=== PATIENT | female | born 1940 | race Caucasian/White ===

== ENCOUNTER 2020-09-27 12:21 | Outpatient (REF) | payer MEDICARE, SELFPAY ==
--- NOTE | 2020-09-27 | MM_ITS ---
EXAMINATION: MM SCREENING DIGITAL BREAST TOMOSYNTHESIS, BILATERAL CLINICAL INFORMATION: Remote right breast cancer status post lumpectomy 2004. Due for yearly exam. COMPARISON: Mammography: 08/20/2019, 08/02/2018, 07/31/2017, 07/12/2016, 06/23/2015 TECHNIQUE: Digital breast tomosynthesis is performed in both the craniocaudal and mediolateral oblique views along with computer-aided detection (CAD). Synthesized 2D images are generated from the tomosynthesis. Additional right exaggerated CC view is provided. FINDINGS: The breasts are heterogeneously dense, which may obscure small masses (ACR BI-RADS breast composition Category c). Right breast post therapy changes are again seen with mild reduced breast size and stable scarring. Neither breast shows interval mass or architectural abnormality or abnormal calcifications. There are bilateral vascular and some round calcifications. There are no significant changes from prior studies. MM/MM tomosynthesis screening BI IMPRESSION: No significant changes from prior studies. Post therapy changes right breast. ASSESSMENT: BI-RADS 2: Benign RECOMMENDATION: Routine annual mammography screening. This patient's information was entered into a reminder system with a target due date for their next mammogram.
== END 2020-09-27 12:22 | disposition home or self-care (01) ==
LOC: HO.MAMMO 12:21
PROVIDERS: PCP Internal Medicine Medical Oncology; Visit Provider Internal Medicine Medical Oncology
DX: Z12.31 Encounter for screening mammogram for malignant neoplasm of breast (principal)
CPT/HCPCS: 77063; 77067

== ENCOUNTER 2021-01-03 09:16 | Outpatient (REF) | payer MEDICARE, SELFPAY ==
[2021-01-03 13:45] LABS: MANUAL DIFF FLAG NO
[2021-01-03 13:58] LABS: Basophils Percent Auto 0.7 % (0-2); Eosinophils Absolute Auto 0.1 X10*3/uL (0.0-0.4); Hematocrit 48.2 % (37-47); Hemoglobin 15.6 g/dl (12.0-16.0); Imm Gran Abs Auto 0.03 X10*3/uL (0.00-0.03); Imm Gran Pct Auto 0.5 % (0.0-0.4); Lymphocytes Absolute Auto 0.9 X10*3/uL (1.2-4.9); Lymphocytes Percent Auto 15.9 % (20-40); Mean Corpuscular HGB Conc 32.4 g/dl (31.0-35.0); Mean Corpuscular Hemoglobin 31.6 pg (27.0-33.0); Mean Corpuscular Volume 97.6 fL (80-98); Mean Platelet Volume 10.4 fL (9.4-12.3); Monocytes Absolute Auto 0.7 X10*3/uL (0.1-1.2); Monocytes Percent Auto 11.5 % (2-11); Neutrophils Absolute Auto 4.1 X10*3/uL (2.0-8.3); Neutrophils Percent Auto 69.4 % (45-73); Platelet Count 187 X10*3/uL (160-400); Red Blood Count 4.94 X10*6/uL (4.20-5.50); Red Cell Distribution Width 14.3 % (11.0-16.0); White Blood Count 5.9 X10*3/uL (4.8-10.8)
[2021-01-03 14:08] LABS: Glucose Urine UA NEG (NEG); Leukocyte Esterase Urine NEG (NEG); Nitrite Urine NEG (NEG); Specific Gravity - Urine 1.025 (1.005-1.025); Urine Blood NEG (NEG); Urine Ketones NEG (NEG); Urine Protein NEG (NEG-TRACE)
[2021-01-03 14:18] LABS: Alanine Aminotransferase 13 U/L (0-31); Alkaline Phosphatase 72 U/L (39-117); Anion Gap 15 (12-20); Aspartate Amino Transferase 21 U/L (5-31); Blood Urea Nitrogen 19 mg/dL (9-16); Calcium 9.1 mg/dL (8.4-10.2); Carbon Dioxide 26 mmol/L (22-29); Chloride 105 mmol/L (96-108); Cholesterol 163 mg/dL; Estimated Glomerular Filt Rate > 60; Glucose Fasting 105 mg/dL (60-99); HDL Cholesterol 66 mg/dL; LDL Cholesterol Calculated 84 mg/dl; Potassium 4.4 mmol/L (3.3-5.1); Sodium 142 mmol/L (135-145); Total Protein 6.4 g/dL (6.5-8.0); Triglycerides 65 mg/dL
[2021-01-03 14:24] LABS: Appearance Urine CLEAR; Color Urine YELLOW
[2021-01-03 14:38] LABS: Free T4 (Free Thyroxine) 1.01 ng/dL (0.71-1.85); Thyroid Stimulating Hormone 4.35 uIU/mL (0.32-4.0)
== END 2021-01-03 09:17 | disposition home or self-care (01) ==
LOC: HO.10HDL 09:16
PROVIDERS: Visit Provider Internal Medicine Medical Oncology
DX: D05.10 Intraductal carcinoma in situ of unspecified breast (principal); E78.5 Hyperlipidemia, unspecified
CPT/HCPCS: 36415; 80053; 80061; 81003; 84439; 84443; 85025

== ENCOUNTER 2021-01-05 10:09 | Outpatient (REF) | payer MEDICARE, SELFPAY | END 2021-01-05 10:10 | disposition home or self-care (01) | LOC: HO.LAB 10:09 | PROVIDERS: Visit Provider Internal Medicine | DX: Z20.822 Contact with and (suspected) exposure to COVID-19 (principal) | CPT/HCPCS: 36415; C9803; U0003; U0005 ==

== ENCOUNTER 2021-04-12 10:26 | Emergency (ER) | payer MEDICARE, SELFPAY ==
--- NOTE | ~2021-04-12 | CT_ITS ---
EXAMINATION: CT ABDOMEN AND PELVIS WITH CONTRAST CLINICAL INFORMATION: Vomiting, confusion constipation. Evaluate for obstruction. COMPARISON: None TECHNIQUE: Multidetector volumetric images were obtained from the superior aspect of the liver through the pubic symphysis following administration 85 mL of Omnipaque 350 intravenous contrast. Sagittal and coronal reformatted images were obtained on the technologist's workstation. Oral contrast: Yes This CT examination was performed using dose optimization techniques as appropriate, variously including the following: *Automated exposure control *Adjustment of mA and/or kV according to patient size (this includes techniques or standardized protocols for targeted exams where dose is matched to indication/reason for exam; i.e. extremities or head) *Use of iterative reconstruction technique DLP: 383 mGy-cm FINDINGS: LUNG BASES: The visualized lung bases are unremarkable. LIVER, GALLBLADDER, AND BILIARY TREE: The liver is normal in size, shape, and attenuation. No focal hepatic lesion or biliary ductal dilatation is present. The gallbladder is upper normal in size. No gallstones are seen. PANCREAS: Unremarkable. SPLEEN: Unremarkable. ADRENAL GLANDS: Unremarkable. KIDNEYS AND URETERS: There is a small low-attenuation lesion in the upper pole left kidney measuring 6 mm probably representing a cyst. No hydronephrosis, hydroureter, or calculi seen. No perinephric stranding. BLADDER: Unremarkable. GASTROINTESTINAL TRACT: There is diverticulosis of the colon. There is long segment wall thickening of the left colon and sigmoid colon and some stranding of the surrounding fat. Colitis and diverticulitis should be considered small and large bowel is otherwise unremarkable. There is no evidence of obstruction. ABDOMINAL WALL: No significant hernia is appreciated. LYMPH NODES: Normal. VASCULAR: There is evidence of atherosclerotic disease. No aneurysm is seen. PELVIC VISCERA: The uterus may been removed. No pelvic mass is seen. OSSEOUS STRUCTURES: There is thoracolumbar scoliosis and degenerative changes of the spine CT/CT abdomen pelvis w con IMPRESSION: Diverticulosis of the colon. Long segment wall thickening of the left colon. Colitis and diverticulitis should be considered. Long segment distribution favors colitis. No evidence of obstruction. Upper normal-size gallbladder. No gallstones are seen.
[2021-04-12 10:43] VITALS: BP 152/81; PULSE 78; RESP 16; TEMP 36.8; O2SAT 97; BMI 22.4
[2021-04-12 11:38] LABS: MANUAL DIFF FLAG NO
[2021-04-12 11:43] LABS: Basophils Percent Auto 0.2 % (0-2); Hemoglobin 17.3 g/dl (12.0-16.0); Imm Gran Abs Auto 0.04 X10*3/uL (0.00-0.03); Imm Gran Pct Auto 0.4 % (0.0-0.4); Lymphocytes Absolute Auto 0.9 X10*3/uL (1.2-4.9); Lymphocytes Percent Auto 7.9 % (20-40); Mean Corpuscular HGB Conc 33.9 g/dl (31.0-35.0); Mean Corpuscular Hemoglobin 32.6 pg (27.0-33.0); Mean Corpuscular Volume 96.2 fL (80-98); Mean Platelet Volume 9.7 fL (9.4-12.3); Monocytes Absolute Auto 0.6 X10*3/uL (0.1-1.2); Monocytes Percent Auto 5.8 % (2-11); Neutrophils Absolute Auto 9.3 X10*3/uL (2.0-8.3); Neutrophils Percent Auto 85.7 % (45-73); Platelet Count 227 X10*3/uL (160-400); Red Cell Distribution Width 13.5 % (11.0-16.0); White Blood Count 10.8 X10*3/uL (4.8-10.8)
[2021-04-12 11:48] LABS: Glucose Urine UA NEG (NEG); Leukocyte Esterase Urine 1+ (NEG); Nitrite Urine NEG (NEG); Specific Gravity - Urine >= 1.030 (1.005-1.025); UACC Culture Trigger YES; Urine Blood 1+ (NEG); Urine Ketones 15 MG/DL (NEG); Urine Protein TRACE MG/DL (NEG-TRACE)
[2021-04-12 11:53] LABS: Appearance Urine HAZY; Color Urine YELLOW
[2021-04-12] MEDS: 0.9 % Sodium Chloride 500 ML 999 ML IV ×2 (11:58→14:11)
--- NOTE | 2021-04-12 11:58 | ED_ITS ---
HPI - Nausea/Vomiting/Diarrhea General Chief complaint: Nausea/Vomiting/Diarrhea Stated complaint: nauseous Time Seen by Provider: 04/12/21 11:31 Source: patient Mode of arrival: ambulatory Limitations: altered mental status History of Present Illness HPI Narrative: 80-year-old female with a past medical history of dementia here with complaints of multiple episodes of vomiting throughout the night. Patient is unable to give much of a detailed history of present illness due to her confusion. Per the son he witnessed her to have vomited several times last evening and again this morning. It was NBNB. he does not think she has had any abdominal pain. She tells me that she moved her bowels this morning and appeared normal but then changed her mind she could not recall her exact bowel movement. She denies any urinary symptoms, fevers, chills, cough, shortness breath, headache, dizziness. Again HPI is limited as well as review of systems as she does have baseline confusion MD elicited complaint: nausea and vomiting Associated nausea: Yes Related Data Previous Rx's Medication Instructions Recorded levofloxacin 500 mg PO DAILY 7 Days #7 tab 04/12/21 metronidazole [Flagyl] 500 mg PO TID #21 tab 04/12/21 ondansetron 4 mg PO Q6H PRN #10 tab 04/12/21 Allergies Allergy/AdvReac Type Severity Reaction Status Date / Time Penicillins [PENICILLINS] Allergy Unknown RASH Verified 04/12/21 10:33 Sulfa (Sulfonamide Allergy Unknown RASH Verified 04/12/21 10:33 Antibiotics) [SULFA (SULFONAMIDE ANTIBIOTICS)] Review of Systems Review of Systems: Yes Unobtainable due to mental status Gastrointestinal: Gastrointestinal: Reports nausea and Reports vomiting Neurologic: Denies Abnormal speech present [facility] Past Medical History Attestation statement: The following information was validated with the patient. Source: old records reviewed and nursing notes reviewed Medical History Alzheimer disease Social History Social History Patient Tobacco Use Status: Never used Tobacco Use of substances other than those prescribed or required for medical reasons: No Advance Directives: No Advance Directives Information Provided: No Physical Exam Vital Signs: Vital Signs: Last Vital Signs Temp 97.5 F 04/12/21 15:33 Pulse 81 04/12/21 15:33 Resp 18 04/12/21 15:33 BP 151/78 H 04/12/21 15:33 Pulse Ox 98 04/12/21 15:33 Body Mass Index 22.4 Const: General: cooperative, healthy appearing, comfortable and no acute distress Orientation/consciousness: oriented to person and oriented to place Limitations: no limitations HENMT: Head: Yes normal to inspection Ears: hearing grossly normal bilaterally General nose exam: Normal external nose present Face and sinus: Yes normal facial exam Mouth: Normal oral and palatal mucosa present Throat: Yes posterior oropharynx normal Eyes: General: appearance normal, both eyes and all related structures Pupils: Equal, round and reactive pupils present Neck: Neck: Yes normal visual inspection Chest: Chest palpation & inspection: normal inspection of the chest Resp: Effort & Inspection: normal respiratory effort Auscultation: clear to auscultation bilaterally Cardio: Rate: regular rate Rhythm: regular rhythm Peripheral pulses: Peripheral pulses 2+ throughout GI: Inspection: Yes normal to inspection Palpation (GI): Soft to palpation and nontender Auscultation: normal bowel sounds Back/Spine/Pelvis: Thoracic/Lumbar Spine: thoracic and lumbar spine normal to inspection Skin: General skin exam: no rashes or lesions noted Neuro: General: oriented to person, oriented to place, no focal motor deficits and normal sensation to monofilament Cranial nerves: Yes CN's II-XII intact bilaterally, Yes Equal, round and reactive pupils present, Yes Bilaterally intact EOM present, Yes Nystagmus not present, Yes Normal facial strength present and Yes Midline tongue present Cognition (Neuro): normal cognition Speech: No Abnormal speech present Gait exam (Neuro): Normal gait present Motor exam (neuro): 5/5 motor strength present throughout Sensory Exam: Nicolle l double simultaneous stimulation for sensation Coordination: [id number] test normal and [id number] test normal Extrem: General: Yes normal to inspection Course Course Course Narrative: 80-year-old female here with complaints of vomiting throughout the night. Patient has dimension so the exam in history of present illness is limited due to her confusion. Per the son she is at her baseline. Normal neuro exam. hemodynamically stable. Will check labs and urine sample. 1159- UA is consistent with a UTI. At this time infection suspected. Blood cultures and lactic acid have already been drawn. Antibiotics ordered. Will check CTA/ P to rule out pyelonephritis, renal colic or obstruction 1545- CT shows colitis but no other acute finding. Will attempt p.o. trial and if patient able to tolerate will discharge home with course of antibiotics 1620- patient ate 4 crackers and 8 oz of ruben valerie. no additional vomiting episodes and she feels well. Discussed with family and they are comfortable with her going home on oral antibiotics. Reviewed worrisome signs and symptoms such as fever, 2 or more vomiting episodes, abdominal pain and when to return to the emergency department. Comfortable discharge home. MDM - Nausea/Vomiting/Diarrhea MDM Narrative Medical decision making narrative: UTI, small-bowel obstruction, pyelonephritis Medical Records Attestation: I reviewed the patient's medical records. Lab Data Attestation: I reviewed the patient's lab results. Result diagrams: 04/12/21 11:29 04/12/21 13:24 Labs: Lab Results 04/12/21 04/12/21 04/12/21 Range/Units 11:29 11:29 12:02 WBC 10.8 (4.8-10.8) X10*3/uL RBC 5.30 (4.20-5.50) X10*6/uL Hgb 17.3 H (12.0-16.0) g/dl Hct 51.0 H (37-47) % MCV 96.2 (80-98) fL MCH 32.6 (27.0-33.0) pg MCHC 33.9 (31.0-35.0) g/dl RDW 13.5 (11.0-16.0) % Plt Count 227 (160-400) X10*3/uL MPV 9.7 (9.4-12.3) fL Immature Gran % (Auto) 0.4 (0.0-0.4) % Neut % (Auto) 85.7 H (45-73) % Lymph % (Auto) 7.9 L (20-40) % [place] % (Auto) 5.8 (2-11) % Eos % (Auto) 0.0 (0-4) % Baso % (Auto) 0.2 (0-2) % Lymph # (Auto) 0.9 L (1.2-4.9) X10*3/uL [place] # (Auto) 0.6 (0.1-1.2) X10*3/uL Eos # (Auto) 0.0 (0.0-0.4) X10*3/uL Baso # (Auto) 0.0 (0.0-0.2) X10*3/uL Abs Immat Gran (auto) 0.04 H (0.00-0.03) X10*3/uL Absolute Neuts (auto) 9.3 H (2.0-8.3) X10*3/uL Absolute Nucleated RBC 0.000 (0.0-0.012) X10*3/uL Nucleated RBC % (auto) 0.0 (0.0-0.2) /100WBC Sodium (135-145) mmol/L Potassium (3.3-5.1) mmol/L Chloride (96-108) mmol/L Carbon Dioxide (22-29) mmol/L Anion Gap (12-20) BUN (9-16) mg/dL Creatinine (0.5-1.4) mg/dL Estim Creat Clear Calc Estimated GFR Random Glucose (60-115) mg/dL Lactic Acid 1.4 (0.5-2.0) mmol/L Calcium (8.4-10.2) mg/dL Magnesium (1.6-2.6) mg/dL Total Bilirubin (0.0-1.0) mg/dL Direct Bilirubin (0.0-0.5) mg/dL AST (5-31) U/L ALT (0-31) U/L Alkaline Phosphatase (39-117) U/L Total Protein (6.5-8.0) g/dL Albumin (3.5-5.0) g/dL Lipase (8-78) U/L Urine Color YELLOW Urine Appearance HAZY Urine pH 6.0 (5.0-8.0) Ur Specific [place] >= 1.030 H (1.005-1.025) Urine Protein TRACE (NEG-TRACE) MG/DL Urine Glucose (UA) NEG (NEG) MG/DL Urine Ketones 15 (NEG) MG/DL Urine Blood 1+ H (NEG) Urine Nitrite NEG (NEG) Ur Leukocyte Esterase 1+ H (NEG) Urine RBC 0-2 (0) /HPF Urine WBC 1-4 (0-4) /HPF Ur Squamous Epith Cells TRACE /LPF Ur Renal Epithelial Cell 1+ /LPF Amorphous Sediment /LPF Urine Bacteria 1+ /LPF Hyaline Casts 0-2 /LPF Urine Mucus TRACE /LPF 04/12/21 04/12/21 Range/Units 13:24 15:37 WBC (4.8-10.8) X10*3/uL RBC (4.20-5.50) X10*6/uL Hgb (12.0-16.0) g/dl Hct (37-47) % MCV (80-98) fL MCH (27.0-33.0) pg MCHC (31.0-35.0) g/dl RDW (11.0-16.0) % Plt Count (160-400) X10*3/uL MPV (9.4-12.3) fL Immature Gran % (Auto) (0.0-0.4) % Neut % (Auto) (45-73) % Lymph % (Auto) (20-40) % [place] % (Auto) (2-11) % Eos % (Auto) (0-4) % Baso % (Auto) (0-2) % Lymph # (Auto) (1.2-4.9) X10*3/uL [place] # (Auto) (0.1-1.2) X10*3/uL Eos # (Auto) (0.0-0.4) X10*3/uL Baso # (Auto) (0.0-0.2) X10*3/uL Abs Immat Gran (auto) (0.00-0.03) X10*3/uL Absolute Neuts (auto) (2.0-8.3) X10*3/uL Absolute Nucleated RBC (0.0-0.012) X10*3/uL Nucleated RBC % (auto) (0.0-0.2) /100WBC Sodium 144 (135-145) mmol/L Potassium 3.3 D (3.3-5.1) mmol/L Chloride 111 H (96-108) mmol/L Carbon Dioxide 20 L (22-29) mmol/L Anion Gap 16 (12-20) BUN 14 (9-16) mg/dL Creatinine 0.86 (0.5-1.4) mg/dL Estim Creat Clear Calc 36.8 Estimated GFR > 60 Random Glucose 114 (60-115) mg/dL Lactic Acid (0.5-2.0) mmol/L Calcium 9.4 (8.4-10.2) mg/dL Magnesium 2.4 (1.6-2.6) mg/dL Total Bilirubin 0.5 (0.0-1.0) mg/dL Direct Bilirubin 0.3 (0.0-0.5) mg/dL AST 22 (5-31) U/L ALT 12 (0-31) U/L Alkaline Phosphatase 71 (39-117) U/L Total Protein 6.6 (6.5-8.0) g/dL Albumin 4.2 (3.5-5.0) g/dL Lipase < 4 L (8-78) U/L Urine Color YELLOW Urine Appearance CLEAR Urine pH 5.5 (5.0-8.0) Ur Specific [place] >= 1.030 H (1.005-1.025) Urine Protein TRACE (NEG-TRACE) MG/DL Urine Glucose (UA) NEG (NEG) MG/DL Urine Ketones 15 (NEG) MG/DL Urine Blood NEG (NEG) Urine Nitrite NEG (NEG) Ur Leukocyte Esterase TRACE H (NEG) Urine RBC 0 (0) /HPF Urine WBC 5-9 H (0-4) /HPF Ur Squamous Epith Cells 1+ /LPF Ur Renal Epithelial Cell /LPF Amorphous Sediment TRACE /LPF Urine Bacteria NONE /LPF Hyaline Casts /LPF Urine Mucus /LPF Imaging Data CT scan - abdomen: Attestation: I personally reviewed and interpreted this imaging study as follows: Radiologist's impression: IMPRESSION: Diverticulosis of the colon. Long segment wall thickening of the left colon. Colitis and diverticulitis should be considered. Long segment distribution favors colitis. No evidence of obstruction. Upper normal-size gallbladder. No gallstones are seen. Discharge Plan Discharge Clinical Impression: Colitis, Acute UTI Patient Disposition: Home, Self-Care Instructions: Colitis (ED), Urinary Tract Infection in Older Adults (ED) Additional Instructions: Start antibiotics tomorrow Increase fluids, rest Return for 2 or more vomiting episodes, fever >100.4, abdominal pain Prescriptions: New ondansetron 4 mg tablet,disintegrating 4 mg PO Q6H PRN (Reason: nausea and vomiting) Qty: 10 RF: 0 metronidazole [Flagyl] 500 mg tablet 500 mg PO TID Qty: 21 RF: 0 levofloxacin 500 mg tablet 500 mg PO DAILY 7 Days Qty: 7 RF: 0 Referrals: Mick Norwood MD [Primary Care Provider] - 2 days
[2021-04-12 12:02] LABS: Bacteria Urine 1+ /LPF; Hyaline Casts Urine 0-2 /LPF; Mucus Urine TRACE /LPF; RBC Urine 0-2 /HPF (0); Renal Epithelial Cells Urine 1+ /LPF; Squamous Epithelial Cell Urine TRACE /LPF
[2021-04-12 12:25] LABS: Lactic Acid 1.4 mmol/L (0.5-2.0)
[2021-04-12] MEDS: cefTRIAXone sodium 1 GM in 0.9 % Sodium Chloride 50 ML IV (13:15)
[2021-04-12 13:29] VITALS: BP 151/82; PULSE 82; RESP 16; O2SAT 100
--- NOTE | 2021-04-12 13:53 | PC.NURSE ---
PT REPORTS ANOTHER EPISODE OF NAUSEA. CONFUSED AT BASELINE, REQUIRES FREQUENT REMINDING AND REASSURANCE OF REASON FOR BEING HERE.
[2021-04-12 13:58] LABS: Alanine Aminotransferase 12 U/L (0-31); Albumin Level 4.2 g/dL (3.5-5.0); Alkaline Phosphatase 71 U/L (39-117); Anion Gap 16 (12-20); Aspartate Amino Transferase 22 U/L (5-31); Bilirubin Direct 0.3 mg/dL (0.0-0.5); Bilirubin Total 0.5 mg/dL (0.0-1.0); Blood Urea Nitrogen 14 mg/dL (9-16); Calcium 9.4 mg/dL (8.4-10.2); Carbon Dioxide 20 mmol/L (22-29); Chloride 111 mmol/L (96-108); Creatinine Clr Calc Pharmacy 36.8; Estimated Glomerular Filt Rate > 60; Glucose Random 114 mg/dL (60-115); Lipase < 4 U/L (8-78); Magnesium 2.4 mg/dL (1.6-2.6); Potassium 3.3 mmol/L (3.3-5.1); Sodium 144 mmol/L (135-145); Total Protein 6.6 g/dL (6.5-8.0)
[2021-04-12] MEDS: iohexoL 350 MG/ML 100 ML INFUS..BTL 85 ML IV (14:58)
[2021-04-12 15:33] VITALS: BP 151/78; PULSE 81; RESP 18; TEMP 36.4; O2SAT 98
[2021-04-12 15:46] LABS: Glucose Urine UA NEG (NEG); Leukocyte Esterase Urine TRACE (NEG); Nitrite Urine NEG (NEG); PH 5.5 (5.0-8.0); Specific Gravity - Urine >= 1.030 (1.005-1.025); UACC Culture Trigger YES; Urine Blood NEG (NEG); Urine Ketones 15 MG/DL (NEG); Urine Protein TRACE MG/DL (NEG-TRACE)
[2021-04-12 15:50] LABS: Appearance Urine CLEAR; Color Urine YELLOW
[2021-04-12 16:01] LABS: Amorphous Sediment Urine TRACE /LPF; RBC Urine 0 /HPF (0); Squamous Epithelial Cell Urine 1+ /LPF
== END 2021-04-12 16:34 | disposition home or self-care (01) ==
PROVIDERS: Nurse Practitioner Family; Emergency Provider Emergency Medicine Emergency Medical Services; PCP Internal Medicine Medical Oncology
DX: K52.9 Noninfective gastroenteritis and colitis, unspecified (principal); N39.0 Urinary tract infection, site not specified; B96.89 Other specified bacterial agents as the cause of diseases classified elsewhere; G30.9 Alzheimer's disease, unspecified; F02.80 Dementia in other diseases classified elsewhere, unspecified severity, without behavioral disturbance, psychotic disturbance, mood disturbance, and anxiety
CPT/HCPCS: 36415; 74177; 80048; 80076; 81001; 81003; 83605; 83690; 83735; 85025; 87040; 87076; 87185; 87205; 96360; 96361; 96365; 99284; J0696; Q9967

== ENCOUNTER 2021-04-14 15:58 | Inpatient (IN) | payer MEDICARE, SELFPAY ==
[2021-04-14 16:04] VITALS: BP 167/82; PULSE 71; RESP 18; TEMP 36.7; O2SAT 98; BMI 23.8
[2021-04-14 16:46] LABS: Hematocrit 45.1 % (37-47); Hemoglobin 15.3 g/dl (12.0-16.0); Mean Corpuscular HGB Conc 33.9 g/dl (31.0-35.0); Mean Corpuscular Hemoglobin 32.6 pg (27.0-33.0); Mean Corpuscular Volume 96.2 fL (80-98); Mean Platelet Volume 9.6 fL (9.4-12.3); Platelet Count 172 X10*3/uL (160-400); Red Blood Count 4.69 X10*6/uL (4.20-5.50); Red Cell Distribution Width 13.5 % (11.0-16.0); White Blood Count 6.6 X10*3/uL (4.8-10.8)
[2021-04-14 17:09] LABS: Anion Gap 17 (12-20); Blood Urea Nitrogen 17 mg/dL (9-16); Calcium 9.6 mg/dL (8.4-10.2); Carbon Dioxide 20 mmol/L (22-29); Chloride 106 mmol/L (96-108); Creatinine Clr Calc Pharmacy 37.1; Estimated Glomerular Filt Rate 57; Glucose Random 88 mg/dL (60-115); Potassium 3.2 mmol/L (3.3-5.1); Sodium 140 mmol/L (135-145)
--- NOTE | 2021-04-14 18:19 | ECG_ITS ---
Test Reason : ABD PAIN Blood Pressure : / mmHG Vent. Rate : 068 BPM Atrial Rate : 070 BPM P-R Int : 140 ms QRS Dur : 064 ms QT Int : 422 ms P-R-T Axes : 056 -07 031 degrees QTc Int : 448 ms Normal sinus rhythm with sinus arrhythmia Nonspecific ST abnormality consider digoxin effect Abnormal ECG When compared with ECG of 12-SEP-2007 13:38, No significant change was found Referred By: Yesy Beatty Electronically Signed By:FREDDIE AGUIAR MD
--- NOTE | 2021-04-14 18:39 | ED.GENADULT ---
HPI - General Adult General Chief complaint: Abdominal Pain Stated complaint: Abnormal labs Time Seen by Provider: 04/14/21 18:13 Source: patient and family ( ) Mode of arrival: ambulatory Limitations: no limitations History of Present Illness HPI narrative: patient is an 80-year-old female with past medical history of dementia who was evaluated in this ED 2 days ago and diagnosed with a UTI and sent home on p.o. Levaquin and Flagyl. her blood cultures resulted in 1/2 positive for Clostridium Paraputrificum so she was told to come in to be admitted for IV antibiotics. she states she has been taking the Levaquin and Flagyl as prescribed since then but she is still nauseous and vomiting several times daily and feels fatigued. She denies any fever, chills, chest pain, shortness of breath, headache or dizziness. Related Data Home Medications Medication Instructions Recorded Confirmed levothyroxine 1 tab PO QAM 04/14/21 04/14/21 simvastatin 1 tab PO BEDTIME 04/14/21 04/14/21 Previous Rx's Medication Instructions Recorded levofloxacin 500 mg PO DAILY 7 Days #7 tab 04/12/21 metronidazole [Flagyl] 500 mg PO TID #21 tab 04/12/21 ondansetron 4 mg PO Q6H PRN #10 tab 04/12/21 Allergies Allergy/AdvReac Type Severity Reaction Status Date / Time Penicillins [PENICILLINS] Allergy Unknown RASH Verified 04/12/21 10:33 Sulfa (Sulfonamide Allergy Unknown RASH Verified 04/12/21 10:33 Antibiotics) [SULFA (SULFONAMIDE ANTIBIOTICS)] Review of Systems Review of Systems: Yes all other systems are reviewed and are negative [facility] Past Medical History Medical History Alzheimer disease Social History Social History Patient Tobacco Use Status: Never used Tobacco Advance Directives: No Advance Directives Information Provided: Yes Physical Exam Vital Signs: Vital Signs: Last Vital Signs Temp 98.4 F 04/14/21 20:00 Pulse 72 04/14/21 22:00 Resp 16 04/14/21 22:00 BP 177/88 H 04/14/21 22:00 Pulse Ox 97 04/14/21 22:00 Body Mass Index 23.8 Const: General: cooperative, healthy appearing, comfortable and no acute distress Nutritional Appearance: thin Orientation/consciousness: patient oriented x3 HENMT: Head: Yes normal to inspection, Yes No palpable skull fracture present, Yes normocephalic and Yes atraumatic Eyes: General: appearance normal, both eyes and all related structures Resp: Effort & Inspection: normal respiratory effort and able to speak in complete sentences Auscultation: clear to auscultation bilaterally Cardio: Rate: regular rate Rhythm: regular rhythm Heart sounds: normal S1 and S2 Skin: General skin exam: no rashes or lesions noted Neuro: General: patient oriented x3 Extrem: General: Yes normal to inspection and Yes no pedal edema Course Course Course Narrative: patient is an 80-year-old female with past medical history of dementia who was evaluated in this ED 2 days ago and diagnosed with a UTI and sent home on p.o. Levaquin and Flagyl. her blood cultures resulted in 1/2 positive for Clostridium Paraputrificum so she was told to come in to be admitted for IV antibiotics. Patient has had continuous nausea and vomitings since she left this ED. VSS sans slightly elevated blood pressure at 167/82. Will get repeat blood cultures, additional urinalysis with culture as the previous 1 could not be cultured, regular labs and EKG and plan for admission. Medical Decision Making Lab Data Lab results reviewed: Yes I reviewed the patient's lab results. Result diagrams: 04/14/21 16:42 04/14/21 16:42 Labs: Lab Results 04/14/21 04/14/21 04/14/21 Range/Units 16:42 16:42 19:36 WBC 6.6 Cancelled (4.8-10.8) X10*3/uL RBC 4.69 Cancelled (4.20-5.50) X10*6/uL Hgb 15.3 Cancelled (12.0-16.0) g/dl Hct 45.1 Cancelled (37-47) % MCV 96.2 Cancelled (80-98) fL MCH 32.6 Cancelled (27.0-33.0) pg MCHC 33.9 Cancelled (31.0-35.0) g/dl RDW 13.5 Cancelled (11.0-16.0) % Plt Count 172 Cancelled (160-400) X10*3/uL MPV 9.6 Cancelled (9.4-12.3) fL Immature Gran % (Auto) Cancelled Neut % (Auto) Cancelled Lymph % (Auto) Cancelled [place] % (Auto) Cancelled Eos % (Auto) Cancelled Baso % (Auto) Cancelled Lymph # (Auto) Cancelled [place] # (Auto) Cancelled Eos # (Auto) Cancelled Baso # (Auto) Cancelled Abs Immat Gran (auto) Cancelled Absolute Neuts (auto) Cancelled Absolute Nucleated RBC 0.000 Cancelled (0.0-0.012) X10*3/uL Nucleated RBC % (auto) 0.0 Cancelled (0.0-0.2) /100WBC Sodium 140 (135-145) mmol/L Potassium 3.2 L (3.3-5.1) mmol/L Chloride 106 (96-108) mmol/L Carbon Dioxide 20 L (22-29) mmol/L Anion Gap 17 (12-20) BUN 17 H (9-16) mg/dL Creatinine 0.94 (0.5-1.4) mg/dL Estim Creat Clear Calc 37.1 Estimated GFR 57 Random Glucose 88 (60-115) mg/dL Calcium 9.6 (8.4-10.2) mg/dL Urine Color Urine Appearance Urine pH (5.0-8.0) Ur Specific [place] (1.005-1.025) Urine Protein (NEG-TRACE) MG/DL Urine Glucose (UA) (NEG) MG/DL Urine Ketones (NEG) MG/DL Urine Blood (NEG) Urine Nitrite (NEG) Ur Leukocyte Esterase (NEG) 04/14/21 04/14/21 Range/Units 19:36 19:36 WBC (4.8-10.8) X10*3/uL RBC (4.20-5.50) X10*6/uL Hgb (12.0-16.0) g/dl Hct (37-47) % MCV (80-98) fL MCH (27.0-33.0) pg MCHC (31.0-35.0) g/dl RDW (11.0-16.0) % Plt Count (160-400) X10*3/uL MPV (9.4-12.3) fL Immature Gran % (Auto) Neut % (Auto) Lymph % (Auto) [place] % (Auto) Eos % (Auto) Baso % (Auto) Lymph # (Auto) [place] # (Auto) Eos # (Auto) Baso # (Auto) Abs Immat Gran (auto) Absolute Neuts (auto) Absolute Nucleated RBC (0.0-0.012) X10*3/uL Nucleated RBC % (auto) (0.0-0.2) /100WBC Sodium Cancelled (135-145) mmol/L Potassium Cancelled (3.3-5.1) mmol/L Chloride Cancelled (96-108) mmol/L Carbon Dioxide Cancelled (22-29) mmol/L Anion Gap Cancelled (12-20) BUN Cancelled (9-16) mg/dL Creatinine Cancelled (0.5-1.4) mg/dL Estim Creat Clear Calc Cancelled Estimated GFR Cancelled Random Glucose Cancelled (60-115) mg/dL Calcium Cancelled (8.4-10.2) mg/dL Urine Color DARK YELLOW Urine Appearance CLEAR Urine pH 6.0 (5.0-8.0) Ur Specific [place] >= 1.030 H (1.005-1.025) Urine Protein NEG (NEG-TRACE) MG/DL Urine Glucose (UA) NEG (NEG) MG/DL Urine Ketones 40 (NEG) MG/DL Urine Blood NEG (NEG) Urine Nitrite NEG (NEG) Ur Leukocyte Esterase NEG (NEG) ECG Data Attestation: I personally reviewed and interpreted this ECG as follows: Interpretation: [address] [id number] ReportDraft Patient: Sekou Drake#: [id number]: [id number]/Sex: 80 / FADM Date: 04/14/21Loc: [address] Dr: Ordering Physician: Yesy Beatty PA-C Date of Service: 04/14/21 Procedure(s): ECG 12 lead EKG Accession Number(s): [id number] cc: ~ Test Reason : ABD PAIN Blood Pressure : / mmHG Vent. Rate : 068 BPM Atrial Rate : 070 BPM P-R Int : 140 ms QRS Dur : 064 ms QT Int : 422 ms P-R-T Axes : 056 -07 031 degrees QTc Int : 448 ms Normal sinus rhythm with sinus arrhythmia Nonspecific ST abnormality Abnormal ECG When compared with ECG of 12-SEP-2007 13:38, No significant change was found Referred By: Yesy Beatty Electronically Signed By: Dictated By:Signed By: DD/ [id number]/TT: 04/14/21 183Transcriptionist: Discharge Plan Discharge Clinical Impression: UTI (urinary tract infection), Bacteremia Patient Disposition: Admitted As Inpatient Interventions: Admission Worksheet (ED) Last Done: 04/14/21 23:52 Discharge Date/Time: 04/15/21 00:12
[2021-04-14 19:38] VITALS: BP 198/93; PULSE 68; RESP 18; TEMP 36.6; O2SAT 96
--- NOTE | 2021-04-14 19:40 | PHA.MEDREC ---
Pharmacy Consult ? Medication Reconciliation Pharmacy has completed the medication reconciliation.
[2021-04-14 19:54] LABS: Glucose Urine UA NEG (NEG); Leukocyte Esterase Urine NEG (NEG); Nitrite Urine NEG (NEG); Specific Gravity - Urine >= 1.030 (1.005-1.025); Urine Blood NEG (NEG); Urine Ketones 40 MG/DL (NEG); Urine Protein NEG (NEG-TRACE)
[2021-04-14 19:55] LABS: Appearance Urine CLEAR; Color Urine DARK YELLOW
[2021-04-14 20:00] VITALS: BP 203/96; PULSE 67; RESP 16; TEMP 36.9; O2SAT 97
[2021-04-14] MEDS: Clindamycin Phosphate/D5W 900 MG/50 ML PIGGYBACK 50 MG IV (20:27)
--- NOTE | 2021-04-14 20:36 | PC.NURSE ---
hospitalist present and verbal to not give the LR ivf. pt bp elevated and provider is aware. pt has nausea no vomiting. pt son left and pt may be feeling nervouse at this time. pt has dementia and is repeating questions in a pleasant way.
[2021-04-14 21:25] VITALS: BP 178/95; PULSE 61; RESP 16; O2SAT 97
[2021-04-14 22:00] VITALS: BP 177/88; PULSE 72; RESP 16; O2SAT 97
[2021-04-14 22:45] LABS: COVID-19 Test Negative (Negative)
[2021-04-15] VITALS (7 sets, daily range): BP systolic 135–186; BP diastolic 78–97; PULSE 63–117; RESP 16–18; TEMP 36.1–36.9; O2SAT 95–97
[2021-04-15] MEDS: ondansetron HCL 4 MG/2 ML VIAL IVPUSH ×2 (00:39→09:14)
[2021-04-15] MEDS: 0.9 % Sodium Chloride Flush 3 ML SYRINGE IVFLUSH ×2 (00:39→07:19)
[2021-04-15] MEDS: Levothyroxine Sodium 50 MCG TABLET PO (05:08)
--- NOTE | 2021-04-15 05:51 | P.HPHOSP_ITS ---
History of Present Illness Date of Service: 04/14/21 Chief Complaint: bacteremic this is a 80-year-old female with past medical history of Alzheimer's disease, hypothyroidism, who is brought back to the hospital by her son after being called back to the ED for positive blood cultures. patient [facility] to the [facility] on 04/12 was treated for cellulitis as well as colitisin the ED and sent home with levofloxacin and Flagyl. Patient has dementia but able to give some meaningful history. Reports that she no longer has any urinary symptoms, and does not have any abdominal pain. I called the son, reports that his mother had nausea and vomiting for the past 2 days ever since coming home from the hospital, low appetite, still feels weak. She lives alone. Patient otherwise denies all other review of system. On arrival to the ED hemodynamically stable with no significant abnormal vitals Labs are significant for WBC count of 6.6, potassium of 3.2, BUN of 17, UA that is no longer positive for any leukocyte esterase or WBC blood cultures drawn on 04/12 show Gram-negative rods 1/2 sets positive, organism identified as Clostridium paraputrificum patient was given 1 dose of clindamycin in the ED given patient's nausea and vomiting, and inability to keep p.o. down will admit her for IV antibiotics Review of Systems Review of Systems: Yes all other systems are reviewed and are negative [facility] Medical History (Updated 04/15/21 @ 05:58 by Andres Rosales MD) Alzheimer disease Colitis Hypothyroidism Social History Household Members: Family Housing: House Do you presently have visiting nurse or other home services: No Patient Tobacco Use Status: Never used Tobacco Second Hand Smoke Exposure: No Use of substances other than those prescribed or required for medical reasons: No Any prior treatment program specific to substance use: No Have you been hit, kicked, punched, or otherwise hurt by someone within the past year? If so, by whom?: No Do you feel safe in your current relationship?: No Is there a partner from a previous relationship who is making you feel unsafe now?: No Advance Directives: No Advance Directives Information Provided: Yes Advance Directives on File: No Do you have thoughts of harming others: None Do you have a plan to hurt others: No Plan Recently lost weight without trying: No Nutrition Risks: No Nutritional Risk Patient : No : No Poor oral hygiene: No Meds Allergies Allergy/AdvReac Type Severity Reaction Status Date / Time Penicillins [PENICILLINS] Allergy Unknown RASH Verified 04/12/21 10:33 Sulfa (Sulfonamide Allergy Unknown RASH Verified 04/12/21 10:33 Antibiotics) [SULFA (SULFONAMIDE ANTIBIOTICS)] Active Medications: Current Medications Generic Name Dose Route Start Last Admin Trade Name Freq PRN Reason Stop Dose Admin Acetaminophen 650 mg 04/14/21 23:53 Acetaminophen 325 Mg Tablet PO Q6H PRN Pain, Mild (Pain Scale 1-3) Atorvastatin Calcium 10 mg 04/15/21 21:00 Atorvastatin Calcium 10 Mg Tablet PO BEDTIME [facility] Docusate Sodium 100 mg 04/14/21 23:53 Docusate Sodium 100 Mg Capsule PO DAILY PRN Constipation Heparin Sodium (Porcine) 5,000 unit 04/15/21 09:00 Heparin Sodium,Porcine 5,000 Unit/Ml Vial SUBCUT Q12H [facility] Levothyroxine Sodium 50 mcg 04/15/21 06:00 04/15/21 05:08 Levothyroxine Sodium 50 Mcg Tablet PO 50 mcg DAILY@0600 [facility] Administration Metronidazole 500 mg 04/15/21 09:00 Metronidazole 500 Mg Tablet PO TID [facility] Ondansetron HCl 4 mg 04/14/21 23:53 04/15/21 00:39 Ondansetron Hcl 4 Mg/2 Ml Vial IVPUSH 4 mg Q8H PRN Administration Nausea and Vomiting Pharmacy Consult 1 each 04/14/21 19:29 Consult Rx Perform Med Rec MISCELLANE ONCE PRN Consult order Sodium Chloride 3 ml 04/15/21 00:00 04/15/21 00:39 0.9 % Sodium Chloride Flush 3 Ml Syringe IVFLUSH 3 ml QSHIFT [facility] Administration Home Medications Medication Instructions Recorded Confirmed Last Taken Type levothyroxine 1 tab PO QAM 04/14/21 04/14/21 04/13/21 History simvastatin 1 tab PO BEDTIME 04/14/21 04/14/21 04/13/21 History Physical Exam Vital Signs and Narrative: Vital Signs: Last Vital Signs Temp 96.9 F 04/15/21 03:30 Pulse 75 04/15/21 03:30 Resp 16 04/15/21 03:30 BP 186/97 H 04/15/21 03:30 Pulse Ox 97 04/15/21 03:30 Body Mass Index 23.8 patient appears in no distress, very pleasant, answers questions appropriately Const: General: cooperative and no acute distress Eyes: General: appearance normal, both eyes and all related structures Resp: Effort & Inspection: normal respiratory effort and able to speak in complete sentences Cardio: Rate: regular rate Rhythm: regular rhythm GI: Other: no abdominal tenderness Palpation (GI): Soft to palpation Auscultation: normal bowel sounds Skin: General skin exam: no rashes or lesions noted Neuro: Cognition (Neuro): normal cognition Extrem: General: Yes normal to inspection and Yes no pedal edema Results Labs CBC and Chem 7: 04/14/21 16:42 04/14/21 16:42 Labs: Laboratory Results - last 24 hr 04/14/21 04/14/21 04/14/21 16:42 16:42 19:36 MCV 96.2 Cancelled MCH 32.6 Cancelled MCHC 33.9 Cancelled RDW 13.5 Cancelled Plt Count 172 Cancelled MPV 9.6 Cancelled Immature Gran % (Auto) Cancelled Neut % (Auto) Cancelled Lymph % (Auto) Cancelled [place] % (Auto) Cancelled Eos % (Auto) Cancelled Baso % (Auto) Cancelled Lymph # (Auto) Cancelled [place] # (Auto) Cancelled Eos # (Auto) Cancelled Baso # (Auto) Cancelled Abs Immat Gran (auto) Cancelled Absolute Neuts (auto) Cancelled Absolute Nucleated RBC 0.000 Cancelled Nucleated RBC % (auto) 0.0 Cancelled Anion Gap 17 Estim Creat Clear Calc 37.1 Estimated GFR 57 Random Glucose 88 Calcium 9.6 Urine Color Urine Appearance Urine pH Ur Specific [place] Urine Protein Urine Glucose (UA) Urine Ketones Urine Blood Urine Nitrite Ur Leukocyte Esterase COVID-19 (ECHO) COVID-19 Clin Com 04/14/21 04/14/21 04/14/21 19:36 19:36 22:23 MCV MCH MCHC RDW Plt Count MPV Immature Gran % (Auto) Neut % (Auto) Lymph % (Auto) [place] % (Auto) Eos % (Auto) Baso % (Auto) Lymph # (Auto) [place] # (Auto) Eos # (Auto) Baso # (Auto) Abs Immat Gran (auto) Absolute Neuts (auto) Absolute Nucleated RBC Nucleated RBC % (auto) Anion Gap Cancelled Estim Creat Clear Calc Cancelled Estimated GFR Cancelled Random Glucose Cancelled Calcium Cancelled Urine Color DARK YELLOW Urine Appearance CLEAR Urine pH 6.0 Ur Specific [place] >= 1.030 H Urine Protein NEG Urine Glucose (UA) NEG Urine Ketones 40 Urine Blood NEG Urine Nitrite NEG Ur Leukocyte Esterase NEG COVID-19 (ECHO) Negative COVID-19 Clin Com See Note Assessment and Plan (1) Bacteremia: Status: Acute (2) UTI (urinary tract infection): Status: Acute (3) Colitis: Status: Inactive 80-year-old female with past medical history of hypothyroidism who presents the hospital after being called back to the ED for positive blood cultures. Patient was seen in the hospital on 04/12 for abdominal pain, found to have acute UTI as well as colitis. Was sent home on levofloxacin and Flagyl, comes back today because cultures were positive and showed Gram-negative rods and Clostridium para organisms. Patient has been having nausea vomiting and therefore will be admitted for IV antibiotics # bacteremia - most likely source is GI - patient's with nausea vomiting - allergic to penicillins - will switch her antibiotics to levofloxacin and Flagyl by IV - repeat cultures - infectious disease consulted # colitis - has nausea or vomiting with abdominal pain improving - will continue levofloxacin and Flagyl # UTI - resolution of symptoms - afebrile, no leukocytosis - IV antibiotics as above # hypothyroidism - continue levothyroxine DVT prophylaxis: Heparin subQ Quality Stroke Does the patient have a stroke diagnosis?: No VTE Prior VTE?: No VTE Risk Level:: Medical - moderate - high VTE Device Contraindication: Treatment Not Indicated VTE Drug Contraindication: N/A - Med Ordered
[2021-04-15 06:13] LABS: MANUAL DIFF FLAG NO
[2021-04-15] MEDS: metroNIDAZOLE/NS 500 MG/100 ML PIGGYBACK 100 MG IV ×3 (06:19→21:00)
[2021-04-15 06:21] LABS: Basophils Percent Auto 0.5 % (0-2); Eosinophils Absolute Auto 0.1 X10*3/uL (0.0-0.4); Hematocrit 45.3 % (37-47); Hemoglobin 15.5 g/dl (12.0-16.0); Imm Gran Abs Auto 0.02 X10*3/uL (0.00-0.03); Imm Gran Pct Auto 0.3 % (0.0-0.4); Lymphocytes Percent Auto 14.7 % (20-40); Mean Corpuscular HGB Conc 34.2 g/dl (31.0-35.0); Mean Corpuscular Hemoglobin 32.7 pg (27.0-33.0); Mean Corpuscular Volume 95.6 fL (80-98); Mean Platelet Volume 9.8 fL (9.4-12.3); Monocytes Absolute Auto 0.6 X10*3/uL (0.1-1.2); Neutrophils Absolute Auto 4.9 X10*3/uL (2.0-8.3); Neutrophils Percent Auto 73.5 % (45-73); Platelet Count 167 X10*3/uL (160-400); Red Blood Count 4.74 X10*6/uL (4.20-5.50); Red Cell Distribution Width 13.3 % (11.0-16.0); White Blood Count 6.6 X10*3/uL (4.8-10.8)
[2021-04-15 07:15] LABS: Anion Gap 14 (12-20); Blood Urea Nitrogen 13 mg/dL (9-16); Carbon Dioxide 22 mmol/L (22-29); Chloride 106 mmol/L (96-108); Creatinine Clr Calc Pharmacy 42.5; Estimated Glomerular Filt Rate > 60; Glucose Random 82 mg/dL (60-115); Potassium 3.2 mmol/L (3.3-5.1); Sodium 139 mmol/L (135-145)
[2021-04-15] MEDS: levoFLOXacin/D5W 750 MG/150 ML PIGGYBACK 100 MG IV (07:17)
[2021-04-15] MEDS: Heparin Sodium,Porcine 5,000 UNIT/ML VIAL 5000 UNIT SUBCUT ×2 (09:17→21:00)
[2021-04-15] MEDS: Potassium Chloride Packet 20 MEQ PACKET 40 MEQ PO (09:18)
--- NOTE | 2021-04-15 10:24 | HO.PM.IMPN ---
Subjective Subjective Date of Service: 04/15/21 Interval History: the patient was seen and evaluated this morning Laying in bed, complaining of nausea mainly with decreased oral intake Denies any fever, chills or shortness of breath No reported other overnight events. Systemic review: No fever, chills or weakness No chest pain, palpitation No shortness of breath or coughing No abdominal pain, but having nausea No urinary symptoms No any rash or wounds a Physical Exam Vital Signs: Vital Signs: Last Vital Signs Temp 96.9 F 04/15/21 07:36 Pulse 109 H 04/15/21 07:36 Resp 18 04/15/21 07:36 BP 149/89 H 04/15/21 07:36 Pulse Ox 95 04/15/21 07:36 Body Mass Index 23.8 Const: Other: Constitutional : Alert, oriented, not in distress Neck : Normal inspection, Supple Cardiovascular : RRR, S1 S2, no lower extremity edema Respiratory : Good bilateral air entry, no crackles, wheezes or rhonchi Gastrointestinal: soft, lax, Normal bowel sounds, mild tenderness with deep palpation in the left side Skin : Warm/Dry, No rash Neurological : Alert & oriented x3, No focal deficit Objective Data Current Medications Generic Name Dose Route Start Last Admin Trade Name Freq PRN Reason Stop Dose Admin Acetaminophen 650 mg 04/14/21 23:53 Acetaminophen 325 Mg Tablet PO Q6H PRN Pain, Mild (Pain Scale 1-3) Atorvastatin Calcium 10 mg 04/15/21 21:00 Atorvastatin Calcium 10 Mg Tablet PO BEDTIME [facility] Docusate Sodium 100 mg 04/14/21 23:53 Docusate Sodium 100 Mg Capsule PO DAILY PRN Constipation Heparin Sodium (Porcine) 5,000 unit 04/15/21 09:00 04/15/21 09:17 Heparin Sodium,Porcine 5,000 Unit/Ml Vial SUBCUT 5,000 unit Q12H [facility] Administration Levofloxacin 750 mg in 150 mls @ 100 mls/hr 04/15/21 06:15 04/15/21 09:00 Levaquin IV Infused Q48H [facility] Infusion Metronidazole 500 mg in 100 mls @ 100 mls/hr 04/15/21 14:00 Flagyl IV Q8H [facility] Dextrose/Lactated Ringer's 1,000 mls @ 80 mls/hr 04/15/21 09:45 D5lr IVCONT .[id number] [facility] Levothyroxine Sodium 50 mcg 04/15/21 06:00 04/15/21 05:08 Levothyroxine Sodium 50 Mcg Tablet PO 50 mcg DAILY@0600 [facility] Administration Ondansetron HCl 4 mg 04/14/21 23:53 04/15/21 09:14 Ondansetron Hcl 4 Mg/2 Ml Vial IVPUSH 4 mg Q8H PRN Administration Nausea and Vomiting Pharmacy Consult 1 each 04/14/21 19:29 Consult Rx Perform Med Rec MISCELLANE ONCE PRN Consult order Sodium Chloride 3 ml 04/15/21 00:00 04/15/21 07:19 0.9 % Sodium Chloride Flush 3 Ml Syringe IVFLUSH 3 ml QSHIFT [facility] Administration Labs CBC & Chem 7: 04/15/21 05:56 04/15/21 05:56 Labs: Laboratory Results - last 24 hr 04/14/21 04/14/21 04/14/21 16:42 16:42 19:36 WBC 6.6 Cancelled RBC 4.69 Cancelled Hgb 15.3 Cancelled Hct 45.1 Cancelled MCV 96.2 Cancelled MCH 32.6 Cancelled MCHC 33.9 Cancelled RDW 13.5 Cancelled Plt Count 172 Cancelled MPV 9.6 Cancelled Immature Gran % (Auto) Cancelled Neut % (Auto) Cancelled Lymph % (Auto) Cancelled [place] % (Auto) Cancelled Eos % (Auto) Cancelled Baso % (Auto) Cancelled Lymph # (Auto) Cancelled [place] # (Auto) Cancelled Eos # (Auto) Cancelled Baso # (Auto) Cancelled Abs Immat Gran (auto) Cancelled Absolute Neuts (auto) Cancelled Absolute Nucleated RBC 0.000 Cancelled Nucleated RBC % (auto) 0.0 Cancelled Sodium 140 Potassium 3.2 L Chloride 106 Carbon Dioxide 20 L Anion Gap 17 BUN 17 H Creatinine 0.94 Estim Creat Clear Calc 37.1 Estimated GFR 57 Random Glucose 88 Calcium 9.6 Urine Color Urine Appearance Urine pH Ur Specific [place] Urine Protein Urine Glucose (UA) Urine Ketones Urine Blood Urine Nitrite Ur Leukocyte Esterase COVID-19 (ECHO) COVID-19 Clin Com 04/14/21 04/14/21 04/14/21 19:36 19:36 22:23 WBC RBC Hgb Hct MCV MCH MCHC RDW Plt Count MPV Immature Gran % (Auto) Neut % (Auto) Lymph % (Auto) [place] % (Auto) Eos % (Auto) Baso % (Auto) Lymph # (Auto) [place] # (Auto) Eos # (Auto) Baso # (Auto) Abs Immat Gran (auto) Absolute Neuts (auto) Absolute Nucleated RBC Nucleated RBC % (auto) Sodium Cancelled Potassium Cancelled Chloride Cancelled Carbon Dioxide Cancelled Anion Gap Cancelled BUN Cancelled Creatinine Cancelled Estim Creat Clear Calc Cancelled Estimated GFR Cancelled Random Glucose Cancelled Calcium Cancelled Urine Color DARK YELLOW Urine Appearance CLEAR Urine pH 6.0 Ur Specific [place] >= 1.030 H Urine Protein NEG Urine Glucose (UA) NEG Urine Ketones 40 Urine Blood NEG Urine Nitrite NEG Ur Leukocyte Esterase NEG COVID-19 (ECHO) Negative COVID-19 Clin Com See Note 04/15/21 04/15/21 05:56 05:56 WBC 6.6 RBC 4.74 Hgb 15.5 Hct 45.3 MCV 95.6 MCH 32.7 MCHC 34.2 RDW 13.3 Plt Count 167 MPV 9.8 Immature Gran % (Auto) 0.3 Neut % (Auto) 73.5 H Lymph % (Auto) 14.7 L [place] % (Auto) 9.0 Eos % (Auto) 2.0 Baso % (Auto) 0.5 Lymph # (Auto) 1.0 L [place] # (Auto) 0.6 Eos # (Auto) 0.1 Baso # (Auto) 0.0 Abs Immat Gran (auto) 0.02 Absolute Neuts (auto) 4.9 Absolute Nucleated RBC 0.000 Nucleated RBC % (auto) 0.0 Sodium 139 Potassium 3.2 L Chloride 106 Carbon Dioxide 22 Anion Gap 14 BUN 13 Creatinine 0.82 Estim Creat Clear Calc 42.5 Estimated GFR > 60 Random Glucose 82 Calcium 9.0 D Urine Color Urine Appearance Urine pH Ur Specific [place] Urine Protein Urine Glucose (UA) Urine Ketones Urine Blood Urine Nitrite Ur Leukocyte Esterase COVID-19 (ECHO) COVID-19 Clin Com Quality Stroke Does the patient have a stroke diagnosis?: No VTE Prior VTE?: No VTE Risk Level:: Medical - moderate - high VTE Device Contraindication: Treatment Not Indicated VTE Drug Contraindication: N/A - Med Ordered Assessment and Plan (1) Bacteremia: Status: Acute (2) UTI (urinary tract infection): Status: Acute (3) Colitis: Status: Inactive Assessment and Plan: 80-year-old female with past medical history of hypothyroidism who presents the hospital after being called back to the ED for positive blood cultures. Patient was seen in the hospital on 04/12 for abdominal pain, found to have acute UTI as well as colitis. Was sent home on levofloxacin and Flagyl, comes back today because cultures were positive and showed Gram-negative rods and Clostridium para organisms. Patient has been having nausea vomiting and therefore will be admitted for IV antibiotics # Clostridium bacteremia 2/[address] scan from 629 showing findings of colitis continue levofloxacin and Flagyl by IV pending repeat cultures infectious disease consulted # colitis seems to be infection was in origin start gentle hydration Nausea medication continue levofloxacin and Flagyl Advanced diet as tolerated # UTI resolution of symptoms # hypothyroidism continue levothyroxine DVT prophylaxis Heparin subQ
[2021-04-15] MEDS: Dextrose 5 % and Lactated Ring 1,000 ML 80 ML IVCONT (11:47)
--- NOTE | 2021-04-15 12:19 | P.CDIC_ITS ---
CDI Concurrent Query Service Date: 04/16/21 Documentation Clarification: Please clarify if you are treating a proba ble/suspected/likely or confirmed: Hypokalemia No Hypokalemia Provider Response: Other Other Diagnosis: hypokalemia PLEASE DO NOT DELETE/MODIFY EXISTING CONTENT Additional information is needed in order to code to the highest accuracy and appropriate Severity of Illness (SOI). Please clarify the information noted below in your progress notes and discharge summary. Risk Factors/Clinical Indicators/Treatments Nausea, vomiting, diarrhea, abdominal pain. Diagnosed with UTI 2 days ago and returned for treatment of positive blood culture Potassium 3.2 Treated with Klor Con 40 mEq po once CDS: Rosalinda Guzman RN Contact Number: [phone] Please Review the information above and exercise your independent professional judgment in responding to the query. If you concur, pleas document in the PROGRESS NOTES and DISCHARGE SUMMARY. If you do not agree with the query, please document in the query above. THIS QUERY IS PART OF THE PERMANENT MEDICAL RECORD
--- NOTE | 2021-04-15 12:35 | MHC.CM.PN ---
PER PHYSICIAN ROUNDS, PATIENT TO REMAIN TWO MORE DAYS ON IV ABX WITH ANTICIPATED DC TO HOME ON PO. CASE MANAGEMENT FOLLOWING.
--- NOTE | 2021-04-15 14:41 | MHC.CM.PN ---
PATIENT LIVES WITH HER SON. SHE USES NO DME FOR AMBULATION. SON DRIVES FOR MAJORITY OF TIME, BUT PATIENT IS ABLE OT DRIVE TO THE [facility] AND [facility]. SHE HAS NO [facility] OR [facility]. HCP ON FILE AND PRINTED OUT FOR CHART. HCP HUI [phone]. CASE MANAGEMENT FOLLOWING FOR DISCHARGE PLANS. IMM 04/15 IN CHART.
--- NOTE | 2021-04-15 16:00 | W.PM.IDCN ---
History of Present Illness Data of Consult Service Date: 04/15/21 Requesting physician: Belinda Hogan Primary Care Provider: Mick Norwood MD HPI Reason for consult: bacteremia She presents with nausea and vomiting She came to ER two days ago and had symptoms Blood cultures show clostridium paraputificum CT scan long area left colon inflammed Review of Systems Review of Systems: Yes all other systems are reviewed and are negative Neurologic: Reports confusion Psychiatric: Psychiatric: Reports confusion [facility] Past Medical History Medical History Alzheimer disease Colitis Hypothyroidism Family History Family history: reviewed and not pertinent Social History Social History Household Members: Family Housing: House Do you presently have visiting nurse or other home services: No Patient Tobacco Use Status: Never used Tobacco Second Hand Smoke Exposure: No Use of substances other than those prescribed or required for medical reasons: No Currently Displaying Signs/Symptoms of Drug Intoxication Withdrawal: No Any prior treatment program specific to substance use: No Have you been hit, kicked, punched, or otherwise hurt by someone within the past year? If so, by whom?: No Do you feel safe in your current relationship?: No Is there a partner from a previous relationship who is making you feel unsafe now?: No Advance Directives: No Advance Directives Information Provided: Yes Advance Directives on File: No Do you have thoughts of harming others: None Do you have a plan to hurt others: No Plan Recently lost weight without trying: No Nutrition Risks: No Nutritional Risk Patient : No : No Poor oral hygiene: No service: No Current occupational status: retired [employer] Allergies Allergy/AdvReac Type Severity Reaction Status Date / Time Penicillins [PENICILLINS] Allergy Unknown RASH Verified 04/12/21 10:33 Sulfa (Sulfonamide Allergy Unknown RASH Verified 04/12/21 10:33 Antibiotics) [SULFA (SULFONAMIDE ANTIBIOTICS)] Active Medications: Current Medications Generic Name Dose Route Start Last Admin Trade Name Freq PRN Reason Stop Dose Admin Acetaminophen 650 mg 04/14/21 23:53 Acetaminophen 325 Mg Tablet PO Q6H PRN Pain, Mild (Pain Scale 1-3) Atorvastatin Calcium 10 mg 04/15/21 21:00 Atorvastatin Calcium 10 Mg Tablet PO BEDTIME [facility] Docusate Sodium 100 mg 04/14/21 23:53 Docusate Sodium 100 Mg Capsule PO DAILY PRN Constipation Heparin Sodium (Porcine) 5,000 unit 04/15/21 09:00 04/15/21 09:17 Heparin Sodium,Porcine 5,000 Unit/Ml Vial SUBCUT 5,000 unit Q12H [facility] Administration Levofloxacin 750 mg in 150 mls @ 100 mls/hr 04/15/21 06:15 04/15/21 09:00 Levaquin IV Infused Q48H [facility] Infusion Metronidazole 500 mg in 100 mls @ 100 mls/hr 04/15/21 14:00 04/15/21 15:08 Flagyl IV Infused Q8H [facility] Infusion Dextrose/Lactated Ringer's 1,000 mls @ 80 mls/hr 04/15/21 09:45 04/15/21 11:47 D5lr IVCONT 80 mls/hr .[id number] [facility] Administration Levothyroxine Sodium 50 mcg 04/15/21 06:00 04/15/21 05:08 Levothyroxine Sodium 50 Mcg Tablet PO 50 mcg DAILY@0600 [facility] Administration Ondansetron HCl 4 mg 04/14/21 23:53 04/15/21 09:14 Ondansetron Hcl 4 Mg/2 Ml Vial IVPUSH 4 mg Q8H PRN Administration Nausea and Vomiting Pharmacy Consult 1 each 04/14/21 19:29 Consult Rx Perform Med Rec MISCELLANE ONCE PRN Consult order Sodium Chloride 3 ml 04/15/21 00:00 04/15/21 07:19 0.9 % Sodium Chloride Flush 3 Ml Syringe IVFLUSH 3 ml QSHIFT [facility] Administration Home Medications Medication Instructions Recorded Confirmed Last Taken Type levothyroxine 1 tab PO QAM 04/14/21 04/14/21 04/13/21 History simvastatin 1 tab PO BEDTIME 04/14/21 04/14/21 04/13/21 History Physical Exam Vital Signs: Vital Signs: Last Vital Signs Temp 97 F 04/15/21 15:32 Pulse 77 04/15/21 15:32 Resp 17 04/15/21 15:32 BP 144/78 H 04/15/21 15:32 Pulse Ox 96 04/15/21 15:32 Body Mass Index 23.8 Const: General: cooperative and confusion Orientation/consciousness: confusion HENMT: Head: Yes normal to inspection Mouth: Normal oral and palatal mucosa present Resp: Effort & Inspection: normal respiratory effort Cardio: Rate: regular rate Rhythm: regular rhythm GI: Palpation (GI): Soft to palpation and nontender Neuro: General: confusion Results Labs CBC & Chem 7: 04/15/21 05:56 04/15/21 05:56 Labs: Short CBC 04/14/21 04/14/21 04/15/21 Range/Units 16:42 19:36 05:56 WBC 6.6 Cancelled 6.6 (4.8-10.8) X10*3/uL Hgb 15.3 Cancelled 15.5 (12.0-16.0) g/dl Hct 45.1 Cancelled 45.3 (37-47) % Plt Count 172 Cancelled 167 (160-400) X10*3/uL BMP 04/14/21 04/14/21 04/15/21 16:42 19:36 05:56 Sodium 140 Cancelled 139 Potassium 3.2 L Cancelled 3.2 L Chloride 106 Cancelled 106 Carbon Dioxide 20 L Cancelled 22 BUN 17 H Cancelled 13 Creatinine 0.94 Cancelled 0.82 Calcium 9.6 Cancelled 9.0 D Urine 04/14/21 Range/Units 19:36 Urine Color DARK YELLOW Urine Appearance CLEAR Urine pH 6.0 (5.0-8.0) Ur Specific [place] >= 1.030 H (1.005-1.025) Urine Protein NEG (NEG-TRACE) MG/DL Urine Glucose (UA) NEG (NEG) MG/DL Assessment and Plan (1) Bacteremia: Status: Acute Bacteremia with clostridial infection blood Gram negative also likely present Suggest Levaquin and Flagyl IV appropriate Would give this until able to take po,hopefully can tolerate and meds not causing vomiting Total 14 d if able,10 days if difficulty tolerating GI f/u outpatient ?segment bowel colitis
[2021-04-15] MEDS: Atorvastatin Calcium 10 MG TABLET PO (20:59)
[2021-04-16] MEDS: Dextrose 5 % and Lactated Ring 1,000 ML 80 ML IVCONT (03:20)
[2021-04-16 03:54] VITALS: BP 167/92; PULSE 74; RESP 18; TEMP 36.2; O2SAT 96
[2021-04-16] MEDS: Levothyroxine Sodium 50 MCG TABLET PO (05:54)
[2021-04-16] MEDS: metroNIDAZOLE/NS 500 MG/100 ML PIGGYBACK 100 MG IV ×3 (05:54→21:24)
[2021-04-16 07:20] LABS: Anion Gap 11 (12-20); Blood Urea Nitrogen 10 mg/dL (9-16); Calcium 8.7 mg/dL (8.4-10.2); Carbon Dioxide 22 mmol/L (22-29); Chloride 108 mmol/L (96-108); Creatinine Clr Calc Pharmacy 43.6; Estimated Glomerular Filt Rate > 60; Glucose Random 152 mg/dL (60-115); Potassium 3.4 mmol/L (3.3-5.1); Sodium 138 mmol/L (135-145)
[2021-04-16 08:00] VITALS: BP 182/86; PULSE 64; RESP 18; TEMP 35.9; O2SAT 97
[2021-04-16] MEDS: Heparin Sodium,Porcine 5,000 UNIT/ML VIAL 5000 UNIT SUBCUT ×2 (08:52→21:24)
--- NOTE | 2021-04-16 11:25 | HO.PM.IMPN ---
Subjective Subjective Date of Service: 04/16/21 Interval History: the patient was seen and evaluated this morning Laying in bed, feels little better and able to tolerate more diet Denies any fever, chills or shortness of breath No reported other overnight events. Systemic review: No fever, chills or weakness No chest pain, palpitation No shortness of breath or coughing No abdominal pain, nausea improving No urinary symptoms No any rash or wounds a Physical Exam Vital Signs: Vital Signs: Last Vital Signs Temp 96.7 F L 04/16/21 08:00 Pulse 64 04/16/21 08:00 Resp 18 04/16/21 08:00 BP 182/86 H 04/16/21 08:00 Pulse Ox 97 04/16/21 08:00 Body Mass Index 23.8 Const: Other: Constitutional : Alert, oriented, not in distress Neck : Normal inspection, Supple Cardiovascular : RRR, S1 S2, no lower extremity edema Respiratory : Good bilateral air entry, no crackles, wheezes or rhonchi Gastrointestinal: soft, lax, Normal bowel sounds, mild tenderness with deep palpation in the left side Skin : Warm/Dry, No rash Neurological : Alert & oriented x3, No focal deficit Objective Data Current Medications Generic Name Dose Route Start Last Admin Trade Name Freq PRN Reason Stop Dose Admin Acetaminophen 650 mg 04/14/21 23:53 Acetaminophen 325 Mg Tablet PO Q6H PRN Pain, Mild (Pain Scale 1-3) Atorvastatin Calcium 10 mg 04/15/21 21:00 04/15/21 20:59 Atorvastatin Calcium 10 Mg Tablet PO 10 mg BEDTIME MINA Administration Docusate Sodium 100 mg 04/14/21 23:53 Docusate Sodium 100 Mg Capsule PO DAILY PRN Constipation Heparin Sodium (Porcine) 5,000 unit 04/15/21 09:00 04/16/21 08:52 Heparin Sodium,Porcine 5,000 Unit/Ml Vial SUBCUT 5,000 unit Q12H MINA Administration Levofloxacin 750 mg in 150 mls @ 100 mls/hr 04/15/21 06:15 04/15/21 09:00 Levaquin IV Infused Q48H MINA Infusion Metronidazole 500 mg in 100 mls @ 100 mls/hr 04/15/21 14:00 04/16/21 07:01 Flagyl IV Infused Q8H MINA Infusion Levothyroxine Sodium 50 mcg 04/15/21 06:00 04/16/21 05:54 Levothyroxine Sodium 50 Mcg Tablet PO 50 mcg DAILY@0600 MINA Administration Ondansetron HCl 4 mg 04/14/21 23:53 04/15/21 09:14 Ondansetron Hcl 4 Mg/2 Ml Vial IVPUSH 4 mg Q8H PRN Administration Nausea and Vomiting Pharmacy Consult 1 each 04/14/21 19:29 Consult Rx Perform Med Rec MISCELLANE ONCE PRN Consult order Sodium Chloride 3 ml 04/15/21 00:00 04/16/21 08:52 0.9 % Sodium Chloride Flush 3 Ml Syringe IVFLUSH Not Given QSHIFT [facility] Labs CBC & Chem 7: 04/15/21 05:56 04/16/21 05:58 Labs: Laboratory Results - last 24 hr 04/16/21 05:58 Sodium 138 Potassium 3.4 Chloride 108 Carbon Dioxide 22 Anion Gap 11 L BUN 10 Creatinine 0.80 Estim Creat Clear Calc 43.6 Estimated GFR > 60 Random Glucose 152 H D Calcium 8.7 Microbiology Microbiology Results: Microbiology 04/15/21 00:36 Blood Culture - Preliminary Blood - Venous No growth after 24 hours. 04/15/21 00:36 Blood Culture - Preliminary Blood - Venous No growth after 24 hours. 04/14/21 19:36 Blood Culture - Preliminary Blood - Venous No growth after 24 hours. 04/14/21 19:36 Blood Culture - Preliminary Blood - Venous No growth after 24 hours. Quality Stroke Does the patient have a stroke diagnosis?: No VTE Prior VTE?: No VTE Risk Level:: Medical - moderate - high VTE Device Contraindication: Treatment Not Indicated VTE Drug Contraindication: N/A - Med Ordered Assessment and Plan (1) Bacteremia: Status: Acute (2) UTI (urinary tract infection): Status: Acute (3) Colitis: Status: Inactive Assessment and Plan: 80-year-old female with past medical history of hypothyroidism who presents the hospital after being called back to the ED for positive blood cultures. Patient was seen in the hospital on 04/12 for abdominal pain, found to have acute UTI as well as colitis. Was sent home on levofloxacin and Flagyl, comes back today because cultures were positive and showed Gram-negative rods and Clostridium para organisms. Patient has been having nausea vomiting and therefore will be admitted for IV antibiotics # Clostridium bacteremia 2/[address] scan from 04/12 showing findings of colitis continue levofloxacin and Flagyl by IV day 3 negative repeat cultures up to this point infectious disease input appreciated, to finish total of 14 days of antibiotics # colitis seems to be infection was in origin discontinue IV fluid Nausea medication continue levofloxacin and Flagyl Advanced diet as tolerated # UTI resolution of symptoms # hypothyroidism continue levothyroxine # Hypokalemia potassium of 3.2, replacement given follow BMP DVT prophylaxis Heparin subQ
[2021-04-16 12:00] VITALS: BP 180/98; PULSE 67; RESP 18; TEMP 36.3; O2SAT 96
[2021-04-16 15:51] VITALS: BP 146/74; PULSE 70; RESP 14; TEMP 35.9; O2SAT 96
[2021-04-16] MEDS: 0.9 % Sodium Chloride Flush 3 ML SYRINGE IVFLUSH (16:09)
[2021-04-16 19:01] VITALS: BP 129/73; PULSE 81; RESP 18; TEMP 36.4; O2SAT 95
[2021-04-16] MEDS: Atorvastatin Calcium 10 MG TABLET PO (21:24)
[2021-04-16 23:47] VITALS: BP 181/88; PULSE 63; RESP 18; TEMP 36.7; O2SAT 96
[2021-04-17] MEDS: 0.9 % Sodium Chloride Flush 3 ML SYRINGE IVFLUSH ×2 (01:14→08:05)
[2021-04-17 03:36] VITALS: BP 178/91; PULSE 63; RESP 16; TEMP 36.6; O2SAT 96
[2021-04-17] MEDS: Levothyroxine Sodium 50 MCG TABLET PO (05:57)
[2021-04-17] MEDS: metroNIDAZOLE/NS 500 MG/100 ML PIGGYBACK 100 MG IV (05:57)
[2021-04-17] MEDS: levoFLOXacin/D5W 750 MG/150 ML PIGGYBACK 100 MG IV (05:58)
[2021-04-17 07:47] VITALS: BP 156/84; PULSE 108; RESP 18; TEMP 36.1; O2SAT 96
[2021-04-17] MEDS: Heparin Sodium,Porcine 5,000 UNIT/ML VIAL 5000 UNIT SUBCUT (08:04)
--- NOTE | 2021-04-17 10:26 | P.DS_ITS ---
DS: Providers Provider Date of Service: 04/17/21 Date of admission: 04/14/21 21:26 Primary care physician: Mick Norwood MD Consults: 04/14/21 23:53 Consult to Infectious Diseases Routine Consulting Provider: Toya Ortega Reason for consultation: Clostridium paraputrificum bacterimia Has provider been notified: No DS: Diagnosis Discharge Diagnosis (1) Bacteremia: Status: Acute (2) UTI (urinary tract infection): Status: Acute (3) Colitis: Status: Acute DS: Medications Discharge Medications Home Medications: Home Medications Medication Instructions Recorded Confirmed levothyroxine 1 tab PO QAM 04/14/21 04/14/21 simvastatin 1 tab PO BEDTIME 04/14/21 04/14/21 Previous Rx's Medication Instructions Recorded ondansetron 4 mg PO Q6H PRN #10 tab 04/12/21 levofloxacin 250 mg PO DAILY #9 tab 04/17/21 metronidazole 500 mg PO Q8H 9 Days #27 tab 04/17/21 ondansetron 4 mg PO Q8H PRN #20 tab 04/17/21 DS: Summary Hospital Course Hospital Course: admission note HPI this is a 80-year-old female with past medical history of Alzheimer's disease, hypothyroidism, who is brought back to the hospital by her son after being called back to the ED for positive blood cultures. patient presents to the hospital on 04/12 was treated for cellulitis as well as colitisin the ED and sent home with levofloxacin and Flagyl. Patient has dementia but able to give some meaningful history. Reports that she no longer has any urinary symptoms, and does not have any abdominal pain. I called the son, reports that his mother had nausea and vomiting for the past 2 days ever since coming home from the hospital, low appetite, still feels weak. She lives alone. Patient otherwise denies all other review of system. On arrival to the ED hemodynamically stable with no significant abnormal vitals Labs are significant for WBC count of 6.6, potassium of 3.2, BUN of 17, UA that is no longer positive for any leukocyte esterase or WBC blood cultures drawn on 04/12 show Gram-negative rods 1/2 sets positive, organism identified as Clostridium paraputrificum Hospital course The patient was admitted for bacteremia of Clostridium species. Source be lieved to be from the guess through intestinal tract as CT scan was significant for colitis. The patient evaluated by infectious disease specialist who recommended treatment for 14 days with Flagyl and Levaquin. The patient tolerated the treatment well in the hospital and was able to tolerate diet as advanced. Id suggested the patient to follow-up with Gastroenterology as outpatient for possible repeat of colonoscopy if needed. Next Lyme to be discharged on 9 more days of Flagyl and Levaquin Your Zofran as needed for nausea next Lyme to follow up with PCP as outpatient Time Spent with Patient Time attestation: Total time spent providing and/or coordinating discharge services: Discharge coordination time: Greater than 30 minutes Quality: Stroke Does the patient have a stroke diagnosis?: No Physical Exam Vital Signs: Vital Signs: Last Vital Signs Temp 96.9 F 04/17/21 07:47 Pulse 108 H 04/17/21 07:47 Resp 18 04/17/21 07:47 BP 156/84 H 04/17/21 07:47 Pulse Ox 96 04/17/21 07:47 Body Mass Index 23.8 Const: Other: Constitutional : Alert, oriented, not in distress Neck : Normal inspection, Supple Cardiovascular : RRR, S1 S2, no lower extremity edema Respiratory : Good bilateral air entry, no crackles, wheezes or rhonchi Gastrointestinal: soft, lax, Normal bowel sounds, m no tenderness Skin : Warm/Dry, No rash Neurological : Alert & oriented x3, No focal deficit DS: Data Data Completed and Pending Labs on day of discharge: Preliminary micro results at discharge 04/15/21 00:36 Blood Culture - Preliminary Blood - Venous No growth after 48 hours. 04/15/21 00:36 Blood Culture - Preliminary Blood - Venous No growth after 48 hours. 04/14/21 19:36 Blood Culture - Preliminary Blood - Venous No growth after 48 hours. 04/14/21 19:36 Blood Culture - Preliminary Blood - Venous No growth after 48 hours. Discharge Plan Discharge Patient Disposition: Home, Self-Care Discharge Diagnosis: Colitis Bacteremia Referrals: Mick Norwood MD [Primary Care Provider] - 1 Week Discharge Medications: New levofloxacin 250 mg tablet 250 mg PO DAILY Qty: 9 RF: 0 metronidazole 500 mg tablet 500 mg PO Q8H 9 Days Qty: 27 RF: 0 ondansetron 4 mg tablet,disintegrating 4 mg PO Q8H PRN (Reason: nausea and vomiting) Qty: 20 RF: 0 Continued ondansetron 4 mg tablet,disintegrating 4 mg PO Q6H PRN (Reason: nausea and vomiting) Qty: 10 RF: 0 simvastatin 10 mg tablet 1 tab PO BEDTIME RF: 0 levothyroxine 50 mcg tablet 1 tab PO QAM RF: 0 Discontinued metronidazole [Flagyl] 500 mg tablet 500 mg PO TID Qty: 21 RF: 0 levofloxacin 500 mg tablet 500 mg PO DAILY 7 Days Qty: 7 RF: 0 Discharge Orders: Discharge Order (Routine); Ordered 04/17/21 Ordered By: Belinda Hogan Diet: advance to usual diet Activity on Discharge: As tolerated Stand Alone Forms: Patient Portal Discharge page Care Plan Goals: Read below Health Concerns: Read below Plan of Treatment: You were admitted to the hospital for a positive blood culture. Recent images in the emergency showed evidence of goal infection. You were treated with IV antibiotics with good response over the course of hospital stay and tolerated diet well. Assessment: Continue levofloxacin and Flagyl for the next 9 days To use Zofran as needed for nausea To follow up with Gastroenterology as outpatient for possible repeat of colonoscopy if needed
--- NOTE | 2021-04-17 11:35 | MHC.CM.PN ---
PATIENT IS DISCHARGED HOME - SELF CARE. SON IS HERE TO TRANSPORT. RN AWARE OF PLAN.
== END 2021-04-17 11:49 | disposition home or self-care (01) | DRG 392 ==
LOC: HO.ED 21:02 → HO.S3 23:11
PROVIDERS: Physician Assistant; Admitting Provider Internal Medicine; Emergency Provider Internal Medicine; PCP Internal Medicine Medical Oncology; Visit Provider Student in an Organized Health Care Education/Training Program
DX: A09 Infectious gastroenteritis and colitis, unspecified (principal); R78.81 Bacteremia; N39.0 Urinary tract infection, site not specified; E03.9 Hypothyroidism, unspecified; G30.9 Alzheimer's disease, unspecified; F02.80 Dementia in other diseases classified elsewhere, unspecified severity, without behavioral disturbance, psychotic disturbance, mood disturbance, and anxiety; E87.6 Hypokalemia; B96.7 Clostridium perfringens [C. perfringens] as the cause of diseases classified elsewhere; Z20.822 Contact with and (suspected) exposure to COVID-19; Z88.0 Allergy status to penicillin; Z88.2 Allergy status to sulfonamides; Z79.890 Hormone replacement therapy; Z79.899 Other long term (current) drug therapy
CPT/HCPCS: 36415; 80048; 81003; 85025; 85027; 87040; 87635; 93005; 99285; J1956; J2405

== ENCOUNTER 2021-04-26 14:18 | Outpatient (REF) | payer MEDICARE, SELFPAY ==
[2021-04-26 15:46] LABS: Vitamin B12 591 pg/mL (200-900)
[2021-04-27 07:05] LABS: Syphilis Screen Nonreactive (Nonreactive)
== END 2021-04-26 14:19 | disposition home or self-care (01) ==
LOC: HO.LAB 14:18
PROVIDERS: PCP Internal Medicine Medical Oncology; Visit Provider Psychiatry & Neurology Neurology
DX: G30.9 Alzheimer's disease, unspecified (principal)
CPT/HCPCS: 36415; 82607; 86780

== ENCOUNTER 2021-06-07 09:57 | Outpatient (REF) | payer MEDICARE, SELFPAY ==
[2021-06-07 10:15] LABS: MANUAL DIFF FLAG NO
[2021-06-07 10:20] LABS: Basophils Percent Auto 0.5 % (0-2); Eosinophils Absolute Auto 0.1 X10*3/uL (0.0-0.4); Eosinophils Percent Auto 1.4 % (0-4); Hemoglobin 16.5 g/dl (12.0-16.0); Imm Gran Abs Auto 0.02 X10*3/uL (0.00-0.03); Imm Gran Pct Auto 0.4 % (0.0-0.4); Lymphocytes Absolute Auto 0.8 X10*3/uL (1.2-4.9); Lymphocytes Percent Auto 13.4 % (20-40); Mean Corpuscular HGB Conc 33.7 g/dl (31.0-35.0); Mean Corpuscular Hemoglobin 32.6 pg (27.0-33.0); Mean Corpuscular Volume 96.8 fL (80-98); Mean Platelet Volume 9.6 fL (9.4-12.3); Monocytes Absolute Auto 0.5 X10*3/uL (0.1-1.2); Monocytes Percent Auto 9.1 % (2-11); Neutrophils Absolute Auto 4.2 X10*3/uL (2.0-8.3); Neutrophils Percent Auto 75.2 % (45-73); Platelet Count 182 X10*3/uL (160-400); Red Blood Count 5.06 X10*6/uL (4.20-5.50); Red Cell Distribution Width 13.2 % (11.0-16.0); White Blood Count 5.6 X10*3/uL (4.8-10.8)
[2021-06-07 10:48] LABS: Alanine Aminotransferase 33 U/L (0-31); Albumin Level 4.1 g/dL (3.5-5.0); Alkaline Phosphatase 65 U/L (39-117); Anion Gap 12 (12-20); Aspartate Amino Transferase 27 U/L (5-31); Bilirubin Total 1.2 mg/dL (0.0-1.0); Blood Urea Nitrogen 11 mg/dL (9-16); Carbon Dioxide 26 mmol/L (22-29); Chloride 106 mmol/L (96-108); Cholesterol 236 mg/dL; Estimated Glomerular Filt Rate > 60; Glucose Fasting 116 mg/dL (60-99); HDL Cholesterol 51 mg/dL; LDL Cholesterol Calculated 160 mg/dl; Potassium 4.4 mmol/L (3.3-5.1); Sodium 140 mmol/L (135-145); Total Protein 6.7 g/dL (6.5-8.0); Triglycerides 125 mg/dL
[2021-06-07 11:08] LABS: Free T4 (Free Thyroxine) 1.45 ng/dL (0.71-1.85); Thyroid Stimulating Hormone 1.59 uIU/mL (0.32-4.0)
== END 2021-06-07 09:58 | disposition home or self-care (01) ==
LOC: HO.10HDL 09:57
PROVIDERS: PCP Internal Medicine Medical Oncology; Visit Provider Internal Medicine Medical Oncology
DX: E78.5 Hyperlipidemia, unspecified (principal); E03.9 Hypothyroidism, unspecified; K21.9 Gastro-esophageal reflux disease without esophagitis
CPT/HCPCS: 36415; 80053; 80061; 84439; 84443; 85025

== ENCOUNTER 2021-10-03 14:57 | Outpatient (REF) | payer MEDICARE, SELFPAY ==
--- NOTE | ~2021-10-03 | MM_ITS ---
EXAMINATION: MM SCREENING DIGITAL BREAST TOMOSYNTHESIS, BILATERAL CLINICAL INFORMATION: Screening. Asymptomatic. Right breast cancer status post lumpectomy, 2004. COMPARISON: Mammography: 09/27/2020, 08/20/2019, 08/02/2018 TECHNIQUE: Digital breast tomosynthesis is performed in both the craniocaudal and mediolateral oblique views along with computer-aided detection (CAD). Synthesized 2D images are generated from the tomosynthesis. FINDINGS: The breasts are heterogeneously dense, which may obscure small masses (ACR BI-RADS breast composition Category c). There are post therapy changes right breast with mild reduced breast size and stable scarring. Bilateral vascular calcifications are present. Neither breast shows significant mass, developing density, or interval architectural abnormality. No abnormal calcifications. No significant changes. MM/MM tomosynthesis screening BI IMPRESSION: No mammographic evidence of malignancy. Post therapy changes right breast, stable. ASSESSMENT: BI-RADS 2: Benign RECOMMENDATION: Routine annual mammography screening. This patient's information was entered into a reminder system with a target due date for their next mammogram.
== END 2021-10-03 14:58 | disposition home or self-care (01) ==
LOC: HO.MAMMO 14:57
PROVIDERS: Visit Provider Internal Medicine Medical Oncology
DX: Z12.31 Encounter for screening mammogram for malignant neoplasm of breast (principal)
CPT/HCPCS: 77063; 77067

== ENCOUNTER 2022-01-03 09:19 | Outpatient (REF) | payer MEDICARE, SELFPAY ==
[2022-01-03 09:53] LABS: MANUAL DIFF FLAG NO
[2022-01-03 10:02] LABS: Basophils Absolute Auto 0.1 X10*3/uL (0.0-0.2); Basophils Percent Auto 0.7 % (0-2); Eosinophils Absolute Auto 0.1 X10*3/uL (0.0-0.4); Eosinophils Percent Auto 1.4 % (0-4); Hematocrit 51.6 % (37.0-47.0); Hemoglobin 16.8 g/dl (12.0-16.0); Imm Gran Abs Auto 0.04 X10*3/uL (0.00-0.03); Imm Gran Pct Auto 0.5 % (0.0-0.4); Lymphocytes Percent Auto 12.9 % (20-40); Mean Corpuscular HGB Conc 32.6 g/dl (31.0-35.0); Mean Corpuscular Hemoglobin 32.2 pg (27.0-33.0); Mean Corpuscular Volume 98.9 fL (80.0-98.0); Mean Platelet Volume 9.7 fL (9.4-12.3); Monocytes Absolute Auto 0.6 X10*3/uL (0.1-1.2); Monocytes Percent Auto 8.7 % (2-11); Neutrophils Absolute Auto 5.6 x10*3/uL (2.0-8.3); Neutrophils Percent Auto 75.8 % (45-73); Platelet Count 199 X10*3/uL (160-400); Red Blood Count 5.22 X10*6/uL (4.20-5.50); White Blood Count 7.4 X10*3/uL (4.8-10.8)
[2022-01-03 10:57] LABS: Alanine Aminotransferase 17 U/L (0-31); Albumin Level 4.1 g/dL (3.5-5.0); Alkaline Phosphatase 88 U/L (39-117); Anion Gap 14 (12-20); Aspartate Amino Transferase 19 U/L (5-31); Bilirubin Total 1.4 mg/dL (0.0-1.0); Blood Urea Nitrogen 20 mg/dL (9-16); Calcium 9.6 mg/dL (8.4-10.2); Carbon Dioxide 24 mmol/L (22-29); Chloride 106 mmol/L (96-108); Cholesterol 193 mg/dL; Estimated Glomerular Filt Rate > 60; Glucose Fasting 124 mg/dL (60-99); HDL Cholesterol 57 mg/dL; LDL Cholesterol Calculated 118 mg/dl; Potassium 4.1 mmol/L (3.3-5.1); Sodium 140 mmol/L (135-145); Total Protein 6.7 g/dL (6.5-8.0); Triglycerides 92 mg/dL
[2022-01-03 11:09] LABS: Thyroid Stimulating Hormone 2.94 uIU/mL (0.32-4.0)
== END 2022-01-03 09:20 | disposition home or self-care (01) ==
LOC: HO.LAB 09:19
PROVIDERS: PCP Internal Medicine Medical Oncology; Visit Provider Internal Medicine Medical Oncology
DX: E78.5 Hyperlipidemia, unspecified (principal); E03.9 Hypothyroidism, unspecified; D05.10 Intraductal carcinoma in situ of unspecified breast
CPT/HCPCS: 36415; 80053; 80061; 84439; 84443; 85025

== ENCOUNTER 2022-04-05 07:04 | Outpatient (REF) | payer MEDICARE, SELFPAY ==
[2022-04-05 07:11] LABS: MANUAL DIFF FLAG NO
[2022-04-05 07:28] LABS: Basophils Percent Auto 0.5 % (0-2); Eosinophils Absolute Auto 0.1 X10*3/uL (0.0-0.4); Eosinophils Percent Auto 1.6 % (0-4); Hematocrit 49.3 % (37.0-47.0); Hemoglobin 16.3 g/dl (12.0-16.0); Imm Gran Abs Auto 0.03 X10*3/uL (0.00-0.03); Imm Gran Pct Auto 0.5 % (0.0-0.4); Immature Retic Fraction 11.2 % (3.0-15.9); Lymphocytes Absolute Auto 0.8 X10*3/uL (1.2-4.9); Lymphocytes Percent Auto 12.9 % (20-40); Mean Corpuscular HGB Conc 33.1 g/dl (31.0-35.0); Mean Corpuscular Hemoglobin 31.7 pg (27.0-33.0); Mean Corpuscular Volume 95.9 fL (80.0-98.0); Mean Platelet Volume 10.5 fL (9.4-12.3); Monocytes Absolute Auto 0.5 X10*3/uL (0.1-1.2); Monocytes Percent Auto 8.2 % (2-11); Neutrophils Absolute Auto 4.7 x10*3/uL (2.0-8.3); Neutrophils Percent Auto 76.3 % (45-73); Platelet Count 152 X10*3/uL (160-400); Red Blood Count 5.14 X10*6/uL (4.20-5.50); Red Cell Distribution Width 13.7 % (11.0-16.0); Retic HGB Equivalent 36.2 pg (30.0-35.0); Reticulocyte Percent 1.2 % (0.5-1.8); White Blood Count 6.1 X10*3/uL (4.8-10.8)
[2022-04-05 07:56] LABS: Alanine Aminotransferase 12 U/L (0-31); Alkaline Phosphatase 82 U/L (39-117); Anion Gap 11 (12-20); Aspartate Amino Transferase 17 U/L (5-31); Bilirubin Total 1.1 mg/dL (0.0-1.0); Blood Urea Nitrogen 15 mg/dL (9-16); Calcium 9.3 mg/dL (8.4-10.2); Carbon Dioxide 25 mmol/L (22-29); Chloride 106 mmol/L (96-108); Estimated Glomerular Filt Rate 57; Glucose Random 131 mg/dL (60-115); Potassium 4.2 mmol/L (3.3-5.1); Sodium 138 mmol/L (135-145); Total Protein 6.6 g/dL (6.5-8.0)
== END 2022-04-05 07:05 | disposition home or self-care (01) ==
LOC: HO.LAB 07:04
PROVIDERS: PCP Internal Medicine Medical Oncology; Visit Provider Internal Medicine Medical Oncology
DX: E78.5 Hyperlipidemia, unspecified (principal)
CPT/HCPCS: 36415; 80053; 85025; 85045

== ENCOUNTER 2022-07-13 06:39 | Outpatient (REF) | payer MEDICARE, SELFPAY ==
[2022-07-13 06:55] LABS: MANUAL DIFF FLAG NO
[2022-07-13 07:58] LABS: Basophils Percent Auto 0.5 % (0-2); Eosinophils Absolute Auto 0.2 X10*3/uL (0.0-0.4); Eosinophils Percent Auto 3.2 % (0-4); Hematocrit 52.5 % (37.0-47.0); Hemoglobin 17.6 g/dl (12.0-16.0); Imm Gran Abs Auto 0.01 X10*3/uL (0.00-0.03); Imm Gran Pct Auto 0.2 % (0.0-0.4); Lymphocytes Absolute Auto 1.2 X10*3/uL (1.2-4.9); Lymphocytes Percent Auto 20.7 % (20-40); Mean Corpuscular HGB Conc 33.5 g/dl (31.0-35.0); Mean Corpuscular Hemoglobin 32.4 pg (27.0-33.0); Mean Corpuscular Volume 96.7 fL (80.0-98.0); Mean Platelet Volume 9.9 fL (9.4-12.3); Monocytes Absolute Auto 0.6 X10*3/uL (0.1-1.2); Monocytes Percent Auto 11.2 % (2-11); Neutrophils Absolute Auto 3.6 x10*3/uL (2.0-8.3); Neutrophils Percent Auto 64.2 % (45-73); Platelet Count 191 X10*3/uL (160-400); Red Blood Count 5.43 X10*6/uL (4.20-5.50); Red Cell Distribution Width 13.7 % (11.0-16.0); White Blood Count 5.6 X10*3/uL (4.8-10.8)
[2022-07-13 08:16] LABS: Alanine Aminotransferase 17 U/L (0-31); Albumin Level 4.2 g/dL (3.5-5.0); Alkaline Phosphatase 98 U/L (39-117); Anion Gap 17 (12-20); Aspartate Amino Transferase 24 U/L (5-31); Blood Urea Nitrogen 12 mg/dL (9-16); Calcium 9.8 mg/dL (8.4-10.2); Carbon Dioxide 26 mmol/L (22-29); Chloride 104 mmol/L (96-108); Cholesterol 171 mg/dL; Estimated Glomerular Filt Rate 53; Glucose Fasting 114 mg/dL (60-99); HDL Cholesterol 57 mg/dL; LDL Cholesterol Calculated 97 mg/dl; Potassium 4.5 mmol/L (3.3-5.1); Sodium 142 mmol/L (135-145); Total Protein 6.9 g/dL (6.5-8.0); Triglycerides 86 mg/dL
[2022-07-13 08:40] LABS: Free T4 (Free Thyroxine) 1.22 ng/dL (0.71-1.85)
== END 2022-07-13 06:40 | disposition home or self-care (01) ==
LOC: HO.LAB 06:39
PROVIDERS: PCP Internal Medicine Medical Oncology; Visit Provider Internal Medicine Medical Oncology
DX: E78.5 Hyperlipidemia, unspecified (principal); E03.9 Hypothyroidism, unspecified; D69.6 Thrombocytopenia, unspecified
CPT/HCPCS: 36415; 80053; 80061; 84439; 84443; 85025

== ENCOUNTER 2022-10-05 09:10 | Outpatient (REF) | payer MEDICARE, SELFPAY | END 2022-10-05 09:11 | disposition home or self-care (01) | LOC: HO.MAMMO 09:10 | PROVIDERS: Visit Provider Internal Medicine Medical Oncology | DX: Z12.31 Encounter for screening mammogram for malignant neoplasm of breast (principal) | CPT/HCPCS: 77063; 77067 ==

== ENCOUNTER 2022-10-21 07:39 | Outpatient (REF) | payer MEDICARE, SELFPAY ==
[2022-10-21 07:58] LABS: MANUAL DIFF FLAG NO
[2022-10-21 08:35] LABS: Basophils Percent Auto 0.7 % (0-2); Eosinophils Absolute Auto 0.2 X10*3/uL (0.0-0.4); Eosinophils Percent Auto 3.8 % (0-4); Hematocrit 49.7 % (37.0-47.0); Hemoglobin 16.5 g/dl (12.0-16.0); Imm Gran Abs Auto 0.04 X10*3/uL (0.00-0.03); Imm Gran Pct Auto 0.7 % (0.0-0.4); Lymphocytes Percent Auto 16.2 % (20-40); Mean Corpuscular HGB Conc 33.2 g/dl (31.0-35.0); Mean Corpuscular Volume 96.5 fL (80.0-98.0); Mean Platelet Volume 9.8 fL (9.4-12.3); Monocytes Absolute Auto 0.5 X10*3/uL (0.1-1.2); Monocytes Percent Auto 8.7 % (2-11); Neutrophils Absolute Auto 4.3 x10*3/uL (2.0-8.3); Neutrophils Percent Auto 69.9 % (45-73); Platelet Count 189 X10*3/uL (160-400); Red Blood Count 5.15 X10*6/uL (4.20-5.50); Red Cell Distribution Width 13.6 % (11.0-16.0); White Blood Count 6.1 X10*3/uL (4.8-10.8)
[2022-10-21 09:06] LABS: Alanine Aminotransferase 15 U/L (0-31); Alkaline Phosphatase 78 U/L (39-117); Anion Gap 13 (12-20); Aspartate Amino Transferase 19 U/L (5-31); Bilirubin Total 0.7 mg/dL (0.0-1.0); Blood Urea Nitrogen 16 mg/dL (9-16); Calcium 9.4 mg/dL (8.4-10.2); Carbon Dioxide 23 mmol/L (22-29); Chloride 107 mmol/L (96-108); Cholesterol 189 mg/dL; Estimated Glomerular Filt Rate > 60; Glucose Fasting 121 mg/dL (60-99); HDL Cholesterol 49 mg/dL; LDL Cholesterol Calculated 111 mg/dl; Potassium 4.3 mmol/L (3.3-5.1); Sodium 139 mmol/L (135-145); Total Protein 6.5 g/dL (6.5-8.0); Triglycerides 149 mg/dL
== END 2022-10-21 07:40 | disposition home or self-care (01) ==
LOC: HO.LAB 07:39
PROVIDERS: Visit Provider Internal Medicine Medical Oncology
DX: Z00.00 Encounter for general adult medical examination without abnormal findings (principal); E78.5 Hyperlipidemia, unspecified; D69.6 Thrombocytopenia, unspecified
CPT/HCPCS: 36415; 80053; 80061; 85025

== ENCOUNTER 2023-01-19 06:41 | Outpatient (REF) | payer MEDICARE, SELFPAY ==
[2023-01-19 06:55] LABS: MANUAL DIFF FLAG NO
[2023-01-19 07:24] LABS: Basophils Absolute Auto 0.1 X10*3/uL (0.0-0.2); Basophils Percent Auto 0.8 % (0-2); Eosinophils Absolute Auto 0.2 X10*3/uL (0.0-0.4); Eosinophils Percent Auto 3.3 % (0-4); Hematocrit 51.1 % (37.0-47.0); Hemoglobin 16.9 g/dl (12.0-16.0); Imm Gran Abs Auto 0.02 X10*3/uL (0.00-0.03); Imm Gran Pct Auto 0.3 % (0.0-0.4); Lymphocytes Absolute Auto 1.2 X10*3/uL (1.2-4.9); Lymphocytes Percent Auto 18.7 % (20-40); Mean Corpuscular HGB Conc 33.1 g/dl (31.0-35.0); Mean Corpuscular Hemoglobin 32.3 pg (27.0-33.0); Mean Corpuscular Volume 97.7 fL (80.0-98.0); Mean Platelet Volume 10.2 fL (9.4-12.3); Monocytes Absolute Auto 0.7 X10*3/uL (0.1-1.2); Monocytes Percent Auto 10.3 % (2-11); Neutrophils Absolute Auto 4.4 x10*3/uL (2.0-8.3); Neutrophils Percent Auto 66.6 % (45-73); Platelet Count 187 X10*3/uL (160-400); Red Blood Count 5.23 X10*6/uL (4.20-5.50); Red Cell Distribution Width 14.1 % (11.0-16.0); White Blood Count 6.6 X10*3/uL (4.8-10.8)
[2023-01-19 08:08] LABS: Alanine Aminotransferase 17 U/L (0-31); Albumin Level 4.3 g/dL (3.5-5.0); Alkaline Phosphatase 83 U/L (39-117); Anion Gap 13 (12-20); Aspartate Amino Transferase 21 U/L (5-31); Bilirubin Total 1.2 mg/dL (0.0-1.0); Blood Urea Nitrogen 19 mg/dL (9-16); Calcium 9.6 mg/dL (8.4-10.2); Carbon Dioxide 27 mmol/L (22-29); Chloride 107 mmol/L (96-108); Cholesterol 199 mg/dL; Estimated Glomerular Filt Rate > 60; Glucose Random 128 mg/dL (60-115); HDL Cholesterol 61 mg/dL; LDL Cholesterol Calculated 115 mg/dl; Potassium 4.4 mmol/L (3.3-5.1); Sodium 143 mmol/L (135-145); Total Protein 6.9 g/dL (6.5-8.0); Triglycerides 115 mg/dL
[2023-01-19 08:29] LABS: Thyroid Stimulating Hormone 4.34 uIU/mL (0.32-4.0)
== END 2023-01-19 06:42 | disposition home or self-care (01) ==
LOC: HO.LAB 06:41
PROVIDERS: PCP Internal Medicine Medical Oncology; Visit Provider Internal Medicine Medical Oncology
DX: E78.5 Hyperlipidemia, unspecified (principal); E03.9 Hypothyroidism, unspecified; K21.9 Gastro-esophageal reflux disease without esophagitis; D75.1 Secondary polycythemia
CPT/HCPCS: 36415; 80053; 80061; 84439; 84443; 85025

== ENCOUNTER 2023-04-24 09:28 | Outpatient (REF) | payer MEDICARE, SELFPAY ==
[2023-04-24 09:53] LABS: MANUAL DIFF FLAG NO
[2023-04-24 10:26] LABS: Basophils Percent Auto 0.5 % (0-2); Eosinophils Absolute Auto 0.1 X10*3/uL (0.0-0.4); Eosinophils Percent Auto 1.7 % (0-4); Hematocrit 48.2 % (37.0-47.0); Hemoglobin 16.2 g/dl (12.0-16.0); Imm Gran Abs Auto 0.04 X10*3/uL (0.00-0.03); Imm Gran Pct Auto 0.5 % (0.0-0.4); Lymphocytes Percent Auto 13.2 % (20-40); Mean Corpuscular HGB Conc 33.6 g/dl (31.0-35.0); Mean Corpuscular Volume 95.1 fL (80.0-98.0); Mean Platelet Volume 10.3 fL (9.4-12.3); Monocytes Absolute Auto 0.7 X10*3/uL (0.1-1.2); Monocytes Percent Auto 9.1 % (2-11); Neutrophils Absolute Auto 5.8 x10*3/uL (2.0-8.3); Platelet Count 186 X10*3/uL (160-400); Red Blood Count 5.07 X10*6/uL (4.20-5.50); Red Cell Distribution Width 13.9 % (11.0-16.0); White Blood Count 7.7 X10*3/uL (4.8-10.8)
[2023-04-24 11:12] LABS: Alanine Aminotransferase 15 U/L (0-31); Albumin Level 3.9 g/dL (3.5-5.0); Alkaline Phosphatase 69 U/L (39-117); Anion Gap 14 (12-20); Aspartate Amino Transferase 17 U/L (5-31); Bilirubin Total 0.9 mg/dL (0.0-1.0); Blood Urea Nitrogen 18 mg/dL (9-16); Calcium 9.7 mg/dL (8.4-10.2); Carbon Dioxide 20 mmol/L (22-29); Chloride 110 mmol/L (96-108); Cholesterol 169 mg/dL; Estimated Glomerular Filt Rate > 60; Glucose Fasting 123 mg/dL (60-99); HDL Cholesterol 55 mg/dL; LDL Cholesterol Calculated 97 mg/dl; Sodium 140 mmol/L (135-145); Total Protein 6.8 g/dL (6.5-8.0); Triglycerides 86 mg/dL
[2023-04-24 11:31] LABS: Free T4 (Free Thyroxine) 1.28 ng/dL (0.71-1.85); Thyroid Stimulating Hormone 2.39 uIU/mL (0.32-4.0)
== END 2023-04-24 09:29 | disposition home or self-care (01) ==
LOC: HO.LAB 09:28
PROVIDERS: PCP Internal Medicine Medical Oncology; Visit Provider Internal Medicine Medical Oncology
DX: E03.9 Hypothyroidism, unspecified (principal); E78.5 Hyperlipidemia, unspecified
CPT/HCPCS: 36415; 80053; 80061; 84439; 84443; 85025

== ENCOUNTER 2023-07-09 07:04 | Outpatient (REF) | payer MEDICARE, SELFPAY ==
--- NOTE | ~2023-07-09 | XR_ITS ---
STUDY: Thoracic and lumbar spine INDICATION: Pain COMPARISON: None TECHNIQUE: 3 view thoracic, three-view lumbar spine FINDINGS: Bones are diffusely demineralized. Thoracic spine: S-shaped scoliosis with thoracic dextroscoliosis. Vertebral bodies are maintained in height. Multilevel disc space narrowings. Pedicles and visualized ribs are intact. No focal paravertebral soft tissue swelling identified. 6 mm anterolisthesis C3 on C4, C4-C5 and C5 C5 C6 disc space narrowings. Visualized heart, mediastinum and lung turner within normal limits. Tortuous aorta. Lumbar spine: S-shaped scoliosis with dextroscoliosis of the lumbar spine. Multilevel spurring and disc space narrowings L2 and L3 mild compression deformities. Visualized pedicles and SI joints within normal limits. Visualized bony pelvis is intact. XR/XR thoracic spine 3V IMPRESSION: Diffuse demineralization. S-shaped thoracolumbar scoliosis. Degenerative type changes. 6 mm anterolisthesis C3 on C4 and cervical spondylosis, follow-up as clinically indicated.
--- NOTE | ~2023-07-09 | XR_ITS ---
STUDY: Thoracic and lumbar spine INDICATION: Pain COMPARISON: None TECHNIQUE: 3 view thoracic, three-view lumbar spine FINDINGS: Bones are diffusely demineralized. Thoracic spine: S-shaped scoliosis with thoracic dextroscoliosis. Vertebral bodies are maintained in height. Multilevel disc space narrowings. Pedicles and visualized ribs are intact. No focal paravertebral soft tissue swelling identified. 6 mm anterolisthesis C3 on C4, C4-C5 and C5 C5 C6 disc space narrowings. Visualized heart, mediastinum and lung turner within normal limits. Tortuous aorta. Lumbar spine: S-shaped scoliosis with dextroscoliosis of the lumbar spine. Multilevel spurring and disc space narrowings L2 and L3 mild compression deformities. Visualized pedicles and SI joints within normal limits. Visualized bony pelvis is intact. XR/XR lumbar spine 2-3V IMPRESSION: Diffuse demineralization. S-shaped thoracolumbar scoliosis. Degenerative type changes. 6 mm anterolisthesis C3 on C4 and cervical spondylosis, follow-up as clinically indicated.
== END 2023-07-09 07:05 | disposition home or self-care (01) ==
LOC: HO.XRAY 07:04
PROVIDERS: PCP Internal Medicine Medical Oncology; Visit Provider Internal Medicine Medical Oncology
DX: M54.50 Low back pain, unspecified (principal)
CPT/HCPCS: 72072; 72100

== ENCOUNTER 2023-07-16 09:07 | Outpatient (REF) | payer MEDICARE, SELFPAY ==
[2023-07-16 10:50] LABS: MANUAL DIFF FLAG NO
[2023-07-16 10:52] LABS: Basophils Percent Auto 0.4 % (0-2); Eosinophils Absolute Auto 0.2 X10*3/uL (0.0-0.4); Eosinophils Percent Auto 2.8 % (0-4); Hematocrit 48.5 % (37.0-47.0); Hemoglobin 16.2 g/dl (12.0-16.0); Imm Gran Abs Auto 0.02 X10*3/uL (0.00-0.03); Imm Gran Pct Auto 0.3 % (0.0-0.4); Lymphocytes Percent Auto 14.1 % (20-40); Mean Corpuscular HGB Conc 33.4 g/dl (31.0-35.0); Mean Corpuscular Volume 95.8 fL (80.0-98.0); Monocytes Absolute Auto 0.7 X10*3/uL (0.1-1.2); Monocytes Percent Auto 9.1 % (2-11); Neutrophils Absolute Auto 5.3 x10*3/uL (2.0-8.3); Neutrophils Percent Auto 73.3 % (45-73); Platelet Count 178 X10*3/uL (160-400); Red Blood Count 5.06 X10*6/uL (4.20-5.50); White Blood Count 7.2 X10*3/uL (4.8-10.8)
[2023-07-16 11:15] LABS: Alanine Aminotransferase 12 U/L (0-31); Albumin Level 3.9 g/dL (3.5-5.0); Alkaline Phosphatase 72 U/L (39-117); Anion Gap 13 (12-20); Aspartate Amino Transferase 18 U/L (5-31); Bilirubin Total 0.9 mg/dL (0.0-1.0); Blood Urea Nitrogen 14 mg/dL (9-16); Calcium 9.5 mg/dL (8.4-10.2); Carbon Dioxide 25 mmol/L (22-29); Chloride 105 mmol/L (96-108); Cholesterol 166 mg/dL (<200); Estimated Glomerular Filt Rate > 60; Glucose Fasting 137 mg/dL (60-99); HDL Cholesterol 55 mg/dL (>40); LDL Cholesterol Calculated 93 mg/dL (<100); Potassium 4.1 mmol/L (3.3-5.1); Sodium 139 mmol/L (135-145); Total Protein 6.6 g/dL (6.5-8.0); Triglycerides 90 mg/dL (<150)
[2023-07-16 11:33] LABS: Thyroid Stimulating Hormone 3.08 uIU/mL (0.32-4.0)
== END 2023-07-16 09:08 | disposition home or self-care (01) ==
LOC: HO.10HDL 09:07
PROVIDERS: Visit Provider Internal Medicine Medical Oncology
DX: E78.5 Hyperlipidemia, unspecified (principal); E03.9 Hypothyroidism, unspecified; K21.9 Gastro-esophageal reflux disease without esophagitis; G30.1 Alzheimer's disease with late onset; D75.1 Secondary polycythemia
CPT/HCPCS: 36415; 80053; 80061; 84439; 84443; 85025

== ENCOUNTER 2023-11-14 07:59 | Outpatient (REF) | payer MEDICARE, SELFPAY ==
[2023-11-14 08:23] LABS: MANUAL DIFF FLAG NO
[2023-11-14 08:41] LABS: Basophils Absolute Auto 0.1 X10*3/uL (0.0-0.2); Basophils Percent Auto 0.6 % (0-2); Eosinophils Absolute Auto 0.1 X10*3/uL (0.0-0.4); Eosinophils Percent Auto 1.4 % (0-4); Hematocrit 51.1 % (37.0-47.0); Hemoglobin 17.3 g/dl (12.0-16.0); Imm Gran Abs Auto 0.03 X10*3/uL (0.00-0.03); Imm Gran Pct Auto 0.3 % (0.0-0.4); Lymphocytes Absolute Auto 1.2 X10*3/uL (1.2-4.9); Lymphocytes Percent Auto 13.7 % (20-40); Mean Corpuscular HGB Conc 33.9 g/dl (31.0-35.0); Mean Corpuscular Hemoglobin 32.5 pg (27.0-33.0); Mean Corpuscular Volume 96.1 fL (80.0-98.0); Mean Platelet Volume 9.9 fL (9.4-12.3); Monocytes Percent Auto 11.4 % (2-11); Neutrophils Absolute Auto 6.4 x10*3/uL (2.0-8.3); Neutrophils Percent Auto 72.6 % (45-73); Platelet Count 209 X10*3/uL (160-400); Red Blood Count 5.32 X10*6/uL (4.20-5.50); Red Cell Distribution Width 14.3 % (11.0-16.0); White Blood Count 8.8 X10*3/uL (4.8-10.8)
[2023-11-14 09:14] LABS: Alanine Aminotransferase 13 U/L (0-31); Albumin Level 4.3 g/dL (3.5-5.0); Alkaline Phosphatase 82 U/L (39-117); Anion Gap 13 (12-20); Aspartate Amino Transferase 19 U/L (5-31); Bilirubin Total 1.3 mg/dL (0.0-1.0); Blood Urea Nitrogen 14 mg/dL (9-16); Calcium 10.1 mg/dL (8.4-10.2); Carbon Dioxide 26 mmol/L (22-29); Chloride 104 mmol/L (96-108); Cholesterol 173 mg/dL (<200); Estimated Glomerular Filt Rate 59; Glucose Fasting 158 mg/dL (60-99); HDL Cholesterol 62 mg/dL (>40); LDL Cholesterol Calculated 94 mg/dL (<100); Potassium 4.1 mmol/L (3.3-5.1); Sodium 139 mmol/L (135-145); Total Protein 7.6 g/dL (6.5-8.0); Triglycerides 88 mg/dL (<150)
[2023-11-14 10:04] LABS: Thyroid Stimulating Hormone 2.35 uIU/mL (0.32-4.0)
== END 2023-11-14 08:00 | disposition home or self-care (01) ==
LOC: HO.LAB 07:59
PROVIDERS: PCP Internal Medicine Medical Oncology; Visit Provider Internal Medicine Medical Oncology
DX: Z00.00 Encounter for general adult medical examination without abnormal findings (principal); E78.5 Hyperlipidemia, unspecified; E03.9 Hypothyroidism, unspecified
CPT/HCPCS: 36415; 80053; 80061; 84439; 84443; 85025

== ENCOUNTER 2024-02-14 06:20 | Outpatient (REF) | payer MEDICARE, SELFPAY ==
[2024-02-14 06:31] LABS: MANUAL DIFF FLAG NO
[2024-02-14 07:15] LABS: Basophils Absolute Auto 0.1 X10*3/uL (0.0-0.2); Basophils Percent Auto 0.9 % (0-2); Eosinophils Absolute Auto 0.2 X10*3/uL (0.0-0.4); Eosinophils Percent Auto 3.3 % (0-4); Hematocrit 51.5 % (37.0-47.0); Hemoglobin 17.4 g/dl (12.0-16.0); Imm Gran Abs Auto 0.04 X10*3/uL (0.00-0.03); Imm Gran Pct Auto 0.6 % (0.0-0.4); Lymphocytes Absolute Auto 1.3 X10*3/uL (1.2-4.9); Mean Corpuscular HGB Conc 33.8 g/dl (31.0-35.0); Mean Corpuscular Hemoglobin 32.7 pg (27.0-33.0); Mean Corpuscular Volume 96.8 fL (80.0-98.0); Mean Platelet Volume 10.5 fL (9.4-12.3); Monocytes Absolute Auto 0.7 X10*3/uL (0.1-1.2); Monocytes Percent Auto 10.7 % (2-11); Neutrophils Absolute Auto 4.3 x10*3/uL (2.0-8.3); Neutrophils Percent Auto 64.5 % (45-73); Platelet Count 204 X10*3/uL (160-400); Red Blood Count 5.32 X10*6/uL (4.20-5.50); White Blood Count 6.6 X10*3/uL (4.8-10.8)
[2024-02-14 07:55] LABS: Alanine Aminotransferase 17 U/L (0-31); Albumin Level 4.2 g/dL (3.5-5.0); Alkaline Phosphatase 82 U/L (39-117); Anion Gap 13 (12-20); Aspartate Amino Transferase 18 U/L (5-31); Blood Urea Nitrogen 14 mg/dL (9-16); Calcium 10.3 mg/dL (8.4-10.2); Carbon Dioxide 28 mmol/L (22-29); Chloride 102 mmol/L (96-108); Cholesterol 197 mg/dL (<200); Estimated Glomerular Filt Rate > 60; Glucose Fasting 128 mg/dL (60-99); HDL Cholesterol 55 mg/dL (>40); LDL Cholesterol Calculated 119 mg/dL (<100); Potassium 4.2 mmol/L (3.3-5.1); Sodium 139 mmol/L (135-145); Total Protein 7.2 g/dL (6.5-8.0); Triglycerides 115 mg/dL (<150)
[2024-02-14 08:13] LABS: Free T4 (Free Thyroxine) 1.13 ng/dL (0.71-1.85); Thyroid Stimulating Hormone 8.19 uIU/mL (0.32-4.0)
== END 2024-02-14 06:21 | disposition home or self-care (01) ==
LOC: HO.LAB 06:20
PROVIDERS: PCP Internal Medicine Medical Oncology; Visit Provider Internal Medicine Medical Oncology
DX: E78.5 Hyperlipidemia, unspecified (principal); E03.9 Hypothyroidism, unspecified; K21.9 Gastro-esophageal reflux disease without esophagitis
CPT/HCPCS: 36415; 80053; 80061; 84439; 84443; 85025

== ENCOUNTER 2024-07-24 07:22 | Outpatient (REF) | payer MEDICARE, SELFPAY ==
[2024-07-24 07:32] LABS: MANUAL DIFF FLAG NO
[2024-07-24 08:24] LABS: Basophils Absolute Auto 0.1 X10*3/uL (0.0-0.2); Basophils Percent Auto 0.8 % (0-2); Eosinophils Absolute Auto 0.2 X10*3/uL (0.0-0.4); Eosinophils Percent Auto 2.3 % (0-4); Hemoglobin 17.8 g/dl (12.0-16.0); Imm Gran Abs Auto 0.02 X10*3/uL (0.00-0.03); Imm Gran Pct Auto 0.3 % (0.0-0.4); Lymphocytes Absolute Auto 0.9 X10*3/uL (1.2-4.9); Lymphocytes Percent Auto 14.3 % (20-40); Mean Corpuscular HGB Conc 33.6 g/dl (31.0-35.0); Mean Corpuscular Hemoglobin 32.2 pg (27.0-33.0); Mean Corpuscular Volume 95.8 fL (80.0-98.0); Mean Platelet Volume 10.1 fL (9.4-12.3); Monocytes Absolute Auto 0.5 X10*3/uL (0.1-1.2); Monocytes Percent Auto 7.9 % (2-11); Neutrophils Absolute Auto 4.9 x10*3/uL (2.0-8.3); Neutrophils Percent Auto 74.4 % (45-73); Platelet Count 209 X10*3/uL (160-400); Red Blood Count 5.53 X10*6/uL (4.20-5.50); Red Cell Distribution Width 13.9 % (11.0-16.0); White Blood Count 6.6 X10*3/uL (4.8-10.8)
[2024-07-24 09:14] LABS: Alanine Aminotransferase 18 U/L (0-31); Albumin Level 4.2 g/dL (3.5-5.0); Alkaline Phosphatase 81 U/L (39-117); Anion Gap 12 (12-20); Aspartate Amino Transferase 21 U/L (5-31); Bilirubin Total 1.2 mg/dL (0.0-1.0); Blood Urea Nitrogen 11 mg/dL (9-16); Carbon Dioxide 27 mmol/L (22-29); Chloride 106 mmol/L (96-108); Cholesterol 173 mg/dL (<200); Estimated Glomerular Filt Rate 54; Glucose Fasting 136 mg/dL (60-99); HDL Cholesterol 55 mg/dL (>40); LDL Cholesterol Calculated 98 mg/dL (<100); Potassium 4.2 mmol/L (3.3-5.1); Sodium 141 mmol/L (135-145); Total Protein 7.2 g/dL (6.5-8.0); Triglycerides 101 mg/dL (<150)
[2024-07-24 09:32] LABS: Free T4 (Free Thyroxine) 1.19 ng/dL (0.71-1.85)
== END 2024-07-24 07:23 | disposition home or self-care (01) ==
LOC: HO.LAB 07:22
PROVIDERS: PCP Internal Medicine Medical Oncology; Visit Provider Internal Medicine Medical Oncology
DX: E78.5 Hyperlipidemia, unspecified (principal); E03.9 Hypothyroidism, unspecified
CPT/HCPCS: 36415; 80053; 80061; 84439; 84443; 85025

== ENCOUNTER 2024-11-06 06:49 | Outpatient (REF) | payer MEDICARE, SELFPAY ==
[2024-11-06 07:08] LABS: MANUAL DIFF FLAG NO
[2024-11-06 07:32] LABS: Basophils Absolute Auto 0.1 X10*3/uL (0.0-0.2); Basophils Percent Auto 0.7 % (0-2); Eosinophils Absolute Auto 0.3 X10*3/uL (0.0-0.4); Eosinophils Percent Auto 3.4 % (0-4); Hematocrit 49.4 % (37.0-47.0); Hemoglobin 16.5 g/dl (12.0-16.0); Imm Gran Abs Auto 0.04 X10*3/uL (0.00-0.03); Imm Gran Pct Auto 0.5 % (0.0-0.4); Lymphocytes Absolute Auto 1.3 X10*3/uL (1.2-4.9); Lymphocytes Percent Auto 17.6 % (20-40); Mean Corpuscular HGB Conc 33.4 g/dl (31.0-35.0); Mean Corpuscular Hemoglobin 31.8 pg (27.0-33.0); Mean Corpuscular Volume 95.2 fL (80.0-98.0); Mean Platelet Volume 9.3 fL (9.4-12.3); Monocytes Absolute Auto 0.7 X10*3/uL (0.1-1.2); Monocytes Percent Auto 8.6 % (2-11); Neutrophils Absolute Auto 5.2 x10*3/uL (2.0-8.3); Neutrophils Percent Auto 69.2 % (45-73); Platelet Count 261 X10*3/uL (160-400); Red Blood Count 5.19 X10*6/uL (4.20-5.50); Red Cell Distribution Width 14.2 % (11.0-16.0); White Blood Count 7.6 X10*3/uL (4.8-10.8)
[2024-11-06 07:36] LABS: Estimated Average Glucose 140 mg/dL; Hemoglobin A1C 198.1886 umol/L; Hemoglobin A1c % 6.5 % (<6.0); Total Hemoglobin (HGBA1C) 4198.3702 umol/L
[2024-11-06 08:08] LABS: Alanine Aminotransferase 22 U/L (0-31); Alkaline Phosphatase 76 U/L (39-117); Anion Gap 11 (12-20); Aspartate Amino Transferase 26 U/L (5-31); Bilirubin Total 0.8 mg/dL (0.0-1.0); Blood Urea Nitrogen 16 mg/dL (9-16); Calcium 9.7 mg/dL (8.4-10.2); Carbon Dioxide 22 mmol/L (22-29); Chloride 110 mmol/L (96-108); Cholesterol 175 mg/dL (<200); Estimated Glomerular Filt Rate > 60; Glucose Fasting 147 mg/dL (60-99); HDL Cholesterol 54 mg/dL (>40); LDL Cholesterol Calculated 100 mg/dL (<100); Sodium 139 mmol/L (135-145); Total Protein 7.3 g/dL (6.5-8.0); Triglycerides 105 mg/dL (<150)
[2024-11-06 08:30] LABS: Free T4 (Free Thyroxine) 1.28 ng/dL (0.71-1.85); Thyroid Stimulating Hormone 5.79 uIU/mL (0.32-4.0)
== END 2024-11-06 06:50 | disposition home or self-care (01) ==
LOC: HO.LAB 06:49
PROVIDERS: PCP Internal Medicine Medical Oncology; Visit Provider Internal Medicine Medical Oncology
DX: E78.5 Hyperlipidemia, unspecified (principal); E03.9 Hypothyroidism, unspecified; R73.9 Hyperglycemia, unspecified
CPT/HCPCS: 36415; 80053; 80061; 83036; 84439; 84443; 85025

== ENCOUNTER 2025-01-13 11:30 | Outpatient (REF) | payer MEDICARE, SELFPAY ==
[2025-01-13 11:47] LABS: MANUAL DIFF FLAG NO
[2025-01-13 11:49] LABS: Basophils Percent Auto 0.5 % (0-2); Eosinophils Absolute Auto 0.2 X10*3/uL (0.0-0.4); Eosinophils Percent Auto 2.4 % (0-4); Hematocrit 51.7 % (37.0-47.0); Hemoglobin 17.1 g/dl (12.0-16.0); Imm Gran Abs Auto 0.02 X10*3/uL (0.00-0.03); Imm Gran Pct Auto 0.3 % (0.0-0.4); Lymphocytes Absolute Auto 0.9 X10*3/uL (1.2-4.9); Lymphocytes Percent Auto 14.6 % (20-40); Mean Corpuscular HGB Conc 33.1 g/dl (31.0-35.0); Mean Corpuscular Hemoglobin 31.5 pg (27.0-33.0); Mean Corpuscular Volume 95.4 fL (80.0-98.0); Mean Platelet Volume 9.3 fL (9.4-12.3); Monocytes Absolute Auto 0.6 X10*3/uL (0.1-1.2); Monocytes Percent Auto 9.8 % (2-11); Neutrophils Absolute Auto 4.5 x10*3/uL (2.0-8.3); Neutrophils Percent Auto 72.4 % (45-73); Platelet Count 209 X10*3/uL (160-400); Red Blood Count 5.42 X10*6/uL (4.20-5.50); Red Cell Distribution Width 14.2 % (11.0-16.0); White Blood Count 6.2 X10*3/uL (4.8-10.8)
[2025-01-13 12:31] LABS: Alanine Aminotransferase 23 U/L (0-31); Albumin Level 4.1 g/dL (3.5-5.0); Alkaline Phosphatase 80 U/L (39-117); Anion Gap 10 (12-20); Aspartate Amino Transferase 28 U/L (5-31); Bilirubin Total 1.2 mg/dL (0.0-1.0); Blood Urea Nitrogen 16 mg/dL (9-16); Calcium 10.1 mg/dL (8.4-10.2); Carbon Dioxide 28 mmol/L (22-29); Chloride 108 mmol/L (96-108); Estimated Glomerular Filt Rate > 60; Glucose Random 126 mg/dL (60-115); Potassium 4.6 mmol/L (3.3-5.1); Sodium 141 mmol/L (135-145); Total Protein 6.9 g/dL (6.5-8.0)
[2025-01-13 12:50] LABS: Free T4 (Free Thyroxine) 1.51 ng/dL (0.71-1.85); Thyroid Stimulating Hormone 0.65 uIU/mL (0.32-4.0)
--- OUTSIDE RECORDS SUMMARY | 2025-01-13 13:58 | XMS_ITS | Clinical Summary ---
Author Organization [facility] Facility Address [address] [place] [address] Care Team Providers Care Maitre D' Name Role Phone Mick Norwood MD Primary Care Provider [phone] Social History Tobacco Use Types Packs/Day Years Used Date Smoking Tobacco: Never Assessed Comments Unknown Sex and Gender Information Value Date Recorded Sex Assigned at Not on file Legal Sex Female 2:25 PM EDT Gender Identity Not on file Sexual Orientation Not on file Plan of Treatment Health Maintenance Due Date Last Done Comments Pneumococcal Vaccine: 65+ Ye ars (1 of 1 - PCV) 2004 Influenza Vaccine (#1) 2024 Hepatitis B Vaccine Aged Out No longe r eligible based on patient's age to complete this topic Insurance [place] [address] [facility] Member Subscriber Plan / Payer (Ef fective 2018-Present) Name:Kannan Taveras Relation to Subscriber:Self Name:Kannan Taveras Payer ID:Not on file Type:Not on file Address: [place] [id number] Care Teams Maitre D' Relationship Specialty [place] [id number] [facility] [address] [place] [address] PCP - General Internal Medicine 01/25/21
--- OUTSIDE RECORDS SUMMARY | 2025-01-13 13:58 | XMS_ITS ---
Author Organization Mick Norwood III, MD Address [address] [place] [address] [place] [address] Care Team Providers Care Volcanology Professor Name Role Phone Mick Norwood Primary Care Provider [phone] Allergies Allergen (clinical drug ingredient) Drug/Non Drug [...] Date Provider Diagnosis Mick Norwood III, MD [address] [place] [address] [place] [address] 12/09/2024 Mick Norwood Plan Of Treatment Medication Medication Name Sig Start Date Stop Date Notes Simvastatin 10 MG TAKE 1 TABLET BY LEWIS TH EVERY DAY IN THE EVENING FOR 90 DAYS Levothyroxine Sodium 75 MCG 1 tablet in the morning on an empty stomach Orally Once a day 02/18/2024 Next Appt Details Provider Name:Mick Norwood, 01/27/2025 11:00:00 AM, [address] [facility] [address], [place], [address], Provider Name:Mick Mercadone, 04/28/2025 09:30:00 AM, [address] [facility] [address], [place], [address], Provider Name:Mick Mercadone, 01/19/2026 09:30:00 AM, [address] [facility] [address], [place], [address], Progress Notes * CHERRIE PerlitaisDOB:1940 (84 yo F)Acc No.[id number]:12/09/2024 Progress Notes Patient:?Kannan TAVERAS Provider:?Mick Norwood MD :1940???Age:84 Y???Sex:Female D ate:12/09/2024 Address:[address] [place], [place] [id number] Subjective: * Chief Complaints: * ???1. Follow up. * HPI: ???COVID-19 Screening:?Questions?Have you had any new onset fever, chills, cough, congestion, sore throat, shortness of breath, muscle aches??No * ROS:?General/Constitutional:?pain?only normal aches and pains.?Chills?denies.?Fatigue?admits.?Fever?denies.?ENT:?Decreased hearing?denies.?Respiratory:?Cough?denies.?Cardiovascular:?Chest pain with exertion?denies.?Dyspnea on exertion?denies.?Shortness of breath?denies.?Gastrointestinal:?Constipation?denies.?Decreased appetite?denies.?Diarrhea?denies.?Heartburn?denies.?Nausea?denies.?Rectal bleeding?denies.?Vomiting?denies.?Hematology:?bruising?denies.?petechiae?denies.?Swollen glands?none have been noted.?Genitourinary:?Frequent urination?denies.?Musculoskeletal:?Muscle aches?denies.?Painful joints?denies.?Sciatica?denies.?Weakness?denies.?Skin:?Itching?denies.?Rash?denies.?Skin lesion(s)?denies.?Neurologic:?Difficulty speaking?denies.?Dizziness?denies.?Headache?denies.?Low back pain?denies.?Psychiatric:?Depressed mood?denies.? 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 * Surgical History:?Left TKR 2 , lumpectomy right breast DCIS 2003, C-spine surgery degenerated disc 1977, hysterectomy & BSO 1979, No history . * Hospitalization/Major Diagno stic Procedure:?Bacterial UTI 04/2021, No history . * Family History:?Father: dece ased 80 yrs, lung cancer, emphysema, diagnosed with Cancer.?Mother: 94 yrs, alzheimer.?2 brother(s) , 2 sister(s) - healthy. 3 son(s) - healthy. .? She is not aware of any family history of mental illness or substance use disorder. * Social History:?Tobacco Use:?Tobacco Use/Smoking?Patient is a?nonsmoker ?Additional Findings: Tobacco Non-User?Aggressive non-smoker ???She is and a nonsmoker. She and her used to run a restaurant. She was born in [place], [place]. * Medications:?Taking Simvasta tin 10 MG Tablet TAKE 1 TABLET BY MOUTH EVERY DAY IN THE EVENING FOR 90 DAYS , Taking Levothyroxine Sodium 75 MCG Tablet 1 tablet in the morning on an empty stomach Orally Once a day , Medication List reviewed and reconciled with the patient * Allergies:?Sulfur, Penicilli n. Objective: * Vitals:? * Examination: ???General Examination: ?GENERAL APPEARANCE:?pleasant, well nourished, well developed, in no acute distress, calm and relaxed.?HEAD:?atraumatic, normocephalic.?EYES:?eomi, perrla, anicteric, conjugate.?EARS:?normal.?NOSE:?septum intact.?ORAL CAVITY:?normal, unremarkable.?NECK/THYROID:?no jugular venous distention, no carotid bruit, thyroid normal.?LYMPH NODES:?no enlarged lymph nodes,spleen normal.?SKIN:?no suspicious lesions, anicteric.?HEART:?no clicks, gallops, murmurs, or rubs, regular rhythm, S1, S2 normal, no s3, or vascular bruits.?LUNGS:?clear to auscultation .?BREASTS:??no masses palpable bilaterally.?ABDOMEN:?bowel sounds normal, no ascites, no organomegaly, no mass.?RECTAL EXAM:?not examined.?MUSCULOSKELETAL:?extremities unremarkable, no clubbing, cyanosis or edema.?PERIPHERAL PULSES:?normal.?NEUROLOGIC:?alert and oriented, cranial nerves 2-12 grossly intact, deep tendon reflexes 2+ symmetrical, motor strength normal upper and lower extremities, sensory exam intact.?PSYCH:?alert, oriented.? Assessment: Plan: * Treatment: * Images: * The named appointment provid er may or may not be the originator of this progress note, and it is not deemed complete until electronically signed by the appointment provider. Sign off status: Pending * Provider:?Mick Norwood MD Date:?11/16 Generated for Lizeth paige/Kenneth/Ama on:?01/13/2025 01:57 PM EDT History and Physical Notes * HPI [...]
--- OUTSIDE RECORDS SUMMARY | 2025-01-13 13:58 | XMS_ITS | Patient Health Record ---
Author Organization [facility] Kelsi hansel [place] Address [address] [place] [address] Care Team Providers Care Poultry Culler Name Role Phone Mick Norwood MD Primary Care Provider Mike Neely Unavailable [phone] Allergies Allergen (clinical drug ingredient) Drug/Non Drug Allergy documented on EMR Reaction Allergy Type Onset Date Status Penicillin rash Drug Allergy Active Reason For Referral No Information Medications Medication SIG (Take, Route, Frequency, Duration) Notes Start Date End Date Status Simvastatin 10 MG 1 tablet in the even ing Orally Once a day Active Lisinopril Unknown Sertraline HCl 25 MG 1 tablet Orally Onc e a day Active Levothyroxine Sodium 50 MCG 1 tablet in the morning on an empty stomach Orally Once a day Active Social History Tobacco Use: Social History Observation Description Date Details (start date - stop date) Never Smoker NA - NA Tobacco Use/Smoking Question Answer Notes Are you a: nonsmoker Additional Findings: Tobacco Non-User Current no n-smoker Alcohol Screen Question Answer Notes Did you have a drink containing alcohol in the p ast year? No Points 0 Interpretation Negative Tobacco use other than smoking: Question Answer Notes Are you an other tobacco user? 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 Problems Problem Type SNOMED Code ICD Code Onset Dates Problem Status W/U Status Risk Notes Problem Acquired hallux valgus (47863845) Hallux valgus (acquired), left foot (M20.12) Active confirmed Problem Pain in limb (75897929) Pain in unspecified foot (M79.673) Active confirmed Problem Acquired hammer toe of right foot (404375684893 9105) Other hammer toe(s) (acquired), right foot (M20.41) Active confirmed Problem Acquired hammer toe of left foot (108472265029 9103) Other hammer toe(s) (acquired), left foot (M20.42) Active confirmed Plan Of Treatment Pending Test Test Name Order Date X ray : Foot, left 2V 10/20/2015 X ray : Foot, left 3V 09/24/2023 X ray : Foot, right 3V 09/24/2023 Insurance Providers Payer Name Payer Address Payer Phone Subscriber Number Group Number Insured Name Patient Relationship to Insured Coverage Start Date Coverage End Date [facility] [address] [place] [address] [id number] Kannan Taveras Self - patient is the insured [employer] [address] [place] [address] [id number] Kannan Taveras Self - patient is the insured Medical (General) History Medical History History ICD Code cancer measles bone implants Alzheimers disease Arthritis Back,Hip,and Knee pain Dementia Surgical History Surgery Date(Month/Year) knee replacement breast cancer bunions
--- OUTSIDE RECORDS SUMMARY | 2025-01-13 13:58 | XMS_ITS ---
Author Organization [facility] Kelsi hansel C[place] Address [address] [place] [address] Care Team Providers Care Double Surface Operator Name Role Phone Mick Norwood MD Primary Care Provider Mike Neely Unavailable [phone] Allergies Allergen (clinical drug ingredient) Drug/Non Drug Allergy documented on EMR Reaction Allergy Type Onset Date Status Penicillin rash Drug Allergy Active REASON FOR VISIT Last PCP Visit: 07/2023, Foot pain Medications Medication SIG (Take, Route, Frequency, Duration) [...] user? No Section Notes: line dancing painting Problems Problem Type SNOMED Code ICD Code Onset Dates Problem Status W/U Status Risk Notes Problem Acquired hallux valgus (05198921) Hallux valgus (acquired), left foot (M20.12) Active confirmed Problem Acquired hammer toe of right foot (2859319606033 105) Other hammer toe(s) (acquired), right foot (M20.41) Active confirmed Problem Acquired hammer toe of left foot (2341392041568 103) Other hammer toe(s) (acquired), left foot (M20.42) Active confirmed Vital Signs Height 5ft 3in in 09/24/2023 Weight 135 lbs 09/24/2023 BMI 23.91 kg/m2 09/24/2023 Encounters Encounter Location Date Provider Diagnosis [facility] [place] [address] [place] [address] 09/24/2023 Mike Ellis Pain in left foot M79.672 ; Pain in right foot M79.671 ; Hallux valgus (acquired), left foot M20.12 ; Other hammer toe(s) (acquired), right foot M20.41 and Other hammer toe(s) (acquired), left foot M20.42 Assessments Encounter Date Diagnosis (ICD Code) Assessment Notes Treatment Notes Treatment Clinical Notes Section Notes 09/24/2023 Pain in left foot (ICD-10 - M79.672) 09/24/2023 Pain in right foot (ICD-10 - M79.671) 09/24/2023 Hallux valgus (acquired), left foot (ICD-10 - M20.12) 09/24/2023 Other hammer toe(s) (acquired), right foot (ICD-10 - M20.41) 09/24/2023 Other hammer toe(s) (acquired), left foot (ICD-10 - M20.42) Plan Of Treatment Pending Test Test Name Order Date X ray : Foot, left 3V 09/24/2023 X ray : Foot, right 3V 09/24/2023 Next Appt Details Follow Up: prn, Reason: Progress Notes * Bárbara TAVERASOB:1940 (83 yo F)Acc No.[id number]:09/24/2023 Progress Notes Patient:?Kannan Taveras Provider:Felton Ellis DPM :1940???Age:83 Y???Sex:Female D ate:09/24/2023 Address:[address] [place] [address] Pcp:Mick Norwood MD Subjective: * Chief Complaints: * ??? Last PCP Visit: 07/2023F oot pain * HPI: ???Foot Pain:?Nature:?instability and falling and hx of lbp.?Location?B/L feet.?Duration:?several years.?Course:?worse.?Aggrevated:?standing, walking.?Treatments:?pt referred by PCP to evaluate role of poor foot structure and shoegear.?Quality/Severity?moderate; pt's son is present and helps act as historian.? * ROS:?General/Constitutional:?Nausea?denies, denies.?Vomiting?denies, denies.?Hunger Thirst?denies, denies.?Loss appetite?denies, denies.?Chills?denies, denies.?Fatigue?denies, denies.?Fever?denies, denies.?Night Sweats denies, denies.?Unexplained weight loss?denies, denies.?Unexplained weight gain?denies.?Ophthalmologic:?Blurred vision?denies.?Red eye?denies.?HEENTM:?Dentures?denies, denies.?Dizziness?denies, denies.?Glasses/contacts?admits, denies.?Retinopathy?denies, denies.?Blurred/double vision?denies, denies.?TMJ?denies, denies.?Discharge/drainage?denies, denies.?Implants?denies, denies.?Sore throat?denies.?Dental implants?denies.?Hard of hearing ?denies, denies.?Difficulty chewing/swallowing/speaking?denies, denies.?Nose bleeds?denies, denies.?Sore mouth?denies, denies.?Swollen glands?denies.?Respiratory:?On Oxygen?denies, denies.?Pneumonia/pleurisy?denies, denies.?Bronchitis?denies, denies.?Emphysema?denies, denies.?Coughing?denies, denies.?Cough blood?denies, denies.?Shortness of breath?denies, denies.?Wheezing?denies, denies.?Cardiovascular:?Pacemaker?denies, denies.?MVP?denies, denies.?WPW?denies, denies.?CHF?denies, denies.?Heart attack?denies, denies.?Septal defect?denies, denies.?Rapid beat?denies, denies.?Chest pain ?denies, denies.?Atrial Fib.?denies, denies.?Murmur/Palpitations?denies, denies.?Gastrointestinal:?Hemorrhoids?denies, denies.?Stomach/Abdominal pain?denies, denies.?Dark blood stool?denies, denies.?Irritable bowel ?denies, denies.?Constipation?denies, denies.?Diarrhea?denies, denies.?Vomiting?denies.?Hematology:?Swelling?denies, denies.?Clots?denies.?Varicose Veins?denies.?Bruising?denies, denies.?Bleeding problem?denies, denies.?Genitourinary:?Blood urine?denies, denies.?Frequent/Painfu/urination/bladder control?denies, denies.?Kidney stones?denies, denies.?Infection (UTI)?denies, denies.?Nephropathy?denies, denies.?sex trans dis (STD)?denies.?Prostate?denies.?Musculoskeletal:?Hammertoes?denies, denies.?Bunions?denies, denies.?Scoliosis/kyphosis?denies.?Back Pain?admits.?Muscle Cramps/ Resting?denies.?Muscle cramps / walking?admits, denies.?Generalized aches and pains?admits, denies.?Weakness?denies, denies.?Integ.:?[place]?denies, denies.?Scars?denies, denies.?Corns/calluses?denies, denies.?Ingrown nails?denies, denies.?Painful nails?denies, denies.?Open Sores?denies.?Rashes?denies, denies.?Neurologic:?Difficulty sleeping?denies, denies.?Bipolar?denies.?Brain disorder?denies, denies.?Numbness?denies.?Balance trouble?denies, denies.?Confusion?denies, denies.?Fainting/blackouts?denies, denies.?Headache?denies.?Tingling?denies.?Tremors?denies, denies.? * Medical History:? * Surgical History:?knee repla cement breast cancer bunions * Hospitalization/Major Diagno stic Procedure:?Denies Past Hospitalization * Family History:?Mother: dece ased, diagnosed with Unspecified essential hypertension.?Father: , diagnosed with Other malignant neoplasm of unspecified site.? * Social History:?Tobacco Use:?Tobacco Use/Smoking?Are you a:?nonsmoker ?Additional Findings: Tobacco Non-User?Current non-smoker ?Tobacco use other than smoking?Are you an other tobacco user??No ???Drugs/Alcohol:?Drugs?Have you used drugs other than those for medical reasons in the past 12 months??No ?Alcohol Screen?Did you have a drink containing alcohol in the past year??No ?Points?0 ?Interpretation?Negative ???Miscellaneous:?Caffeine: yes, frequency:. ?Marital status: . ???line dancing painting. * Medications:?TakingSertralin e HCl 25 MG Tablet 1 tablet Orally Once a dayLevothyroxine Sodium 50 MCG Tablet 1 tablet in the morning on an empty stomach Orally Once a daySimvastatin 10 MG Tablet 1 tablet in the evening Orally Once a dayTaking Sertraline HCl 25 MG Tablet 1 tablet Orally Once a dayTaking Levothyroxine Sodium 50 MCG Tablet 1 tablet in the morning on an empty stomach Orally Once a dayTaking Simvastatin 10 MG Tablet 1 tablet in the evening Orally Once a dayUnknownLisinopril Medication List reviewed and reconciled with the patientUnknown Lisinopril Medication List reviewed and reconciled with the patient * Allergies:?Penicillin: rambo mathews[Allergies Verified] Objective: * Vitals:?Ht: 5ft 3in, Wt: 135 , BMI: 23.91, Shoe size: 6, Ht-cm: 160.02 cm, Wt-k.23 kg. * Examination: ???General Examination: ?GENERAL APPEARANCE:?pleasant, alert, well nourished, well developed, well hydrated, with good attention to hygene/body habitus, and in no acute distress.?ORIENTED:?person,place, and time.?Neurological: ?SENSORY:?Neurological exam is normal, pain sensation normal, vibration sensation intact, pinprick sensation is normal in the lower extremities, denies, tingling, burning, anesthesia, paresthesia, hyperesthesia, B/L.?TINEL'S COMPRESSION:?Negative tarsal tunnel, honorio pedis, and medial calcaneal nerves B/L.?BABINSKI REFLEX:?absent.?Neuroma Pain: ?PALPATION:?No interspace pain noted on palpation.?Vascular: ?DP PULSES:?2/4, B/L.?PT PULSES:?2/4, B/L.?CAPILLARY FILL TIME:?3 secs. per digit, B/L.?SKIN TEMPERTURE GRADIENT OF THE LOWER EXTERMITIES:?warm to cool, proximal to distal, B/L.?HAIR GROWTH/TEXTURE/ELASTICITY/TURGOR:?normal, B/L.?PIGMENTATION:?normal, B/L.?EDEMA:?no edema.?TELANGECTASIA:?absent.?VARICOSITIES:?absent.?Dermatologic: ?SKIN FINDINGS:? Skin exam reveals Keratotic lesion(s) located at, SUB MTH (s), 1, Left.?Orthopedic: ?MUSCLE STRENGTH:?5/5 all groups in a symmetrical fashion , B/L.?GAIT ABNORMALITY:?pronated, abducted, B/L.?FOOT MORPHOLOGY:? Pes Planus structure, Rigid, B/L.?BUNION:? Medially prominent 1st MPJ, Dorsally prominent 1st MPJ, LEFT, Lateral tracking 1st MPJ nonreducible.?DIGITAL DEFORMITIES:? lateral subluxation right 2-5, Digital contracture, PIPJ, 2-5 B/L, incompl-reducible with WB, or to push-up test, no over, nor underlapping.?X-Rays - IMAGING REPORT: ?Clinical Indication(s):? Evaluate Biomechanical Deformity.?Views:? 3 views of Foot, B/L.?Findings:? mild generalized decrease in bone density, moderate generalized decrease in bone density.?Foot structure:? reveals excess pronation with, anterior break in cyme line.?Digits:? show asymmetrical joint space narrowing at the PIPJ consistent with clinical finding of hammertoe deformity, show enlarged/hypertrophied phalangeal head(s) consistent for clinical finding of hammertoe deformity, 2nd digit thru 5th digit.?HAV:? increased First Intermetatarsal angle and Hallux Abductus angle consistent with Bunion deformity noted, hypertrophy of the dorsal and medial 1st MTH without subchondral cyst, severe-left with excellent sx correction of hav right foot with two screw fixation.? Assessment: * Assessment: 1.?Pain in right foot - M79. 671?2.?Pain in left foot - M79.672 (Primary)?3.?Hallux valgus (acquired), left foot - M20.12?4.?Other hammer toe(s) (acquired), right foot - M20.41?5.?Other hammer toe(s) (acquired), left foot - M20.42? Plan: * Treatment: 2.?Pain in right foot?Imaging: X ray : Foot, right 3V * Procedure Codes:?90917 X-RAY EXAM OF LEFT FOOT 3V, Modifiers: 26 , [id number] X-RAY EXAM OF RIGHT FOOT 3V, Modifiers: 26 , RT * Preventive Medicine:? ??Counseling:?Discussion:?-03: Office or other outpatient visit for the evaluation and management of a new patient, which required a medically appropriate history and/or examination and LOW level of DECISION MAKING for: 1 STABLE ACUTE UNCOMPLICATED PROBLEM, 2 OR MORE MINOR PROBLEMS, OR 1 STABLE CHRONIC PROBLEM, THAT POSE(S) A LOW RISK FOR MORBIDITY/MORTALITY. The visit on the day of the encounter encompassed interpreting the data and educating the patient as to the nature of their condition, treatment options available according to their individual PMH, meds, allergies, and overall health/living conditions, as well as any potential risks or complications that may occur from a failure to adhere to, and participate in, the recommended course of therapy. The discussion included a complete verbal, and/or written explanation of the examination results, any x-rays taken, the proposed diagnosis, and outline of the treatment plan. A schedule for future care needs was also explained. The patient verbalized an understanding of the instructions at this time and agreed to be an active participant in their treatment. If the patient should think of any questions or concerns after the visit, I have encouraged the patient to call the office--pt referred to both [employer] for supportive running shoes and also to [employer] for step in shoes.? * Follow Up:?prn * Images: * Sign off status: Completed true * Provider:Felton Ellis DPM Date:? 023 Generated for Lizeth paige/Kenneth/Ama on:?01/13/2025 01:58 PM EDT History and Physical Notes * HPI (History of Present Illness) Category Sub-Category Detail Notes Category Not es Foot Pain Aggrevated: standing, walking Course: worse Duration: several years Nature: instability and fall ing and hx of lbp Treatments: pt referred by PCP t o evaluate role of poor foot structure and shoegear Quality/Severity moderate; pt's son i s present and helps act as historian Location B/L feet Examination Category Sub-Category Detail Notes Category Not es Neuroma Pain PALPATION: No interspace pain noted on palpation Neurological SENSORY: Neurological exa m is normal, pain sensation normal, vibration sensation intact, pinprick sensation is normal in the lower extremities, denies, tingling, burning, anesthesia, paresthesia, hyperesthesia, B/L BABINSKI REFLEX: absent TINEL'S COMPRESSION: Negative tarsal carol nayely, honorio pedis, and medial calcaneal nerves B/L Dermatologic SKIN FINDINGS: Skin exam reveal s Keratotic lesion(s) located at, SUB MTH (s), 1, Left Orthopedic GAIT ABNORMALITY: pronated, abducted, B/L FOOT MORPHOLOGY: Pes Planus structure , Rigid, B/L BUNION: Medially prominent 1 st MPJ, Dorsally prominent 1st MPJ, LEFT, Lateral tracking 1st MPJ nonreducible DIGITAL DEFORMITIES: lateral subluxation right 2-5, Digital contracture, PIPJ, 2-5 B/L, incompl-reducible with WB, or to push-up test, no over, nor underlapping MUSCLE STRENGTH: 5/5 all groups in a symmetrical fashion , B/L General Examination GENERAL APPEARANCE: pleasant , alert, well nourished, well developed, well hydrated, with good attention to hygene/body habitus, and in no acute distress ORIENTED: person,place, and ti me Vascular DP PULSES (B): 2/4, B/L PT PULSES (B): 2/4, B/L CAPILLARY FILL TIME: 3 secs. per digit, B/L TEMPERTURE GRADIENT (C): warm to cool, p roximal to distal, B/L TROPHIC CONDITION-TEXTURE/ELASTICITY/TURGOR/HAIR GROWTH (B): normal, B/L EDEMA (C): no edema TELANGECTASIA: absent VARICOSITIES: absent PIGMENTATION: normal, B/L X-Rays - IMAGING REPORT Findings: mild gen eralized decrease in bone density, moderate generalized decrease in bone density Digits: show asymmetrical cinthya int space narrowing at the PIPJ consistent with clinical finding of hammertoe deformity, show enlarged/hypertrophied phalangeal head(s) consistent for clinical finding of hammertoe deformity, 2nd digit thru 5th digit Foot structure: reveals excess prona tion with, anterior break in cyme line HAV: increased First Inte rmetatarsal angle and Hallux Abductus angle consistent with Bunion deformity noted, hypertrophy of the dorsal and medial 1st MTH without subchondral cyst, severe- left with excellent sx correction of hav right foot with two screw fixation Views: 3 views of Foot, B/L Clinical Indication(s): Evaluate Biomech anical Deformity
--- OUTSIDE RECORDS SUMMARY | 2025-01-13 13:58 | XMS_ITS ---
Author Organization Mick Norwood III, MD Address [address] [place] [address] [place] [address] Care Team Providers Care Pelletising Extruder Operator Name Role Phone Mick Norwood Primary Care Provider [phone] Allergies Allergen (clinical drug ingredient) Drug/Non Drug [...] Date Provider Diagnosis Mick Norwood III, MD [address] [place] [address] [place] [address] 11/11/2024 Mick Norwood Diarrhea R19.7 ; Alzheimer's [...] Date CLOSTRIDIUM DIFF TOXIN A&B (C DIFF) 01/2 05/2025 OVA & PARASITES (O&P) 11/11/2024 Stool Culture 11/11/2024 Next Appt Details Follow Up: 3 Weeks, Reason: OV Provider Name:Mick Norwood, 01/27/2025 11:00:00 AM, [address] [facility] [address], [place], [address], Provider Name:Mick Dueñasrne, 04/28/2025 09:30:00 AM, [address] [place] [address] [address], [place], [address], Provider Name:Mick Dueñasrne, 01/19/2026 09:30:00 AM, [address] [facility] [address], [place], [address], Progress Notes * Bárbara TAVERASOB:1940 (84 yo F)Acc No.[id number]:11/11/2024 Progress Notes Patient:?Kannan TAVERAS Provider:?Mick Norwood MD :1940???Age:84 Y???Sex:Female D ate:11/11/2024 Address:[address] [place], [place] [id number] Subjective: * Chief Complaints: * ???Follow upStool Incontinen ce x 3 weeks * HPI: ???COVID-19 Screening:?Questions?Have you had any new onset fever, chills, cough, congestion, sore throat, shortness of breath, muscle aches??No ???:? The patient, an 84-year-old female, has been experiencing episodes of explosive diarrhea for the past three weeks. The stool is described as brown and liquid in nature. The patient has also been experiencing stomach cramps around the time the diarrhea started. The patient's caregiver reports that the patient has been wearing plastic garments from [employer] to manage the incontinence. The patient does not seem to have any issues with urination. There have been no changes in the patient's diet, and she has not consumed any food that did not come from a supermarket. The patient does not have a fever, chills, or belly pain. The patient's appetite is reported to be normal. Blood Sugar Level is 147. * ROS:?General/Constitutional:?Denies?pain,?only normal aches and pains.?Denies?Chills,?denies.?Fatigue?admits.?Denies?Fever,?denies.?ENT:?Decreased hearing?in both ears.?Respiratory:?Cough?denies.?Cardiovascular:?Chest pain with exertion?denies.?Dyspnea on exertion?denies.?Shortness of breath?denies.?Gastrointestinal:?Constipation?occasional.?Decreased appetite?denies.?Diarrhea?that is frequent.?Heartburn?denies.?Nausea?denies.?Rectal bleeding?denies.?Vomiting?denies.?Hematology:?bruising?denies.?petechiae?denies.?Swollen glands?none have been noted.?Women Only:?Admits?Incontinence.?Genitourinary:?Frequent urination?at night.?Musculoskeletal:?Muscle aches?denies.?Painful joints?denies.?Sciatica?denies.?Weakness?denies.?Skin:?Itching?denies.?Rash?denies.?Skin lesion(s)?denies.?Neurologic:?Difficulty speaking?denies.?Dizziness?denies.?Headache?denies.?Low back pain?denies.?Psychiatric:?Depressed mood?denies.? * Medical History:? 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 She was born in [place], [place]. * Medications:?TakingSimvastat in 10 MG Tablet TAKE 1 TABLET BY [...] reviewed and reconciled with the patient * Allergies:?SulfurPenicillinn o[Allergies Verified] Objective: * Vitals:?Ht: 62, Wt:130, BMI: 23.77, BP:128/69, HR:80, Temp:97.2, Wt-k.97. * ???Past Orders: ???Lab:Hemoglobin A1c (Order Date - 11/06/2024) (Collection Date & Time - 11/06/2024 07:05 AM) ? Value Reference Range ?Hemoglobin A1c % 6.5 H <6. 0 - % ?Estimated Average Glucose 140 - mg/dL Lab:Complete Blood Count Aut o Diff * Collection Date 11/06/2024 07/24/2024 02/14/2024 Collection Time 07:05 AM 07:31 AM 06:30 AM Order Date 11/06/2024 07/24/2024 02/14/2024 White Blood Count 7.6 (Ref Range: 4.8-10.8 X10*3/uL) 6.6 (Ref Range: 4.8-10.8 X10*3/uL) 6.6 (Ref Range: 4.8-10.8 X10*3/uL) Red Blood Count 5.19 (Ref Range: 4.20-5.50 X10*6/uL) 5.53?H (Ref Range: 4.20-5.50 X10*6/uL) 5.32 (Ref Range: 4.20-5.50 X10*6/uL) Hemoglobin 16.5?H (Ref Range: 12.0-16.0 g/dl) 17.8?H (Ref Range: 12.0-16.0 g/dl) 17.4?H (Ref Range: 12.0-16.0 g/dl) Hematocrit 49.4?H (Ref Range: 37.0-47.0 %) 53.0?H (Ref Range: 37.0-47.0 %) 51.5?H (Ref Range: 37.0-47.0 %) Mean Corpuscular Volume [...] (Ref Range: 160-400 X10*3/uL) Mean Platelet Volume 9.3?L (Ref Range: 9.4-12.3 fL) 10.1 (Ref Range: 9.4-12.3 fL) 10.5 (Ref Range: 9.4-12.3 fL) Neutrophils Percent Auto 69.2 (Ref Range: 45-73 %) 74.4?H (Ref Range: 45-73 %) 64.5 (Ref Range: 45-73 %) Imm Gran Pct Auto 0.5?H (Ref Range: 0.0-0.4 %) 0.3 (Ref Range: 0.0-0.4 %) 0.6?H (Ref Range: 0.0-0.4 %) Lymphocytes Percent Auto 17.6?L (Ref Range: 20-40 %) 14.3?L (Ref Range: 20-40 %) 20.0 (Ref Range: [...] Range: 2.0-8.3 x10*3/uL) Imm Gran Abs Auto 0.04?H (Ref Range: 0.00-0.03 X10*3/uL) 0.02 (Ref Range: 0.00-0.03 X10*3/uL) 0.04?H (Ref Range: 0.00-0.03 X10*3/uL) Lymphocytes Absolute Auto 1.3 (Ref Range: 1.2-4.9 X10*3/uL) 0.9?L (Ref Range: 1.2-4.9 X10*3/uL) 1.3 (Ref Range: [...] 0.000 (Ref Range: 0.0-0.012 X10*3/uL) * Lab:[facility] * Collection Date 11/06/2024 07/24/2024 02/14/2024 Collection Time 07:05 AM 07:31 AM 06:30 AM Order Date 11/06/2024 07/24/2024 02/14/2024 Sodium 139 (Ref Range: 135-145 mmol/L) 141 (Ref Range: 135-145 mmol/L) 139 (Ref Range: 135-145 mmol/L) Bilirubin Total 0.8 (Ref Range: 0.0-1.0 mg/dL) 1.2?H (Ref Range: 0.0-1.0 mg/dL) 1.0 (Ref Range: [...] mmol/L) 4.2 (Ref Range: 3.3-5.1 mmol/L) Chloride 110?H (Ref Range: 96-108 mmol/L) 106 (Ref Range: 96-108 mmol/L) 102 (Ref Range: 96-108 mmol/L) Carbon Dioxide 22 (Ref Range: 22-29 mmol/L) 27 (Ref Range: 22-29 mmol/L) 28 (Ref Range: 22-29 mmol/L) Anion Gap 11?L (Ref Range: 12-20) 12 (Ref Range: 12-20) 13 (Ref Range: 12-20) Blood Urea Nitrogen 16 (Ref Range: 9-16 mg/dL) 11 (Ref Range: 9-16 mg/dL) 14 (Ref Range: 9-16 mg/dL) Creatinine 0.74 (Ref Range: 0.5-1.4 mg/dL) 0.98 (Ref Range: 0.5-1.4 mg/dL) 0.88 (Ref Range: 0.5-1.4 mg/dL) Estimated Glomerular Filt Rate > 60 54 > 60 Glucose Fasting 147?H (Ref Range: 60-99 mg/dL) 136?H (Ref Range: 60-99 mg/dL) 128?H (Ref Range: 60-99 mg/dL) Calcium 9.7 (Ref Range: 8.4-10.2 mg/dL) 10.0 (Ref Range: 8.4-10.2 mg/dL) 10.3?H (Ref Range: 8.4-10.2 mg/dL) * Lab:Lipid Panel * Collection Date 11/06/2024 07/24/2024 02/14/2024 Collection Time 07:05 AM 07:31 AM 06:30 AM Order Date 11/06/2024 07/24/2024 02/13/2024 Triglycerides 105 (Ref Range: <150 mg/dL) 101 (Ref Range: <150 mg/dL) 115 (Ref Range: <150 mg/dL) Cholesterol 175 (Ref Range: <200 mg/dL) 173 (Ref Range: <200 mg/dL) 197 (Ref Range: <200 mg/dL) LDL Cholesterol Calculated 100?H (Ref Range: <100 mg/dL) 98 (Ref Range: <100 mg/dL) 119?H (Ref Range: <100 mg/dL) HDL Cholesterol 54 [...] Date 11/06/2024 07/24/2024 02/14/2024 Thyroid Stimulating Hormone 5.79?H (Ref Range: 0.32-4.0 uIU/mL) 3.60 (Ref Range: 0.32-4.0 uIU/mL) 8.19?H (Ref Range: 0.32-4.0 uIU/mL) * Examination: ???General Examination: ?GENERAL APPEARANCE:?pleasant, well nourished, well developed, in no acute distress, calm and relaxed, woman.?HEAD:?atraumatic, normocephalic.?EYES:?eomi, perrla, anicteric, conjugate.?EARS:?normal.?NOSE:?septum intact.?ORAL CAVITY:?normal, unremarkable.?NECK/THYROID:?no jugular venous distention, no carotid bruit, thyroid normal.?LYMPH NODES:?no enlarged lymph nodes,spleen normal.?SKIN:?no suspicious lesions, anicteric.?HEART:?no clicks, gallops, murmurs, or rubs, regular rhythm, S1, S2 normal, no s3, or vascular bruits.?LUNGS:?clear to auscultation .?BREASTS:??no masses palpable bilaterally.?ABDOMEN:?bowel sounds normal, no ascites, no organomegaly, no mass.?RECTAL EXAM:?not examined.?MUSCULOSKELETAL:?extremities unremarkable, no clubbing, cyanosis or edema.?PERIPHERAL PULSES:?normal.?NEUROLOGIC:?alert and oriented To person and place, cranial nerves 2-12 grossly intact, deep tendon reflexes 2+ symmetrical, motor strength normal upper and lower extremities, sensory exam intact, Moderate dementia, ambulatory.?PSYCH:?alert, oriented To person and place, cheerfulawake and alert.? : ???Lungs:Sound fine, no issues. Heart: No premature heartbeats. Abdomen: No pain, feels OK. Weight: 32 lbs. ??? Assessment: * Assessment: 1.?Alzheimer's disease with late onset - G30.1 (Primary)???Notes :She has very significant defects in memory. [...] her children. Her dementia has been slowly progressive.???2.?Diarrhea - R19.7???Notes :She is going to have a stool culture and a stool specimen for Clostridium difficile and for ova and parasites.? She will use Imodium 2 mg every 3 hours as needed.? Follow-up was arranged.???3.?Acquired hypothyroidism - E03.9???Notes :Her thyroid function tests are in the normal range and no change in her medication is necessary today. The elevated TSH on the last visit is now normal.???4.?GERD (gastroesophageal reflux disease) - K21.9???Notes :Her reflux symptoms are well controlled with medication. 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 Physical breast examination will be done periodically. 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 No new treatment is necessary today.??? Plan: * Treatment: 2.?Others? Continue Simvastatin Tablet, 10 MG, TAKE 1 TABLET BY MOUTH EVERY DAY IN THE EVENING FOR 90 DAYS;?Continue Levothyroxine Sodium Tablet, 75 MCG, 1 tablet in the morning on an empty stomach, Orally, Once a day.?? * Procedure Codes:? * Follow Up:?3 Weeks (Reason: OV) * Images: * Sign off status: Completed true * Provider:?Mick Norwood MD Date:?10/16 Generated for Lizeth paige/Kenneth/eTransmitting on:?01/13/2025 01:57 PM EDT History and Physical [...]
--- OUTSIDE RECORDS SUMMARY | 2025-01-13 13:58 | XMS_ITS ---
Author Organization Mick Norwood III, MD Address [address] [place] [address] Care Team Providers Care Paper Machine Backtender Name Role Phone Mick Norwood Primary Care Provider [phone] Allergies Allergen (clinical drug ingredient) Drug/Non Drug Allergy documented on EMR Reaction Allergy Type Onset Date Status Penicillin Unknown Drug Allergy Active Sulfur Unknown Drug Allergy Active Results Component Value Reference Range Notes Free T4 (Free Thyroxine) (No t yet reviewed by provider) Interpretation: Performing Lab:[facility], [address] [place] [id number] Notes/Report: Free T4 (Free Thyroxine) 1.51 0.71-1.85 ng/dL REASON FOR VISIT Annual Exam, Due for Mammogram Medications Medication SIG (Take, Route, Frequency, Duration) [...] ast year? No Points 0 Interpretation Negative Vital Signs Temperature 97.6 degrees Fahrenheit 01/14/20 25 Blood pressure systolic 158 mm Hg 04/01/20 25 Blood pressure diastolic 96 mm Hg 025 Heart Rate 94 /min 01/13/2025 Height 62 in 01/13/2025 Weight 131 lbs 01/13/2025 BMI 23.96 kg/m2 01/13/2025 Encounters Encounter Location Date Provider Diagnosis Mick Norwood III, MD [address] [place] [address] [place] [address] 01/13/2025 Mick Norwood Hyperlipidemia E78.5 ; Acquired hypothyroidism E03.9 ; Hyperglycemia R73.9 ; Screening mammogram for breast cancer Z12.31 and Breast cancer C50.919 Assessments Encounter Date Diagnosis (ICD Code) Assessment Notes Treat ment Notes Treatment Clinical Notes 01/13/2025 Hyperlipidemia (ICD-10 - E78.5) 01/13/2025 Acquired hypothyroidism (ICD-10 - E03.9) 01/13/2025 Hyperglycemia (ICD-1 0 - R73.9) 01/13/2025 Screening mammogram for breast cancer (ICD-10 - Z12.31) 01/13/2025 Breast cancer (ICD-1 0 - C50.919) Plan Of Treatment Medication Medication Name Sig [...] STIMULATING HORMONE) 2024 CBC w DIFF 01/13/2025 Free T4 (Free Thyroxine) 01/13/2025 MM tomosynthesis screening BI 01/13/2025 Next Appt Details Follow Up: 2 Weeks,3 Months, Reason: Telehealth, OV Provider Name:Mick Norwood, 01/27/2025 11:00:00 AM, [address] [place] [address] [address], [place], [address], Provider Name:Mick Norwood, 04/28/2025 09:30:00 AM, [address] [place] [address] [place], [address], Provider Name:Mick Norwood, 01/19/2026 09:30:00 AM, [address] [place] [address] [address] [place], [place], [address], Progress Notes * Bárbara TAVERASOB:1940 (84 yo F)Acc No.[id number]:01/13/2025 Progress Notes Patient:?Kannan TAVERAS Provider:?Mick Norwood MD :1940???Age:84 Y???Sex:Female D ate:01/13/2025 [facility] [id number] Subjective: * Chief Complaints: * ???1. Annual Exam. 2. Due fo r Mammogram. * HPI: ???Depression Screening:?fell inside one week ago, fine today, appettie ok, he says back pain she denies. ?PHQ-9?Little interest or pleasure in doing things?Not at all ?Feeling down, depressed, or hopeless?Not at all ?Trouble falling or staying asleep, or sleeping too much?Not at all ?Feeling tired or having little energy?Not at all ?Poor appetite or overeating?Not at all ?Feeling bad about yourself or that you are a failure, or have let yourself or your family down?Not at all ?Trouble concentrating on things, such as reading the newspaper or watching television?Not at all ?Moving or speaking so slowly that other people could have noticed; or the opposite, being so fidgety or restless that you have been moving around a lot more than usual?Not at all ?Thoughts that you would be better off or of hurting yourself in some way?Not at all ?Total Score?0 ???COVID-19 Screening:?Questions?Have you had any new onset fever, chills, cough, congestion, sore throat, shortness of breath, muscle aches??No ???Fall Risk Screening:?Fall History?Have you had any falls with injury in the past year??Yes ?Have you had two or more falls in the past year??No ?Fall Risk Assessment:?One fall with injury in the past year ???SDOH Questions:?SDOH Questions?In the past year have you been worried about losing your housing??No ?In the past year have you or any family members you live with been unable to get any of the following when it was really needed? Check all that apply:?None * ROS:?General/Constitutional:?pain?only normal aches and pains.?Chills?denies.?Fatigue?admits.?Fever?denies.?ENT:?Decreased hearing?denies.?Respiratory:?Cough?denies.?Cardiovascular:?Chest pain with exertion?denies.?Dyspnea on exertion?denies.?Shortness of breath?denies.?Gastrointestinal:?Constipation?denies.?Decreased appetite?denies.?Diarrhea?denies.?Heartburn?denies.?Nausea?denies.?Rectal bleeding?denies.?Vomiting?denies.?Hematology:?bruising?denies.?petechiae?denies.?Swollen glands?none have been noted.?Genitourinary:?Frequent urination?denies.?Musculoskeletal:?Muscle aches?denies.?Painful joints?denies.?Sciatica?denies.?Weakness?denies.?Skin:?Itching?denies.?Rash?denies.?Skin lesion(s)?denies.?Neurologic:?Difficulty speaking?denies.?Dizziness?denies.?Headache?denies.?Low back pain?denies.?Psychiatric:?Depressed mood?denies.? * Medical History:?Hypertensio n, [id number], Hypothyroid, Penicillin/sulfa allergy, Osteoarthritis, DCIS right breast [...] substance use disorder. * Social History:?Tobacco Use:?Tobacco Control (Standard)?Tobacco use:?Nonsmoker ?Additional Findings: Tobacco non-user?Aggressive nonsmoker ???Drugs/Alcohol:?Drugs?Have you used drugs other than those for medical reasons in the past 12 months??No ???Drug/Alcohol:?AUDIT-C (Standard)?Did you have a drink containing alcohol in the past year??No ?Points?0 ?Interpretation?Negative ???She is and a nonsmoker. She and her used to run a restaurant. She was born in [place], [place]. * Medications:?Taking Simvasta tin 10 MG Tablet TAKE 1 TABLET BY MOUTH EVERY DAY IN THE EVENING FOR 90 DAYS , Taking Levothyroxine Sodium 75 MCG Tablet 1 tablet every the morning on an empty stomach Orally Once a day , Medication List reviewed and reconciled with the patient * Allergies:?Sulfur, Penicilli n. Objective: * Vitals:?Ht: 62, Wt:131, BMI: 23.96, BP:158/96, HR:94, Temp:97.6, Wt-k.42. * ???Past Orders: Lab:Thyroid Stimulating Horm one * Collection Date 11/06/2024 07/24/2024 02/14/2024 Collection Time 07:05 AM 07:31 AM 06:30 AM Order Date 11/06/2024 07/24/2024 02/14/2024 Thyroid Stimulating Hormone 5.79?H (Ref Range: 0.32-4.0 uIU/mL) 3.60 (Ref Range: 0.32-4.0 uIU/mL) 8.19?H (Ref Range: 0.32-4.0 uIU/mL) * Lab:Free T4 [...] mg/dL) 55 (Ref Range: >40 mg/dL) * Lab:[facility] * Collection Date 11/06/2024 07/24/2024 [...] mg/dL) 10.3?H (Ref Range: 8.4-10.2 mg/dL) * Lab:Complete Blood [...] AM)?ValueReference Range?Hemoglobin A1c %6.5H<6.0 - %?Estimated Average Lrnbkng650- mg/dL * Examination: ???General Examination: ?GENERAL APPEARANCE:?pleasant, well [...] lower extremities, sensory exam intact.?PSYCH:?alert, oriented.? Assessment: * Assessment: 1.?Hyperlipidemia - E78.5??? 2.?Acquired hypothyroidism - E03.9???3.?Hyperglycemia - R73.9???4.?Screening mammogram for breast cancer - Z12.31???5.?Breast cancer - C50.919??? Plan: * Treatment: ? Value Reference Range ?Free T4 (Free Thyroxine) 1.51 0.71-1.85 - ng/dL 2.?Acquired hypothyroidism?LAB: PROFILE, RANDOM (COMPREHENSIVE METABOLIC) ?LAB: TSH (THYROID STIMULATING HORMONE) ?LAB: CBC w DIFF ?LAB: Free T4 (Free Thyroxine) (Collection Date & Time - 01/13/2025 11:40 AM)* ? Value Reference Range ?Free T4 (Free Thyroxine) 1.51 0.71-1.85 - ng/dL 3.?Hyperglycemia?LAB: PROFILE, RANDOM (COMPREHENSIVE METABOLIC) ?LAB: TSH (THYROID STIMULATING HORMONE) ?LAB: CBC w DIFF ?LAB: Free T4 (Free Thyroxine) (Collection Date & Time - 01/13/2025 11:40 AM)* ? Value Reference Range ?Free T4 (Free Thyroxine) 1.51 0.71-1.85 - ng/dL 4.?Screening mammogram for breast cancer?Imaging: MM tomosynthesis screening BI5.?Breast cancer?Imaging: MM tomosynthesis screening BI6.?Others? Continue Levothyroxine Sodium Tablet, 75 MCG, 1 tablet every the morning on an empty stomach, Orally, Once a day;?Continue Simvastatin Tablet, 10 MG, TAKE 1 TABLET BY MOUTH EVERY DAY IN THE EVENING FOR 90 DAYS.?? * Follow Up:?2 Weeks,3 Months (Reason: Telehealth, OV) * Images: * The named appointment provid er may or may not be the originator of this progress note, and it is not deemed complete until electronically signed by the appointment provider. Sign off status: Pending * Provider:?Mick Norwood MD Date:?10/2024 Generated for Lizeth paige/Kenneth/Dannaitting on:?01/13/2025 01:57 PM EDT History and Physical [...]
== END 2025-01-13 11:31 | disposition home or self-care (01) ==
LOC: HO.10HDL 11:30
PROVIDERS: Visit Provider Internal Medicine Medical Oncology
DX: E78.5 Hyperlipidemia, unspecified (principal); E03.9 Hypothyroidism, unspecified; R73.9 Hyperglycemia, unspecified
CPT/HCPCS: 36415; 80053; 84439; 84443; 85025

== ENCOUNTER 2025-01-22 10:47 | Outpatient (REF) | payer MEDICARE, SELFPAY ==
[2025-01-22 12:01] LABS: CDiff Gene PCR NEGATIVE (Negative)
--- OUTSIDE RECORDS SUMMARY | 2025-01-22 12:53 | XMS_ITS ---
Author Organization Mick Norwood III, MD Address [address] [place] [address] [place] [address] Care Team Providers Care Senior Sourcing Manager Name Role Phone Mick Norwood Primary Care Provider Allergies Allergen (clinical drug [...] Date Provider Diagnosis Mick Norwood III, MD [address] [place] [address] [place] [address] 12/09/2024 Mick Norwood Plan Of Treatment Medication Medication Name Sig Start Date Stop Date Notes Simvastatin 10 MG TAKE 1 TABLET BY LEWIS TH EVERY DAY IN THE EVENING FOR 90 DAYS Levothyroxine Sodium 75 MCG 1 tablet in the morning on an empty stomach Orally Once a day 02/18/2024 Next Appt Details Provider Name:Mick Norwood, 01/27/2025 11:00:00 AM, [address] [facility] [address], [place], [address], Provider Name:Mick Mercadone, 04/28/2025 09:30:00 AM, [address] [facility] [address], [place], [address], Provider Name:Mick Mercadone, 01/19/2026 09:30:00 AM, [address] [facility] [address], [place], [address], Progress Notes * CHERRIE PerlitaisDOB:1940 (84 yo F)Acc No.[id number]:12/09/2024 Progress Notes Patient:?Kannan TAVERAS Provider:?Mick Norwood MD :1940???Age:84 Y???Sex:Female D ate:12/09/2024 Address:[address] [place], [place] [id number] Subjective: * Chief Complaints: * ???1. Follow up. * HPI: ???COVID-19 Screening:?Questions?Have you had any new onset fever, chills, cough, congestion, sore throat, shortness of breath, muscle aches??No * ROS:?General/Constitutional:?pain?only normal aches and pains.?Chills?denies.?Fatigue?admits.?Fever?denies.?ENT:?Decreased hearing?denies.?Respiratory:?Cough?denies.?Cardiovascular:?Chest pain with exertion?denies.?Dyspnea on exertion?denies.?Shortness of breath?denies.?Gastrointestinal:?Constipation?denies.?Decreased appetite?denies.?Diarrhea?denies.?Heartburn?denies.?Nausea?denies.?Rectal bleeding?denies.?Vomiting?denies.?Hematology:?bruising?denies.?petechiae?denies.?Swollen glands?none have been noted.?Genitourinary:?Frequent urination?denies.?Musculoskeletal:?Muscle aches?denies.?Painful joints?denies.?Sciatica?denies.?Weakness?denies.?Skin:?Itching?denies.?Rash?denies.?Skin lesion(s)?denies.?Neurologic:?Difficulty speaking?denies.?Dizziness?denies.?Headache?denies.?Low back pain?denies.?Psychiatric:?Depressed mood?denies.? 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 * Medications:?Taking Simvasta tin 10 MG [...] Norwood MD Date:?11/16 Generated for Lizeth paige/Kenneth/Ama on:?01/22/2025 12:53 PM EDT History and Physical Notes * [...]
--- OUTSIDE RECORDS SUMMARY | 2025-01-22 12:53 | XMS_ITS ---
Author Organization Mick Norwood III, MD Address [address] [place] [address] Care Team Providers Care Histotechnician Name Role Phone Mick Norwood Primary Care Provider [phone] Allergies Allergen (clinical drug ingredient) Drug/Non Drug Allergy documented on EMR Reaction Allergy Type Onset Date Status Penicillin Unknown Drug Allergy Active Sulfur Unknown Drug Allergy Active Results Component Value Reference Range Notes Free T4 (Free Thyroxine) (No t yet reviewed by provider) Interpretation: Performing Lab:[facility], [address] [place] [id number] Notes/Report: Free T4 (Free Thyroxine) 1.51 0.71-1.85 [...] Problem Status W/U Status Risk Notes Problem 07082701 Diabetes mellitus without complication (E11.9) Active confirmed He has had 3 fasting glucose levels in the normal range and now her hemoglobin A1c is 6.5. This his diabetes mellitus type 2. I offered to prescribe metformin but she wants to think about it still.He seems to be well controlled with her current diet. Problem 09510789 Alzheimer's disease, unspecified (G30.9) Active confirmed She [...] Date Provider Diagnosis Mick Norwood III, MD [address] [place] [address] [place] [address] 01/13/2025 Mick Norwood Acquired hypothyroid ism E03.9 [...] 10 MG TAKE 1 TABLET BY LEWIS EVERY DAY IN THE EVENING FOR 90 DAYS Pending Test Test Name Order Date PROFILE, RANDOM (COMPREHENSIVE METABOLIC ) 01/13/2025 TSH (THYROID STIMULATING HORMONE) 2024 CBC w DIFF 01/13/2025 Free T4 (Free Thyroxine) 01/13/2025 MM tomosynthesis screening BI 01/13/2025 Next Appt Details Follow Up: 2 Weeks,3 Months, Reason: Telehealth, OV Provider Name:Mick Norwood, 01/27/2025 11:00:00 AM, [address] [place] [address] [address], [place], [address], Provider Name:Mick Norwood, 04/28/2025 09:30:00 AM, [address] [place] [address] [address], [place], [address], Provider Name:Mick Norwood, 01/19/2026 09:30:00 AM, [address], [place], [address], Progress Notes * Bárbara TAVERASOB:1940 (84 yo F)Acc No.[id number]:01/13/2025 Progress Notes Patient:?Kannan TAVERAS Provider:?Mick Norwood MD :1940???Age:84 Y???Sex:Female D ate:01/13/2025 Address:[address] [place], [place] [id number] Subjective: * Chief Complaints: * ???Annual Exam * HPI: ???Depression Screening:?She returns to the office for her annual physical examination at the age of 84.? She feels well.? One week ago she had a fall met-fm-taeyy when she tripped on something but she had no? serious injuries. She was accompanied by her son who says she complains of back pain.? She denied that today but she has significant memory issues.? Her son says he gives her her medications every day and she is compliant.? Her blood work was reviewed today.? Her TSH was elevated and it will be repeated.? There was no other significant abnormality.? Her examination showed no new significant findings.? Her dementia is stable and she was clean and comfortable and well cared for. ?PHQ-9?Little interest or pleasure in doing things?Not [...] hearing?denies.?Respiratory:?Cough?denies.?Cardiovascular:?Chest pain with exertion?denies.?Dyspnea on exertion?denies.?Shortness of breath?denies.?Gastrointestinal:?Constipation?occasional.?Decreased appetite?denies.?Diarrhea?denies.?Heartburn?denies.?Nausea?denies.?Rectal bleeding?denies.?Vomiting?denies.?Hematology:?bruising?denies.?petechiae?denies.?Swollen glands?none have been noted.?Genitourinary:?Frequent urination?at night.?Musculoskeletal:?Muscle aches?denies.?Painful joints?denies.?Sciatica?denies.?Weakness?denies.?Skin:?Itching?denies.?Rash?denies.?Skin lesion(s)?denies.?Neurologic:?Difficulty speaking?denies.?Dizziness?denies.?Headache?denies.?Low back pain?denies.?Psychiatric:?Depressed mood?which is mild.? * Medical History:? 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 * Medications:?TakingSimvastat in 10 MG Tablet [...] Allergies:?SulfurPenicillinn o[Allergies Verified] Objective: * Vitals:?Ht: 62, Wt:131, BMI: 23.96, BP:138/80, HR:94, Temp:97.6, Wt-k.42. * ???Past Orders: Lab:Thyroid [...] 55 (Ref Range: >40 mg/dL) * Lab:[facility] [place]. Pane l Fast * Collection Date 11/06/2024 [...] AM)?ValueReference Range?Hemoglobin A1c %6.5H<6.0 - %?Estimated Average Beqcliq169- mg/dL * Examination: ???General Examination: ?GENERAL APPEARANCE:?pleasant, well nourished, well developed, in no acute distress, calm and relaxed, elderly woman.?HEAD:?atraumatic, normocephalic.?EYES:?eomi, perrla, anicteric, conjugate.?EARS:?normal.?NOSE:?septum intact.?ORAL CAVITY:?normal, unremarkable.?NECK/THYROID:?no jugular venous distention, no carotid bruit, thyroid normal.?LYMPH NODES:?no enlarged lymph nodes,spleen normal.?SKIN:?no suspicious lesions, anicteric.?HEART:?no clicks, gallops, murmurs, or rubs, regular rhythm, S1, S2 normal, no s3, or vascular bruits.?LUNGS:?clear to auscultation .?BREASTS:?no masses palpable bilaterally, no dimpling, no discharge, no drainage, nontender, symmetrical, Large brownish-black benign-appearing nevus anterior left breast, Old lumpectomy scar right breast.?ABDOMEN:?bowel sounds normal, no ascites, no organomegaly, no mass.?RECTAL EXAM:?not examined.?MUSCULOSKELETAL:?extremities unremarkable, no clubbing, cyanosis or edema.?PERIPHERAL PULSES:?normal.?NEUROLOGIC:?alert and oriented, cranial nerves 2-12 grossly intact, deep tendon reflexes 2+ symmetrical, motor strength normal upper and lower extremities, sensory exam intact, Speech clear, ambulatory, moderate deficits in memory both recent and remote.?PSYCH:?alert, oriented, Moderate dementia.? 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 Physical breast examination will be done periodically. She agreed to an examination on her next visit.???2.?Acquired hypothyroidism - E03.9???Notes :Her TSH is elevated at 5.79.? Her son says she takes her levothyroxine at the usual dose every day.? I am repeating this value.? If it is elevated again he will need an increase in her dose.? She does not appear to be hypothyroid today.???3.?Hyperglycemia - R73.9???Notes :Her hemoglobin A1c is 6.5.???4.?Screening mammogram for breast cancer - Z12.31???Notes :She is being scheduled for a screening mammogram.???5.?Breast cancer - C50.919???Notes :There is no sign of a new primary breast cancer or recurrence of DCIS in the right breast today.? He was urged to continue breast self-examination.? She is due for mammography which we have arranged today.???6.?GERD (gastroesophageal reflux disease) - K21.9???Notes :Her reflux symptoms are well controlled with medication. 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 No new treatment is necessary today.???8.?Diabetes mellitus without complication - E11.9???Notes :He has had 3 fasting glucose levels in the normal range and now her hemoglobin A1c is 6.5.? This his diabetes mellitus type 2.? I offered to prescribe metformin but she wants to think about it still.He seems to be well controlled with her current diet.???9.?Alzheimer's disease, unspecified - G30.9???Notes :She is basically unchanged.? She is cared for by her son who lives with her.? She was clean and well groomed.? Her clothing was clean she seems to be well cared for.??? Plan: * Treatment: ? Value Reference Range ?Free T4 (Free Thyroxine) 1.51 0.71-1.85 - ng/dL 2.?Hyperglycemia?LAB: PROFILE, RANDOM (COMPREHENSIVE METABOLIC) ?LAB: TSH (THYROID STIMULATING HORMONE) ?LAB: CBC w DIFF ?LAB: Free T4 (Free Thyroxine) (Collection Date & Time - 01/13/2025 11:40 AM)* ? Value Reference Range ?Free T4 (Free Thyroxine) 1.51 0.71-1.85 - ng/dL 3.?Screening mammogram for breast cancer?Imaging: MM tomosynthesis screening BI4.?Breast cancer?Imaging: MM tomosynthesis screening BI5.?Others? Continue Levothyroxine Sodium Tablet, 75 MCG, 1 tablet every the morning on an empty stomach, Orally, Once a day;?Continue Simvastatin Tablet, 10 MG, TAKE 1 TABLET BY MOUTH EVERY DAY IN THE EVENING FOR 90 DAYS.?? * Procedure Codes:? * Preventive Medicine:? ??DM Care Plan:?Patient Lifestyle Goals?Patient wants to be able to manage diabetes without too much effort.?Treatment Goals?HbA1C < 7.0, Blood Sugars less than < 115.?Barriers?no barriers.?Self-Managment Goals?Work on weight loss, with a goal of losing 1 lb per week.? * Follow Up:?2 Weeks,3 Months (Reason: Telehealth, OV) * Images: * Sign off status: Completed true * Provider:?Mick Norwood MD Date:?10/2024 Generated for Lizeth paige/Kenneht/eTransmcarlos on:?01/22/2025 12:53 PM EDT History and Physical [...]
--- OUTSIDE RECORDS SUMMARY | 2025-01-22 12:53 | XMS_ITS ---
Author Organization Mick Norwood III, MD Address [address] [place] [address] [place] [address] Care Team Providers Care Core Inserter Name Role Phone Mick Norwood Primary Care [...] Date Provider Diagnosis Mick Norwood III, MD [address] [place] [address] [place] [address] 11/11/2024 Mick Norwood Diarrhea R19.7 ; Alzheimer's [...] [employer] [address], [place], [address], Provider Name:Mick Dueñasrne, 04/28/2025 09:30:00 AM, [address] [place] [address] [address], [place], [address], Provider Name:Mick Dueñasrne, 01/19/2026 09:30:00 AM, [address] [facility] [address], [place], [address], Progress Notes * Bárbara TAVERASOB:1940 (84 yo F)Acc No.[id number]:11/11/2024 Progress Notes Patient:?Kannan TAVERAS Provider:?Mick Norwood MD :1940???Age:84 Y???Sex:Female D ate:11/11/2024 Address:[address] [place], [place] [address] Subjective: * Chief Complaints: * ???Follow upStool [...] patient has been wearing plastic garments from [employer] to manage the incontinence. 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 * Medications:?TakingSimvastat in 10 MG Tablet [...] Norwood MD Date:?10/16 Generated for Lizeth paige/Kenneth/eTransmitting on:?01/22/2025 12:53 PM EDT History and Physical [...]
--- OUTSIDE RECORDS SUMMARY | 2025-01-22 12:53 | XMS_ITS | Patient Health Record ---
Author Organization [facility] Kelsi hansel StarkCj Address [address] [address] Care Team Providers Care Casino Supervisor Name Role Phone Mick Norwood MD Primary Care Provider Mike Neely Unavailable [phone] Allergies Allergen (clinical drug ingredient) Drug/Non Drug [...] Status Risk Notes Problem Acquired hallux valgus (48062226) Hallux valgus (acquired), left foot (M20.12) Active confirmed Problem Pain in limb (24058198) Pain in unspecified foot (M79.673) Active confirmed Problem Acquired hammer toe of right foot (629132846201 9105) Other hammer toe(s) (acquired), right foot (M20.41) Active confirmed Problem Acquired hammer toe of left foot (942334025782 9103) Other hammer toe(s) (acquired), left foot [...] Insured Coverage Start Date Coverage End Date [facility] [address] [place] [address] [phone] [id number] Kannan Taveras Self - patient is the insured Medicare [employer] [address] [place] [address] [id number] Kannan Taveras Self - patient is the insured Medical (General) History Medical History History ICD Code cancer measles bone implants Alzheimers disease Arthritis Back,Hip,and Knee pain Dementia Surgical History Surgery Date(Month/Year) knee replacement breast cancer bunions
--- OUTSIDE RECORDS SUMMARY | 2025-01-22 12:54 | XMS_ITS ---
Author Organization [facility] Kelsi hansel Cj Address [address] [facility] [place] [address] Care Team Providers Care Dialysis Nurse Name Role Phone Mick Norwood MD Primary Care Provider Mike Neely Unavailable [phone] Allergies Allergen (clinical drug ingredient) Drug/Non Drug [...] Status Risk Notes Problem Acquired hallux valgus (76413754) Hallux valgus (acquired), left foot (M20.12) Active confirmed Problem Acquired hammer toe of right foot (7577554542314 105) Other hammer toe(s) (acquired), right foot (M20.41) Active confirmed Problem Acquired hammer toe of left foot (6859390777579 103) Other hammer toe(s) (acquired), left foot (M20.42) Active confirmed Vital Signs Height 5ft 3in in 09/24/2023 Weight 135 lbs 09/24/2023 BMI 23.91 kg/m2 09/24/2023 Encounters Encounter Location Date Provider Diagnosis [facility] [address] [place] [address] 09/24/2023 Mike Ellis Pain in left foot [...] Notes * Bárbara TAVERASOB:1940 (83 yo F)Acc No.[id number]:09/24/2023 Progress Notes Patient:?Kannan Taveras Provider:Felton Ellis DPM :1940???Age:83 Y???Sex:Female D ate:09/24/2023 Address:[address] [place] [address] Pcp:Mick Norwood MD Subjective: * Chief Complaints: [...] reconciled with the patient * Allergies:?Penicillin: rambo matehws[Allergies Verified] Objective: * Vitals:?Ht: 5ft 3in, Wt: [...] ray : Foot, right 3V * Procedure Codes:?45839 X-RAY EXAM OF LEFT FOOT 3V, Modifiers: 26 , [id number] X-RAY EXAM OF RIGHT FOOT 3V, Modifiers: [...] for supportive running shoes and also to [employer] for step in shoes.? * Follow Up:?prn * Images: * Sign off status: Completed true * Provider:eFlton Ellis DPM Date:? 023 Generated for Lizeth paige/Kenneth/Ama on:?01/22/2025 12:53 PM [...]
--- OUTSIDE RECORDS SUMMARY | 2025-01-22 12:54 | XMS_ITS | Clinical Summary ---
Author Organization [facility] Facility Address [address] [place] [address] Care Team Providers Care Manager Baby Name Role Phone Mick Norwood MD Primary Care Provider [phone] Social History Tobacco Use Types Packs/Day Years Used Date Smoking Tobacco: Never Assessed Comments Unknown Sex and Gender Information Value Date Recorded Sex Assigned at Not on file Legal Sex Female 2:25 PM EDT Gender Identity Not on file Sexual Orientation Not on file Plan of Treatment Health Maintenance Due Date Last Done Comments Pneumococcal Vaccine: 50+ Ye ars (1 of - PCV) 2004 Influenza Vaccine (Season Ended) 2025 Hepatitis B Vaccine Aged Out No longe r eligible based on patient's age to complete this [place] [address] [facility] Member Subscriber Plan / Payer (Ef fective 2018-Present) Name:Kannan Taveras Relation to Subscriber:Self Name:Kannan Taveras Payer ID:Not on file Type:Not on file Address: [place] [id number] Care Teams Manager Baby Relationship Specialty [place] [address] [address] [place] [address] PCP - General Internal Medicine 01/25/21
--- OUTSIDE RECORDS SUMMARY | 2025-01-22 12:54 | XMS_ITS | Patient Health Record ---
Author Organization Mick Norwood III, MD Address [address] [place] [address] DR CORADO Mela [place] [phone] Care Team Providers Care Dry Roller Name Role Phone Mick Norwood Primary Care Provider Allergies Allergen (clinical drug ingredient) Drug/Non Drug Allergy documented on EMR Reaction Allergy Type Onset Date Status Penicillin Unknown Drug Allergy Active Sulfur Unknown Drug Allergy Active Results Component Value Reference Range Notes Free T4 (Free Thyroxine) (No t yet reviewed by provider) Interpretation: Performing Lab:[facility], [address] [place] [phone] Notes/Report: Free T4 (Free Thyroxine) 1.51 0.71-1.85 ng/dL Lipid Panel Reviewed date:02/17/2024 01:03:08 PM Interpretation: Performing Lab:[facility], [address] [place] [phone] Notes/Report: Triglycerides 115 <150 mg/dL Desirable Triglyceride: less than 150 mg/dL Borderline High Triglyceride 150-199 mg/dL High Triglyceride: 200-499 mg/dL Very High Triglyceride: greater than or equal to 5OO mg/dL Cholesterol 197 <200 mg/dL Desirable Cholesterol: less than 200 mg/dL Borderline High Cholesterol: 200-239 mg/dL High Cholesterol: greater than 239 mg/dL LDL Cholesterol Calculated 119 <100 mg/dL Desirable LDL: less than 100 mg/dL Near Optimal/Above Optimal LDL: 110-129 mg/dL Borderline High LDL: 130-159 mg/dL High LDL: 160-189 mg/dL Very High LDL: greater than or equal to 190 mg/dL HDL Cholesterol 55 >40 mg/dL Desirable HDL: greater than 40 mg/dL Note: This HDL assay may give artificially low results in patients with liver disease. Free T4 (Free Thyroxine) Reviewed date:02/17/2024 01:03:08 PM Interpretation: Performing Lab:[facility], [address] [place] [phone] Notes/Report: Free T4 (Free Thyroxine) 1.13 0.71-1.85 ng/dL Complete Blood Count Auto Di ff Reviewed date:02/17/2024 01:03:08 PM Interpretation: Performing Lab:[facility], [address] [place] [phone] Notes/Report: White Blood Count 6.6 4.8-10.8 X10*3/uL Red Blood Count 5.32 4.20-5.50 X10*6/uL Hemoglobin 17.4 12.0-16.0 g/dl Hematocrit 51.5 37.0-47.0 % Mean Corpuscular Volume 96.8 80.0-98.0 fL Mean Corpuscular Hemoglobin 32.7 27.0-33.0 pg Mean Corpuscular HGB Conc 33.8 31.0-35.0 g/dl Red Cell Distribution Width 14.0 11.0-16.0 % Platelet Count 204 160-400 X10*3/uL Mean Platelet Volume 10.5 9.4-12.3 fL Neutrophils Percent Auto 64.5 45-73 % Imm Gran Pct Auto 0.6 0.0-0.4 % Lymphocytes Percent Auto 20.0 20-40 % Monocytes Percent Auto 10.7 2-11 % Eosinophils Percent Auto 3.3 0-4 % Basophils Percent Auto 0.9 0-2 % NRBC Pct Auto 0.0 0.0-0.2 /100WBC Neutrophils Absolute Auto 4.3 2.0-8.3 x10*3/u L Imm Gran Abs Auto 0.04 0.00-0.03 X10*3/uL Lymphocytes Absolute Auto 1.3 1.2-4.9 X10*3/u L Monocytes Absolute Auto 0.7 0.1-1.2 X10*3/uL Eosinophils Absolute Auto 0.2 0.0-0.4 X10*3/u L Basophils Absolute Auto 0.1 0.0-0.2 X10*3/uL NRBC Abs Auto 0.000 0.0-0.012 X10*3/uL Comprehensive [place]. Panel Fa st Reviewed date:02/17/2024 01:03:08 PM Interpretation: Performing Lab:[facility], [address] [place] [phone] Notes/Report: Sodium 139 135-145 mmol/L Potassium 4.2 3.3-5.1 mmol/L Chloride 102 96-108 mmol/L Carbon Dioxide 28 22-29 mmol/L Anion Gap 13 12-20 Blood Urea Nitrogen 14 9-16 mg/dL Creatinine 0.88 0.5-1.4 mg/dL Estimated Glomerular Filt Rate > 60 NOTE: For -[place]cuad[place] individuals, multiply the result by 1.210. Chronic Kidney Disease: Estimated GFR < 60 mL/min/1.73m2 Severe Kidney Disease: Estimated GFR < 15 mL/min/1.73m2 Glucose Fasting 128 60-99 mg/dL A fasting glucose of 126 mg/dl or greater on more than one occasion is considered diagnostic of diabetes. Calcium 10.3 8.4-10.2 mg/dL Bilirubin Total 1.0 0.0-1.0 mg/dL Aspartate Amino Transferase 18 5-31 U/L Alanine Aminotransferase 17 0-31 U/L Total Protein 7.2 6.5-8.0 g/dL Albumin Level 4.2 3.5-5.0 g/dL Alkaline Phosphatase 82 39-117 U/L Thyroid Stimulating Hormone Reviewed date:02/17/2024 01:03:08 PM Interpretation: Performing Lab:[facility], [address] [place] [phone] Notes/Report: Thyroid Stimulating Hormone 8.19 0.32-4.0 uIU/ mL Note: A sustained TSH level above 2.5 uIU/mL may warrant further investigation. TSH 3rd Generation ([facility]) Complete Blood Count Auto Di ff Reviewed date:07/28/2024 07:09:49 AM Interpretation: Performing Lab:[facility], [address] [place] [phone] Notes/Report: White Blood Count 6.6 4.8-10.8 X10*3/uL Red Blood Count 5.53 4.20-5.50 X10*6/uL Hemoglobin 17.8 12.0-16.0 g/dl Hematocrit 53.0 37.0-47.0 % Mean Corpuscular Volume 95.8 80.0-98.0 fL Mean Corpuscular Hemoglobin 32.2 27.0-33.0 pg Mean Corpuscular HGB Conc 33.6 31.0-35.0 g/dl Red Cell Distribution Width 13.9 11.0-16.0 % Platelet Count 209 160-400 X10*3/uL Mean Platelet Volume 10.1 9.4-12.3 fL Neutrophils Percent Auto 74.4 45-73 % Imm Gran Pct Auto 0.3 0.0-0.4 % Lymphocytes Percent Auto 14.3 20-40 % Monocytes Percent Auto 7.9 2-11 % Eosinophils Percent Auto 2.3 0-4 % Basophils Percent Auto 0.8 0-2 % NRBC Pct Auto 0.0 0.0-0.2 /100WBC Neutrophils Absolute Auto 4.9 2.0-8.3 x10*3/u L Imm Gran Abs Auto 0.02 0.00-0.03 X10*3/uL Lymphocytes Absolute Auto 0.9 1.2-4.9 X10*3/u L Monocytes Absolute Auto 0.5 0.1-1.2 X10*3/uL Eosinophils Absolute Auto 0.2 0.0-0.4 X10*3/u L Basophils Absolute Auto 0.1 0.0-0.2 X10*3/uL NRBC Abs Auto 0.000 0.0-0.012 X10*3/uL Comprehensive [place]. Panel Fa st Reviewed date:07/28/2024 07:09:49 AM Interpretation: Performing Lab:[facility], [address] [place] [address], [place] [address] Notes/Report: Sodium 141 135-145 mmol/L Potassium 4.2 3.3-5.1 mmol/L Chloride 106 96-108 mmol/L Carbon Dioxide 27 22-29 mmol/L Anion Gap 12 12-20 Blood Urea Nitrogen 11 9-16 mg/dL Creatinine 0.98 0.5-1.4 mg/dL Estimated Glomerular Filt Rate 54 NOTE: For -Ecuad[place] individuals, multiply the result by 1.210. Chronic Kidney Disease: Estimated GFR < 60 mL/min/1.73m2 Severe Kidney Disease: Estimated GFR < 15 mL/min/1.73m2 Glucose Fasting 136 60-99 mg/dL A fasting glucose of 126 mg/dl or greater on more than one occasion is considered diagnostic of diabetes. Calcium 10.0 8.4-10.2 mg/dL Bilirubin Total 1.2 0.0-1.0 mg/dL Aspartate Amino Transferase 21 5-31 U/L Alanine Aminotransferase 18 0-31 U/L Total Protein 7.2 6.5-8.0 g/dL Albumin Level 4.2 3.5-5.0 g/dL Alkaline Phosphatase 81 39-117 U/L Lipid Panel Reviewed date:07/28/2024 07:09:49 AM Interpretation: Performing Lab:[address] [phone] Notes/Report: Triglycerides 101 <150 mg/dL Desirable Triglyceride: less than 150 mg/dL Borderline High Triglyceride 150-199 mg/dL High Triglyceride: 200-499 mg/dL Very High Triglyceride: greater than or equal to 5OO mg/dL Cholesterol 173 <200 mg/dL Desirable Cholesterol: less than 200 mg/dL Borderline High Cholesterol: 200-239 mg/dL High Cholesterol: greater than 239 mg/dL LDL Cholesterol Calculated 98 <100 mg/dL Desirable LDL: less than 100 mg/dL Near Optimal/Above Optimal LDL: 110-129 mg/dL Borderline High LDL: 130-159 mg/dL High LDL: 160-189 mg/dL Very High LDL: greater than or equal to 190 mg/dL HDL Cholesterol 55 >40 mg/dL Desirable HDL: greater than 40 mg/dL Note: This HDL assay may give artificially low results in patients with liver disease. Free T4 (Free Thyroxine) Reviewed date:07/28/2024 07:09:49 AM Interpretation: Performing Lab:[address] [phone] Notes/Report: Free T4 (Free Thyroxine) 1.19 0.71-1.85 ng/dL Thyroid Stimulating Hormone Reviewed date:07/28/2024 07:09:49 AM Interpretation: Performing Lab:[facility], [address] [place] [phone] Notes/Report: Thyroid Stimulating Hormone 3.60 0.32-4.0 uIU/ mL Note: A sustained TSH level above 2.5 uIU/mL may warrant further investigation. TSH 3rd Generation ([facility]) Complete Blood Count Auto Di ff Reviewed date:11/09/2024 04:51:20 PM Interpretation: Performing Lab:[facility], [address] [place] [address] Notes/Report: White Blood Count 7.6 4.8-10.8 X10*3/uL Red Blood Count 5.19 4.20-5.50 X10*6/uL Hemoglobin 16.5 12.0-16.0 g/dl Hematocrit 49.4 37.0-47.0 % Mean Corpuscular Volume 95.2 80.0-98.0 fL Mean Corpuscular Hemoglobin 31.8 27.0-33.0 pg Mean Corpuscular HGB Conc 33.4 31.0-35.0 g/dl Red Cell Distribution Width 14.2 11.0-16.0 % Platelet Count 261 160-400 X10*3/uL Mean Platelet Volume 9.3 9.4-12.3 fL Neutrophils Percent Auto 69.2 45-73 % Imm Gran Pct Auto 0.5 0.0-0.4 % Lymphocytes Percent Auto 17.6 20-40 % Monocytes Percent Auto 8.6 2-11 % Eosinophils Percent Auto 3.4 0-4 % Basophils Percent Auto 0.7 0-2 % NRBC Pct Auto 0.0 0.0-0.2 /100WBC Neutrophils Absolute Auto 5.2 2.0-8.3 x10*3/u L Imm Gran Abs Auto 0.04 0.00-0.03 X10*3/uL Lymphocytes Absolute Auto 1.3 1.2-4.9 X10*3/u L Monocytes Absolute Auto 0.7 0.1-1.2 X10*3/uL Eosinophils Absolute Auto 0.3 0.0-0.4 X10*3/u L Basophils Absolute Auto 0.1 0.0-0.2 X10*3/uL NRBC Abs Auto 0.000 0.0-0.012 X10*3/uL Comprehensive [place]. Panel Fa st Reviewed date:11/09/2024 04:51:20 PM Interpretation: Performing Lab:[facility], [address] [place] [phone] Notes/Report: Sodium 139 135-145 mmol/L Potassium 4.0 3.3-5.1 mmol/L Chloride 110 96-108 mmol/L Carbon Dioxide 22 22-29 mmol/L Anion Gap 11 12-20 Blood Urea Nitrogen 16 9-16 mg/dL Creatinine 0.74 0.5-1.4 mg/dL Estimated Glomerular Filt Rate > 60 Chronic Kidney Disease: Estimated GFR < 60 mL/min/1.73m2 Severe Kidney Disease: Estimated GFR < 15 mL/min/1.73m2 Glucose Fasting 147 60-99 mg/dL A fasting glucose of 126 mg/dl or greater on more than one occasion is considered diagnostic of diabetes. Calcium 9.7 8.4-10.2 mg/dL Bilirubin Total 0.8 0.0-1.0 mg/dL Aspartate Amino Transferase 26 5-31 U/L Alanine Aminotransferase 22 0-31 U/L Total Protein 7.3 6.5-8.0 g/dL Albumin Level 4.0 3.5-5.0 g/dL Alkaline Phosphatase 76 39-117 U/L Lipid Panel Reviewed date:11/09/2024 04:51:20 PM Interpretation: Performing Lab:[facility], [address] [place] [phone] Notes/Report: Triglycerides 105 <150 mg/dL Desirable Triglyceride: less than 150 mg/dL Borderline High Triglyceride 150-199 mg/dL High Triglyceride: 200-499 mg/dL Very High Triglyceride: greater than or equal to 5OO mg/dL Cholesterol 175 <200 mg/dL Desirable Cholesterol: less than 200 mg/dL Borderline High Cholesterol: 200-239 mg/dL High Cholesterol: greater than 239 mg/dL LDL Cholesterol Calculated 100 <100 mg/dL Desirable LDL: less than 100 mg/dL Near Optimal/Above Optimal LDL: 110-129 mg/dL Borderline High LDL: 130-159 mg/dL High LDL: 160-189 mg/dL Very High LDL: greater than or equal to 190 mg/dL HDL Cholesterol 54 >40 mg/dL Desirable HDL: greater than 40 mg/dL Note: This HDL assay may give artificially low results in patients with liver disease. Free T4 (Free Thyroxine) Reviewed date:11/09/2024 04:51:20 PM Interpretation: Performing Lab:[facility], [address] [place] [phone] Notes/Report: Free T4 (Free Thyroxine) 1.28 0.71-1.85 ng/dL Thyroid Stimulating Hormone Reviewed date:11/09/2024 04:51:20 PM Interpretation: Performing Lab:[facility], [address] [place] [phone] Notes/Report: Thyroid Stimulating Hormone 5.79 0.32-4.0 uIU/ mL Note: A sustained TSH level above 2.5 uIU/mL may warrant further investigation. TSH 3rd Generation ([facility]) Hemoglobin A1c Reviewed date:11/09/2024 04:51:20 PM Interpretation: Performing Lab:[facility], [address] [place] [phone] Notes/Report: Hemoglobin A1c % 6.5 <6.0 % Hemoglobin A1C Reference Range Adults: 4.8 - 6.0 % Non diabetic: < 6.0 % Goal: < 7.0 % Additional Action Suggested: > 8.0 % Note: Hemoglobin A1c results are invalid for patients with abnormal amounts of HbF. Blood transfusions may impact the HbA1c concentration in the patient sample. Estimated Average Glucose 140 eAG = Estimated average glucose which is %A1C expressed as average glucose, using the formula of the [id number] Average Glucose study (ADAG), Diabetes Care, Vol.31,#8, May. 2007 Complete Blood Count Auto Di ff (Not yet reviewed by provider) Interpretation: Performing Lab:[facility], [address] [place] [phone] Notes/Report: White Blood Count 6.2 4.8-10.8 X10*3/uL Red Blood Count 5.42 4.20-5.50 X10*6/uL Hemoglobin 17.1 12.0-16.0 g/dl Hematocrit 51.7 37.0-47.0 % Mean Corpuscular Volume 95.4 80.0-98.0 fL Mean Corpuscular Hemoglobin 31.5 27.0-33.0 pg Mean Corpuscular HGB Conc 33.1 31.0-35.0 g/dl Red Cell Distribution Width 14.2 11.0-16.0 % Platelet Count 209 160-400 X10*3/uL Mean Platelet Volume 9.3 9.4-12.3 fL Neutrophils Percent Auto 72.4 45-73 % Imm Gran Pct Auto 0.3 0.0-0.4 % Lymphocytes Percent Auto 14.6 20-40 % Monocytes Percent Auto 9.8 2-11 % Eosinophils Percent Auto 2.4 0-4 % Basophils Percent Auto 0.5 0-2 % NRBC Pct Auto 0.0 0.0-0.2 /100WBC Neutrophils Absolute Auto 4.5 2.0-8.3 x10*3/u L Imm Gran Abs Auto 0.02 0.00-0.03 X10*3/uL Lymphocytes Absolute Auto 0.9 1.2-4.9 X10*3/u L Monocytes Absolute Auto 0.6 0.1-1.2 X10*3/uL Eosinophils Absolute Auto 0.2 0.0-0.4 X10*3/u L Basophils Absolute Auto 0.0 0.0-0.2 X10*3/uL NRBC Abs Auto 0.000 0.0-0.012 X10*3/uL Comprehensive Met. Panel (No t yet reviewed by provider) Interpretation: Performing Lab:[facility], [address] [place] [phone] Notes/Report: Sodium 141 135-145 mmol/L Potassium 4.6 3.3-5.1 mmol/L Chloride 108 96-108 mmol/L Carbon Dioxide 28 22-29 mmol/L Anion Gap 10 12-20 Blood Urea Nitrogen 16 9-16 mg/dL Creatinine 0.84 0.5-1.4 mg/dL Estimated Glomerular Filt Rate > 60 Chronic Kidney Disease: Estimated GFR < 60 mL/min/1.73m2 Severe Kidney Disease: Estimated GFR < 15 mL/min/1.73m2 Glucose Random 126 60-115 mg/dL Calcium 10.1 8.4-10.2 mg/dL Bilirubin Total 1.2 0.0-1.0 mg/dL Aspartate Amino Transferase 28 5-31 U/L Alanine Aminotransferase 23 0-31 U/L Total Protein 6.9 6.5-8.0 g/dL Albumin Level 4.1 3.5-5.0 g/dL Alkaline Phosphatase 80 39-117 U/L Thyroid Stimulating Hormone (Not yet reviewed by provider) Interpretation: Performing Lab:[facility], [address] [place] [phone] Notes/Report: Thyroid Stimulating Hormone 0.65 0.32-4.0 uIU/ mL TSH 3rd Generation ([facility]) CDiff Gene PCR (Not yet revi ewed by provider) Interpretation: Performing Lab:[facility], [address] [place] [phone] Notes/Report: CDiff Gene PCR NEGATIVE Negative If C. difficile strongly suspected despite one negative test, a second test may be sent vs. empiric treatment for C. difficile infection. Reason For Referral Reason Evaluate and Treat Diagnosis 1 Alzheimer's disease with late onset (G30.1) Diagnosis 2 Memory loss (R41.3) Referral Organization Mick Norwood III, MD Referring Provider First Name Mick Referring Provider Last Name Enma Referring Provider Speciality Internal M edicine Referred Provider Joe Fermin Referred Provider Specialty Neurology General Notes Rach Kimble 08/05/2024 11:25:39 AM > referral faxed with progress noteShyanne Amber 08/05/2024 01:16:48 PM > Patient is scheduled for 09/17/2024 @ 1:10 pm, Letter mailed to patient Referral Priority Routine Referral Appointment Date 09/17/2024 Medications Medication SIG (Take, Route, Frequency, Duration) Notes Start Date End Date Status Levothyroxine Sodium 75 MCG 1 tablet zo ry the morning on an empty stomach Orally Once a day Active Simvastatin 10 MG TAKE 1 TABLET BY LEWIS TH EVERY DAY IN THE EVENING FOR 90 DAYS Active Immunizations Vaccine Route Administration Date Status Comme nts COVID- 19 Vaccine Unknown 09/18/2022 Administered COVID Moderna Bivalent Unknown 09/13/2022 Administered COVID 19 Moderna Unknown 09/20/2021 Administered COVID PFIZER Unknown 12/17/2020 Administered COVID PFIZER Unknown 11/26/2020 Administered Td (adult) Unknown 05/10/2021 Administered Decline: Influenza Unknown 07/23/2014 Refused Social History Tobacco Use: Social History Observation [...] Problem Status W/U Status Risk Notes Problem 95223935 Hyperlipidemia (E78.5) Active confirmed Her lipids have been stable and well controlled and no change in her regimen was necessary today. She appears to be compliant with her medication. They are administered to her by her son Bull. 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 Physical breast examination will be done periodically. She agreed to an examination on her next visit. Problem 41288827 Hyperglycemia (R73.9) Active confirmed Her hemoglobin A1c is 6.5. Problem 014210854 GERD (gastroesophagea l reflux disease) (K21.9) Active confirmed Her reflux symptoms are well controlled with medication. She is sleeping well at night. Problem Breast cancer (043360303) Breast cancer (C50.919) Active confirmed There is no sign of a new primary breast cancer or recurrence of DCIS in the right breast today. He was urged to continue breast self-examinatio n. She is due for mammography which we have arranged today. Problem 482826633 Alzheimer's disease with late onset (G30.1) Active confirmed She has very significant defects in memory. [...] children. Her dementia has been slowly progressive. Problem 35150854 Alzheimer's disease, unspecified (G30.9) Active confirmed She is basically unchanged. She is cared for by her son who lives with her. She was clean and well groomed. Her clothing was clean she seems to be well cared for. Problem 497065614 Acquired hypothyroidism (E03.9) Active confirmed Her TSH is elevated at 5.79. Her son says she takes her levothyroxine at the usual dose every day. I am repeating this value. If it is elevated again he will need an increase in her dose. She does not appear to be hypothyroid today. 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 No new treatment is necessary today. Problem 363249130 Erythrocytosis (D75.1) Active confirmed Her hematocrit is stable at 51% her white blood cell count and platelet count are normal. Her mean cell volume and differential are unremarkable. If this value increases she will be evaluated for polycythemia vera. Problem Acquired hallux valgus (81356567) Bunion, left (M20.12) Active confirmed Problem 47348872 Diabetes mellitus without complication (E11.9) Active confirmed He has had 3 fasting glucose levels in the normal range and now her hemoglobin A1c is 6.5. This his diabetes mellitus type 2. I offered to prescribe metformin but she wants to think about it still.He seems to be well controlled with her current diet. Vital Signs Heart Rate 94 /min 01/13/2025 Temperature 97.6 degrees Fahrenheit 01/13/2025 Blood pressure diastolic 80 mm Hg 01/13/2025 Height 62 in 01/13/2025 Blood pressure systolic 138 mm Hg 01/13/2025 Weight 131 lbs 01/13/2025 BMI 23.96 kg/m2 01/13/2025 Encounters Encounter Location Date Provider Diagnosis Mick Norwood III, MD [address] [place] [address] [place] [address] 02/18/2024 Mick Norwood Hyperlipidemia E78.5 ; Acquired hypothyroidism E03.9 ; GERD (gastroesophageal reflux disease) K21.9 ; DCIS (ductal carcinoma in situ) D05.10 ; Osteoarthritis cervical spine M47.812 ; Erythrocytosis D75.1 ; Alzheimer's disease with late onset G30.1 and Hyperglycemia R73.9 Mick Norwood III, MD [address] [place] [address] [place] [address] 07/31/2024 Mick Norwood Hyperlipidemia E78.5 ; Alzheimer's disease with late onset G30.1 ; Acquired hypothyroidism E03.9 ; Hyperglycemia R73.9 ; GERD (gastroesophageal reflux disease) K21.9 ; DCIS (ductal carcinoma in situ) D05.10 and Osteoarthritis cervical spine M47.812 Mick Norwood III, MD [address] [place] [address] [place] [address] 11/11/2024 Mick Norwood Diarrhea R19.7 ; Alzheimer's disease with late onset G30.1 ; Acquired hypothyroidism E03.9 ; GERD (gastroesophageal reflux disease) K21.9 ; DCIS (ductal carcinoma in situ) D05.10 and Osteoarthritis cervical spine M47.812 Mick Norwood III, MD [address] [place] [address] [place] [address] 01/13/2025 Mick Norwood Acquired hypothyroid ism E03.9 ; DCIS (ductal carcinoma in situ) D05.10 ; Hyperglycemia R73.9 ; Screening mammogram for breast cancer Z12.31 ; Breast cancer C50.919 ; GERD (gastroesophageal reflux disease) K21.9 ; Osteoarthritis cervical spine M47.812 ; Diabetes mellitus without complication E11.9 and Alzheimer's disease, unspecified G30.9 Mick Norwood III, MD [address] [place] [address] [place] [address] 02/13/2024 Mick Norwood Hyperlipidemia E78.5 ; Acquired hypothyroidism E03.9 and GERD (gastroesophageal reflux disease) K21.9 Mick Norwood III, MD [address] [place] [address] [place] [address] 03/20/2024 Mick Norwood Assessments Encounter Date Diagnosis (ICD Code) Assessment Notes Treat ment Notes Treatment Clinical Notes 02/18/2024 Hyperlipidemia (ICD-10 - E78.5) Her lipids are currently well controlled and no change in her medication was needed. 02/18/2024 Acquired hypothyroidism (ICD-10 - E03.9) Her TSH is elevated and her free T4 is at the low level of normal. I have increased her dose of levothyroxin to 75 mcg daily. A repeat visit after blood work was arranged. 07/31/2024 Hyperlipidemia (ICD-10 - E78.5) Her lipids [...] Her dementia has been slowly progressive. 11/11/2024 Alzheimer's disease with late onset (ICD-10 [...] Her dementia has been slowly progressive. 11/11/2024 Diarrhea (ICD-10 - R19.7) She is going to have a stool culture and a stool specimen for Clostridium difficile and for ova and parasites. She will use Imodium 2 mg every 3 hours as needed. Follow-up was arranged. 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 Physical breast examination will be done periodically. She agreed to an examination on her next visit. 01/13/2025 Acquired hypothyroidism (ICD-10 - E03.9) Her TSH is elevated at 5.79. Her son says she takes her levothyroxine at the usual dose every day. I am repeating this value. If it is elevated again he will need an increase in her dose. She does not appear to be hypothyroid today. 02/18/2024 GERD (gastroesophageal reflux disease) (ICD-10 - K21.9) Her reflux symptoms are well controlled with medication. She is sleeping well at night. 07/31/2024 Acquired hypothyroidism (ICD-10 - E03.9) Her thyroid function tests are in the normal range and no change in her medication is necessary today. The elevated TSH on the last visit is now normal. 11/11/2024 Acquired hypothyroidism (ICD-10 - E03.9) Her thyroid function tests are in the normal range and no change in her medication is necessary today. The elevated TSH on the last visit is now normal. 01/13/2025 Hyperglycemia (ICD-1 0 - R73.9) Her hemoglobin A1c is 6.5. 02/13/2024 Hyperlipidemia (ICD-10 - E78.5) 02/18/2024 DCIS (ductal carcinoma in situ) (ICD-10 - D05.10) There was no sign of metastatic disease or recurrence today. Physical breast examination will be done periodically. She agreed to an examination on her next visit. 07/31/2024 Hyperglycemia (ICD-1 0 - R73.9) Her fasting glucose is 136. It has been elevated. This is consistent with prediabetes. Hemoglobin A1c has been ordered to see if she is actually a type II diabetic. 11/11/2024 GERD (gastroesophageal reflux disease) (ICD-10 - K21.9) Her reflux symptoms are well controlled with medication. She is sleeping well at night. 01/13/2025 Screening mammogram for breast cancer (ICD-10 - Z12.31) She is being scheduled for a screening mammogram. 02/13/2024 Acquired hypothyroidism (ICD-10 - E03.9) 02/18/2024 Osteoarthritis cervical spine (ICD-10 - M47.812) She has very little discomfort in her neck at the current time. No new treatment is necessary today. 07/31/2024 GERD (gastroesophageal reflux disease) (ICD-10 - K21.9) Her reflux symptoms are well controlled with medication. She is sleeping well at night. 11/11/2024 DCIS (ductal carcinoma in situ) (ICD-10 - D05.10) There was no sign of metastatic disease or recurrence today. Physical breast examination will be done periodically. She agreed to an examination on her next visit. 01/13/2025 Breast cancer (ICD-1 0 - C50.919) There is no sign of a new primary breast cancer or recurrence of DCIS in the right breast today. He was urged to continue breast self-examination. She is due for mammography which we have arranged today. 02/13/2024 GERD (gastroesophageal reflux disease) (ICD-10 - K21.9) 02/18/2024 Erythrocytosis (ICD-10 - D75.1) Her hematocrit is stable at 51% her white blood cell count and platelet count are normal. Her mean cell volume and differential are unremarkable. If this value increases she will be evaluated for polycythemia vera. 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 Physical breast examination will be done periodically. She agreed to an examination on her next visit. 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 No new treatment is necessary today. 01/13/2025 GERD (gastroesophageal reflux disease) (ICD-10 - K21.9) Her reflux symptoms are well controlled with medication. She is sleeping well at night. 02/18/2024 Alzheimer's disease with late onset (ICD-10 - G30.1) Her dementia appears to be stable. She is up-to-date with her visits to neurology. No new medication is required. She is living independently at home and seems happy. 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 No new treatment is necessary today. 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 No new treatment is necessary today. 02/18/2024 Hyperglycemia (ICD-1 0 - R73.9) Her fasting glucose is 128. I have ordered a hemoglobin A1c to delineate whether she has prediabetes or adult-onset diabetes. If her A1c is elevated she will be treated. 01/13/2025 Diabetes mellitus without complication (ICD-10 - [...] be well cared for. Plan Of Treatment Pending Test Test Name Order Date PROFILE, FASTING (COMPREHENSIVE METABOLI C) 11/02/2021 PROFILE, FASTING (COMPREHENSIVE METABOLI C) 08/12/2018 PROFILE, FASTING (COMPREHENSIVE METABOLI C) 04/26/2023 PROFILE, FASTING (COMPREHENSIVE METABOLI C) 02/13/2024 PROFILE, FASTING (COMPREHENSIVE METABOLI C) 10/11/2021 PROFILE, FASTING (COMPREHENSIVE METABOLI C) 05/08/2018 PROFILE, FASTING (COMPREHENSIVE METABOLI C) 01/22/2023 PROFILE, FASTING (COMPREHENSIVE METABOLI C) 12/31/2020 PROFILE, FASTING (COMPREHENSIVE METABOLI C) 07/18/2023 PROFILE, FASTING (COMPREHENSIVE METABOLI C) 05/16/2021 PROFILE, FASTING (COMPREHENSIVE METABOLI C) 07/17/2022 PROFILE, FASTING (COMPREHENSIVE METABOLI C) 07/31/2024 PROFILE, FASTING (COMPREHENSIVE METABOLI C) 03/07/2021 PROFILE, FASTING (COMPREHENSIVE METABOLI C) 06/23/2022 PROFILE, FASTING (COMPREHENSIVE METABOLI C) 02/18/2024 PROFILE, RANDOM (COMPREHENSIVE METABOLIC ) 01/05/2022 PROFILE, RANDOM (COMPREHENSIVE METABOLIC ) 10/30/2018 PROFILE, RANDOM (COMPREHENSIVE METABOLIC ) 01/13/2025 PROFILE, RANDOM (COMPREHENSIVE METABOLIC ) 10/23/2022 PROFILE, RANDOM (COMPREHENSIVE METABOLIC ) 07/12/2021 LIPID PANEL 10/30/2018 LIPID PANEL 11/02/2021 LIPID PANEL 08/12/2018 LIPID PANEL 04/26/2023 LIPID PANEL 10/11/2021 LIPID PANEL 05/08/2018 LIPID PANEL 01/22/2023 LIPID PANEL 10/23/2022 LIPID PANEL 12/31/2020 LIPID PANEL 07/18/2023 LIPID PANEL 05/16/2021 LIPID PANEL 03/07/2021 FREE T4 (FT4) 11/02/2021 FREE T4 (FT4) 08/12/2018 FREE T4 (FT4) 04/26/2023 FREE T4 (FT4) 10/11/2021 FREE T4 (FT4) 05/08/2018 FREE T4 (FT4) 01/22/2023 FREE T4 (FT4) 07/12/2021 FREE T4 (FT4) 10/23/2022 FREE T4 (FT4) 06/23/2022 FREE T4 (FT4) 12/31/2020 FREE T4 (FT4) 12/17/2019 FREE T4 (FT4) 07/18/2023 FREE T4 (FT4) 05/16/2021 FREE T4 (FT4) 03/07/2021 TSH (THYROID STIMULATING HORMONE) 2019 TSH (THYROID STIMULATING HORMONE) 2020 TSH (THYROID STIMULATING HORMONE) 2020 TSH (THYROID STIMULATING HORMONE) 2022 TSH (THYROID STIMULATING HORMONE) 2023 TSH (THYROID STIMULATING HORMONE) 2024 TSH (THYROID STIMULATING HORMONE) 2018 TSH (THYROID STIMULATING HORMONE) 2021 TSH (THYROID STIMULATING HORMONE) 2017 TSH (THYROID STIMULATING HORMONE) 2023 TSH (THYROID STIMULATING HORMONE) 2022 TSH (THYROID STIMULATING HORMONE) 2020 TSH (THYROID STIMULATING HORMONE) 2017 TSH (THYROID STIMULATING HORMONE) 2023 TSH (THYROID STIMULATING HORMONE) 2022 TSH (THYROID STIMULATING HORMONE) 2020 TSH (THYROID STIMULATING HORMONE) 2022 TSH (THYROID STIMULATING HORMONE) 2021 TSH (THYROID STIMULATING HORMONE) 2020 CBC w DIFF 10/23/2022 CBC w DIFF 06/23/2022 CBC w DIFF 12/31/2020 CBC w DIFF 01/05/2022 CBC w DIFF 05/16/2021 CBC w DIFF 03/07/2021 CBC w DIFF 07/18/2023 CBC w DIFF 02/13/2024 CBC w DIFF 01/13/2025 CBC w DIFF 10/30/2018 CBC w DIFF 07/17/2022 CBC w DIFF 11/02/2021 CBC w DIFF 08/12/2018 CBC w DIFF 04/26/2023 CBC w DIFF 10/11/2021 CBC w DIFF 05/08/2018 CBC w DIFF 01/22/2023 CBC w DIFF 07/12/2021 CLOSTRIDIUM DIFF TOXIN A&B (C DIFF) 10/16 URINALYSIS (UA) 12/31/2020 LYME DISEASE IgG/IgM WB 12/17/2019 OVA & PARASITES (O&P) 11/11/2024 MAMMOGRAM DIGITAL BILATERAL SCREEN 07/17 CBC WITH AUTO DIFF 07/31/2024 CBC WITH AUTO DIFF 02/18/2024 Complete Blood Count Auto Diff RETIC 01/05/2022 Comprehensive Met. Panel 01/13/2025 Lipid Panel 07/31/2024 Lipid Panel 02/18/2024 Lipid Panel 06/23/2022 Lipid Panel 07/17/2022 Free T4 (Free Thyroxine) 07/31/2024 Free T4 (Free Thyroxine) 02/18/2024 Free T4 (Free Thyroxine) 01/13/2025 Thyroid Stimulating Hormone 01/13/2025 Stool Culture 11/11/2024 MM tomosynthesis screening BI 01/13/2025 XR thoracic spine 3V 2023 XR lumbar spine 2-3V 2023 Hemoglobin A1c 07/31/2024 CDiff Gene PCR 01/22/2025 Next Appt Details Provider Name:Mick Norwood, 01/27/2025 11:00:00 AM, [address] [place] [address] [address], [place], [address], Provider Name:Mick Norwood, 04/28/2025 09:30:00 AM, [address] [place] [address] [address], [place], [address], Provider Name:Mick Norwood, 01/19/2026 09:30:00 AM, [address] [place] [address] [address], [place], [address], Insurance Providers Payer Name Payer Address Payer Phone Subscriber Number Group Number Insured Name Patient Relationship to Insured Coverage Start Date Coverage End Date [address] [facility] [place] [phone] [id number] Vidal Allen Self - patient is the insured MEDICARE NGS [address] [facility] [place] [place] [address] [id number] VidalKannan ornelas Self - patient is the insured Medical (General) History Medical History History ICD Code hypertension [id number] hypothyroid penicillin/sulfa allergy osteoarthritis DCIS right breast 10/2003: JIMENEZ/RT memory deficits Surgical History Surgery Date(Month/Year) No history hysterectomy & BSO 1979 C-spine surgery degenerated disc 1977 lumpectomy right breast DCIS 2004 Left TKR 2005 Hospitalization History Reason Date(Month/Year) No history Bacterial UTI 04/2021
[2025-01-22 13:19] LABS: Adenovirus F 40/41 Not Detected (Not Detect.); Astrovirus Not Detected (Not Detect.); Campylobacter Not Detected (Not Detect.); Cryptosporidium Not Detected (Not Detect.); Cyclospora cayetanensis Not Detected (Not Detect.); E. coli EAEC Not Detected (Not Detect.); E. coli EPEC Not Detected (Not Detect.); E. coli ETEC Not Detected (Not Detect.); E. coli STEC Not Detected (Not Detect.); Entamoeba histolytica Not Detected (Not Detect.); Giardia lamblia Not Detected (Not Detect.); Norovirus GI/GII Not Detected (Not Detect.); Plesiomonas shigelloides Not Detected (Not Detect.); Rotavirus A Not Detected (Not Detect.); Salmonella Not Detected (Not Detect.); Sapovirus Not Detected (Not Detect.); Shigella sp./EIEC Not Detected (Not Detect.); Vibrio Not Detected (Not Detect.); Vibrio Cholerae Not Detected (Not Detect.); Yersinia enterocolitica Not Detected (Not Detect.)
== END 2025-01-22 10:48 | disposition home or self-care (01) ==
LOC: HO.LNP 10:47
PROVIDERS: Visit Provider Internal Medicine Medical Oncology
DX: R19.7 Diarrhea, unspecified (principal)
CPT/HCPCS: 87177; 87209; 87493; 87507

== ENCOUNTER 2025-03-03 12:38 | Outpatient (REF) | payer MEDICARE, SELFPAY ==
--- OUTSIDE RECORDS SUMMARY | 2025-03-03 13:43 | XMS_ITS ---
Author Organization Mick Norwood III, MD Address [address] [place] [address] [place] [address] Care Team Providers Care Coding Technician Name Role Phone Mick Norwood Primary Care Provider REASON FOR VISIT Incontinence Supply Rx Social History Sex Assigned At : Social History Observation Description Sex Assigned At Female Encounters Encounter Location Date Provider Diagnosis Mick Norwood III, MD [address] [place] [address] [place] [address] 02/13/2025 Mick Norwood Plan Of Treatment Next Appt Details Provider Name:Mick Norwood, 04/28/2025 09:30:00 AM, [address] [place] [address] [place], [address], Provider Name:Mick Norwood, 01/19/2026 09:30:00 AM, [address] [place] [address] [place], [address], Progress Notes * Perlita TAVERASisDOB:1940 (84 yo F)Acc No.[id number]:02/13/2025 Patient:?Kannan TAVERAS :1940???Age:84 Y???Sex:Female Address:[place] [address] * * Date:?
--- OUTSIDE RECORDS SUMMARY | 2025-03-03 13:43 | XMS_ITS ---
Author Organization [facility] Kelsi hansel Cj Address [address] [facility] [place] [address] Care Team Providers Care Yardage Control Clerk Name Role Phone Mick Norwood MD Primary Care Provider Mike Neely Unavailable [phone] Allergies Allergen (clinical drug ingredient) Drug/Non Drug [...] Status Risk Notes Problem Acquired hallux valgus (89804251) Hallux valgus (acquired), left foot (M20.12) Active confirmed Problem Acquired hammer toe of right foot (0105570450781 105) Other hammer toe(s) (acquired), right foot (M20.41) Active confirmed Problem Acquired hammer toe of left foot (0681142421625 103) Other hammer toe(s) (acquired), left foot (M20.42) Active confirmed Vital Signs Height 5ft 3in in 09/24/2023 Weight 135 lbs 09/24/2023 BMI 23.91 kg/m2 09/24/2023 Encounters Encounter Location Date Provider Diagnosis [facility] [address] [place] [address] 09/24/2023 Mike Ellis Pain in left foot [...] Notes * Bárbara TAVERASOB:1940 (83 yo F)Acc No.[id number]:09/24/2023 Progress Notes Patient:?Kannan Taveras Provider:Felton Ellis DPM :1940???Age:83 Y???Sex:Female D ate:09/24/2023 Address:[address] [place] [address] Pcp:Mick Norwood MD Subjective: * Chief Complaints: [...] ray : Foot, right 3V * Procedure Codes:?99935 X-RAY EXAM OF LEFT FOOT 3V, Modifiers: 26 , SU56758 X-RAY EXAM OF RIGHT FOOT 3V, Modifiers: [...] for supportive running shoes and also to [employer] for step in shoes.? * Follow Up:?prn * Images: * Sign off status: Completed true * Provider:Felton Ellis DPM Date:? 023 Generated for Lizeth paige/Kenneth/Ama on:?03/03/2025 01:43 PM EDT History and Physical Notes * [...]
--- OUTSIDE RECORDS SUMMARY | 2025-03-03 13:43 | XMS_ITS | Clinical Summary ---
Author Organization [facility] Facility Address [address] [place] [address] Care Team Providers Care Information Security Name Role Phone Mick Norwood MD Primary Care Provider [phone] Social History Tobacco Use Types Packs/Day Years Used Date Smoking Tobacco: Never Assessed Comments Unknown Sex and Gender Information Value Date Recorded Sex Assigned at Not on file Legal Sex Female 2:25 PM EDT Gender Identity Not on file Sexual Orientation Not on file Plan of Treatment Health Maintenance Due Date Last Done Comments Pneumococcal Vaccine: 50+ Ye ars (1 of - PCV) 1989 Influenza Vaccine (Season Ended) 2025 Hepatitis B Vaccine Aged Out No longe r eligible based on patient's age to complete this topic [place] [address] [facility] Member Subscriber Plan / Payer (Ef fective 2018-Present) Name:Kannan Taveras Relation to Subscriber:Self Name:Kannan Taveras Payer ID:Not on file Type:Not on file Address: [place] [phone] Care Teams Information Security Relationship Specialty [place] [address] [facility] [address] [place] [address] PCP - General Internal Medicine 01/25/21
--- OUTSIDE RECORDS SUMMARY | 2025-03-03 13:43 | XMS_ITS | Patient Health Record ---
Author Organization Mick Norwood III, MD Address [address] [place] [address] [address] [place] [address] Care Team Providers Care Bag Making Machine Tender Name Role Phone Mick Norwood Primary Care Provider Allergies Allergen (clinical drug ingredient) Drug/Non Drug Allergy documented on EMR Reaction Allergy Type Onset Date Status Penicillin Unknown Drug Allergy Active Sulfur Unknown Drug Allergy Active Results Component Value Reference Range Notes Free T4 (Free Thyroxine) Reviewed date:01/22/2025 07:59:54 PM Interpretation: Performing Lab:[address] [address] Notes/Report: Free T4 (Free Thyroxine) 1.51 0.71-1.85 ng/dL Complete Blood Count Auto Di ff Reviewed date:07/28/2024 07:09:49 AM Interpretation: Performing Lab:[address] [address] Notes/Report: White Blood Count 6.6 4.8-10.8 X10*3/uL [...] NRBC Abs Auto 0.000 0.0-0.012 X10*3/uL Comprehensive [place]. Panel Fa st Reviewed date:07/28/2024 07:09:49 AM Interpretation: Performing Lab:[facility], [address] [place] [phone] Notes/Report: Sodium 141 135-145 mmol/L Potassium 4.2 3.3-5.1 mmol/L Chloride 106 96-108 mmol/L Carbon Dioxide 27 22-29 mmol/L Anion Gap 12 12-20 Blood Urea Nitrogen 11 9-16 mg/dL Creatinine 0.98 0.5-1.4 mg/dL Estimated Glomerular Filt Rate 54 NOTE: For -Filipino individuals, multiply the result by 1.210. Chronic [...] Panel Reviewed date:07/28/2024 07:09:49 AM Interpretation: Performing Lab:[facility], [address] [place] [phone] Notes/Report: Triglycerides 101 <150 mg/dL Desirable Triglyceride: [...] Thyroxine) Reviewed date:07/28/2024 07:09:49 AM Interpretation: Performing Lab:[facility], [address] [place] [phone] Notes/Report: Free T4 (Free Thyroxine) 1.19 0.71-1.85 ng/dL Thyroid Stimulating Hormone Reviewed date:07/28/2024 07:09:49 AM Interpretation: Performing Lab:[facility], [address] [place] [phone] Notes/Report: Thyroid Stimulating Hormone 3.60 0.32-4.0 uIU/mL Note: A sustained TSH level above 2.5 uIU/mL may warrant further investigation. TSH 3rd Generation ([facility]) Complete Blood Count Auto Di ff Reviewed date:11/09/2024 04:51:20 PM Interpretation: Performing Lab:[facility], [address] [place] [phone] Notes/Report: White Blood Count 7.6 4.8-10.8 X10*3/uL [...] NRBC Abs Auto 0.000 0.0-0.012 X10*3/uL Comprehensive [place]. Panel Fa st Reviewed date:11/09/2024 04:51:20 PM Interpretation: Performing Lab:[facility], [address] [place] [phone] Notes/Report: Sodium 139 135-145 mmol/L Potassium 4.0 [...] Panel Reviewed date:11/09/2024 04:51:20 PM Interpretation: Performing Lab:[address] [phone] Notes/Report: Triglycerides 105 <150 mg/dL Desirable Triglyceride: [...] Thyroxine) Reviewed date:11/09/2024 04:51:20 PM Interpretation: Performing Lab:[address] [address] Notes/Report: Free T4 (Free Thyroxine) 1.28 0.71-1.85 ng/dL Thyroid Stimulating Hormone Reviewed date:11/09/2024 04:51:20 PM Interpretation: Performing Lab:[address] [address] Notes/Report: Thyroid Stimulating Hormone 5.79 0.32-4.0 uIU/mL Note: A sustained TSH level above 2.5 uIU/mL may warrant further investigation. TSH 3rd Generation ([facility]) Hemoglobin A1c Reviewed date:11/09/2024 04:51:20 PM Interpretation: Performing Lab:[facility], [address] [place] [phone] Notes/Report: Hemoglobin A1c % 6.5 <6.0 % [...] average glucose, using the formula of the U2S-Hywswuj Average Glucose study (ADAG), Diabetes Care, Vol.31,#8, 2007 Complete Blood Count Auto Di ff Reviewed date:01/22/2025 07:59:54 PM Interpretation: Performing Lab:[facility], [address] [place] [phone] Notes/Report: White Blood Count 6.2 4.8-10.8 X10*3/uL [...] Auto 0.000 0.0-0.012 X10*3/uL Comprehensive [place]. Panel Reviewed date:01/22/2025 07:59:54 PM Interpretation: Performing Lab:[address] [address] Notes/Report: Sodium 141 135-145 mmol/L Potassium 4.6 [...] Phosphatase 80 39-117 U/L Thyroid Stimulating Hormone Reviewed date:01/22/2025 07:59:54 PM Interpretation: Performing Lab:[address] [phone] Notes/Report: Thyroid Stimulating Hormone 0.65 0.32-4.0 uIU/mL TSH 3rd Generation ([facility]) CDiff Gene PCR Reviewed date:01/22/2025 07:59:54 PM Interpretation: Performing Lab:[address] [place] [address] Notes/Report: CDiff Gene PCR NEGATIVE Negative If C. difficile strongly suspected despite one negative test, a second test may be sent vs. empiric treatment for C. difficile infection. GI Panel Reviewed date:01/22/2025 07:59:54 PM Interpretation: Performing Lab:[facility], [address] [place] [phone] Notes/Report: Campylobacter Not Detected Not Detect. Plesiomonas shigelloides Not Detected Not Detect. Salmonella Not Detected Not Detect. Vibrio Not Detected Not Detect. Vibrio Cholerae Not Detected Not Detect. Yersinia enterocolitica Not Detected Not Detect. E. coli EAEC Not Detected Not Detect. E. coli EPEC Not Detected Not Detect. E. coli ETEC Not Detected Not Detect. E. coli STEC Not Detected Not Detect. E. coli O157 Not applicable Not Detect. E. coli containing the O157 antigen are a subset of Shiga-like toxin-producing E. coli (STEC). Shigella sp./EIEC Not Detected Not Detect. Cryptosporidium Not Detected Not Detect. Cyclospora cayetanensis Not Detected Not Detect. Entamoeba histolytica Not Detected Not Detect. Giardia lamblia Not Detected Not Detect. Adenovirus F 40/41 Not Detected Not Detect. Astrovirus Not Detected Not Detect. Norovirus GI/GII Not Detected Not Detect. Rotavirus A Not Detected Not Detect. Sapovirus Not Detected Not Detect. All results must be correlated with clinical findings. Negative results do not exclude the possibility of gastrointestinal infection and should not be used as the sole basis for diagnosis, treatment, or other management decisions. Virus, bacteria, and parasite nucleic acid may persist in vivo independently of organism viability. Additionally, some organisms may be carried asymptomatically. Detection of organism targets does not imply that the corresponding organisms are infectious or are the causative agents for clinical symptoms. There is a risk of false negative values due to the presence of sequence variants in the gene targets of the assay, amplification inhibitors in specimens, or inadequate numbers of organisms for amplification. The identification of several diarrheagenic E. coli pathotypes has historically relied upon phenotypic characteristics. This panel targets genetic determinants characteristic of most pathogenic strains, but may not detect all strains having phenotypic characteristics of a pathotype. The performance of this test has not been established for monitoring treatment of infection with any of the panel organisms. This assay is performed by Multiplexed PCR, utilizing the Bin1 ATE Array. Ova and Parasite Reviewed date:01/31/2025 08:51:35 AM Interpretation: Performing Lab:[facility], [address] [place] [phone] Notes/Report: Ova and Parasite SEE NOTE OVA AND PARASITES, CONC AND PERM SMEAR Micro Number: [id number] Test Status: Final Specimen Source: Stool Specimen Quality: Adequate CONCENTRATION 1: No ova or parasites seen TRICHROME 1: No ova or parasites seen Routine Ova and Parasite exam may not detect some parasites that occasionally cause diarrheal illness. Cryptosporidium Antigen and/or Cyclospora and Isospora Exam may be ordered to detect these parasites. One negative sample does not necessarily rule out the presence of a parasitic infection. For additional information, please refer to [email or web address].[employer]/faq/LWB257 (This link is being provided for informational/ educational purposes only.) THIS TEST WAS PERFORMED AT: [facility] [address] [place] [phone] SHAHRAM BAZAN MD Reason For Referral Reason Evaluate and Treat [...] Problem Status W/U Status Risk Notes Problem 11349196 Hyperlipidemia (E78.5) Active confirmed Her lipids have been stable and well controlled and no change in her regimen was necessary today. She appears to be compliant with her medication. They are administered to her by her son Bull. 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 Physical breast examination will be done periodically. She agreed to an examination on her next visit. Problem 927578250 GERD (gastroesophageal reflux disease) (K21.9) Active confirmed Her esophageal reflux symptoms are well controlled with medication and no change in her regimen was needed. Problem 35868311 Alzheimer's disease, unspecified (G30.9) Active confirmed She is basically unchanged. She is cared for by her son who lives with her. She was clean and well groomed. Her clothing was clean she seems to be well cared for. Problem Nocturia (235066429) Nocturia (R35.1) Active confirmed Problem 987332770 Acquired hypothyroidism (E03.9) Active confirmed Her free T4 and TSH are now normal. It is likely that the previous elevated TSH was due to memory loss and forgetting to take the medication Her son is now taking charge of giving her the medication. 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 No new treatment is necessary today. Problem 966834679 Erythrocytosis (D75.1) Active confirmed Her hematocrit is stable at 51% her white blood cell count and platelet count are normal. Her mean cell volume and differential are unremarkable. If this value increases she will be evaluated for polycythemia vera. Problem Bunion, left (M20.12) Active confirmed Problem 31894662 Diabetes mellitu s without complication (E11.9) Active confirmed He has [...] 80 mm Hg 01/13/2025 Height 62 in 01/27/2025 Blood pressure systolic 138 mm Hg 01/13/2025 Weight 131 lbs 01/27/2025 BMI 23.96 kg/m2 01/27/2025 Encounters Encounter Location Date Provider Diagnosis Mick Norwood III, MD [address] [place] [address] [place] [address] 07/31/2024 Mick Norwood Hyperlipidemia E78.5 ; Alzheimer's disease with late onset G30.1 ; Acquired hypothyroidism E03.9 ; Hyperglycemia R73.9 ; GERD (gastroesophageal reflux disease) K21.9 ; DCIS (ductal carcinoma in situ) D05.10 and Osteoarthritis cervical spine M47.812 Mick Norwood III, MD [address] [place] [address] [place] [address] 11/11/2024 Mick Norwood Diarrhea R19.7 ; Alzheimer's disease with late onset G30.1 ; Acquired hypothyroidism E03.9 ; GERD (gastroesophageal reflux disease) K21.9 ; DCIS (ductal carcinoma in situ) D05.10 and Osteoarthritis cervical spine M47.812 Mick Norwood III, MD [address] [place] [address] [place] [address] 01/13/2025 Mick Norwood Acquired hypothyroid ism E03.9 ; DCIS (ductal carcinoma in situ) D05.10 ; Hyperglycemia R73.9 ; Screening mammogram for breast cancer Z12.31 ; Breast cancer C50.919 ; GERD (gastroesophageal reflux disease) K21.9 ; Osteoarthritis cervical spine M47.812 ; Diabetes mellitus without complication E11.9 and Alzheimer's disease, unspecified G30.9 Mick Norwood III, MD [address] [place] [address] [address] [place] [place] [address] 01/27/2025 Mick Norwood Acquired hypothyroid ism E03.9 ; Alzheimer's disease, unspecified G30.9 ; GERD (gastroesophageal reflux disease) K21.9 ; DCIS (ductal carcinoma in situ) D05.10 ; Hyperlipidemia E78.5 and Osteoarthritis cervical spine M47.812 Mick Norwood III, MD [address] [place] [address] [place] [address] 02/13/2025 Mick Norwood III, MD [address] [place] [address] [address] [place] [address] 03/20/2024 Mick Norwood Assessments Encounter Date Diagnosis [...] does not appear to be hypothyroid today. 01/27/2025 Alzheimer's disease, unspecified (ICD-10 - G30.9) She is basically unchanged. She is cared for by her son who lives with her. She was clean and well groomed. Her clothing was clean she seems to be well cared for. 01/27/2025 Acquired hypothyroidism (ICD-10 - E03.9) Her free T4 and TSH are now normal. It is likely that the previous elevated TSH was due to memory loss and forgetting to take the medication Her son is now taking charge of giving her the medication. 07/31/2024 Acquired hypothyroidism (ICD-10 - E03.9) Her [...] - R73.9) Her hemoglobin A1c is 6.5. 01/27/2025 GERD (gastroesophageal reflux disease) (ICD-10 - K21.9) Her esophageal reflux symptoms are well controlled with medication and no change in her regimen was needed. 07/31/2024 Hyperglycemia (ICD-1 0 - R73.9) Her [...] is being scheduled for a screening mammogram. 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 Physical breast examination will be done periodically. She agreed to an examination on her next visit. 07/31/2024 GERD (gastroesophageal reflux disease) (ICD-10 - [...] for mammography which we have arranged today. 01/27/2025 Hyperlipidemia (ICD-10 - E78.5) Her lipids have been stable and well controlled and no change in her regimen was necessary today. She appears to be compliant with her medication. They are administered to her by her son Bull. 07/31/2024 DCIS (ductal carcinoma in situ) (ICD-10 [...] medication. She is sleeping well at night. 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) She has very little discomfort in her neck at the current time. No new treatment is necessary today. 07/31/2024 Osteoarthritis cervical spine (ICD-10 - M47.812) [...] C) 11/02/2021 PROFILE, FASTING (COMPREHENSIVE METABOLI C) 10/11/2021 PROFILE, FASTING (COMPREHENSIVE METABOLI C) 08/12/2018 PROFILE, FASTING (COMPREHENSIVE METABOLI C) 04/26/2023 PROFILE, FASTING (COMPREHENSIVE METABOLI C) 07/31/2024 PROFILE, FASTING (COMPREHENSIVE METABOLI C) 05/08/2018 PROFILE, FASTING (COMPREHENSIVE METABOLI C) 01/22/2023 PROFILE, FASTING (COMPREHENSIVE METABOLI C) 02/18/2024 PROFILE, FASTING (COMPREHENSIVE METABOLI C) 12/31/2020 PROFILE, FASTING (COMPREHENSIVE METABOLI C) 07/18/2023 PROFILE, FASTING (COMPREHENSIVE METABOLI C) 05/16/2021 PROFILE, FASTING (COMPREHENSIVE METABOLI C) 07/17/2022 PROFILE, FASTING (COMPREHENSIVE METABOLI C) 03/07/2021 PROFILE, FASTING (COMPREHENSIVE METABOLI C) 06/23/2022 PROFILE, FASTING (COMPREHENSIVE METABOLI C) 02/13/2024 PROFILE, FASTING (COMPREHENSIVE METABOLI C) 01/27/2025 PROFILE, RANDOM (COMPREHENSIVE METABOLIC ) 01/13/2025 PROFILE, RANDOM (COMPREHENSIVE METABOLIC ) 01/05/2022 PROFILE, RANDOM (COMPREHENSIVE METABOLIC ) 10/30/2018 PROFILE, RANDOM (COMPREHENSIVE METABOLIC ) 10/23/2022 PROFILE, RANDOM (COMPREHENSIVE METABOLIC ) 07/12/2021 LIPID PANEL 03/07/2021 LIPID PANEL 11/02/2021 LIPID PANEL 10/30/2018 LIPID PANEL 10/11/2021 LIPID PANEL 08/12/2018 LIPID PANEL 04/26/2023 LIPID PANEL 05/08/2018 LIPID PANEL 01/22/2023 LIPID PANEL 10/23/2022 LIPID PANEL 12/31/2020 LIPID PANEL 07/18/2023 LIPID PANEL 05/16/2021 FREE T4 (FT4) 06/23/2022 FREE T4 (FT4) 12/31/2020 FREE T4 (FT4) 12/17/2019 FREE T4 (FT4) 07/18/2023 FREE T4 (FT4) 05/16/2021 FREE T4 (FT4) 03/07/2021 FREE T4 (FT4) 11/02/2021 FREE T4 (FT4) 10/11/2021 FREE T4 (FT4) 08/12/2018 FREE T4 (FT4) 04/26/2023 FREE T4 (FT4) 07/12/2021 FREE T4 (FT4) 05/08/2018 FREE T4 (FT4) 01/22/2023 FREE T4 (FT4) 10/23/2022 TSH (THYROID STIMULATING HORMONE) 2020 TSH (THYROID STIMULATING HORMONE) 2017 TSH (THYROID STIMULATING HORMONE) 2022 TSH (THYROID STIMULATING HORMONE) 2020 TSH (THYROID STIMULATING HORMONE) 2017 TSH (THYROID STIMULATING HORMONE) 2023 TSH (THYROID STIMULATING HORMONE) 2022 TSH (THYROID STIMULATING HORMONE) 2024 TSH (THYROID STIMULATING HORMONE) 2022 TSH (THYROID STIMULATING HORMONE) 2022 TSH (THYROID STIMULATING HORMONE) 2021 TSH (THYROID STIMULATING HORMONE) 2020 TSH (THYROID STIMULATING HORMONE) 2020 TSH (THYROID STIMULATING HORMONE) 2019 TSH (THYROID STIMULATING HORMONE) 2024 TSH (THYROID STIMULATING HORMONE) 2020 TSH (THYROID STIMULATING HORMONE) 2023 TSH (THYROID STIMULATING HORMONE) 2023 TSH (THYROID STIMULATING HORMONE) 2018 TSH (THYROID STIMULATING HORMONE) 2021 CBC w DIFF 07/17/2022 CBC w DIFF 11/02/2021 CBC w DIFF 10/11/2021 CBC w DIFF 08/12/2018 CBC w DIFF 04/26/2023 CBC w DIFF 07/12/2021 CBC w DIFF 05/08/2018 CBC w DIFF 02/13/2024 CBC w DIFF 01/22/2023 CBC w DIFF 01/27/2025 CBC w DIFF 10/23/2022 CBC w DIFF 07/18/2023 CBC w DIFF 06/23/2022 CBC w DIFF 12/31/2020 CBC w DIFF 05/16/2021 CBC w DIFF 01/05/2022 CBC w DIFF 01/13/2025 CBC w DIFF 03/07/2021 CBC w DIFF 10/30/2018 CLOSTRIDIUM DIFF TOXIN A&B (C DIFF) 10/16 URINALYSIS (UA) 12/31/2020 LYME DISEASE IgG/IgM WB 12/17/2019 OVA & PARASITES (O&P) 11/11/2024 MAMMOGRAM DIGITAL BILATERAL SCREEN 07/17 CBC WITH AUTO DIFF 07/31/2024 CBC WITH AUTO DIFF 02/18/2024 RETIC 01/05/2022 Lipid Panel 07/31/2024 Lipid Panel 02/18/2024 Lipid Panel 07/17/2022 Lipid Panel 01/27/2025 Lipid Panel 06/23/2022 Free T4 (Free Thyroxine) 07/31/2024 Free T4 (Free Thyroxine) 02/18/2024 Free T4 (Free Thyroxine) 01/27/2025 Stool Culture 11/11/2024 MM tomosynthesis screening BI 01/13/2025 XR thoracic spine 3V 2023 XR lumbar spine 2-3V 2023 Hemoglobin A1c 07/31/2024 Next Appt Details Provider Name:Mick Norwood, 04/28/2025 09:30:00 AM, [facility] [address] [place], [place], [address], Provider Name:Mick Norwood, 01/19/2026 09:30:00 AM, [facility] [place], [place], [address], Insurance Providers Payer Name Payer Address Payer Phone Subscriber Number Group Number Insured Name Patient Relationship to Insured Coverage Start Date Coverage End Date [address] [place] [phone] [id number] VdialKannan ornelas Self - patient is the insured MEDICARE NGS [address] [place] [phone] [id number] Kannan Taveras Self - patient is the insured Medical (General) History Medical History History ICD Code hypertension [id number] hypothyroid penicillin/sulfa allergy osteoarthritis DCIS right breast 10/2003: JIMENEZ/RT memory deficits Surgical History Surgery Date(Month/Year) No history hysterectomy & BSO 1979 C-spine surgery degenerated disc 1977 lumpectomy right breast DCIS 2003 Left TKR 2004 Hospitalization History Reason Date(Month/Year) No history Bacterial UTI 04/2021
--- OUTSIDE RECORDS SUMMARY | 2025-03-03 13:43 | XMS_ITS | Patient Health Record ---
Author Organization [facility] Kelsi hansel Cj Address [address] [facility] [address] Care Team Providers Care Clay Modeler Name Role Phone Mick Norwood MD Primary Care Provider Mike Neely Unavailable [phone] Allergies Allergen (clinical drug ingredient) Drug/Non Drug [...] Status Risk Notes Problem Acquired hallux valgus (36177923) Hallux valgus (acquired), left foot (M20.12) Active confirmed Problem Pain in limb (49918480) Pain in unspecified foot (M79.673) Active confirmed Problem Acquired hammer toe of right foot (770674996068 9105) Other hammer toe(s) (acquired), right foot (M20.41) Active confirmed Problem Acquired hammer toe of left foot (553361874634 9103) Other hammer toe(s) (acquired), left foot [...] Insured Coverage Start Date Coverage End Date [facility] [address] [place] [address] [id number] Kannan Taveras Self - patient is the insured Medicare [employer] [address] [facility] [place] [place] [address] [id number] Kannan Taveras Self - patient is the insured Medical (General) History Medical History History ICD Code cancer measles bone implants Alzheimers disease Arthritis Back,Hip,and Knee pain Dementia Surgical History Surgery Date(Month/Year) knee replacement breast cancer bunions
--- OUTSIDE RECORDS SUMMARY | 2025-03-03 13:43 | XMS_ITS ---
Author Organization Mick Norwood III, MD Address [address] [place] [address] [place] [address] Care Team Providers Care Tower Crane Operator Name Role Phone Mick Norwood Primary Care Provider [phone] Allergies Allergen (clinical drug ingredient) Drug/Non Drug Allergy documented on EMR Reaction Allergy Type Onset Date Status Penicillin Unknown Drug Allergy Active Sulfur Unknown Drug Allergy Active Results Component Value Reference Range Notes Free T4 (Free Thyroxine) Reviewed date:01/22/2025 07:59:54 PM Interpretation: Performing Lab:[facility], [address] [place] [id number] Notes/Report: Free T4 (Free Thyroxine) 1.51 0.71-1.85 [...] Problem Status W/U Status Risk Notes Problem 59218281 Diabetes mellitus without complication (E11.9) Active confirmed He has had 3 fasting glucose levels in the normal range and now her hemoglobin A1c is 6.5. This his diabetes mellitus type 2. I offered to prescribe metformin but she wants to think about it still.He seems to be well controlled with her current diet. Problem 01547005 Alzheimer's disease, unspecified (G30.9) Active confirmed She [...] Date Provider Diagnosis Mick Norwood III, MD [address] [place] [address] [place] [address] 01/13/2025 Mick Norwood Acquired hypothyroid ism E03.9 [...] Months, Reason: Telehealth, OV Provider Name:Mick Norwood, 04/28/2025 09:30:00 AM, [address] [place] [address] [address], [place], [address], Provider Name:Mick Norwood, 01/19/2026 09:30:00 AM, [address] [place] [address] [address], [place], [phone], Progress Notes * Bárbara TAVERASOB:1940 (84 yo F)Acc No.[id number]:01/13/2025 Progress Notes Patient:?Kannan TAVERAS Provider:?Mick Norwood MD :1940???Age:84 Y???Sex:Female D ate:01/13/2025 [facility] [employer] [facility] [employer], [id number] Subjective: * Chief Complaints: * ???Annual Exam * HPI: ???Depression Screening:?She returns to the office for her annual physical examination at the age of 84.? She feels well.? 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 * Medications:?TakingSimvastat in 10 MG Tablet [...] 55 (Ref Range: >40 mg/dL) * Lab:Comprehensive [place]. Pane l Fast * Collection Date 11/06/2024 [...] AM)?ValueReference Range?Hemoglobin A1c %6.5H<6.0 - %?Estimated Average [id number]- mg/dL * Examination: ???General Examination: ?GENERAL APPEARANCE:?pleasant, [...] Provider:?Mick Norwood MD Date:?10/2024 Generated for Lizeth paige/Kenneth/Ama on:?03/03/2025 01:42 PM EDT History and Physical Notes * [...]
--- OUTSIDE RECORDS SUMMARY | 2025-03-03 13:43 | XMS_ITS ---
Author Organization Mick Norwood III, MD Address [address] [place] [address] [place] [address] Care Team Providers Care Sex Therapist Name Role Phone Mick Norwood Primary Care [...] Date Provider Diagnosis Mick Norwood III, MD [address] [place] [address] [place] [address] 01/27/2025 Mick Norwood Acquired hypothyroid ism E03.9 [...] Bindu son: OV review labs Provider Name:Mick Norwood, 04/28/2025 09:30:00 AM, [address] [facility] [address], [place], [address], Provider Name:Mick Norwood, 01/19/2026 09:30:00 AM, [address] [place] [address] [address], [place], [address], Progress Notes * Perlita TAVERASisDOB:1940 (84 yo F)Acc No.[id number]:01/27/2025 Patient:?Kannan TAVERAS Provider:?Mick Norwood MD :1940???Age:84 Y???Sex:Female D ate:01/27/2025 [id number] Subjective: * Chief Complaints: * ???HypothyroidismAlzheimer's dementiaHyperlipidemiaDuctal carcinoma in situDiabetes * HPI: ???:?On January 13, 2025 she had her annual visit.? Review of her blood work showed an elevated TSH.? She could not remember if she had missed several doses of thyroid medication.? Her son will give her the medication and the TSH was repeated and was normal.? She denies any difficulty breathing chest pain or bleeding.? She has had no lumps in her breast.? She is sleeping well at night.? Her speech was clear and she was oriented to person and place.? No change in her regimen was necessary today.? Follow-up was arranged.? Her memory loss is unchanged.On her last visit she had complained of chronic diarrhea.? Urine culture and testing for Clostridium difficile are negative.? The diarrhea is beginning to improve.? She has not had more than one loose movement a day.? This will be observed.? I recommended Imodium. ?Telehealth?Location of provider rendering services:?{...} [address] [place] [address] ?Location of patient:?address listed in demographics for today's visit ?Patient identification confirmed using:?Name, ?Telehealth method:?Telephone only. Patient not visible to care provider. ?Consent:?Patient verbally consented to treatment, Patient verbally consented to billing insurance company, Patient informed of any privacy concerns related to method of visit ?Total time spent with patient (mins)?15 * ROS:?General/Constitutional:?pain?only normal aches and pains.?Chills?denies.?Fatigue?admits.?Fever?denies.?ENT:?Decreased hearing?denies.?Respiratory:?Cough?denies.?Cardiovascular:?Chest pain with exertion?denies.?Dyspnea on exertion?denies.?Shortness of breath?denies.?Gastrointestinal:?Constipation?occasional.?Decreased appetite?denies.?Diarrhea?denies.?Heartburn?denies.?Nausea?denies.?Rectal bleeding?denies.?Vomiting?denies.?Hematology:?bruising?denies.?petechiae?denies.?Swollen glands?none have been noted.?Genitourinary:?Frequent urination?denies.?Musculoskeletal:?Muscle [...] (Standard)?Tobacco use:?Nonsmoker ?Additional Findings: Tobacco non-user?Aggressive nonsmoker ???She is and a nonsmoker. She and her used to run a restaurant. She was born in [place], [place]. * Medications:?TakingLevothyro xine Sodium 75 MCG Tablet 1 tablet every [...] Objective: * Vitals:?Ht: 62, Wt:131, BMI: 23.96, Ht-cm: 157.48, Wt-k.42. * ???Past Orders: ???Lab:CDiff Gene PCR (Order Date - 01/22/2025) (Collection Date & Time - 01/22/2025 09:00 AM) ? Value Reference Range ?CDiff Gene PCR NEGATIVE Negat galina - ???Lab:GI Panel (Order Date - 01/22/2025) (Collection Date & Time - 01/22/2025 09:00 AM) ? Value Reference Range ?Campylobacter Not Detected Not De tect. - ?Plesiomonas shigelloides Not Detected Not Detect. - ?Salmonella Not Detected Not Detec t. - ?Vibrio Not Detected Not Detect. - ?Vibrio Cholerae Not Detected Not Detect. - ?Yersinia enterocolitica Not Detected Not Detect. - ?E. coli EAEC Not Detected Not Det ect. - ?E. coli EPEC Not Detected Not Det ect. - ?E. coli ETEC Not Detected Not Det ect. - ?E. coli STEC Not Detected Not Det ect. - ?E. coli O157 Not applicable Not D etect. - ?Shigella sp./EIEC Not Detected No t Detect. - ?Cryptosporidium Not Detected Not Detect. - ?Cyclospora cayetanensis Not Detected Not Detect. - ?Entamoeba histolytica Not Detected Not Detect. - ?Giardia lamblia Not Detected Not Detect. - ?Adenovirus F 40/41 Not Detected N ot Detect. - ?Astrovirus Not Detected Not Detec t. - ?Norovirus GI/GII Not Detected Not Detect. - ?Rotavirus A Not Detected Not Dete ct. - ?Sapovirus Not Detected Not Detect . - Lab:Comprehensive Met. Panel * Collection Date 01/13/2025 01/19/2023 04/05/2022 Collection Time 11:40 AM 06:54 AM 07:11 AM Order Date 01/13/2025 01/19/2023 04/05/2022 Sodium 141 (Ref Range: 135-145 mmol/L) 143 (Ref Range: 135-145 mmol/L) 138 (Ref Range: 135-145 mmol/L) Bilirubin Total 1.2?H (Ref Range: 0.0-1.0 mg/dL) 1.2?H (Ref Range: 0.0-1.0 mg/dL) 1.1?H (Ref Range: 0.0-1.0 mg/dL) Aspartate Amino Transferase [...] 25 (Ref Range: 22-29 mmol/L) Anion Gap 10?L (Ref Range: 12-20) 13 (Ref Range: 12-20) 11?L (Ref Range: 12-20) Blood Urea Nitrogen 16 (Ref Range: 9-16 mg/dL) 19?H (Ref Range: 9-16 mg/dL) 15 (Ref Range: 9-16 mg/dL) Creatinine 0.84 (Ref Range: 0.5-1.4 mg/dL) 0.81 (Ref Range: 0.5-1.4 mg/dL) 0.94 (Ref Range: 0.5-1.4 mg/dL) Estimated Glomerular Filt Rate > 60 > 60 57 Glucose Random 126?H (Ref Range: 60-115 mg/dL) 128?H (Ref Range: 60-115 mg/dL) 131?H (Ref Range: 60-115 mg/dL) Calcium 10.1 (Ref Range: 8.4-10.2 mg/dL) 9.6 (Ref Range: 8.4-10.2 mg/dL) 9.3 (Ref Range: 8.4-10.2 mg/dL) * Lab:Thyroid Stimulating Horm one * Collection Date 01/13/2025 11/06/2024 07/24/2024 Collection Time 11:40 AM 07:05 AM 07:31 AM Order Date 01/13/2025 11/06/2024 07/24/2024 Thyroid Stimulating Hormone 0.65 (Ref Range: 0.32-4.0 uIU/mL) 5.79?H (Ref Range: 0.32-4.0 uIU/mL) 3.60 (Ref Range: 0.32-4.0 uIU/mL) * Lab:Free T4 (Free Thyroxine) * Collection Date 01/13/2025 11/06/2024 07/24/2024 Collection Time 11:40 AM 07:05 AM 07:31 AM Order Date 01/13/2025 11/06/2024 07/24/2024 Free T4 (Free Thyroxine) 1.51 (Ref Range: 0.71-1.85 ng/dL) 1.28 (Ref Range: 0.71-1.85 ng/dL) 1.19 (Ref Range: 0.71-1.85 ng/dL) Clinical Info: PLEASE FAX COMPLETED RESULTS TO [phone] * Lab:Complete Blood Count Aut o Diff * Collection Date 01/13/2025 11/06/2024 07/24/2024 Collection Time 11:40 AM 07:05 AM 07:31 AM Order Date 01/13/2025 11/06/2024 07/24/2024 White Blood Count 6.2 (Ref Range: 4.8-10.8 X10*3/uL) 7.6 (Ref Range: 4.8-10.8 X10*3/uL) 6.6 (Ref Range: 4.8-10.8 X10*3/uL) Red Blood Count 5.42 (Ref Range: 4.20-5.50 X10*6/uL) 5.19 (Ref Range: 4.20-5.50 X10*6/uL) 5.53?H (Ref Range: 4.20-5.50 X10*6/uL) Hemoglobin 17.1?H (Ref Range: 12.0-16.0 g/dl) 16.5?H (Ref Range: 12.0-16.0 g/dl) 17.8?H (Ref Range: 12.0-16.0 g/dl) Hematocrit 51.7?H (Ref Range: 37.0-47.0 %) 49.4?H (Ref Range: 37.0-47.0 %) 53.0?H (Ref Range: 37.0-47.0 %) Mean Corpuscular Volume [...] Platelet Volume 9.3?L (Ref Range: 9.4-12.3 fL) 9.3?L (Ref Range: 9.4-12.3 fL) 10.1 (Ref Range: 9.4-12.3 fL) Neutrophils Percent Auto 72.4 (Ref Range: 45-73 %) 69.2 (Ref Range: 45-73 %) 74.4?H (Ref Range: 45-73 %) Imm Gran Pct Auto 0.3 (Ref Range: 0.0-0.4 %) 0.5?H (Ref Range: 0.0-0.4 %) 0.3 (Ref Range: 0.0-0.4 %) Lymphocytes Percent Auto 14.6?L (Ref Range: 20-40 %) 17.6?L (Ref Range: 20-40 %) 14.3?L (Ref Range: 20-40 %) Monocytes Percent Auto [...] Abs Auto 0.02 (Ref Range: 0.00-0.03 X10*3/uL) 0.04?H (Ref Range: 0.00-0.03 X10*3/uL) 0.02 (Ref Range: 0.00-0.03 X10*3/uL) Lymphocytes Absolute Auto 0.9?L (Ref Range: 1.2-4.9 X10*3/uL) 1.3 (Ref Range: 1.2-4.9 X10*3/uL) 0.9?L (Ref Range: 1.2-4.9 X10*3/uL) Monocytes Absolute Auto [...] AM)?ValueReference Range?Hemoglobin A1c %6.5H<6.0 - %?Estimated Average Qejfuyo238- mg/dL * Lab:[facility]. Pane l Fast * Collection Date 11/06/2024 [...] (Ref Range: >40 mg/dL) Assessment: * Assessment: 1.?Alzheimer's disease, unsp ecified - G30.9 (Primary)???Notes :She is basically unchanged. She is cared for by her son who lives with her. She was clean and well groomed. Her clothing was clean she seems to be well cared for.???2.?Acquired hypothyroidism - E03.9???Notes :Her free T4 and TSH are now normal.? 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 Physical breast examination will be done periodically. She agreed to an examination on her next visit.???5.?Hyperlipidemia - E78.5???Notes :Her lipids have been stable and well controlled and no change in her regimen was necessary today. She appears to be compliant with her medication. 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 No new treatment is necessary today.??? Plan: * Treatment: 2.?GERD (gastroesophageal re flux disease)?LAB: PROFILE, FASTING (COMPREHENSIVE METABOLIC) ?LAB: TSH (THYROID STIMULATING HORMONE) ?LAB: CBC w DIFF ?LAB: Lipid Panel ?LAB: Free T4 (Free Thyroxine) 3.?Hyperlipidemia?LAB: PROFILE, FASTING (COMPREHENSIVE METABOLIC) ?LAB: TSH (THYROID STIMULATING HORMONE) ?LAB: CBC w DIFF ?LAB: Lipid Panel ?LAB: Free T4 (Free Thyroxine) 4.?Others? Continue Levothyroxine Sodium Tablet, 75 MCG, 1 tablet every the morning on an empty stomach, Orally, Once a day;?Continue Simvastatin Tablet, 10 MG, TAKE 1 TABLET BY MOUTH EVERY DAY IN THE EVENING FOR 90 DAYS.?? * Procedure Codes:?78546 SYNCH AUDIO-ONLY EST SF 10 * Preventive Medicine:? ??DM Care Plan:?Patient Lifestyle Goals?Patient wants to be able to manage diabetes without too much effort.?Treatment Goals?Blood Sugars less than < 115, HbA1C < 7.0.?Barriers?no barriers.?Self-Managment Goals?Increase exercise to 3 times a week for 30 mins, Stop drinking juice and/or soda, replace with more water.? * Follow Up:?as scheduled ([place] son: OV review labs) * Images: * Sign off status: Completed true * Provider:?Mick Norwood MD Date:?01/13 Generated for Lizeth paige/Kenneth/eTransmitting on:?03/03/2025 01:43 PM EDT History and Physical Notes * HPI (History of Present Illness) Category Sub-Category Detail Notes Telehealth Location of [facility] rendering services:: {...} [address] [place] [address] Location of patient:: address listed in demographics [...]
== END 2025-03-03 12:39 | disposition home or self-care (01) ==
LOC: HO.MAMMO 12:38
PROVIDERS: PCP Internal Medicine Medical Oncology; Visit Provider Internal Medicine Medical Oncology
DX: Z12.31 Encounter for screening mammogram for malignant neoplasm of breast (principal)
CPT/HCPCS: 77063; 77067

== ENCOUNTER → 2025-03-03 13:00 | Outpatient (BNV) | payer MEDICARE, SELFPAY | PROVIDERS: PCP Internal Medicine Medical Oncology; Visit Provider Internal Medicine | DX: Z12.31 Encounter for screening mammogram for malignant neoplasm of breast (principal) | CPT/HCPCS: 77063; 77067 ==

== ENCOUNTER 2025-05-04 05:59 | Outpatient (REF) | payer MEDICARE, SELFPAY ==
--- OUTSIDE RECORDS SUMMARY | 2025-04-28 13:15 | XMS_ITS ---
Author Organization Mick Norwood III, MD Address [address] [place] [address] [place] [address] Care Team Providers Care Mercury Washer Name Role Phone Mick Norwood Primary Care Provider [phone] Allergies Allergen (clinical drug ingredient) Drug/Non Drug [...] Nonsmoker Additional Findings: Tobacco non-user Aggressive nonsmoker Encounters Encounter Location Date Provider Diagnosis Mick Norwood III, MD [address] [place] [address] [place] [address] 04/28/2025 Mick Norwood Plan Of Treatment Medication Medication Name Sig Start Date Stop Date Notes Levothyroxine Sodium 75 MCG 1 tablet zo ry the morning on an empty stomach Orally Once a day Simvastatin 10 MG TAKE 1 TABLET BY LEWIS TH EVERY DAY IN THE EVENING FOR 90 DAYS Next Appt Details Provider Name:Mick Norwood, 05/06/2025 11:15:00 AM, [address] [place] [address] [place], [address], Provider Name:Mick Norwood, 01/19/2026 09:30:00 AM, [address] [place] [address] [address], [place], [address], Progress Notes * Perlita TAVERASisDOB:1940 (84 yo F)Acc No.[id number]:04/28/2025 Progress Notes Patient: Kannan DOHERTY Provider: Radha Norwood MD :1940 A ge:84 Y S ex:Female Date:04/28/2025 Address:[address] [place] [id number] Subjective: * Chief Complaints: * 1 . [...] d enies. 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 * Medications: T aking Levothyroxine Sodium 75 MCG Tablet 1 tablet every the morning on an empty stomach Orally Once a day , Taking Simvastatin 10 MG Tablet TAKE 1 TABLET BY MOUTH EVERY DAY IN THE EVENING FOR 90 DAYS , Medication List reviewed and reconciled with [...] Pending * Provider: Radha Norwood MD Date: 04/28/2025 Generated for Sheliai royal/Kenneth/eTransmitting on: 05/04/2025 06:05 AM EDT History and Physical Notes * [...]
--- OUTSIDE RECORDS SUMMARY | 2025-05-04 06:05 | XMS_ITS | Patient Health Record ---
Author Organization [facility] Address [address] [place] [address] Care Team Providers Care Commissions Manager Name Role Phone Mick Bonilla Unavailable [phone] Reason For Referral No Information Plan Of Treatment No Information
--- OUTSIDE RECORDS SUMMARY | 2025-05-04 06:05 | XMS_ITS | Data Portability ---
Author Organization [place] - [facility] Address [address] [place] [address] Care Team Providers Care Bread Baker Name Role Phone AMANDO ZULETA Primary Care Provider Assessment Encounter Date Assessment Date Assessment LastModified by Organization Details LastModified Time 01/05/2019 01/05/2019 duplicate chart kathryn Houston availab le 01/05/2019 11:23:14 01/05/2019 01/05/2019 Overview/History : Pt is a 78yo F with PMH sig for Hypothyroidism, Hypercholestermia and HTN. Pt states she has had persistent nasal congestion with lightheadedness and dizziness for several weeks. She has tried taking OTC allergy meds, dayquil, nyquil, musinex and sudafed without relief. She states sx are preventing sleep and she feels very fatigued as a result. Pt denies CHO, sore throat or earache at time of visit. Exam: Pt is A/Ox3, non-toxic appearing, VSS, HRR, resp reg and unlabored on RA, lungs CTA bilat. HEENT exam pos for dull TMs, boggy erythemic turbinates, mild cobble stoning with tenderness to frontal and maxillary sinuses. DDx considered, but not limited to: acute sinusitis: likely given sx and lenght of sx which have failed to respond to OTC treatments and physical exam. URI: possible but given that sx have persisted without significant change for several weeks, unlikely Allergic rhinitis: unlikely given sx have failed to respond to antihistamines. Work up/Results: no further testing indicated. Plan/Discussion: Given length of time of sx, pt started on Augmentin and flonase for sinusitis. Pt advised she can continue to use OTC musinex with 8oz of water or sudafed depending on which works better for pt and she tolerates the best. Patients PCP contacted and updated on patient status. Patient verbalized understanding of discharge instructions and when to follow up with PCP/911/ED as needed. Patient in agreement with current plan and treatment. kathryn Not available 01/05/2019 15:47:40 Plan of Treatment Reminders Order Date Submit Date Provider Last Modified By Organization Details Last Modified Time Details Appointments None recorded. Lab None recorded. Referral None recorded. Procedures None recorded. Surgeries None recorded. Imaging None recorded. Medication Orders Augmentin 875 mg-125 mg tablet 2018 019 [facility]FACE [id number], [address] [place], [address], 9 11:36:25 Flonase Allergy Relief 50 mcg/actuat ion nasal spray,susp ension 2018 019 [facility]FACE [id number], [address] [place], [address], 9 11:36:25 Patient TargetsNo targets recorded. Patient Instructions Encounter Date Encounter Id Patient Instructions Last Modified By Organization Details Last Modified Time 01/05/2019 [id number] Sinusitis Instructions Basic Information Sinusitis is an inflammation of the lining of the sinuses. Sinuses are lined with mucous membranes and are filled with air. When sinuses become blocked, fluid can back up within sinuses and this creates a condition where the sinuses become swollen and can cause pain and other symptoms. Sometimes, this will allow germs such as viruses, bacteria and mold to grow and cause infection. Sinuses can become blocked due to the common cold, environmental allergies, deformities such as nose injuries or deviated septum, or growths such as polyps. Symptoms include facial pain and pressure, nasal discharge, ear pressure, having to clear the throat often, dental pain and diminished sense of smell and taste. At times fever and bad breath occur. Most cases of sinusitis (90-98 %) are viral. True bacterial sinusitis is actually quite rare. A popular belief is that is your nasal discharge is green, then it is bacterial and you need an antibiotic. Antibiotics are usually not indicated unless the following is present: symptoms last for 10 days of more and are not improving fever of at least 102 degrees facial pain that is constant for 3-4 days in a row a typical cold resolves after one week and then sudden return of symptoms with increased nasal discharge, headache and sinus pressure Instructions Medications: Decongestants: [id number] decongestants such as sudafed are helpful. You should not use these for prolonged periods of time and they may not be contraindicated due to drug interactions with your regular medications or if you have medical problems such as high blood pressure. Ask your GEOLOGICAL TECHNICIAN. decongestant sprays such as Afrin and Colby-synephrine may also help your symptoms. However, if theses are used for over 3 days in a row, the congestion can actually get worse when you stop using them. So, use sparingly. If you have high blood pressure, your GEOLOGICAL TECHNICIAN may not recommend use. nasal steroid drops/spray These MAY help decrease the inflammation in the mucous membrane lining of the sinuses (there is no strong evidence to support this claim). They work best with regular use while you have your symptoms. They also work best if used a few minutes after sinus irrigation treatment (see below) Pain relief: Ibuprofen and Tylenol may be used for comfort. The maximum dose of Tylenol for adults is 4000 mg/day (or 2 extra strength tablets 4 times per day) and the recommended dose of Ibuprofen for adults 400 mg every 6 hours. Both of these medicines work best if you take them regularly for 3 days. Please follow the recommended dosage instructions on the bottle. Antibiotics: If your provider prescribed these for you, be sure that you complete the whole course. Self Care: Sinus irrigations: Obtain an ear bulb syringe from the pharmacy (a typical nose syringe, used often for infants, is too small). Cut the tip of the syringe so that it can fit snuggly in your nostril. Mix a cup of warm water with a teaspoon of non-iodized table salt and generous pinch of baking soda. Draw up some of the solution into the syringe. Plug one side of your nose while you insert the bulb syringe into the other side. Squeeze the syringe firmly but gently while you breathe in the solution through your nose. Alternate both sides until you complete the cup of solution. Do this 2-4 times per day. After each irrigation, be sure to clean the bulb syringe in a dilute bleach solution and rinse well. Local heat: Moisten a washcloth and place this over your sinuses (cheeks and around the eyes). Over the washcloth, place a heating pad set on low. Do this for 20 minutes 4-6 times per day Hydration: drink eight, 8 oz. glasses of clear liquid per day Follow up: See your regular MD or Ear Nose and Throat doctor (if recommended by your provider) within 10 days for follow up. Seek Care Immediately if you: -develop a rash -notice significant redness or swelling around your eye -have fever that does not respond to tylenol/ibuprofen or remains >101.4 (adults) > 100.4 (children) for greater than 3 days -have a stiff neck or severe headache If you develop any new or worsening symptoms and need after hours care, please go to nearest ER and/or call 911. If you have additional concerns or develop a change in your condition between 8am-10pm, please call [facility] at [phone] to help navigate your care. kathryn Not available 01/05/2019 11:29:07 Reason for Referral None Reported. Problems Name Problem SNOMED Code Status Onset Date Resolution Date Notes Provider Name and Address Organization Details Recorded Time Hypertensive disorder 72645387 Active 2018 HUI KAUR NP [address] [place], [address], [place] - [facility] 9 11:24:37 Problem Notes None recorded. Medical Equipment None Reported. Allergies No known drug allergies Medications Name Sig Start Date Stop Date Status Note LastModified by Organization Details LastModified Time Augmentin 875 mg-125 mg tablet Take 1 tablet every 12 hours by oral route for 10 days. 2018 active Not Available Not Available Not Avai lable simvastatin 10 mg tablet active Not Available Not Available No t Available levothyroxine 75 mcg tablet active Not Available Not Availabl e Not Available lisinopril 10 mg tablet active Not Available Not Available No t Available Flonase Allergy Relief 50 mcg/actuation nasal spray,suspensio n 2 sprays each nostril once a day for 10 days 2018 active Not Available Not Available Not Avai lable Vitals None Recorded Social History Question Answer Notes LastModified by Organizat ion Details LastModified Time Tobacco Smoking Status Never Smoker HUI KAUR NP [address] [place], [address], [place] [facility] 01/05/2019 11:27:59 Do You Have An Advance Directive? Yes Information not available 01/05/2019 What Is Your Code Status? DNR Information not available 01/05/2019 Drugs Abused None Information not available 01/05/2019 How Many Days In The Past Year Have You Had A Heavy Drinking Consumption (4+ Female, 5+ Male)? 0 Information not available 01/05/2019 Within The Past 12 Months, Has It Happened That The Food You Bought Just Didn't Last And You Didn't Have Money To Get More. Normal Information not available 01/05/2019 Within The Past 12 Months, Have You Worried That Your Food Would Run Out Before You Got Money To Buy More. Yes Information not available 01/05/2019 Fall Risk: Do You Feel Unsteady When Standing Or Walking? No Information not available 01/05/2019 Marital Status Informatio n not available 01/05/2019 What Was The Date Of Your Most Recent Tobacco Screening? 01/05/2019 Information not available 05/08/2019 Has Tobacco Cessation Counseling Been Provided? No Information not available 01/05/2019 Sex: Unknown Functional Status None recorded. Mental Status None recorded. Family History Relationship Description Onset Age of this Age Resolved Age Notes LastModified by Organization Details LastModified Time Father Family history of malignant neoplasm [email or web address] Not available 01/05 11:25:08 Medical History Condition Response High Cholesterol Y Hypertension Y Gynecological HistoryNo gynecological history recorded. Obstetrics History GPAL:G 0 P 0 0 0 0 Past Encounters Encounter ID Performer Location Encounter Start Date Encounter Closed Date Diagnosis/Indication Diagnosis SNOMED-CT Code Diagnosis ICD10 Code Diagnosis Note [id number] [facility] [address] [place] [address] 01/05/2019 11:19:38 01/14/2019 10:06:21 Acute sinusitis 94664333 J01.90 [id number] HUI KAUR NP [facility] [address] [place] [address] 01/05/2019 11:22:01 01/05/2019 11:50:17 Health Concerns Section Related Observation LastModified by Organization Detai ls LastModified Time None Recorded Concern Status LastModified by Organization Details LastModified Time None Recorded Advance Directives Directive Y: Payers Insurance Date Sequence Insurance Name Policy Number Policy Quintana Covered Member ID Quintana Member ID Guarantor Name 01/05/2019 1 *SELF PAY* Kannan Johnsonulty [id number] Kannan Taveras 01/14/2019 1 [employer] - MEDICARE ADVANTAGE PLAN (MEDICARE REPLACEMENT HMO) [id number] Kannan McdermottNulty [id number] Kannan Taveras Notes Date Note Type Note Provider Name and Address Organization Details Recorded Time 01/05/2019 text/html Pt states sx hav e been going on for a few weeks. States her nose is congested and is having difficulty breathing out of it. It is preventing sleep, her ears hurt and feels fatigued with slight lightheadedness and dizziness at times. States she doesn't feel much like eating. Denies any CHO, sore throat, no n/v/d, no fever or chills. Has tried taking some allergy medication, dayquil, nyquil, musinex and sudafed without any relief of sx. Sx have been consistently the same over this time. HUI KAUR NP [address], [place], [address], [place] [facility] 01/05/2019 15:47:43 01/05/2019 text/html duplicate chart HUI KAUR NP [address], [place], [address], [place] [facility] 01/05/2019 11:23:18 OBGyn Episode No OBEpisode recorded.
--- OUTSIDE RECORDS SUMMARY | 2025-05-04 06:06 | XMS_ITS | Clinical Summary ---
Author Organization [facility] Address [address] [place] [address] Care Team Providers Care Federal Mediation Commissioner Name Role Phone Mick Norwood MD Primary Care Provider [phone] Social History Tobacco Use Types Packs/Day Years Used Date Smoking Tobacco: Never Assessed Comments Unknown Sex and Gender Information Value Date Recorded Sex Assigned at Not on file Legal Sex Female 2:25 PM EDT Gender Identity Not on file Sexual Orientation Not on file Plan of Treatment Health Maintenance Due Date Last Done Comments Pneumococcal Vaccine: 50+ Ye ars (1 of 1 - PCV) 1989 Influenza Vaccine (#1) 2025 Hepatitis B Vaccine Aged Out No longe r eligible based on patient's age to complete this topic [place] [address] [facility] Member Subscriber Plan / Payer (Ef fective 2018-Present) Name:Kannan Taveras Relation to Subscriber:Self Name:Kannan Taveras Payer ID:Not on file Type:Not on file Address: [place] [id number] Care Teams Federal Mediation Commissioner Relationship Specialty [place] [address] [facility] [address] [place] [address] PCP - General Internal Medicine 01/25/21
--- OUTSIDE RECORDS SUMMARY | 2025-05-04 06:06 | XMS_ITS | Patient Health Record ---
Author Organization [facility]elsi [facility]el [facility] Address [address] [place] [address] Care Team Providers Care Coal Pulverizer Operator Name Role Phone Mick Norwood MD Primary Care Provider Mike Neely Unavailable [phone] Allergies Allergen (clinical drug ingredient) Drug/Non Drug [...] Status Risk Notes Problem Acquired hallux valgus (80435079) Hallux valgus (acquired), left foot (M20.12) Active confirmed Problem Pain in limb (05618405) Pain in unspecified foot (M79.673) Active confirmed Problem Acquired hammer toe of right foot (076498282131 9105) Other hammer toe(s) (acquired), right foot (M20.41) Active confirmed Problem Acquired hammer toe of left foot (034865068488 9103) Other hammer toe(s) (acquired), left foot [...] Insured Coverage Start Date Coverage End Date [facility] [address] [place] [address] [id number] Kannan Taveras Self - patient is the insured Medicare [employer] [address] [place] [address] [id number] Kannan Taveras Self - patient is the insured Medical (General) History Medical History History ICD Code cancer measles bone implants Alzheimers disease Arthritis Back,Hip,and Knee pain Dementia Surgical History Surgery Date(Month/Year) knee replacement breast cancer bunions
[2025-05-04 06:10] LABS: MANUAL DIFF FLAG NO
[2025-05-04 07:33] LABS: Hematocrit 50.1 % (37.0-47.0); Hemoglobin 16.5 g/dl (12.0-16.0); Imm Gran Abs Auto 0.02 X10*3/uL (0.00-0.03); Imm Gran Pct Auto 0.3 % (0.0-0.4); Lymphocytes Absolute Auto 1.3 X10*3/uL (1.2-4.9); Mean Corpuscular HGB Conc 32.9 g/dl (31.0-35.0); Mean Corpuscular Hemoglobin 31.4 pg (27.0-33.0); Mean Corpuscular Volume 95.4 fL (80.0-98.0); NRBC Abs Auto 0.000 X10*3/uL (0.0-0.012); NRBC Pct Auto 0.0 /100WBC (0.0-0.2); Platelet Count 177 X10*3/uL (160-400); Red Blood Count 5.25 X10*6/uL (4.20-5.50); White Blood Count 5.9 X10*3/uL (4.8-10.8)
[2025-05-04 08:34] LABS: Alanine Aminotransferase 21 U/L (0-31); Albumin Level 4.0 g/dL (3.5-5.0); Alkaline Phosphatase 79 U/L (39-117); Anion Gap 12 (12-20); Aspartate Amino Transferase 28 U/L (5-31); Blood Urea Nitrogen 13 mg/dL (9-16); Calcium 9.5 mg/dL (8.4-10.2); Carbon Dioxide 25 mmol/L (22-29); Chloride 110 mmol/L (96-108); Cholesterol 145 mg/dL (<200); Estimated Glomerular Filt Rate > 60; HDL Cholesterol 42 mg/dL (>40); Potassium 4.4 mmol/L (3.3-5.1); Sodium 143 mmol/L (135-145); Total Protein 6.6 g/dL (6.5-8.0); Triglycerides 116 mg/dL (<150)
[2025-05-04 08:45] LABS: Free T4 (Free Thyroxine) 1.26 ng/dL (0.71-1.85); Thyroid Stimulating Hormone 0.18 uIU/mL (0.32-4.0)
== END 2025-05-04 06:00 | disposition home or self-care (01) ==
LOC: HO.LAB 05:59
PROVIDERS: PCP Internal Medicine Medical Oncology; Visit Provider Internal Medicine Medical Oncology
DX: E03.9 Hypothyroidism, unspecified (principal); K21.9 Gastro-esophageal reflux disease without esophagitis; E78.5 Hyperlipidemia, unspecified
CPT/HCPCS: 36415; 80053; 80061; 84439; 84443; 85025

== ENCOUNTER 2025-08-04 07:13 | Outpatient (REF) | payer MEDICARE, SELFPAY ==
--- OUTSIDE RECORDS SUMMARY | 2024-07-23 13:15 | XMS_ITS ---
Author Organization Mick Norwood III, MD Address [address] [place] [address] [place] [phone] Care Team Providers Care Flute Polisher Name Role Phone Dr. Mick Norwood III Primary Care Provider Allergies Allergen (clinical drug ingredient) Drug/Non Drug Allergy documented on EMR Reaction Allergy Type Onset Date Status Penicillin Unknown Drug Allergy Active Sulfur Unknown Drug Allergy Active REASON FOR VISIT Annual Exam Medications Medication SIG (Take, Route, Frequency, Duration) Notes Start Date End Date Status Levothyroxine Sodium 75 MCG 1 tablet in the morning on an empty stomach Orally Once a day 02/18/2024 Active Simvastatin 10 MG TAKE 1 TABLET BY LEWIS TH EVERY DAY IN THE EVENING FOR 90 DAYS Active Social History Tobacco Use: Social History Observation Description Date Details (start date - stop date) Never Smoker NA - NA Sex Assigned At : Social History Observation Description Sex Assigned At Female Tobacco Use/Smoking Question Answer Notes Patient is a nonsmoker Additional Findings: Tobacco Non-User Aggressive non-smoker Encounters Encounter Location Date Provider Diagnosis Mick Norwood III, MD [address] [place] [address] [place] [phone] 07/23/2024 Mick Norwood Plan Of Treatment Medication Medication Name Sig Start Date Stop Date Notes Levothyroxine Sodium 75 MCG 1 tablet in the morning on an empty stomach Orally Once a day 02/18/2024 Simvastatin 10 MG TAKE 1 TABLET BY LEWIS TH EVERY DAY IN THE EVENING FOR 90 DAYS Next Appt Details Provider Name:Mick Norwood , 08/10/2025 11:00:00 AM, [address] [facility] [address], [place], [id number], Provider Name:Mick Norwood , 01/19/2026 09:30:00 AM, [address] [place] [address] [address], [place], [phone], Progress Notes * Perlita TAVERASisDOB:1940 (85 yo F)Acc No.[id number]:07/23/2024 Progress Notes Patient: Kannan DOHERTY Provider: Radha Norwood MD :1940 A ge:84 Y S ex:Female Date:07/23/2024 Address:[address] [place], [place] [id number] Subjective: * Chief Complaints: * 1 . Annual Exam. * HPI: C OVID-19 Screening: Questions H ave you had any new onset fever, chills, cough, congestion, sore throat, shortness of breath, muscle aches? N o H ave you been exposed to the virus within the last 10 days? N o H ave you travelled internationally in the last 10 days? N o H ave you been exposed to COVID-19 in the past? N o F all Risk Screening: Fall History H ave you had any falls with injury in the past year? N o H ave you had two or more falls in the past year? N o F all Risk Assessment: * ROS: G eneral/Constitutional: pain o nly normal aches and pains. C hills d enies.?Fatigue a dmits. F ever d enies. E NT: Decreased hearing d enies. R espiratory: Cough d enies. C ardiovascular: Chest pain with exertion d enies. D yspnea on exertion?denies. S hortness of breath d enies. G astrointestinal: Constipation d enies. D ecreased appetite d enies.?Diarrhea d enies. H eartburn d enies. N ausea d enies. R ectal bleeding?denies. V omiting d enies. H ematology: bruising d enies. p etechiae d enies. S wollen glands n one have been noted. G enitourinary: Frequent urination d enies. M usculoskeletal: Muscle aches d enies. P ainful joints d enies. S ciatica d enies. W eakness d enies. S kin: Itching d enies. R raheel d enies. S kin lesion(s)?denies. N eurologic: Difficulty speaking d enies. D izziness d enies.?Headache d enies. L ow back pain d enies. P sychiatric: Depressed mood d enies. 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 * Surgical History: L eft TKR 2004, lumpectomy right breast DCIS 2003, C-spine surgery degenerated disc 1977, hysterectomy & BSO 1979. * Hospitalization/Major Diagno stic Procedure: B acterial UTI 04/2021. * Family History: F ather: 80 yrs, lung cancer, emphysema, diagnosed with Cancer. M other: 94 yrs, alzheimer. 2 brother(s) , 2 sister(s) - healthy. 3 son(s) - healthy. . She is not aware of any family history of mental illness or substance use disorder. * Social History: T obacco Use: T obacco Use/Smoking P atient is a n onsmoker A dditional Findings: Tobacco Non-User A ggressive non-smoker S he is and a nonsmoker. She and her used to run a restaurant. She was born in [place], [place]. * Medications: T aking Levothyroxine Sodium 75 MCG Tablet 1 tablet in the morning on an empty stomach Orally Once a day , Taking Simvastatin 10 MG Tablet TAKE 1 TABLET BY MOUTH EVERY DAY IN THE EVENING FOR 90 DAYS , Discontinued Levothyroxine Sodium 50 MCG Tablet TAKE 1 TABLET BY MOUTH EVERY DAY IN THE MORNING ON EMPTY STOMACH , Medication List reviewed and reconciled with the patient * Allergies: S ulfur, Penicillin. Objective: * Vitals: * Examination: G eneral Examination: GENERAL APPEARANCE: p leasant, well nourished, well developed, in no acute distress, calm and relaxed. HEAD: a traumatic, normocephalic. EYES: e nuvia, perrla, anicteric, conjugate. EARS: n ormal. NOSE: s eptum intact. ORAL CAVITY: n ormal, unremarkable. NECK/THYROID: n o jugular venous distention, no carotid bruit, thyroid normal. LYMPH NODES: n o enlarged lymph nodes,spleen normal. SKIN: n o suspicious lesions, anicteric. HEART: n o clicks, gallops, murmurs, or rubs, regular rhythm, S1, S2 normal, no s3, or vascular bruits. LUNGS: c lear to auscultation . BREASTS: no masses palpable bilaterally. ABDOMEN: b owel sounds normal, no ascites, no organomegaly, no mass. RECTAL EXAM: n ot examined. MUSCULOSKELETAL: e xtremities unremarkable, no clubbing, cyanosis or edema. PERIPHERAL PULSES: n ormal. NEUROLOGIC: a lert and oriented, cranial nerves 2-12 grossly intact, deep tendon reflexes 2+ symmetrical, motor strength normal upper and lower extremities, sensory exam intact. PSYCH: a lert, oriented. Assessment: Plan: * Treatment: * Images: * The named appointment provid er may or may not be the originator of this progress note, and it is not deemed complete until electronically signed by the appointment provider. Sign off status: Pending * Provider: Radha Norwood MD Date: Generated for Lizeth paige/Kenenth/Dannaitting on: 07:18 AM EDT History and Physical Notes * HPI (History of Present Illness) Category Sub-Category Detail Notes Fall Risk Screening Fall History Have you had any falls with injury in the past year?: No Have you had two or more falls in the year?: No Fall Risk Assessment:: COVID-19 Screening Questions Have you had any new onset fever, chills, cough, congestion, sore throat, shortness of breath, muscle aches?: No Have you been exposed to the virus withi n the last 10 days?: No Have you travelled internationally in last 10 days?: No Have you been exposed to COVID-19 in the past?: No Examination Category Sub-Category Detail Notes General Examination GENERAL APPEARANCE: pleasant , well nourished, well developed, in no acute distress, calm and relaxed HEAD: atraumatic, normocep halic EYES: eomi, perrla, anicte caitlin, conjugate EARS: normal NOSE: septum intact NECK/THYROID: no jugular venous di stention, no carotid bruit, thyroid normal HEART: no clicks, gallops, murmurs, or rubs, regular rhythm, S1, S2 normal, no s3, or vascular bruits LUNGS: clear to auscultatio n ABDOMEN: bowel sounds normal, no ascites, no organomegaly, no mass NEUROLOGIC: alert and oriented, cranial nerves 2-12 grossly intact, deep tendon reflexes 2+ symmetrical, motor strength normal upper and lower extremities, sensory exam intact SKIN: no suspicious lesion s, anicteric PERIPHERAL PULSES: normal BREASTS: no masses palpable b ilaterally MUSCULOSKELETAL: extremities unremark able, no clubbing, cyanosis or edema LYMPH NODES: no enlarged lymph no maria elena,spleen normal RECTAL EXAM: not examined PSYCH: alert, oriented ORAL CAVITY: normal, unremarkable
--- OUTSIDE RECORDS SUMMARY | 2024-07-31 07:00 | XMS_ITS ---
Author Organization Mick Norwood III, MD Address [address] [place] [address] DR CORADO Mela [place] [phone] Care Team Providers Care International Trade Manager Name Role Phone Dr. Mick Norwood III Primary Care Provider [phone] Allergies Allergen (clinical drug ingredient) Drug/Non Drug Allergy documented on EMR Reaction Allergy Type Onset Date Status Penicillin Unknown Drug Allergy Active Sulfur Unknown Drug Allergy Active Reason For Referral Reason Evaluate and Treat Diagnosis 1 Alzheimer's disease with late onset (G30.1) Diagnosis 2 Memory loss (R41.3) Referral Organization Mick Norwood III, MD Referring Provider First Name Mick Referring Provider Last Name Enma Referring Provider Speciality Internal M edicine Referred Provider Joe Fermin Referred Provider Specialty Neurology General Notes Rach Kimble 08/05/2024 11:25:39 AM > referral faxed with progress note, Rach Kimble 08/05/2024 01:16:48 PM > Patient is scheduled for 09/17/2024 @ 1:10 pm, Letter mailed to patient Referral Priority Routine Referral Appointment Date 09/17/2024 REASON FOR VISIT Dementia, Hyperlipidemia, GERD, Ductal carcinoma in situ of the breast, Osteoarthritis cervical spine Medications Medication SIG (Take, Route, Frequency, Duration) Notes Start Date End Date Status Simvastatin 10 MG TAKE 1 TABLET BY LEWIS TH EVERY DAY IN THE EVENING FOR 90 DAYS Active Levothyroxine Sodium 75 MCG 1 tablet in the morning on an empty stomach Orally Once a day 02/18/2024 Active Social History Tobacco Use: Social History Observation Description Date Details (start date - stop date) Never Smoker NA - NA Sex Assigned At : Social History Observation Description Sex Assigned At Female Tobacco Use/Smoking Question Answer Notes Patient is a nonsmoker Additional Findings: Tobacco Non-User Aggressive non-smoker Vital Signs Temperature 97.5 degrees Fahrenheit 07/31/20 24 Blood pressure systolic 136 mm Hg 07/31/20 24 Blood pressure diastolic 80 mm Hg 024 Heart Rate 76 /min 07/31/2024 Height 62 in 07/31/2024 Weight 131 lbs 07/31/2024 BMI 23.96 kg/m2 07/31/2024 Encounters Encounter Location Date Provider Diagnosis Mick Norwood III, MD [address] [place] [address] DR [place], [place] [phone] 07/31/2024 Mick Norwood Hyperlipidemia E78.5 ; Alzheimer's disease with late onset G30.1 ; Acquired hypothyroidism E03.9 ; Hyperglycemia R73.9 ; GERD (gastroesophageal reflux disease) K21.9 ; 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 She appears to be compliant with her medication. They are administered to her by her son Bull. 07/31/2024 Alzheimer's disease with late onset (ICD-10 - G30.1) She has very significant defects in memory. It is my opinion today that she has some mental capacity to make simple and minor decisions about the events in her life. She does not seem to have the capacity to make any complicated decisions. She is no longer writes checks or handles her money. Her affairs are handled by her children. Her dementia has been slowly progressive. 07/31/2024 Acquired hypothyroidism (ICD-10 - E03.9) Her thyroid function tests are in the normal range and no change in her medication is necessary today. The elevated TSH on the last visit is now normal. 07/31/2024 Hyperglycemia (ICD-1 0 - R73.9) Her fasting glucose is 136. It has been elevated. This is consistent with prediabetes. Hemoglobin A1c has been ordered to see if she is actually a type II diabetic. 07/31/2024 GERD (gastroesophageal reflux disease) (ICD-10 - K21.9) Her reflux symptoms are well controlled with medication. She is sleeping well at night. 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 Physical breast examination will be done periodically. She agreed to an examination on her next visit. 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 No new treatment is necessary today. Plan Of Treatment Medication Medication Name Sig Start Date Stop Date Notes Simvastatin 10 MG TAKE 1 TABLET BY LEWIS TH EVERY DAY IN THE EVENING FOR 90 DAYS Levothyroxine Sodium 75 MCG 1 tablet in the morning on an empty stomach Orally Once a day 02/18/2024 Pending Test Test Name Order Date PROFILE, FASTING (COMPREHENSIVE METABOLI C) 07/31/2024 TSH (THYROID STIMULATING HORMONE) 2023 CBC WITH AUTO DIFF 07/31/2024 Lipid Panel 07/31/2024 Free T4 (Free Thyroxine) 07/31/2024 Hemoglobin A1c 07/31/2024 Referrals Referral Date Details 08/01/2024 08/01/2024, Evaluate and Treat, Joe Fermin Next Appt Details Follow Up: October, Reason: Routine check-up Provider Name:Mick Norwood , 08/10/2025 11:00:00 AM, [address] [place] [address] MA[address] CALL[address], [place]AS, [phone], Provider Name:Mick Norwood , 01/19/2026 09:30:00 AM, [address] [place] [address] MA[address] CALL[address], [place]AS, [phone], Progress Notes * Bárbara TAVERASOB:1940 (84 yo F)Acc No.[id number]:07/31/2024 Progress Notes Patient: Kannan DOHERTY Provider: aRdha Norwood MD :1940 A ge:84 Y S ex:Female Date:07/31/2024 Address:[address], [id number] Subjective: * Chief Complaints: * D ementiaHyperlipidemiaGERDDuctal carcinoma in situ of the breastOsteoarthritis cervical spine * HPI: C OVID-19 Screening: Questions H ave you experienced fever, chills, cough, sore throat, shortness of breath, difficulty breathing, muscle aches, loss of taste or smell? N o H ave you been exposed to the virus within the last 10 days? N o H ave you travelled internationally in the last 10 days? N o H ave you been exposed to COVID-19 in the past? N o * : The patient, an 84-year-old female, presented with a history of dementia. Her symptoms have been progressively worsening, as evidenced by her inability to remember basic information such as the current year, month, and day of the week. She also struggles with remembering her home address and telephone number. The patient's dementia is severe enough that she is unable to manage her own medications or finances. She is currently living at home and is being cared for by her son, Bull. The patient's other two sons, Pranav and Lamonte, have been considering placing her in a fpc, a decision that she is opposed to. The patient's mental state is such that she requires assistance with complex decisions, particularly those related to her finances and healthcare. Despite her dementia, the patient appears to be physically well-cared for and is able to make simple decisions. * ROS: G eneral/Constitutional: pain o nly normal aches and pains. C hills d enies.?Fatigue a dmits. F ever d enies. E NT: Decreased hearing m ild. R espiratory: Cough d enies. C ardiovascular: Chest pain with exertion d enies. D yspnea on exertion?denies. S hortness of breath d enies. G astrointestinal: Constipation o ccasional. D ecreased appetite d enies. D iarrhea d enies. H eartburn d enies. N ausea d enies. R ectal bleeding d enies. V omiting d enies. H ematology: bruising [...] Depressed mood d enies. * Medical History: * Surgical History: L eft TKR 2004lumpectomy right breast DCIS 2003C-spine surgery degenerated disc 1978hysterectomy & BSO 1979No history * Hospitalization/Major Diagno stic Procedure: B acterial UTI 04/2021No history * Family History: F ather: 80 yrs, [...] run a restaurant. She was born in [place], [place]. * Medications: T akingSimvastatin 10 MG Tablet TAKE 1 TABLET BY MOUTH EVERY DAY IN THE EVENING FOR 90 DAYS Levothyroxine Sodium 75 MCG Tablet 1 tablet in the morning on an empty stomach Orally Once a day Medication List reviewed and reconciled with the patientTaking Simvastatin 10 MG Tablet TAKE 1 TABLET BY MOUTH EVERY DAY IN THE EVENING FOR 90 DAYS Taking Levothyroxine Sodium 75 MCG Tablet 1 tablet in the morning on an empty stomach Orally Once a day Medication List reviewed and reconciled with the patient * Allergies: S ulfurPenicillinno[Allergies Verified] Objective: * Vitals: H t: 62, Wt:131, BMI:23.96, BP:136/80, HR:76, Temp:97.5, Wt-k.42. * P ast Orders: Lab:[facility] [place]. Fl[facility] Fast * Collection Date 07/24/2024 02/14/2024 11/14/2023 Collection Time 07:31 AM 06:30 AM 08:21 AM Order Date 07/24/2024 02/14/2024 11/14/2023 Sodium 141 (Ref Range: 135-145 mmol/L) 139 (Ref Range: 135-145 mmol/L) 139 (Ref Range: 135-145 mmol/L) Bilirubin Total 1.2 H (Ref Range: 0.0-1.0 mg/dL) 1.0 (Ref Range: 0.0-1.0 mg/dL) 1.3 H (Ref Range: 0.0-1.0 mg/dL) Aspartate Amino Transferase 21 (Ref Range: 5-31 U/L) 18 (Ref Range: 5-31 U/L) 19 (Ref Range: 5-31 U/L) Alanine Aminotransferase 18 (Ref Range: 0-31 U/L) 17 (Ref Range: 0-31 U/L) 13 (Ref Range: 0-31 U/L) Total Protein 7.2 (Ref Range: 6.5-8.0 g/dL) 7.2 (Ref Range: 6.5-8.0 g/dL) 7.6 (Ref Range: 6.5-8.0 g/dL) Albumin Level 4.2 (Ref Range: 3.5-5.0 g/dL) 4.2 (Ref Range: 3.5-5.0 g/dL) 4.3 (Ref Range: 3.5-5.0 g/dL) Alkaline Phosphatase 81 (Ref Range: 39-117 U/L) 82 (Ref Range: 39-117 U/L) 82 (Ref Range: 39-117 U/L) Potassium 4.2 (Ref Range: 3.3-5.1 mmol/L) 4.2 (Ref Range: 3.3-5.1 mmol/L) 4.1 (Ref Range: 3.3-5.1 mmol/L) Chloride 106 (Ref Range: 96-108 mmol/L) 102 (Ref Range: 96-108 mmol/L) 104 (Ref Range: 96-108 mmol/L) Carbon Dioxide 27 (Ref Range: 22-29 mmol/L) 28 (Ref Range: 22-29 mmol/L) 26 (Ref Range: 22-29 mmol/L) Anion Gap 12 (Ref Range: 12-20) 13 (Ref Range: 12-20) 13 (Ref Range: 12-20) Blood Urea Nitrogen 11 (Ref Range: 9-16 mg/dL) 14 (Ref Range: 9-16 mg/dL) 14 (Ref Range: 9-16 mg/dL) Creatinine 0.98 (Ref Range: 0.5-1.4 mg/dL) 0.88 (Ref Range: 0.5-1.4 mg/dL) 0.91 (Ref Range: 0.5-1.4 mg/dL) Estimated Glomerular Filt Rate 54 > 60 59 Glucose Fasting 136 H (Ref Range: 60-99 mg/dL) 128 H (Ref Range: 60-99 mg/dL) 158 H (Ref Range: 60-99 mg/dL) Calcium 10.0 (Ref Range: 8.4-10.2 mg/dL) 10.3 H (Ref Range: 8.4-10.2 mg/dL) 10.1 (Ref Range: 8.4-10.2 mg/dL) * Lab:Lipid Panel * Collection Date 07/24/2024 02/14/2024 11/14/2023 Collection Time 07:31 AM 06:30 AM 08:21 AM Order Date 07/24/2024 02/13/2024 11/14/2023 Triglycerides 101 (Ref Range: <150 mg/dL) 115 (Ref Range: <150 mg/dL) 88 (Ref Range: <150 mg/dL) Cholesterol 173 (Ref Range: <200 mg/dL) 197 (Ref Range: <200 mg/dL) 173 (Ref Range: <200 mg/dL) LDL Cholesterol Calculated 98 (Ref Range: <100 mg/dL) 119 H (Ref Range: <100 mg/dL) 94 (Ref Range: <100 mg/dL) HDL Cholesterol 55 (Ref Range: >40 mg/dL) 55 (Ref Range: >40 mg/dL) 62 (Ref Range: >40 mg/dL) * Lab:Free T4 (Free Thyroxine) * Collection Date 07/24/2024 02/14/2024 11/14/2023 Collection Time 07:31 AM 06:30 AM 08:21 AM Order Date 07/24/2024 02/13/2024 11/14/2023 Free T4 (Free Thyroxine) 1.19 (Ref Range: 0.71-1.85 ng/dL) 1.13 (Ref Range: 0.71-1.85 ng/dL) 1.10 (Ref Range: 0.71-1.85 ng/dL) * Lab:Thyroid Stimulating Horm one * Collection Date 07/24/2024 02/14/2024 11/14/2023 Collection Time 07:31 AM 06:30 AM 08:21 AM Order Date 07/24/2024 02/14/2024 11/14/2023 Thyroid Stimulating Hormone 3.60 (Ref Range: 0.32-4.0 uIU/mL) 8.19 H (Ref Range: 0.32-4.0 uIU/mL) 2.35 (Ref Range: 0.32-4.0 uIU/mL) * Lab:Complete Blood Count Aut o Diff * Collection Date 07/24/2024 02/14/2024 11/14/2023 Collection Time 07:31 AM 06:30 AM 08:21 AM Order Date 07/24/2024 02/14/2024 11/14/2023 White Blood Count 6.6 (Ref Range: 4.8-10.8 X10*3/uL) 6.6 (Ref Range: 4.8-10.8 X10*3/uL) 8.8 (Ref Range: 4.8-10.8 X10*3/uL) Red Blood Count 5.53 H (Ref Range: 4.20-5.50 X10*6/uL) 5.32 (Ref Range: 4.20-5.50 X10*6/uL) 5.32 (Ref Range: 4.20-5.50 X10*6/uL) Hemoglobin 17.8 H (Ref Range: 12.0-16.0 g/dl) 17.4 H (Ref Range: 12.0-16.0 g/dl) 17.3 H (Ref Range: 12.0-16.0 g/dl) Hematocrit 53.0 H (Ref Range: 37.0-47.0 %) 51.5 H (Ref Range: 37.0-47.0 %) 51.1 H (Ref Range: 37.0-47.0 %) Mean Corpuscular Volume 95.8 (Ref Range: 80.0-98.0 fL) 96.8 (Ref Range: 80.0-98.0 fL) 96.1 (Ref Range: 80.0-98.0 fL) Mean Corpuscular Hemoglobin 32.2 (Ref Range: 27.0-33.0 pg) 32.7 (Ref Range: 27.0-33.0 pg) 32.5 (Ref Range: 27.0-33.0 pg) Mean Corpuscular HGB Conc 33.6 (Ref Range: 31.0-35.0 g/dl) 33.8 (Ref Range: 31.0-35.0 g/dl) 33.9 (Ref Range: 31.0-35.0 g/dl) Red Cell Distribution Width 13.9 (Ref Range: 11.0-16.0 %) 14.0 (Ref Range: 11.0-16.0 %) 14.3 (Ref Range: 11.0-16.0 %) Platelet Count 209 (Ref Range: 160-400 X10*3/uL) 204 (Ref Range: 160-400 X10*3/uL) 209 (Ref Range: 160-400 X10*3/uL) Mean Platelet Volume 10.1 (Ref Range: 9.4-12.3 fL) 10.5 (Ref Range: 9.4-12.3 fL) 9.9 (Ref Range: 9.4-12.3 fL) Neutrophils Percent Auto 74.4 H (Ref Range: 45-73 %) 64.5 (Ref Range: 45-73 %) 72.6 (Ref Range: 45-73 %) Imm Gran Pct Auto 0.3 (Ref Range: 0.0-0.4 %) 0.6 H (Ref Range: 0.0-0.4 %) 0.3 (Ref Range: 0.0-0.4 %) Lymphocytes Percent Auto 14.3 L (Ref Range: 20-40 %) 20.0 (Ref Range: 20-40 %) 13.7 L (Ref Range: 20-40 %) Monocytes Percent Auto 7.9 (Ref Range: 2-11 %) 10.7 (Ref Range: 2-11 %) 11.4 H (Ref Range: 2-11 %) Eosinophils Percent Auto 2.3 (Ref Range: 0-4 %) 3.3 (Ref Range: 0-4 %) 1.4 (Ref Range: 0-4 %) Basophils Percent Auto 0.8 (Ref Range: 0-2 %) 0.9 (Ref Range: 0-2 %) 0.6 (Ref Range: 0-2 %) NRBC Pct Auto 0.0 (Ref Range: 0.0-0.2 /100WBC) 0.0 (Ref Range: 0.0-0.2 /100WBC) 0.0 (Ref Range: 0.0-0.2 /100WBC) Neutrophils Absolute Auto 4.9 (Ref Range: 2.0-8.3 x10*3/uL) 4.3 (Ref Range: 2.0-8.3 x10*3/uL) 6.4 (Ref Range: 2.0-8.3 x10*3/uL) Imm Gran Abs Auto 0.02 (Ref Range: 0.00-0.03 X10*3/uL) 0.04 H (Ref Range: 0.00-0.03 X10*3/uL) 0.03 (Ref Range: 0.00-0.03 X10*3/uL) Lymphocytes Absolute Auto 0.9 L (Ref Range: 1.2-4.9 X10*3/uL) 1.3 (Ref Range: 1.2-4.9 X10*3/uL) 1.2 (Ref Range: 1.2-4.9 X10*3/uL) Monocytes Absolute Auto 0.5 (Ref Range: 0.1-1.2 X10*3/uL) 0.7 (Ref Range: 0.1-1.2 X10*3/uL) 1.0 (Ref Range: 0.1-1.2 X10*3/uL) Eosinophils Absolute Auto 0.2 (Ref Range: 0.0-0.4 X10*3/uL) 0.2 (Ref Range: 0.0-0.4 X10*3/uL) 0.1 (Ref Range: 0.0-0.4 X10*3/uL) Basophils Absolute Auto 0.1 (Ref Range: 0.0-0.2 X10*3/uL) 0.1 (Ref Range: 0.0-0.2 X10*3/uL) 0.1 (Ref Range: 0.0-0.2 X10*3/uL) NRBC Abs Auto 0.000 (Ref Range: 0.0-0.012 X10*3/uL) 0.000 (Ref Range: 0.0-0.012 X10*3/uL) 0.000 (Ref Range: 0.0-0.012 X10*3/uL) * Examination: G eneral Examination: GENERAL APPEARANCE: p leasant, well nourished, well developed, in no acute distress, calm and relaxed, elderly woman. HEAD: a traumatic, normocephalic. EYES: e nuvia, perrla, anicteric, conjugate. EARS: n ormal. NOSE: s eptum intact. ORAL CAVITY: n ormal, unremarkable. NECK/THYROID: n o jugular venous distention, no carotid bruit, thyroid normal, Mild pain to lateral rotation. LYMPH NODES: n o enlarged lymph nodes,spleen normal. SKIN: n o suspicious lesions, anicteric. HEART: n o clicks, gallops, murmurs, or rubs, regular rhythm, S1, S2 normal, no s3, or vascular bruits. LUNGS: c lear to auscultation . BREASTS: N ot examined. ABDOMEN: b owel sounds normal, no ascites, no organomegaly, no mass. RECTAL EXAM: n ot examined. MUSCULOSKELETAL: e xtremities unremarkable, no clubbing, cyanosis or edemaMild decreased range of motion laterally of cervical spine. PERIPHERAL PULSES: n ormal. NEUROLOGIC: a lert and orientedTo person and place but not to time, cranial nerves 2-12 grossly intact, deep tendon reflexes 2+ symmetrical, motor strength normal upper and lower extremities, sensory exam intact, Severe defects in memory recent and remote, speech clear, ambulatory. PSYCH: a lert, oriented Only to person and place. She is not oriented to time. Significant defects in memory. Could not name the year the date or the day of the week or the month. On level to name the [place] president or the candidates in the upcoming election.. Assessment: * Assessment: 1. A lzheimer's disease with late onset - G30.1 (Primary) N otes :She has very significant defects in memory. It is my opinion today that she has some mental capacity to make simple and minor decisions about the events in her life. She does not seem to have the capacity to make any complicated decisions. She is no longer writes checks or handles her money. Her affairs are handled by her children. Her dementia has been slowly progressive. 2 . H yperlipidemia - E78.5 N otes :Her lipids have been stable and well controlled and no change in her regimen was necessary today. She appears to be compliant with her medication. They are administered to her by her son Bull. 3 . A cquired hypothyroidism - E03.9 N otes :Her thyroid function tests are in the normal range and no change in her medication is necessary today. The elevated TSH on the last visit is now normal. 4 . H yperglycemia - R73.9 N otes :Her fasting glucose is 136. It has been elevated. This is consistent with prediabetes. Hemoglobin A1c has been ordered to see if she is actually a type II diabetic. 5 . G ERD (gastroesophageal reflux disease) - K21.9 N otes :Her reflux symptoms are well controlled with medication. She is sleeping well at night. 6 . 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 Physical breast examination will be done periodically. She agreed to an examination on her next visit. 7 . O steoarthritis cervical spine - M47.812 N otes :She has very little discomfort in her neck at the current time. No new treatment is necessary today. Plan: * Treatment: 2. H yperlipidemia L AB: PROFILE, FASTING (COMPREHENSIVE METABOLIC) L AB: TSH (THYROID STIMULATING HORMONE) L AB: CBC WITH AUTO DIFF L AB: Lipid Panel L AB: Free T4 (Free Thyroxine) L AB: Hemoglobin A1c 3. A cquired hypothyroidism L AB: PROFILE, FASTING (COMPREHENSIVE METABOLIC) L AB: TSH (THYROID STIMULATING HORMONE) L AB: CBC WITH AUTO DIFF L AB: Lipid Panel L AB: Free T4 (Free Thyroxine) L AB: Hemoglobin A1c 4. H yperglycemia L AB: PROFILE, FASTING (COMPREHENSIVE METABOLIC) L AB: TSH (THYROID STIMULATING HORMONE) L AB: CBC WITH AUTO DIFF L AB: Lipid Panel L AB: Free T4 (Free Thyroxine) L AB: Hemoglobin A1c 5. O thers Continue Simvastatin Tablet, 10 MG, TAKE 1 TABLET BY MOUTH EVERY DAY IN THE EVENING FOR 90 DAYS;?Continue Levothyroxine Sodium Tablet, 75 MCG, 1 tablet in the morning on an empty stomach, Orally, Once a day. Referral To:[facility] Reason:Evaluate and Treat * Procedure Codes: * Follow Up: J anuary (Reason: Routine check-up) * Images: * Sign off status: Completed true * Provider: Radha Norwood MD Date: Generated for Lizeth ng/Kenneth/Bubbasmitting on: 07:18 AM EDT History and Physical Notes * HPI (History of Present Illness) Category Sub-Category Detail Notes COVID-19 Screening Questions Have you had any new onset fever, chills, cough, congestion, sore throat, shortness of breath, muscle aches?: No Have you been exposed to the virus withi n the last 10 days?: No Have you travelled internationally in city hospital last 10 days?: No Have you been exposed to COVID-19 in the past?: No Examination Category Sub-Category Detail Notes General Examination GENERAL APPEARANCE: pleasant , well nourished, well developed, in no acute distress, calm and relaxed, elderly woman HEAD: atraumatic, normocep halic EYES: eomi, perrla, anicte caitlin, conjugate EARS: normal NOSE: septum intact NECK/THYROID: no jugular venous di stention, no carotid bruit, thyroid normal, Mild pain to lateral rotation HEART: no clicks, gallops, murmurs, or rubs, regular rhythm, S1, S2 normal, no s3, or vascular bruits LUNGS: clear to auscultatio n ABDOMEN: bowel sounds normal, no ascites, no organomegaly, no mass NEUROLOGIC: alert and orientedTo person and place but not to time, cranial nerves 2-12 grossly intact, deep tendon reflexes 2+ symmetrical, motor strength normal upper and lower extremities, sensory exam intact, Severe defects in memory recent and remote, speech clear, ambulatory SKIN: no suspicious lesion s, anicteric PERIPHERAL PULSES: normal BREASTS: Not examined MUSCULOSKELETAL: extremities unremark able, no clubbing, cyanosis or edemaMild decreased range of motion laterally of cervical spine LYMPH NODES: no enlarged lymph no maria elena,spleen normal RECTAL EXAM: not examined PSYCH: alert, oriented Only to person and place. She is not oriented to time. Significant defects in memory. Could not name the year the date or the day of the week or the month. On level to name the [place] president or the candidates in the upcoming election. ORAL CAVITY: normal, unremarkable Consultation Request Notes Referral Date Referring Provider Referred Provider Not reid 08/01/2024 Mick Norwood Muhammad Evaluate a nd Treat
--- OUTSIDE RECORDS SUMMARY | 2024-10-24 13:30 | XMS_ITS ---
Author Organization Mick Norwood III, MD Address [address] [place] [address] [place] [address] Care Team Providers Care Milk Route Deliverer Name Role Phone Dr. Mick Norwood III Primary Care Provider [phone] REASON FOR VISIT Annual Exam Social History Sex Assigned At : Social History Observation Description Sex Assigned At Female Encounters Encounter Location Date Provider Diagnosis Mick Norwood III, MD [address] [place] [address] [place] [phone] 10/24/2024 Mick Norwood Plan Of Treatment Next Appt Details Provider Name:Mick Norwood , 08/10/2025 11:00:00 AM, [address] [place] [address] [place], [phone], Provider Name:Mick Norwood , 01/19/2026 09:30:00 AM, [address] [place] [address] [place], [phone], Progress Notes * CHERRIEPerlitaisDOB:1940 (85 yo F)Acc No.[id number]:10/24/2024 Progress Notes Patient: Kannan DOHERTY Provider: Radha Norwood MD :1940 A ge:84 Y S ex:Female Date:10/24/2024 Address: [address] [id number] Subjective: * Chief Complaints: * 1 . Annual Exam. * Medical History: Objective: * Vitals: Assessment: Plan: * Treatment: * Images: * The named appointment provid er may or may not be the originator of this progress note, and it is not deemed complete until electronically signed by the appointment provider. Sign off status: Pending * Provider: Radha Norwood MD Date: 0 10/24/2024 Generated for Lizeth paige/Kenneth/Dannaitting on: 07:17 AM EDT
--- OUTSIDE RECORDS SUMMARY | 2024-11-11 05:30 | XMS_ITS ---
Author Organization Mick Norwood III, MD Address [address] [place] [address] [place] [address] Care Team Providers Care Quality Systems Technician Name Role Phone Dr. Mick Norwood III Primary Care Provider Allergies Allergen (clinical drug ingredient) Drug/Non Drug Allergy documented on EMR Reaction Allergy Type Onset Date Status Penicillin Unknown Drug Allergy Active Sulfur Unknown Drug Allergy Active REASON FOR VISIT Follow up, Stool Incontinence x 3 weeks Medications Medication SIG (Take, Route, Frequency, Duration) [...] Tobacco Non-User Aggressive non-smoker Vital Signs Temperature 97.2 degrees Fahrenheit 11/11/19 25 Blood pressure systolic 128 mm Hg 11/11/19 25 Blood pressure diastolic 69 mm Hg 025 Heart Rate 80 /min 11/11/2024 Height 62 in 11/11/2024 Weight 130 lbs 11/11/2024 BMI 23.77 kg/m2 11/11/2024 Encounters Encounter Location Date Provider Diagnosis Mick Norwood III, MD [address] [place] [address] [place] [id number] 11/11/2024 Mick Norwood Diarrhea R19.7 ; Alzheimer's disease with late onset G30.1 ; Acquired hypothyroidism E03.9 ; GERD (gastroesophageal reflux disease) K21.9 ; 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 She will use Imodium 2 mg every 3 hours as needed. Follow-up was arranged. 11/11/2024 Alzheimer's disease with late onset (ICD-10 - [...] children. Her dementia has been slowly progressive. 11/11/2024 Acquired hypothyroidism (ICD-10 - E03.9) Her thyroid function tests are in the normal range and no change in her medication is necessary today. The elevated TSH on the last visit is now normal. 11/11/2024 GERD (gastroesophageal reflux disease) (ICD-10 - K21.9) Her reflux symptoms are well controlled with medication. She is sleeping well at night. 11/11/2024 DCIS (ductal carcinoma in situ) (ICD-10 - D05.10) There was no sign of metastatic disease or recurrence today. Physical breast examination will be done periodically. She agreed to an examination on her next visit. 11/11/2024 Osteoarthritis cervical spine (ICD-10 - M47.812) She [...] DAY IN THE EVENING FOR 90 DAYS Pending Test Test Name Order Date CLOSTRIDIUM DIFF TOXIN A&B (C DIFF) 10/16 OVA & PARASITES (O&P) 11/11/2024 Stool Culture 11/11/2024 Next Appt Details Follow Up: 3 Weeks, Reason: OV Provider Name:Mick Norwood , 08/10/2025 11:00:00 AM, [address] [place] [address] [address], CHRIS MEJIAS, [phone], Provider Name:Mick Norwood , 01/19/2026 09:30:00 AM, [address] [place] [address] [address], CHRIS MEJIAS, [phone], Progress Notes * Perlita TAVERASisDOB:1940 (84 yo F)Acc No.[id number]:11/11/2024 Progress Notes Patient: Kannan DOHERTY Provider: Radha Norwood MD :1940 A ge:84 Y S ex:Female Date:11/11/2024 Address:[address] [place], [place] [phone] Subjective: * Chief Complaints: * F ollow upStool Incontinence x 3 weeks * HPI: C OVID-19 Screening: Questions H ave you had any new onset fever, chills, cough, congestion, sore throat, shortness of breath, muscle aches? N o * : The patient, an 84-year-old female, has been experiencing episodes of explosive diarrhea for the past three weeks. The stool is described as brown and liquid in nature. The patient has also been experiencing stomach cramps around the time the diarrhea started. The patient's caregiver reports that the patient has been wearing plastic garments from [employer] to manage the incontinence. The patient does not seem to have any issues with urination. There have been no changes in the patient's diet, and she has not consumed any food that did not come from a supermarket. The patient does not have a fever, chills, or belly pain. The patient's appetite is reported to be normal. Blood Sugar Level is 147. * ROS: G eneral/Constitutional: Denies p ain, o nly normal aches and pains. D enies?Chills, d enies. F atigue a dmits. D enies F ever, d enies. E NT: Decreased hearing i n both ears. R espiratory: Cough d enies. C ardiovascular: Chest pain with exertion d enies. D yspnea on exertion?denies. S hortness of breath d enies. G astrointestinal: Constipation o ccasional. D ecreased appetite d enies. D iarrhea t hat is frequent. H eartburn d enies. N ausea d enies. R ectal bleeding d enies. V omiting d enies. H ematology: bruising d enies. p etechiae d enies. S wollen glands n one have been noted. W omen Only: Admits I ncontinence. G enitourinary: Frequent urination a t night. M usculoskeletal: Muscle aches d enies. 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 * Medications: T akingSimvastatin 10 MG [...] Verified] Objective: * Vitals: H t: 62, Wt:130, BMI:23.77, BP:128/69, HR:80, Temp:97.2, Wt-k.97. * P ast Orders: L ab:Hemoglobin A1c (Order Date - 11/06/2024) (Collection Date & Time - 11/06/2024 07:05 AM) Value Reference Range Hemoglobin A1c % 6.5 H <6.0 - % Estimated Average Glucose 140 - mg/dL Lab:Complete Blood Count Aut o Diff * Collection Date 11/06/2024 07/24/2024 02/14/2024 Collection Time 07:05 AM 07:31 AM 06:30 AM Order Date 11/06/2024 07/24/2024 02/14/2024 White Blood Count 7.6 (Ref Range: 4.8-10.8 X10*3/uL) 6.6 (Ref Range: 4.8-10.8 X10*3/uL) 6.6 (Ref Range: 4.8-10.8 X10*3/uL) Red Blood Count 5.19 (Ref Range: 4.20-5.50 X10*6/uL) 5.53 H (Ref Range: 4.20-5.50 X10*6/uL) 5.32 (Ref Range: 4.20-5.50 X10*6/uL) Hemoglobin 16.5 H (Ref Range: 12.0-16.0 g/dl) 17.8 H (Ref Range: 12.0-16.0 g/dl) 17.4 H (Ref Range: 12.0-16.0 g/dl) Hematocrit 49.4 H (Ref Range: 37.0-47.0 %) 53.0 H (Ref Range: 37.0-47.0 %) 51.5 H (Ref Range: 37.0-47.0 %) Mean Corpuscular Volume 95.2 (Ref Range: 80.0-98.0 fL) 95.8 (Ref Range: 80.0-98.0 fL) 96.8 (Ref Range: 80.0-98.0 fL) Mean Corpuscular Hemoglobin 31.8 (Ref Range: 27.0-33.0 pg) 32.2 (Ref Range: 27.0-33.0 pg) 32.7 (Ref Range: 27.0-33.0 pg) Mean Corpuscular HGB Conc 33.4 (Ref Range: 31.0-35.0 g/dl) 33.6 (Ref Range: 31.0-35.0 g/dl) 33.8 (Ref Range: 31.0-35.0 g/dl) Red Cell Distribution Width 14.2 (Ref Range: 11.0-16.0 %) 13.9 (Ref Range: 11.0-16.0 %) 14.0 (Ref Range: 11.0-16.0 %) Platelet Count 261 (Ref Range: 160-400 X10*3/uL) 209 (Ref Range: 160-400 X10*3/uL) 204 (Ref Range: 160-400 X10*3/uL) Mean Platelet Volume 9.3 L (Ref Range: 9.4-12.3 fL) 10.1 (Ref Range: 9.4-12.3 fL) 10.5 (Ref Range: 9.4-12.3 fL) Neutrophils Percent Auto 69.2 (Ref Range: 45-73 %) 74.4 H (Ref Range: 45-73 %) 64.5 (Ref Range: 45-73 %) Imm Gran Pct Auto 0.5 H (Ref Range: 0.0-0.4 %) 0.3 (Ref Range: 0.0-0.4 %) 0.6 H (Ref Range: 0.0-0.4 %) Lymphocytes Percent Auto 17.6 L (Ref Range: 20-40 %) 14.3 L (Ref Range: 20-40 %) 20.0 (Ref Range: 20-40 %) Monocytes Percent Auto 8.6 (Ref Range: 2-11 %) 7.9 (Ref Range: 2-11 %) 10.7 (Ref Range: 2-11 %) Eosinophils Percent Auto 3.4 (Ref Range: 0-4 %) 2.3 (Ref Range: 0-4 %) 3.3 (Ref Range: 0-4 %) Basophils Percent Auto 0.7 (Ref Range: 0-2 %) 0.8 (Ref Range: 0-2 %) 0.9 (Ref Range: 0-2 %) NRBC Pct Auto 0.0 (Ref Range: 0.0-0.2 /100WBC) 0.0 (Ref Range: 0.0-0.2 /100WBC) 0.0 (Ref Range: 0.0-0.2 /100WBC) Neutrophils Absolute Auto 5.2 (Ref Range: 2.0-8.3 x10*3/uL) 4.9 (Ref Range: 2.0-8.3 x10*3/uL) 4.3 (Ref Range: 2.0-8.3 x10*3/uL) Imm Gran Abs Auto 0.04 H (Ref Range: 0.00-0.03 X10*3/uL) 0.02 (Ref Range: 0.00-0.03 X10*3/uL) 0.04 H (Ref Range: 0.00-0.03 X10*3/uL) Lymphocytes Absolute Auto 1.3 (Ref Range: 1.2-4.9 X10*3/uL) 0.9 L (Ref Range: 1.2-4.9 X10*3/uL) 1.3 (Ref Range: 1.2-4.9 X10*3/uL) Monocytes Absolute Auto 0.7 (Ref Range: 0.1-1.2 X10*3/uL) 0.5 (Ref Range: 0.1-1.2 X10*3/uL) 0.7 (Ref Range: 0.1-1.2 X10*3/uL) Eosinophils Absolute Auto 0.3 (Ref Range: 0.0-0.4 X10*3/uL) 0.2 (Ref Range: 0.0-0.4 X10*3/uL) 0.2 (Ref Range: 0.0-0.4 X10*3/uL) Basophils Absolute Auto 0.1 (Ref Range: 0.0-0.2 X10*3/uL) 0.1 (Ref Range: 0.0-0.2 X10*3/uL) 0.1 (Ref Range: 0.0-0.2 X10*3/uL) NRBC Abs Auto 0.000 (Ref Range: 0.0-0.012 X10*3/uL) 0.000 (Ref Range: 0.0-0.012 X10*3/uL) 0.000 (Ref Range: 0.0-0.012 X10*3/uL) * Lab:[facility] * Collection Date 11/06/2024 07/24/2024 02/14/2024 Collection Time 07:05 AM 07:31 AM 06:30 AM Order Date 11/06/2024 07/24/2024 02/14/2024 Sodium 139 (Ref Range: 135-145 mmol/L) 141 (Ref Range: 135-145 mmol/L) 139 (Ref Range: 135-145 mmol/L) Bilirubin Total 0.8 (Ref Range: 0.0-1.0 mg/dL) 1.2 H (Ref Range: 0.0-1.0 mg/dL) 1.0 (Ref Range: 0.0-1.0 mg/dL) Aspartate Amino Transferase 26 (Ref Range: 5-31 U/L) 21 (Ref Range: 5-31 U/L) 18 (Ref Range: 5-31 U/L) Alanine Aminotransferase 22 (Ref Range: 0-31 U/L) 18 (Ref Range: 0-31 U/L) 17 (Ref Range: 0-31 U/L) Total Protein 7.3 (Ref Range: 6.5-8.0 g/dL) 7.2 (Ref Range: 6.5-8.0 g/dL) 7.2 (Ref Range: 6.5-8.0 g/dL) Albumin Level 4.0 (Ref Range: 3.5-5.0 g/dL) 4.2 (Ref Range: 3.5-5.0 g/dL) 4.2 (Ref Range: 3.5-5.0 g/dL) Alkaline Phosphatase 76 (Ref Range: 39-117 U/L) 81 (Ref Range: 39-117 U/L) 82 (Ref Range: 39-117 U/L) Potassium 4.0 (Ref Range: 3.3-5.1 mmol/L) 4.2 (Ref Range: 3.3-5.1 mmol/L) 4.2 (Ref Range: 3.3-5.1 mmol/L) Chloride 110 H (Ref Range: 96-108 mmol/L) 106 (Ref Range: 96-108 mmol/L) 102 (Ref Range: 96-108 mmol/L) Carbon Dioxide 22 (Ref Range: 22-29 mmol/L) 27 (Ref Range: 22-29 mmol/L) 28 (Ref Range: 22-29 mmol/L) Anion Gap 11 L (Ref Range: 12-20) 12 (Ref Range: 12-20) 13 (Ref Range: 12-20) Blood Urea Nitrogen 16 (Ref Range: 9-16 mg/dL) 11 (Ref Range: 9-16 mg/dL) 14 (Ref Range: 9-16 mg/dL) Creatinine 0.74 (Ref Range: 0.5-1.4 mg/dL) 0.98 (Ref Range: 0.5-1.4 mg/dL) 0.88 (Ref Range: 0.5-1.4 mg/dL) Estimated Glomerular Filt Rate > 60 54 > 60 Glucose Fasting 147 H (Ref Range: 60-99 mg/dL) 136 H (Ref Range: 60-99 mg/dL) 128 H (Ref Range: 60-99 mg/dL) Calcium 9.7 (Ref Range: 8.4-10.2 mg/dL) 10.0 (Ref Range: 8.4-10.2 mg/dL) 10.3 H (Ref Range: 8.4-10.2 mg/dL) * Lab:Lipid Panel * Collection Date 11/06/2024 07/24/2024 02/14/2024 Collection Time 07:05 AM 07:31 AM 06:30 AM Order Date 11/06/2024 07/24/2024 02/13/2024 Triglycerides 105 (Ref Range: <150 mg/dL) 101 (Ref Range: <150 mg/dL) 115 (Ref Range: <150 mg/dL) Cholesterol 175 (Ref Range: <200 mg/dL) 173 (Ref Range: <200 mg/dL) 197 (Ref Range: <200 mg/dL) LDL Cholesterol Calculated 100 H (Ref Range: <100 mg/dL) 98 (Ref Range: <100 mg/dL) 119 H (Ref Range: <100 mg/dL) HDL Cholesterol 54 (Ref Range: >40 mg/dL) 55 (Ref Range: >40 mg/dL) 55 (Ref Range: >40 mg/dL) * Lab:Free T4 (Free Thyroxine) * Collection Date 11/06/2024 07/24/2024 02/14/2024 Collection Time 07:05 AM 07:31 AM 06:30 AM Order Date 11/06/2024 07/24/2024 02/13/2024 Free T4 (Free Thyroxine) 1.28 (Ref Range: 0.71-1.85 ng/dL) 1.19 (Ref Range: 0.71-1.85 ng/dL) 1.13 (Ref Range: 0.71-1.85 ng/dL) * Lab:Thyroid Stimulating Horm one * Collection Date 11/06/2024 07/24/2024 02/14/2024 Collection Time 07:05 AM 07:31 AM 06:30 AM Order Date 11/06/2024 07/24/2024 02/14/2024 Thyroid Stimulating Hormone 5.79 H (Ref Range: 0.32-4.0 uIU/mL) 3.60 (Ref Range: 0.32-4.0 uIU/mL) 8.19 H (Ref Range: 0.32-4.0 uIU/mL) * Examination: G eneral Examination: GENERAL APPEARANCE: p leasant, well nourished, well developed, in no acute distress, calm and relaxed, woman. HEAD: a traumatic, normocephalic. EYES: e [...] PULSES: n ormal. NEUROLOGIC: a lert and oriented To person and place, cranial nerves 2-12 grossly intact, deep tendon reflexes 2+ symmetrical, motor strength normal upper and lower extremities, sensory exam intact, Moderate dementia, ambulatory. PSYCH: a lert, oriented To person and place, cheerfulawake and alert. - : L ungs:Sound fine, no issues. Heart: No premature heartbeats. Abdomen: No pain, feels OK. Weight: 32 lbs. Assessment: * Assessment: 1. A lzheimer's disease [...] dementia has been slowly progressive. 2 . D iarrhea - R19.7 N otes :She is going to have a stool culture and a stool specimen for Clostridium difficile and for ova and parasites. She will use Imodium 2 mg every 3 hours as needed. Follow-up was arranged. 3 . A cquired hypothyroidism - E03.9 N otes :Her thyroid function tests are in the normal range and no change in her medication is necessary today. The elevated TSH on the last visit is now normal. 4 . G ERD (gastroesophageal reflux disease) - K21.9 N otes :Her reflux symptoms are well controlled with medication. She is sleeping well at night. 5 . 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 Physical breast examination will be done periodically. She agreed to an examination on her next visit. 6 . O steoarthritis cervical spine - M47.812 N otes :She has very little discomfort in her neck at the current time. No new treatment is necessary today. Plan: * Treatment: 2. O thers Continue Simvastatin Tablet, 10 MG, TAKE 1 TABLET BY MOUTH EVERY DAY IN THE EVENING FOR 90 DAYS;?Continue Levothyroxine Sodium Tablet, 75 MCG, 1 tablet in the morning on an empty stomach, Orally, Once a day. * Procedure Codes: * Follow Up: 3 Weeks (Reason: OV) * Images: * Sign off status: Completed true * Provider: Radha Norwood MD Date: 0 11/11/2024 Generated for Sheliai royal/Kenneth/eTransmitting on: 07:16 AM EDT History and Physical Notes * HPI (History of Present Illness) Category Sub-Category Detail Notes COVID-19 Screening Questions Have you had any new onset fever, chills, cough, congestion, sore throat, shortness of breath, muscle aches?: No Examination Category Sub-Category Detail Notes General Examination GENERAL APPEARANCE: pleasant , well nourished, well developed, in no acute distress, calm and relaxed, woman HEAD: atraumatic, normocep halic EYES: eomi, perrla, anicte caitlin, conjugate EARS: normal NOSE: septum intact NECK/THYROID: no jugular venous di stention, no carotid bruit, thyroid normal HEART: no clicks, gallops, murmurs, or rubs, regular rhythm, S1, S2 normal, no s3, or vascular bruits LUNGS: clear to auscultatio n ABDOMEN: bowel sounds normal, no ascites, no organomegaly, no mass NEUROLOGIC: alert and oriented T o person and place, cranial nerves 2-12 grossly intact, deep tendon reflexes 2+ symmetrical, motor strength normal upper and lower extremities, sensory exam intact, Moderate dementia, ambulatory SKIN: no suspicious lesion s, anicteric PERIPHERAL PULSES: normal BREASTS: no masses palpable b ilaterally MUSCULOSKELETAL: extremities unremark able, no clubbing, cyanosis or edema LYMPH NODES: no enlarged lymph no maria elena,spleen normal RECTAL EXAM: not examined PSYCH: alert, oriented To p erson and place, cheerfulawake and alert ORAL CAVITY: normal, unremarkable
--- OUTSIDE RECORDS SUMMARY | 2024-12-09 13:15 | XMS_ITS ---
Author Organization Mick Norwood III, MD Address [address] [place] [address] [place] [address] Care Team Providers Care Java Websphere Developer Name Role Phone Dr. Mick Norwood III Primary Care Provider [phone] Allergies Allergen (clinical drug ingredient) Drug/Non Drug Allergy documented on EMR Reaction Allergy Type Onset Date Status Penicillin Unknown Drug Allergy Active Sulfur Unknown Drug Allergy Active REASON FOR VISIT Follow up Medications Medication SIG (Take, Route, Frequency, Duration) [...] Date Provider Diagnosis Mick Norwood III, MD [address] [place] [address] [place] [address] 12/09/2024 Mick Norwood Plan Of Treatment Medication Medication Name Sig Start Date Stop Date Notes Simvastatin 10 MG TAKE 1 TABLET BY LEWIS TH EVERY DAY IN THE EVENING FOR 90 DAYS Levothyroxine Sodium 75 MCG 1 tablet in the morning on an empty stomach Orally Once a day 02/18/2024 Next Appt Details Provider Name:Mick Norwood , 08/10/2025 11:00:00 AM, [address] [facility] [address], [facility] [place], [address], Provider Name:Mick Norwood , 01/19/2026 09:30:00 AM, [address] [place] [address] [address], [place], [address], Progress Notes * Perlita TAVERASisDOB:1940 (85 yo F)Acc No.[id number]:12/09/2024 Progress Notes Patient: Kannan DOHERTY Provider: Radha Norwood MD :1940 A ge:84 Y S ex:Female Date:12/09/2024 Address:[address] [place], [place] [id number] Subjective: * Chief Complaints: * 1 . Follow up. * HPI: C OVID-19 Screening: Questions H ave you had any new onset fever, chills, cough, congestion, sore throat, shortness of breath, muscle aches? N o * ROS: G eneral/Constitutional: pain o nly [...] d enies. * Medical History: H ypertension, B0T6Gx8, Hypothyroid, Penicillin/sulfa allergy, Osteoarthritis, DCIS right breast 10/2003: JIMENEZ/RT, Memory deficits. * Surgical History: L eft TKR 2004, lumpectomy right breast DCIS 2003, C-spine surgery degenerated disc 1977, hysterectomy & BSO 1979, No history . * Hospitalization/Major Diagno stic Procedure: B acterial UTI 04/2021, No history . 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 * Medications: T aking Simvastatin 10 MG Tablet TAKE 1 TABLET BY MOUTH EVERY DAY IN THE EVENING FOR 90 DAYS , Taking Levothyroxine Sodium 75 MCG Tablet 1 tablet in the morning on an empty stomach Orally Once a day , Medication List reviewed and reconciled with [...] * Provider: Radha Norwood MD Date: 0 12/09/2024 Generated for Shelaii ng/Kenneth/eTransmitting on: 07:17 AM EDT History and Physical Notes * [...]
--- OUTSIDE RECORDS SUMMARY | 2025-01-13 07:00 | XMS_ITS ---
Author Organization Mick Norwood III, MD Address [address] [place] [address] [address] [place] [address] Care Team Providers Care Printing Plate Clerk Name Role Phone Dr. Mick Norwood III Primary Care Provider [phone] Allergies Allergen (clinical drug ingredient) Drug/Non Drug Allergy documented on EMR Reaction Allergy Type Onset Date Status Penicillin Unknown Drug Allergy Active Sulfur Unknown Drug Allergy Active Results Component Value Reference Range Notes Free T4 (Free Thyroxine) Reviewed date:01/22/2025 07:59:54 PM Interpretation: Performing Lab:[facility], [address] [place] [id number] Notes/Report: Free T4 (Free Thyroxine) 1.51 0.71-1.85 ng/dL REASON FOR VISIT Annual Exam Medications Medication SIG (Take, Route, Frequency, Duration) Notes Start Date End Date Status Levothyroxine Sodium 75 MCG 1 tablet zo ry the morning on an empty stomach Orally Once a day Active Simvastatin 10 MG TAKE 1 TABLET BY LEWIS TH EVERY DAY IN THE EVENING FOR 90 DAYS Active Social History Tobacco Use: Social History Observation Description Date Details (start date - stop date) Never Smoker NA - NA Sex Assigned At : Social History Observation Description Sex Assigned At Female Tobacco Control (Standard) Question Answer Notes Tobacco use: Nonsmoker Additional Findings: Tobacco non-user Aggressive nonsmoker AUDIT-C (Standard) Question Answer Notes Did you have a drink containing alcohol in the p ast year? No Points 0 Interpretation Negative Problems Problem Type SNOMED Code ICD Code Onset Dates Problem Status W/U Status Risk Notes Problem 85178904 Diabetes mellitus without complication (E11.9) Active confirmed He has been compliant with her medication. Her fasting glucose is 129. No change in her regimen was made. A microalbumin and a hemoglobin A1c have been ordered. Problem [id number] Alzheimer's disease, unspecified (G30.9) Active confirmed She is basically unchanged. She is cared for by her son who lives with her. She was clean and well groomed. Her clothing was clean she seems to be well cared for. 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 Her son says she takes her levothyroxine at the usual dose every day. I am repeating this value. If it is elevated again he will need an increase in her dose. She does not appear to be hypothyroid today. 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 Physical breast examination will be done periodically. She agreed to an examination on her next visit. 01/13/2025 Hyperglycemia (ICD-1 0 - R73.9) Her hemoglobin A1c is 6.5. 01/13/2025 Screening mammogram for breast cancer (ICD-10 - Z12.31) She is being scheduled for a screening mammogram. 01/13/2025 Breast cancer (ICD-1 0 - C50.919) There is no sign of a new primary breast cancer or recurrence of DCIS in the right breast today. He was urged to continue breast self-examination. She is due for mammography which we have arranged today. 01/13/2025 GERD (gastroesophageal reflux disease) (ICD-10 - K21.9) Her reflux symptoms are well controlled with medication. She is sleeping well at night. 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 No new treatment is necessary today. 01/13/2025 Diabetes mellitus without complication (ICD-10 - E11.9) He has had 3 fasting glucose levels in the normal range and now her hemoglobin A1c is 6.5. This his diabetes mellitus type 2. I offered to prescribe metformin but she wants to think about it still.He seems to be well controlled with her current diet. 01/13/2025 Alzheimer's disease, unspecified (ICD-10 - G30.9) She is basically unchanged. She is cared for by her son who lives with her. She was clean and well groomed. Her clothing was clean she seems to be well cared for. Plan Of Treatment Medication Medication Name Sig Start Date Stop Date Notes Levothyroxine Sodium 75 MCG 1 tablet zo ry the morning on an empty stomach Orally Once a day Simvastatin 10 MG TAKE 1 TABLET BY LEWIS TH EVERY DAY IN THE EVENING FOR 90 DAYS Pending Test Test Name Order Date PROFILE, RANDOM (COMPREHENSIVE METABOLIC ) 01/13/2025 TSH (THYROID STIMULATING HORMONE) 2024 CBC w DIFF 01/13/2025 MM tomosynthesis screening BI 01/13/2025 Next Appt Details Follow Up: 2 Weeks,3 Months, Reason: Telehealth, OV Provider Name:Mick Norwood , 08/10/2025 11:00:00 AM, [address] [place] [address] [address], [place], [address], Provider Name:Mick Norwood , 01/19/2026 09:30:00 AM, [address] [place] [address] [place], [address], Progress Notes * Bárbara TAVERASOB:1940 (84 yo F)Acc No.[id number]:01/13/2025 Progress Notes Patient: Kannan DOHERTY Provider: Radha Norwood MD :1940 A ge:84 Y S ex:Female Date:01/13/2025 Address:[address] [place], [place] [id number] Subjective: * Chief Complaints: * A nnual Exam * HPI: D epression Screening: She returns to the office for her annual physical examination at the age of 84. She feels well. One week ago she had a fall fai-yr-ieqvy when she tripped on something but she had no serious injuries. She was accompanied by her son who says she complains of back pain. She denied that today but she has significant memory issues. Her son says he gives her her medications every day and she is compliant. Her blood work was reviewed today. Her TSH was elevated and it will be repeated. There was no other significant abnormality. Her examination showed no new significant findings. Her dementia is stable and she was clean and comfortable and well cared for. PHQ-9 L ittle interest or pleasure in doing things?Not at all F eeling down, depressed, or hopeless N ot at all T rouble falling or staying asleep, or sleeping too much N ot at all F eeling tired or having little energy N ot at all P oor appetite or overeating N ot at all F eeling bad about yourself or that you are a failure, or have let yourself or your family down N ot at all T rouble concentrating on things, such as reading the newspaper or watching television N ot at all M oving or speaking so slowly that other people could have noticed; or the opposite, being so fidgety or restless that you have been moving around a lot more than usual N ot at all T houghts that you would be better off or of hurting yourself in some way N ot at all T otal Score 0 C OVID-19 Screening: Questions H ave you had any new onset fever, chills, cough, congestion, sore throat, shortness of breath, muscle aches? N o F all Risk Screening: Fall History H ave you had any falls with injury in the past year? Y es H ave you had two or more falls in the past year? N o F all Risk Assessment: O ne fall with injury in the past year S LUCAS Questions: SDOH Questions I n the past year have you been worried about losing your housing? N o I n the past year have you or any family members you live with been unable to get any of the following when it was really needed? Check all that apply: N one * ROS: G eneral/Constitutional: pain o nly [...] have been noted. G enitourinary: Frequent urination a t night. M usculoskeletal: Muscle aches d enies. P ainful joints d enies. S ciatica d enies. W eakness d enies. S kin: Itching d enies. R raheel d enies. S kin lesion(s)?denies. N eurologic: Difficulty speaking d enies. D izziness d enies.?Headache d enies. L ow back pain d enies. P sychiatric: Depressed mood w hich is mild. * Medical History: * Surgical History: L [...] Social History: T obacco Use: T obacco Control (Standard) T obacco use: N onsmoker A dditional Findings: Tobacco non-user A ggressive nonsmoker D rugs/Alcohol: D rugs H ave you used drugs other than those for medical reasons in the past 12 months? N o D rug/Alcohol: A SANIA-C (Standard) D id you have a drink containing alcohol in the past year? N o P oints 0 I nterpretation N egative S he is and a nonsmoker. She and her used to run a restaurant. She was born in [place], [place]. * Medications: T akingSimvastatin 10 MG Tablet TAKE 1 TABLET BY MOUTH EVERY DAY IN THE EVENING FOR 90 DAYS Levothyroxine Sodium 75 MCG Tablet 1 tablet every the morning on an empty stomach Orally Once a day Medication List reviewed and reconciled with the patientTaking Simvastatin 10 MG Tablet TAKE 1 TABLET BY MOUTH EVERY DAY IN THE EVENING FOR 90 DAYS Taking Levothyroxine Sodium 75 MCG Tablet 1 tablet every the morning on an empty stomach Orally Once a day Medication List reviewed and reconciled with the patient * Allergies: S ulfurPenicillinno[Allergies Verified] Objective: * Vitals: H t: 62, Wt:131, BMI:23.96, BP:138/80, HR:94, Temp:97.6, Wt-k.42. * P ast Orders: Lab:Thyroid Stimulating Horm one * Collection Date 11/06/2024 07/24/2024 02/14/2024 Collection Time 07:05 AM 07:31 AM 06:30 AM Order Date 11/06/2024 07/24/2024 02/14/2024 Thyroid Stimulating Hormone 5.79 H (Ref Range: 0.32-4.0 uIU/mL) 3.60 (Ref Range: 0.32-4.0 uIU/mL) 8.19 H (Ref Range: 0.32-4.0 uIU/mL) * Lab:Free T4 (Free Thyroxine) * Collection Date 11/06/2024 07/24/2024 02/14/2024 Collection Time 07:05 AM 07:31 AM 06:30 AM Order Date 11/06/2024 07/24/2024 02/13/2024 Free T4 (Free Thyroxine) 1.28 (Ref Range: 0.71-1.85 ng/dL) 1.19 (Ref Range: 0.71-1.85 ng/dL) 1.13 (Ref Range: 0.71-1.85 ng/dL) * Lab:Lipid Panel * Collection Date 11/06/2024 [...] mg/dL) 55 (Ref Range: >40 mg/dL) * Lab:Comprehensive [place]. Pane l Fast * Collection Date 11/06/2024 07/24/2024 [...] 10.3 H (Ref Range: 8.4-10.2 mg/dL) * Lab:Complete Blood Count Aut o Diff [...] 0.0-0.012 X10*3/uL) 0.000 (Ref Range: 0.0-0.012 X10*3/uL) ???Lab:Hemoglobin A1c (Order Date - 11/06/2024) (Collection Date & Time - 11/06/2024 07:05 AM)?ValueReference Range?Hemoglobin A1c %6.5H<6.0 - %?Estimated Average Ermehmf266- mg/dL * Examination: G eneral Examination: GENERAL APPEARANCE: p mauro, well nourished, well developed, in no acute [...] LUNGS: c lear to auscultation . BREASTS: n o masses palpable bilaterally, no dimpling, no discharge, no drainage, nontender, symmetrical, Large brownish-black benign-appearing nevus anterior left breast, Old lumpectomy scar right breast. ABDOMEN: b owel sounds normal, no ascites, no organomegaly, no mass. RECTAL EXAM: n ot examined. MUSCULOSKELETAL: e xtremities unremarkable, no clubbing, cyanosis or edema. PERIPHERAL PULSES: n ormal. NEUROLOGIC: a lert and oriented, cranial nerves 2-12 grossly intact, deep tendon reflexes 2+ symmetrical, motor strength normal upper and lower extremities, sensory exam intact, Speech clear, ambulatory, moderate deficits in memory both recent and remote.? PSYCH: a lert, oriented, Moderate dementia. ? Assessment: * Assessment: 1. 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 Physical breast examination will be done periodically. She agreed to an examination on her next visit. 2 . A cquired hypothyroidism - E03.9 N otes :Her TSH is elevated at 5.79. Her son says she takes her levothyroxine at the usual dose every day. I am repeating this value. If it is elevated again he will need an increase in her dose. She does not appear to be hypothyroid today. 3 . H yperglycemia - R73.9 N otes :Her hemoglobin A1c is 6.5. 4 . S creening mammogram for breast cancer - Z12.31 N otes :She is being scheduled for a screening mammogram. 5 . B reast cancer - C50.919 N otes :There is no sign of a new primary breast cancer or recurrence of DCIS in the right breast today.? He was urged to continue breast self-examination. She is due for mammography which we have arranged today. 6 . G ERD (gastroesophageal reflux disease) - K21.9 N otes :Her reflux symptoms are well controlled with medication. She is sleeping well at night. 7 . O steoarthritis cervical spine - M47.812 N otes :She has very little discomfort in her neck at the current time. No new treatment is necessary today. 8 . D iabetes mellitus without complication - E11.9 N otes :He has had 3 fasting glucose levels in the normal range and now her hemoglobin A1c is 6.5. This his diabetes mellitus type 2. I offered to prescribe metformin but she wants to think about it still.He seems to be well controlled with her current diet. 9 . A lzheimer's disease, unspecified - G30.9 N otes :She is basically unchanged. She is cared for by her son who lives with her. She was clean and well groomed. Her clothing was clean she seems to be well cared for. Plan: * Treatment: Value Reference Range F ree T4 (Free Thyroxine) 1.51 0.71-1.85 - ng/d L 2.?Hyperglycemia?LAB: PROFILE, RANDOM (COMPREHENSIVE METABOLIC) ?LAB: TSH (THYROID STIMULATING HORMONE) ?LAB: CBC w DIFF ?LAB: Free T4 (Free Thyroxine) (Collection Date & Time - 01/13/2025 11:40 AM)* Value Reference Range F ree T4 (Free Thyroxine) 1.51 0.71-1.85 - ng/d L 3.?Screening mammogram for breast cancer?Imaging: MM tomosynthesis screening BI4.?Breast cancer?Imaging: MM tomosynthesis screening BI5.?Others? Continue Levothyroxine Sodium Tablet, 75 MCG, 1 tablet every the morning on an empty stomach, Orally, Once a day;?Continue Simvastatin Tablet, 10 MG, TAKE 1 TABLET BY MOUTH EVERY DAY IN THE EVENING FOR 90 DAYS.?? * Procedure Codes: * Preventive Medicine: DM Care Plan: P atient Lifestyle Goals P atient wants to be able to manage diabetes without too much effort. T reatment Goals H bA1C < 7.0, Blood Sugars less than < 115. B arriers n o barriers. S elf-Managment Goals W ork on weight loss, with a goal of losing 1 lb per week. * Follow Up: 2 Weeks,3 Months (Reason: Telehealth, OV) * Images: * Sign off status: Completed true * Provider: Radha Norwood MD Date: 0 01/13/2025 Generated for Lizeth paige/Kenneth/Deeransmitting on: 1 07:17 AM EDT History and Physical Notes * HPI (History of Present Illness) Category Sub-Category Detail Notes Depression Screening PHQ-9 Little inte rest or pleasure in doing things: Not at all Feeling down, depressed, or hopeless: No t at all Trouble falling or staying asleep, or sl eeping too much: Not at all Feeling tired or having little energy: N ot at all Poor appetite or overeating: Not at all Feeling bad about yourself o r that you are a failure, or have let yourself or your family down: Not at all Trouble concentrating on thi ngs, such as reading the newspaper or watching television: Not at all Moving or speaking so slowly that other people could have noticed; or the opposite, being so fidgety or restless that you have been moving around a lot more than usual: Not at all Thoughts that you would be b mara off or of hurting yourself in some way: Not at all Total Score: 0 Fall Risk Screening Fall History Have you had any falls with injury in the past year?: Yes Have you had two or more falls in the st year?: No Fall Risk Assessment:: One fall with inj ury in the past year COVID-19 Screening Questions Have you had any new onset fever, chills, cough, congestion, sore throat, shortness of breath, muscle aches?: No SDOH Questions SDOH Questions In the past year have you been worried about losing your housing?: No In the past year have you or any family members you live with been unable to get any of the following when it was really needed? Check all that apply:: None Examination Category Sub-Category Detail Notes General Examination [...] upper and lower extremities, sensory exam intact, Speech clear, ambulatory, moderate deficits in memory both recent and remote SKIN: no suspicious lesion s, anicteric PERIPHERAL PULSES: normal BREASTS: no masses palpable b ilaterally, no dimpling, no discharge, no drainage, nontender, symmetrical, Large brownish-black benign-appearing nevus anterior left breast, Old lumpectomy scar right breast MUSCULOSKELETAL: extremities unremark able, no clubbing, cyanosis or edema LYMPH NODES: no enlarged lymph no maria elena,spleen normal RECTAL EXAM: not examined PSYCH: alert, oriented, Mod erate dementia ORAL CAVITY: normal, unremarkable
--- OUTSIDE RECORDS SUMMARY | 2025-01-27 07:00 | XMS_ITS ---
Author Organization Mick Norwood III, MD Address [address] [place] [address] [place] [address] Care Team Providers Care Surveillance Camera Technician Name Role Phone Dr. Mick Norwood III Primary Care Provider [phone] Allergies Allergen (clinical drug ingredient) Drug/Non Drug Allergy documented on EMR Reaction Allergy Type Onset Date Status Penicillin Unknown Drug Allergy Active Sulfur Unknown Drug Allergy Active REASON FOR VISIT Hypothyroidism, Alzheimer's dementia, Hyperlipidemia, ductal carcinoma in situ, Diabetes Medications Medication SIG (Take, Route, Frequency, Duration) [...] Nonsmoker Additional Findings: Tobacco non-user Aggressive nonsmoker Vital Signs Height 62 in 01/27/2025 Weight 131 lbs 01/27/2025 BMI 23.96 kg/m2 01/27/2025 Encounters Encounter Location Date Provider Diagnosis Mick Norwood III, MD [address] [place] [address] [place] [address] 01/27/2025 Mick Norwood Acquired hypothyroid ism E03.9 ; Alzheimer's disease, unspecified G30.9 ; GERD (gastroesophageal reflux disease) K21.9 ; DCIS (ductal carcinoma in situ) D05.10 ; Hyperlipidemia E78.5 and Osteoarthritis cervical spine M47.812 Assessments Encounter Date Diagnosis (ICD Code) Assessment Notes Treat ment Notes Treatment Clinical Notes 01/27/2025 Acquired hypothyroidism (ICD-10 - E03.9) Her free T4 and TSH are now normal. It is likely that the previous elevated TSH was due to memory loss and forgetting to take the medication Her son is now taking charge of giving her the medication. 01/27/2025 Alzheimer's disease, unspecified (ICD-10 - G30.9) She is basically unchanged. She is cared for by her son who lives with her. She was clean and well groomed. Her clothing was clean she seems to be well cared for. 01/27/2025 GERD (gastroesophageal reflux disease) (ICD-10 - K21.9) Her esophageal reflux symptoms are well controlled with medication and no change in her regimen was needed. 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 Physical breast examination will be done periodically. She agreed to an examination on her next visit. 01/27/2025 Hyperlipidemia (ICD-10 - E78.5) Her lipids have been stable and well controlled and no change in her regimen was necessary today. She appears to be compliant with her medication. They are administered to her by her son Bull. 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) She [...] Order Date PROFILE, FASTING (COMPREHENSIVE METABOLI C) 01/27/2025 TSH (THYROID STIMULATING HORMONE) 2024 CBC w DIFF 01/27/2025 Lipid Panel 01/27/2025 Free T4 (Free Thyroxine) 01/27/2025 Next Appt Details Follow Up: as scheduled, Bindu son: OV review labs Provider Name:Mick Norwood , 08/10/2025 11:00:00 AM, [address], [place], [address], Provider Name:Mick Mercadone , 01/19/2026 09:30:00 AM, [address] [place] [address] [address], [place], [address], Progress Notes * Bárbara TAVERASOB:1940 (84 yo F)Acc No.[id number]:01/27/2025 Patient: Kannan DOHERTY Provider: Radha Norwood MD :1940 A ge:84 Y S ex:Female Date:01/27/2025 [facility] Subjective: * Chief Complaints: * H ypothyroidismAlzheimer's dementiaHyperlipidemiaDuctal carcinoma in situDiabetes * HPI: * : On January 13, 2025 she had her annual visit. Review of her blood work showed an elevated TSH.? She could not remember if she had missed several doses of thyroid medication. Her son will give her the medication and the TSH was repeated and was normal. She denies any difficulty breathing chest pain or bleeding. She has had no lumps in her breast. She is sleeping well at night. Her speech was clear and she was oriented to person and place. No change in her regimen was necessary today. Follow-up was arranged. Her memory loss is unchanged.On her last visit she had complained of chronic diarrhea. Urine culture and testing for Clostridium difficile are negative. The diarrhea is beginning to improve. She has not had more than one loose movement a day. This will be observed. I recommended Imodium. Telehealth L ocation of provider rendering services: { ...} [address] [facility] [address] L ocation of patient: a ddress listed in demographics for today's visit P atient identification confirmed using: TRISTON Brock ame T elehealth method: T elephone only. Patient not visible to care provider. C onsent: P atient verbally consented to treatment, Patient verbally consented to billing insurance company, Patient informed of any privacy concerns related to method of visit T jovi time spent with patient (mins) 1 5 * ROS: G eneral/Constitutional: pain o nly [...] dditional Findings: Tobacco non-user A ggressive nonsmoker S he is and a nonsmoker. She and her used to run a restaurant. She was born in [place], [place]. * Medications: T akingLevothyroxine Sodium 75 MCG Tablet 1 tablet every the morning on an empty stomach Orally Once a day Simvastatin 10 MG Tablet TAKE 1 TABLET BY MOUTH EVERY DAY IN THE EVENING FOR 90 DAYS Medication List reviewed and reconciled with the patientTaking Levothyroxine Sodium 75 MCG Tablet 1 tablet every the morning on an empty stomach Orally Once a day Taking Simvastatin 10 MG Tablet TAKE 1 TABLET BY MOUTH EVERY DAY IN THE EVENING FOR 90 DAYS Medication List reviewed and reconciled with the patient * Allergies: S ulfurPenicillinno[Allergies Verified] Objective: * Vitals: H t: 62, Wt:131, BMI:23.96, Ht-cm: 157.48, Wt-k.42. * P ast Orders: L ab:CDiff Gene PCR (Order Date - 01/22/2025) (Collection Date & Time - 01/22/2025 09:00 AM) Value Reference Range CDiff Gene PCR NEGATIVE Negative - L ab:GI Panel (Order Date - 01/22/2025) (Collection Date & Time - 01/22/2025 09:00 AM) Value Reference Range Campylobacter Not Detected Not Detect. - Plesiomonas shigelloides Not Detected Not Detect. - Salmonella Not Detected Not Detect. - Vibrio Not Detected Not Detect. - Vibrio Cholerae Not Detected Not Detect. - Yersinia enterocolitica Not Detected Not Detect. - E. coli EAEC Not Detected Not Detect. - E. coli EPEC Not Detected Not Detect. - E. coli ETEC Not Detected Not Detect. - E. coli STEC Not Detected Not Detect. - E. coli O157 Not applicable Not Detect. - Shigella sp./EIEC Not Detected Not Detect. - Cryptosporidium Not Detected Not Detect. - Cyclospora cayetanensis Not Detected Not Detect. - Entamoeba histolytica Not Detected Not Detect. - Giardia lamblia Not Detected Not Detect. - Adenovirus F 40/41 Not Detected Not Detect. - Astrovirus Not Detected Not Detect. - Norovirus GI/GII Not Detected Not Detect. - Rotavirus A Not Detected Not Detect. - Sapovirus Not Detected Not Detect. - Lab:Comprehensive Met. Panel * Collection Date 01/13/2025 01/19/2023 04/05/2022 Collection Time 11:40 AM 06:54 AM 07:11 AM Order Date 01/13/2025 01/19/2023 04/05/2022 Sodium 141 (Ref Range: 135-145 mmol/L) 143 (Ref Range: 135-145 mmol/L) 138 (Ref Range: 135-145 mmol/L) Bilirubin Total 1.2 H (Ref Range: 0.0-1.0 mg/dL) 1.2 H (Ref Range: 0.0-1.0 mg/dL) 1.1 H (Ref Range: 0.0-1.0 mg/dL) Aspartate Amino Transferase 28 (Ref Range: 5-31 U/L) 21 (Ref Range: 5-31 U/L) 17 (Ref Range: 5-31 U/L) Alanine Aminotransferase 23 (Ref Range: 0-31 U/L) 17 (Ref Range: 0-31 U/L) 12 (Ref Range: 0-31 U/L) Total Protein 6.9 (Ref Range: 6.5-8.0 g/dL) 6.9 (Ref Range: 6.5-8.0 g/dL) 6.6 (Ref Range: 6.5-8.0 g/dL) Albumin Level 4.1 (Ref Range: 3.5-5.0 g/dL) 4.3 (Ref Range: 3.5-5.0 g/dL) 4.0 (Ref Range: 3.5-5.0 g/dL) Alkaline Phosphatase 80 (Ref Range: 39-117 U/L) 83 (Ref Range: 39-117 U/L) 82 (Ref Range: 39-117 U/L) Potassium 4.6 (Ref Range: 3.3-5.1 mmol/L) 4.4 (Ref Range: 3.3-5.1 mmol/L) 4.2 (Ref Range: 3.3-5.1 mmol/L) Chloride 108 (Ref Range: 96-108 mmol/L) 107 (Ref Range: 96-108 mmol/L) 106 (Ref Range: 96-108 mmol/L) Carbon Dioxide 28 (Ref Range: 22-29 mmol/L) 27 (Ref Range: 22-29 mmol/L) 25 (Ref Range: 22-29 mmol/L) Anion Gap 10 L (Ref Range: 12-20) 13 (Ref Range: 12-20) 11 L (Ref Range: 12-20) Blood Urea Nitrogen 16 (Ref Range: 9-16 mg/dL) 19 H (Ref Range: 9-16 mg/dL) 15 (Ref Range: 9-16 mg/dL) Creatinine 0.84 (Ref Range: 0.5-1.4 mg/dL) 0.81 (Ref Range: 0.5-1.4 mg/dL) 0.94 (Ref Range: 0.5-1.4 mg/dL) Estimated Glomerular Filt Rate > 60 > 60 57 Glucose Random 126 H (Ref Range: 60-115 mg/dL) 128 H (Ref Range: 60-115 mg/dL) 131 H (Ref Range: 60-115 mg/dL) Calcium 10.1 (Ref Range: 8.4-10.2 mg/dL) 9.6 (Ref Range: 8.4-10.2 mg/dL) 9.3 (Ref Range: 8.4-10.2 mg/dL) * Lab:Thyroid Stimulating Horm one * Collection Date 01/13/2025 11/06/2024 07/24/2024 Collection Time 11:40 AM 07:05 AM 07:31 AM Order Date 01/13/2025 11/06/2024 07/24/2024 Thyroid Stimulating Hormone 0.65 (Ref Range: 0.32-4.0 uIU/mL) 5.79 H (Ref Range: 0.32-4.0 uIU/mL) 3.60 (Ref Range: 0.32-4.0 uIU/mL) * Lab:Free T4 (Free Thyroxine) * Collection Date 01/13/2025 11/06/2024 07/24/2024 Collection Time 11:40 AM 07:05 AM 07:31 AM Order Date 01/13/2025 11/06/2024 07/24/2024 Free T4 (Free Thyroxine) 1.51 (Ref Range: 0.71-1.85 ng/dL) 1.28 (Ref Range: 0.71-1.85 ng/dL) 1.19 (Ref Range: 0.71-1.85 ng/dL) Clinical Info: PLEASE FAX COMPLETED RESULTS TO [phone] * Lab:Complete Blood Count Aut o Diff * Collection Date 01/13/2025 11/06/2024 07/24/2024 Collection Time 11:40 AM 07:05 AM 07:31 AM Order Date 01/13/2025 11/06/2024 07/24/2024 White Blood Count 6.2 (Ref Range: 4.8-10.8 X10*3/uL) 7.6 (Ref Range: 4.8-10.8 X10*3/uL) 6.6 (Ref Range: 4.8-10.8 X10*3/uL) Red Blood Count 5.42 (Ref Range: 4.20-5.50 X10*6/uL) 5.19 (Ref Range: 4.20-5.50 X10*6/uL) 5.53 H (Ref Range: 4.20-5.50 X10*6/uL) Hemoglobin 17.1 H (Ref Range: 12.0-16.0 g/dl) 16.5 H (Ref Range: 12.0-16.0 g/dl) 17.8 H (Ref Range: 12.0-16.0 g/dl) Hematocrit 51.7 H (Ref Range: 37.0-47.0 %) 49.4 H (Ref Range: 37.0-47.0 %) 53.0 H (Ref Range: 37.0-47.0 %) Mean Corpuscular Volume 95.4 (Ref Range: 80.0-98.0 fL) 95.2 (Ref Range: 80.0-98.0 fL) 95.8 (Ref Range: 80.0-98.0 fL) Mean Corpuscular Hemoglobin 31.5 (Ref Range: 27.0-33.0 pg) 31.8 (Ref Range: 27.0-33.0 pg) 32.2 (Ref Range: 27.0-33.0 pg) Mean Corpuscular HGB Conc 33.1 (Ref Range: 31.0-35.0 g/dl) 33.4 (Ref Range: 31.0-35.0 g/dl) 33.6 (Ref Range: 31.0-35.0 g/dl) Red Cell Distribution Width 14.2 (Ref Range: 11.0-16.0 %) 14.2 (Ref Range: 11.0-16.0 %) 13.9 (Ref Range: 11.0-16.0 %) Platelet Count 209 (Ref Range: 160-400 X10*3/uL) 261 (Ref Range: 160-400 X10*3/uL) 209 (Ref Range: 160-400 X10*3/uL) Mean Platelet Volume 9.3 L (Ref Range: 9.4-12.3 fL) 9.3 L (Ref Range: 9.4-12.3 fL) 10.1 (Ref Range: 9.4-12.3 fL) Neutrophils Percent Auto 72.4 (Ref Range: 45-73 %) 69.2 (Ref Range: 45-73 %) 74.4 H (Ref Range: 45-73 %) Imm Gran Pct Auto 0.3 (Ref Range: 0.0-0.4 %) 0.5 H (Ref Range: 0.0-0.4 %) 0.3 (Ref Range: 0.0-0.4 %) Lymphocytes Percent Auto 14.6 L (Ref Range: 20-40 %) 17.6 L (Ref Range: 20-40 %) 14.3 L (Ref Range: 20-40 %) Monocytes Percent Auto 9.8 (Ref Range: 2-11 %) 8.6 (Ref Range: 2-11 %) 7.9 (Ref Range: 2-11 %) Eosinophils Percent Auto 2.4 (Ref Range: 0-4 %) 3.4 (Ref Range: 0-4 %) 2.3 (Ref Range: 0-4 %) Basophils Percent Auto 0.5 (Ref Range: 0-2 %) 0.7 (Ref Range: 0-2 %) 0.8 (Ref Range: 0-2 %) NRBC Pct Auto 0.0 (Ref Range: 0.0-0.2 /100WBC) 0.0 (Ref Range: 0.0-0.2 /100WBC) 0.0 (Ref Range: 0.0-0.2 /100WBC) Neutrophils Absolute Auto 4.5 (Ref Range: 2.0-8.3 x10*3/uL) 5.2 (Ref Range: 2.0-8.3 x10*3/uL) 4.9 (Ref Range: 2.0-8.3 x10*3/uL) Imm Gran Abs Auto 0.02 (Ref Range: 0.00-0.03 X10*3/uL) 0.04 H (Ref Range: 0.00-0.03 X10*3/uL) 0.02 (Ref Range: 0.00-0.03 X10*3/uL) Lymphocytes Absolute Auto 0.9 L (Ref Range: 1.2-4.9 X10*3/uL) 1.3 (Ref Range: 1.2-4.9 X10*3/uL) 0.9 L (Ref Range: 1.2-4.9 X10*3/uL) Monocytes Absolute Auto 0.6 (Ref Range: 0.1-1.2 X10*3/uL) 0.7 (Ref Range: 0.1-1.2 X10*3/uL) 0.5 (Ref Range: 0.1-1.2 X10*3/uL) Eosinophils Absolute Auto 0.2 (Ref Range: 0.0-0.4 X10*3/uL) 0.3 (Ref Range: 0.0-0.4 X10*3/uL) 0.2 (Ref Range: 0.0-0.4 X10*3/uL) Basophils Absolute Auto 0.0 (Ref Range: 0.0-0.2 X10*3/uL) 0.1 (Ref Range: 0.0-0.2 X10*3/uL) 0.1 (Ref Range: 0.0-0.2 X10*3/uL) NRBC Abs Auto 0.000 (Ref Range: 0.0-0.012 X10*3/uL) 0.000 (Ref Range: 0.0-0.012 X10*3/uL) 0.000 (Ref Range: 0.0-0.012 X10*3/uL) ???Lab:Hemoglobin A1c (Order Date - 11/06/2024) (Collection Date & Time - 11/06/2024 07:05 AM)?ValueReference Range?Hemoglobin A1c %6.5H<6.0 - %?Estimated Average [id number]- mg/dL * Lab:Loulou Davey. Flora l Fast * Collection Date 11/06/2024 07/24/2024 [...] >40 mg/dL) 55 (Ref Range: >40 mg/dL) Assessment: * Assessment: 1. A lzheimer's disease, unspecified - G30.9 (Primary) N otes :She is basically unchanged. She is cared for by her son who lives with her. She was clean and well groomed. Her clothing was clean she seems to be well cared for. 2 . A cquired hypothyroidism - E03.9 N otes :Her free T4 and TSH are now normal. It is likely that the previous elevated TSH was due to memory loss and forgetting to take the medication Her son is now taking charge of giving her the medication. 3 . G ERD (gastroesophageal reflux disease) - K21.9 N otes :Her esophageal reflux symptoms are well controlled with medication and no change in her regimen was needed. 4 . 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 Physical breast examination will be done periodically. She agreed to an examination on her next visit. 5 . H yperlipidemia - E78.5 N otes :Her lipids have been stable and well controlled and no change in her regimen was necessary today. She appears to be compliant with her medication. They are administered to her by her son Bull. 6 . O steoarthritis cervical spine - M47.812 N otes :She has very little discomfort in her neck at the current time. No new treatment is necessary today. Plan: * Treatment: 2. G ERD (gastroesophageal reflux disease) L AB: PROFILE, FASTING (COMPREHENSIVE METABOLIC) L AB: TSH (THYROID STIMULATING HORMONE) L AB: CBC w DIFF L AB: Lipid Panel L AB: Free T4 (Free Thyroxine) 3. H yperlipidemia L AB: PROFILE, FASTING (COMPREHENSIVE METABOLIC) L AB: TSH (THYROID STIMULATING HORMONE) L AB: CBC w DIFF L AB: Lipid Panel L AB: Free T4 (Free Thyroxine) 4. O thers Continue Levothyroxine Sodium Tablet, 75 MCG, 1 tablet every the morning on an empty stomach, Orally, Once a day; C ontinue Simvastatin Tablet, 10 MG, TAKE 1 TABLET BY MOUTH EVERY DAY IN THE EVENING FOR 90 DAYS. * Procedure Codes: 9 8012 SYNCH AUDIO-ONLY EST SF 10 * Preventive Medicine: DM Care Plan: P atient Lifestyle Goals P atient wants to be able to manage diabetes without too much effort. T reatment Goals B lood Sugars less than < 115, HbA1C < 7.0. B arriers n o barriers. S elf-Managment Goals I ncrease exercise to 3 times a week for 30 mins, Stop drinking juice and/or soda, replace with more water. * Follow Up: a s scheduled (Reason: OV review labs) * Images: * Sign off status: Completed true * Provider: Radha Norwood MD Date: 0 01/27/2025 Generated for Lizeth paige/Kenneth/Ama on: 1 07:17 AM EDT History and Physical Notes * HPI (History of Present Illness) Category Sub-Category Detail Notes Telehealth Location of [facility] rendering services:: {...} [address] [place] [phone] Location of patient:: address listed in demographics for today's visit Patient identification confirmed using:: Name, Telehealth method:: Telephone only. Shayy ent not visible to care provider. Consent:: Patient verbally c onsented to treatment, Patient verbally consented to billing insurance company, Patient informed of any privacy concerns related to method of visit Total time spent with patient (mins): 15
--- OUTSIDE RECORDS SUMMARY | 2025-02-13 11:11 | XMS_ITS ---
Author Organization Mick Norwood III, MD Address [address] [place] [address] [place] [address] Care Team Providers Care Clinical Pharmacologist Name Role Phone Dr. Mick Norwood III Primary Care Provider [phone] REASON FOR VISIT Incontinence Supply Rx Social History Sex Assigned At : Social History Observation Description Sex Assigned At Female Encounters Encounter Location Date Provider Diagnosis Mick Norwood III, MD [address] [place] [address] [place] [address] 02/13/2025 Mick Norwood Plan Of Treatment Next Appt Details Provider Name:Mick Norwood , 08/10/2025 11:00:00 AM, [address] [place] [address] [place], [address], Provider Name:Mick Norwood , 01/19/2026 09:30:00 AM, [address] [place] [address] [place], [address], Progress Notes * CHERRIE PerlitaisDOB:1940 (84 yo F)Acc No.[id number]:02/13/2025 Patient: Kannan DOHERTY :1940 A ge:84 Y S ex:Female Address:[place] [address] * true * Date: Generated for Printi ng/Faxing/eTransmitting on: 1 07:18 AM EDT
--- OUTSIDE RECORDS SUMMARY | 2025-04-28 13:15 | XMS_ITS ---
Author Organization Mick Norwood III, MD Address [address] [place] [address] [place] [address] Care Team Providers Care Planimeter Operator Name Role Phone Dr. Mick Norwood III [...] Date Provider Diagnosis Mick Norwood III, MD [address] [place] [address] [place] [address] 04/28/2025 Mick Norwood Plan Of Treatment Medication Medication Name Sig Start Date Stop Date Notes Levothyroxine Sodium 75 MCG 1 tablet zo ry the morning on an empty stomach Orally Once a day Simvastatin 10 MG TAKE 1 TABLET BY LEWIS TH EVERY DAY IN THE EVENING FOR 90 DAYS Next Appt Details Provider Name:Mick Norwood , 08/10/2025 11:00:00 AM, [address] [place] [address] [address], [place], [address], Provider Name:Mick Curtis Enma , 01/19/2026 09:30:00 AM, [address] [facility] [address], [place], [address], Progress Notes * Perlita TAVERASisDOB:1940 (85 yo F)Acc No.[id number]:04/28/2025 Progress Notes Patient: Kannan DOHERTY Provider: Radha Norwood MD :1940 A ge:84 Y S ex:Female Date:04/28/2025 [facility] Subjective: * Chief Complaints: * 1 . [...] d enies. 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 * Medications: T aking Levothyroxine Sodium [...] * Provider: Radha Norwood MD Date: 0 04/28/2025 Generated for Printi ng/Mynorg/eTransmitting on: 1 07:18 AM EDT History and Physical Notes [...]
--- OUTSIDE RECORDS SUMMARY | 2025-05-06 07:15 | XMS_ITS ---
Author Organization Mick Norwood III, MD Address [address] [place] [address] Care Team Providers Care Group President Name Role Phone Dr. Mick Norwood III Primary Care Provider Allergies Allergen (clinical drug ingredient) Drug/Non Drug Allergy documented on EMR Reaction Allergy Type Onset Date Status Penicillin Unknown Drug Allergy Active Sulfur Unknown Drug Allergy Active REASON FOR VISIT Dementia, Urine Incontinence, Hyperlipidemia, Hypothyroid, GERD, DC high S, Diabetes Medications Medication SIG (Take, Route, Frequency, [...] Nonsmoker Additional Findings: Tobacco non-user Aggressive nonsmoker Problems Problem Type SNOMED Code ICD Code Onset Dates Problem Status W/U Status Risk Notes Problem 95822138 Mixed incontinence (N39.46) Active confirmed She has been incontinent every day and her son has been caring for her. She is unaware of it or has no memory of it. Vital Signs Temperature 98.2 degrees Fahrenheit 05/06/20 25 Blood pressure systolic 133 mm Hg 05/06/20 25 Blood pressure diastolic 74 mm Hg 07/23/2 025 Heart Rate 77 /min 05/06/2025 Height 62 in 05/06/2025 Weight 128 lbs 05/06/2025 BMI 23.41 kg/m2 05/06/2025 Encounters Encounter Location Date Provider Diagnosis Mick Norwood III, MD [address] [place] [address] [address] [place], [place] [address] 05/06/2025 Mick Norwood Hyperlipidemia E78.5 ; Alzheimer's disease, unspecified G30.9 ; Diabetes mellitus without complication E11.9 ; Acquired hypothyroidism E03.9 ; GERD (gastroesophageal reflux disease) K21.9 ; 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 05/06/2025 Alzheimer's disease, unspecified (ICD-10 - G30.9) She is basically unchanged. She is cared for by her son who lives with her. She was clean and well groomed. Her clothing was clean she seems to be well cared for. 05/06/2025 Diabetes mellitus without complication (ICD-10 - E11.9) He has been compliant with her medication. Her fasting glucose is 129. No change in her regimen was made. A microalbumin and a hemoglobin A1c have been ordered. 05/06/2025 Acquired hypothyroidism (ICD-10 - E03.9) She remains euthyroid and compliant with her medication. 05/06/2025 GERD (gastroesophageal reflux disease) (ICD-10 - K21.9) Her esophageal reflux symptoms are well controlled with medication and no change in her regimen was needed. 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 Physical breast examination will be done periodically. She agreed to an examination on her next visit. 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 No new treatment is necessary today. 05/06/2025 Mixed incontinence (ICD-10 - N39.46) She has been incontinent every day and her son has been caring for her. She is unaware of it or has no memory of it. Plan Of Treatment Medication Medication Name Sig Start Date Stop Date Notes Levothyroxine Sodium 75 MCG 1 tablet zo ry the morning on an empty stomach Orally Once a day Simvastatin 10 MG TAKE 1 TABLET BY LEWIS TH EVERY DAY IN THE EVENING FOR 90 DAYS Pending Test Test Name Order Date PROFILE, FASTING (COMPREHENSIVE METABOLI C) 05/06/2025 TSH (THYROID STIMULATING HORMONE) 2024 CBC w DIFF 05/06/2025 Lipid Panel 05/06/2025 Free T4 (Free Thyroxine) 05/06/2025 Next Appt Details Follow Up: 3 Months, Reason: OV Provider Name:Mick Norwood , 08/10/2025 11:00:00 AM, [address] [place] [address] [place], [place], [address], Provider Name:Mick Norwood , 01/19/2026 09:30:00 AM, [address] [place] [address] MA[address] [place], [place], [address], Progress Notes * Bárbara TAVERASOB:1940 (84 yo F)Acc No.[id number]:05/06/2025 Progress Notes Patient: Kannan DOHERTY Provider: Radha Norwood MD :1940 A ge:84 Y S ex:Female Date:05/06/2025 Address:[address] [place], [place] [phone] Subjective: * Chief Complaints: * D ementiaUrine IncontinenceHyperlipidemiaHypothyroidGERDDC high SDiabetes * HPI: C OVID-19 Screening: S he returns accompanied by her son, who cares for her for a scheduled visit for medical management. She says she is sleeping well and has a good appetite. She denies having any pain. Her memory defects remain profile and that her speech is clear and she is awake and alert and she is ambulatory.She denies incontinence, but her sense says that she is incontinent of stool and urine and requires cleaning up every night. He says that she is compliant with all of her medications.Mammogram done March 03, 2025 showed no evidence of malignancy. Comprehensive blood work from May 04, 2025 is available and was reviewed with her. It was unremarkable. Questions H ave you had any new [...] run a restaurant. She was born in [place], [place]. * Medications: T akingLevothyroxine Sodium 75 [...] reconciled with the patient * Allergies: S ulfurPskyeillinno[Allergies Verified] Objective: * Vitals: H t: 62, Wt:128, BMI:23.41, BP:133/74, HR:77, Temp:98.2, Ht-cm: 157.48, Wt-k.06. * P ast Orders: Lab:Free T4 (Free Thyroxine) * Collection Date 05/04/2025 01/13/2025 11/06/2024 Collection Time 06:08 AM 11:40 AM 07:05 AM Order Date 05/04/2025 01/13/2025 11/06/2024 Free T4 (Free Thyroxine) 1.26 (Ref Range: 0.71-1.85 ng/dL) 1.51 (Ref Range: 0.71-1.85 ng/dL) 1.28 (Ref Range: 0.71-1.85 ng/dL) Clinical Info: PLEASE FAX COMPL ETED RESULTS TO [phone] * Lab:Thyroid Stimulating Horm one * Collection Date 05/04/2025 01/13/2025 11/06/2024 Collection Time 06:08 AM 11:40 AM 07:05 AM Order Date 05/04/2025 01/13/2025 11/06/2024 Thyroid Stimulating Hormone 0.18 L (Ref Range: 0.32-4.0 uIU/mL) 0.65 (Ref Range: 0.32-4.0 uIU/mL) 5.79 H (Ref Range: 0.32-4.0 uIU/mL) * Lab:Complete Blood Count Aut o Diff * Collection Date 05/04/2025 01/13/2025 11/06/2024 Collection Time 06:08 AM 11:40 AM 07:05 AM Order Date 05/04/2025 01/13/2025 11/06/2024 White Blood Count 5.9 (Ref Range: 4.8-10.8 X10*3/uL) 6.2 (Ref Range: 4.8-10.8 X10*3/uL) 7.6 (Ref Range: 4.8-10.8 X10*3/uL) Red Blood Count 5.25 (Ref Range: 4.20-5.50 X10*6/uL) 5.42 (Ref Range: 4.20-5.50 X10*6/uL) 5.19 (Ref Range: 4.20-5.50 X10*6/uL) Hemoglobin 16.5 H (Ref Range: 12.0-16.0 g/dl) 17.1 H (Ref Range: 12.0-16.0 g/dl) 16.5 H (Ref Range: 12.0-16.0 g/dl) Hematocrit 50.1 H (Ref Range: 37.0-47.0 %) 51.7 H (Ref Range: 37.0-47.0 %) 49.4 H (Ref Range: 37.0-47.0 %) Mean Corpuscular Volume 95.4 (Ref Range: 80.0-98.0 fL) 95.4 (Ref Range: 80.0-98.0 fL) 95.2 (Ref Range: 80.0-98.0 fL) Mean Corpuscular Hemoglobin 31.4 (Ref Range: 27.0-33.0 pg) 31.5 (Ref Range: 27.0-33.0 pg) 31.8 (Ref Range: 27.0-33.0 pg) Mean Corpuscular HGB Conc 32.9 (Ref Range: 31.0-35.0 g/dl) 33.1 (Ref Range: 31.0-35.0 g/dl) 33.4 (Ref Range: 31.0-35.0 g/dl) Red Cell Distribution Width 13.8 (Ref Range: 11.0-16.0 %) 14.2 (Ref Range: 11.0-16.0 %) 14.2 (Ref Range: 11.0-16.0 %) Platelet Count 177 (Ref Range: 160-400 X10*3/uL) 209 (Ref Range: 160-400 X10*3/uL) 261 (Ref Range: 160-400 X10*3/uL) Mean Platelet Volume 10.3 (Ref Range: 9.4-12.3 fL) 9.3 L (Ref Range: 9.4-12.3 fL) 9.3 L (Ref Range: 9.4-12.3 fL) Neutrophils Percent Auto 63.1 (Ref Range: 45-73 %) 72.4 (Ref Range: 45-73 %) 69.2 (Ref Range: 45-73 %) Imm Gran Pct Auto 0.3 (Ref Range: 0.0-0.4 %) 0.3 (Ref Range: 0.0-0.4 %) 0.5 H (Ref Range: 0.0-0.4 %) Lymphocytes Percent Auto 21.8 (Ref Range: 20-40 %) 14.6 L (Ref Range: 20-40 %) 17.6 L (Ref Range: 20-40 %) Monocytes Percent Auto 10.9 (Ref Range: 2-11 %) 9.8 (Ref Range: 2-11 %) 8.6 (Ref Range: 2-11 %) Eosinophils Percent Auto 3.6 (Ref Range: 0-4 %) 2.4 (Ref Range: 0-4 %) 3.4 (Ref Range: 0-4 %) Basophils Percent Auto 0.3 (Ref Range: 0-2 %) 0.5 (Ref Range: 0-2 %) 0.7 (Ref Range: 0-2 %) NRBC Pct Auto 0.0 (Ref Range: 0.0-0.2 /100WBC) 0.0 (Ref Range: 0.0-0.2 /100WBC) 0.0 (Ref Range: 0.0-0.2 /100WBC) Neutrophils Absolute Auto 3.7 (Ref Range: 2.0-8.3 x10*3/uL) 4.5 (Ref Range: 2.0-8.3 x10*3/uL) 5.2 (Ref Range: 2.0-8.3 x10*3/uL) Imm Gran Abs Auto 0.02 (Ref Range: 0.00-0.03 X10*3/uL) 0.02 (Ref Range: 0.00-0.03 X10*3/uL) 0.04 H (Ref Range: 0.00-0.03 X10*3/uL) Lymphocytes Absolute Auto 1.3 (Ref Range: 1.2-4.9 X10*3/uL) 0.9 L (Ref Range: 1.2-4.9 X10*3/uL) 1.3 (Ref Range: 1.2-4.9 X10*3/uL) Monocytes Absolute Auto 0.6 (Ref Range: 0.1-1.2 X10*3/uL) 0.6 (Ref Range: 0.1-1.2 X10*3/uL) 0.7 (Ref Range: 0.1-1.2 X10*3/uL) Eosinophils Absolute Auto 0.2 (Ref Range: 0.0-0.4 X10*3/uL) 0.2 (Ref Range: 0.0-0.4 X10*3/uL) 0.3 (Ref Range: 0.0-0.4 X10*3/uL) Basophils Absolute Auto 0.0 (Ref Range: 0.0-0.2 X10*3/uL) 0.0 (Ref Range: 0.0-0.2 X10*3/uL) 0.1 (Ref Range: 0.0-0.2 X10*3/uL) NRBC Abs Auto 0.000 (Ref Range: 0.0-0.012 X10*3/uL) 0.000 (Ref Range: 0.0-0.012 X10*3/uL) 0.000 (Ref Range: 0.0-0.012 X10*3/uL) * Lab:Loulou Hines l Fast * Collection Date 05/04/2025 11/06/2024 07/24/2024 Collection Time 06:08 AM 07:05 AM 07:31 AM Order Date 05/04/2025 11/06/2024 07/24/2024 Sodium 143 (Ref Range: 135-145 mmol/L) 139 (Ref Range: 135-145 mmol/L) 141 (Ref Range: 135-145 mmol/L) Bilirubin Total 0.7 (Ref Range: 0.0-1.0 mg/dL) 0.8 (Ref Range: 0.0-1.0 mg/dL) 1.2 H (Ref Range: 0.0-1.0 mg/dL) Aspartate Amino Transferase 28 (Ref Range: 5-31 U/L) 26 (Ref Range: 5-31 U/L) 21 (Ref Range: 5-31 U/L) Alanine Aminotransferase 21 (Ref Range: 0-31 U/L) 22 (Ref Range: 0-31 U/L) 18 (Ref Range: 0-31 U/L) Total Protein 6.6 (Ref Range: 6.5-8.0 g/dL) 7.3 (Ref Range: 6.5-8.0 g/dL) 7.2 (Ref Range: 6.5-8.0 g/dL) Albumin Level 4.0 (Ref Range: 3.5-5.0 g/dL) 4.0 (Ref Range: 3.5-5.0 g/dL) 4.2 (Ref Range: 3.5-5.0 g/dL) Alkaline Phosphatase 79 (Ref Range: 39-117 U/L) 76 (Ref Range: 39-117 U/L) 81 (Ref Range: 39-117 U/L) Potassium 4.4 (Ref Range: 3.3-5.1 mmol/L) 4.0 (Ref Range: 3.3-5.1 mmol/L) 4.2 (Ref Range: 3.3-5.1 mmol/L) Chloride 110 H (Ref Range: 96-108 mmol/L) 110 H (Ref Range: 96-108 mmol/L) 106 (Ref Range: 96-108 mmol/L) Carbon Dioxide 25 (Ref Range: 22-29 mmol/L) 22 (Ref Range: 22-29 mmol/L) 27 (Ref Range: 22-29 mmol/L) Anion Gap 12 (Ref Range: 12-20) 11 L (Ref Range: 12-20) 12 (Ref Range: 12-20) Blood Urea Nitrogen 13 (Ref Range: 9-16 mg/dL) 16 (Ref Range: 9-16 mg/dL) 11 (Ref Range: 9-16 mg/dL) Creatinine 0.80 (Ref Range: 0.5-1.4 mg/dL) 0.74 (Ref Range: 0.5-1.4 mg/dL) 0.98 (Ref Range: 0.5-1.4 mg/dL) Estimated Glomerular Filt Rate > 60 > 60 54 Glucose Fasting 129 H (Ref Range: 60-99 mg/dL) 147 H (Ref Range: 60-99 mg/dL) 136 H (Ref Range: 60-99 mg/dL) Calcium 9.5 (Ref Range: 8.4-10.2 mg/dL) 9.7 (Ref Range: 8.4-10.2 mg/dL) 10.0 (Ref Range: 8.4-10.2 mg/dL) * Lab:Lipid Panel * Collection Date 05/04/2025 11/06/2024 07/24/2024 Collection Time 06:08 AM 07:05 AM 07:31 AM Order Date 05/04/2025 11/06/2024 07/24/2024 Triglycerides 116 (Ref Range: <150 mg/dL) 105 (Ref Range: <150 mg/dL) 101 (Ref Range: <150 mg/dL) Cholesterol 145 (Ref Range: <200 mg/dL) 175 (Ref Range: <200 mg/dL) 173 (Ref Range: <200 mg/dL) LDL Cholesterol Calculated 80 (Ref Range: <100 mg/dL) 100 H (Ref Range: <100 mg/dL) 98 (Ref Range: <100 mg/dL) HDL Cholesterol 42 (Ref Range: >40 mg/dL) 54 (Ref Range: >40 mg/dL) 55 (Ref Range: >40 mg/dL) * Imaging:MM tomosynthesis scr eening BI * Performed Date 03/03/2025 10/05/2022 10/03/2021 12:42 PM 09:30 AM 03:27 PM Order Date 03/03/2025 10/05/2022 10/03/2021 * Examination: G eneral Examination: GENERAL APPEARANCE: p leasant, well nourished, well developed, in no acute distress, calm and relaxed: elderly woman. HEAD: a traumatic, normocephalic. EYES: e nuvia, perrla, anicteric, conjugate. EARS: N ormal anatomy with mild hearing loss. NOSE: s eptum intact. ORAL CAVITY: n [...] e xtremities unremarkable, no clubbing, cyanosis or edema: no swelling or deformity. PERIPHERAL PULSES: n ormal. NEUROLOGIC: a lert and oriented, cranial nerves 2-12 grossly intact, deep tendon reflexes 2+ symmetrical, motor strength normal upper and lower extremities, sensory exam intact, Advanced memory loss but speech is fluent. She remains ambulatory. She is awake and alert. PSYCH: a lert, oriented with advanced memory loss. ? Assessment: * Assessment: 1. A lzheimer's disease, unspecified - G30.9 (Primary) N otes :She is basically unchanged. She is cared for by her son who lives with her. She was clean and well groomed. Her clothing was clean she seems to be well cared for. 2 . H yperlipidemia - E78.5 N otes :Her lipids are currently well controlled and no change in her regimen was needed. 3 . D iabetes mellitus without complication - E11.9 N otes :He has been compliant with her medication. Her fasting glucose is 129. No change in her regimen was made. A microalbumin and a hemoglobin A1c have been ordered. 4 . A cquired hypothyroidism - E03.9 N otes :She remains euthyroid and compliant with her medication. 5 . G ERD (gastroesophageal reflux disease) - K21.9 N otes :Her esophageal reflux symptoms are well controlled with medication and no change in her regimen was needed. 6 . D CIS (ductal carcinoma in [...] new treatment is necessary today. 8 . M ixed incontinence - N39.46 N otes :She has been incontinent every day and her son has been caring for her. She is unaware of it or has no memory of it. Plan: * Treatment: 2. D iabetes mellitus without complication L AB: PROFILE, FASTING (COMPREHENSIVE METABOLIC) L AB: TSH (THYROID STIMULATING HORMONE) L AB: CBC w DIFF L AB: Lipid Panel L AB: Free T4 (Free Thyroxine) 3. A cquired hypothyroidism L AB: PROFILE, [...] EVENING FOR 90 DAYS. * Procedure Codes: * Preventive Medicine: DM [...] 1 lb per week. * Follow Up: 3 Months (Reason: OV) * Images: * Sign off status: Completed true * Provider: Radha Norwood MD Date: 0 05/06/2025 Generated for Lizeth paige/Kenneth/Dannaitting on: 1 07:18 AM EDT History and Physical Notes * HPI (History of Present Illness) Category Sub-Category Detail Notes COVID-19 Screening Questions Have you had any new onset fever, chills, cough, congestion, sore throat, shortness of breath, muscle aches?: No Examination Category Sub-Category Detail Notes General Examination GENERAL APPEARANCE: pleasant , well nourished, well developed, in no acute distress, calm and relaxed: elderly woman HEAD: atraumatic, normocep halic EYES: eomi, perrla, anicte caitlin, conjugate EARS: Normal anatomy with mild hearing loss NOSE: septum intact NECK/THYROID: no jugular venous [...] upper and lower extremities, sensory exam intact, Advanced memory loss but speech is fluent. She remains ambulatory. She is awake and alert SKIN: no suspicious lesion s, anicteric PERIPHERAL PULSES: normal BREASTS: Not examined MUSCULOSKELETAL: extremities unremark able, no clubbing, cyanosis or edema: no swelling or deformity LYMPH NODES: no enlarged lymph no maria elena,spleen normal RECTAL EXAM: not examined PSYCH: alert, oriented with advanced memory loss ORAL CAVITY: normal, unremarkable
--- OUTSIDE RECORDS SUMMARY | 2025-08-04 07:17 | XMS_ITS | Data Portability ---
Author Organization [place] [facility] Address [address] [place] [address] Care Team Providers Care Environmental Compliance Technician Name Role Phone AMANDO ZULETA Primary Care Provider [phone] Assessment Encounter Date Assessment Date Assessment LastModified [...] tablet 2018 019 INTERFACE [id number], [address] [place], [address], 9 11:36:25 Flonase Allergy Relief 50 mcg/actuat ion nasal spray,susp ension 2018 019 INTERFACE [id number], [address] [place], [address], 9 11:36:25 Patient TargetsNo targets recorded. Patient Instructions Encounter Date Encounter Id Patient Instructions Last Modified By Organization Details Last Modified Time 01/05/2019 [id number] Sinusitis Instructions Basic Information Sinusitis is an [...] headache and sinus pressure Instructions Medications: Decongestants: Aygw-ofi-ayqjszv decongestants such as sudafed are helpful. You should not use these for prolonged periods of time and they may not be contraindicated due to drug interactions with your regular medications or if you have medical problems such as high blood pressure. Ask your BULB FARMWORKER. decongestant sprays such as Afrin and Colby-synephrine may also help your symptoms. However, if theses are used for over 3 days in a row, the congestion can actually get worse when you stop using them. So, use sparingly. If you have high blood pressure, your BULB FARMWORKER may not recommend use. nasal steroid drops/spray [...] the syringe firmly but gently while you b reathe in the solution through your nose. Alternate [...] condition between 8am-10pm, please call [facility] at [phone] to help navigate your care. kathryn Not available 01/05/2019 11:29:07 Reason for Referral None Reported. Problems Name Problem SNOMED Code Status Onset Date Resolution Date Notes Provider Name and Address Organization Details Recorded Time Hypertensive disorder 31518963 Active 2018 HUI KAUR NP [address] [place], [address], [place] [facility] 9 11:24:37 Problem [...] Smoker HUI KAUR NP [address] [place], [address], [place] [facility] 01/05/2019 11:27:59 Do You Have An Advance [...] available 01/05 11:25:08 Medical History Condition Response Hypertension Y High Cholesterol Y Gynecological HistoryNo gynecological history recorded. Obstetrics History GPAL:G 0 P 0 0 0 0 Past Encounters Encounter ID Performer Location Encounter Start Date Encounter Closed Date Diagnosis/Indication Diagnosis SNOMED-CT Code Diagnosis ICD10 Code Diagnosis IMO Codes Diagnosis Note [id number] HUI KAUR NP [facility] [address] [place] [address] 01/05/2019 11:19:38 01/14/2019 10:06:21 Acute sinusitis 57034900 J01.90 [id number] HUI KAUR NP [facility] [address] [place] [address] 01/05/2019 11:22:01 01/05/2019 11:50:17 Health Concerns Section Related Observation LastModified by Organization Detai ls LastModified Time None Recorded Concern Status LastModified by Organization Details LastModified Time None Recorded Advance Directives Directive Y: Payers Insurance Date Sequence Insurance Name Policy Number Policy Quintana Covered Member ID Quintana Member ID Guarantor Name 01/05/2019 1 *SELF PAY* Kannan Hilarioy [id number] Kannan Taveras 01/14/2019 1 [employer] - MEDICARE ADVANTAGE PLAN (MEDICARE REPLACEMENT HMO) [id number] Kannan Johnsonulty [id number] Kannan Taveras Notes Date Note Type Note Provider Name and Address Organization Details Recorded Time 01/05/2019 text/html Pt states sx have been going on for a few weeks. [...] time. HUI KAUR NP [address], [place], [address], [place] [facility] 01/05/2019 15:47:43 01/05/2019 text/html duplicate chart HUI KAUR NP [address], [place], [address], [place] [facility] 01/05/2019 11:23:18 OBGyn Episode No OBEpisode recorded.
--- OUTSIDE RECORDS SUMMARY | 2025-08-04 07:17 | XMS_ITS | Patient Health Record ---
Author Organization [facility] Kelsi hansel Cj Address [address] [place] [address] Care Team Providers Care Bus Person Dishwasher Name Role Phone Mick Norwood MD Primary Care Provider UnavailMike Bonilla Unavailable [phone] Allergies Allergen (clinical drug ingredient) Drug/Non Drug [...] Status Risk Notes Problem Acquired hallux valgus (46091799) Hallux valgus (acquired), left foot (M20.12) Active confirmed Problem Pain in limb (19567755) Pain in unspecified foot (M79.673) Active confirmed Problem Acquired hammer toe of right foot (151695839720 9105) Other hammer toe(s) (acquired), right foot (M20.41) Active confirmed Problem Acquired hammer toe of left foot (788701264727 9103) Other hammer toe(s) (acquired), left foot [...] Insured Coverage Start Date Coverage End Date [facility] [address] [place] [address] [id number] Kannan Taveras Self - patient is the insured [employer] [address] [place] [address] [id number] Kannan Taveras Self - patient is the insured Medical (General) History Medical History History ICD Code cancer measles bone implants Alzheimers disease Arthritis Back,Hip,and Knee pain Dementia Surgical History Surgery Date(Month/Year) knee replacement breast cancer bunions
--- OUTSIDE RECORDS SUMMARY | 2025-08-04 07:18 | XMS_ITS | Clinical Summary ---
Author Organization [facility] Address [address] [place] [address] Care Team Providers Care Bakelite Molder Name Role Phone Mick Norwood MD Primary Care Provider Social History Tobacco Use Types Packs/Day Years [...] patient's age to complete this topic Insurance [facility] Member Subscriber Plan / Payer (Ef fective 2018-Present) Name:Kannan Taveras Relation to Subscriber:Self Name:Kannan Taveras Payer ID:Not on file Type:Not on file Address: [place] [id number] Care Teams Bakelite Molder Relationship Specialty [place] [address] [facility] [address] [place] [address] PCP - General Internal Medicine 01/25/21
--- OUTSIDE RECORDS SUMMARY | 2025-08-04 07:18 | XMS_ITS | Patient Health Record ---
Author Organization Mick Norwood III, MD Address [address] [place] [address] DR CORAD[place] [address] Care Team Providers Care Gas Utility Worker Name Role Phone Dr. Mick Norwood III Primary Care Provider Allergies Allergen (clinical drug ingredient) Drug/Non Drug Allergy documented on EMR Reaction Allergy Type Onset Date Status Penicillin Unknown Drug Allergy Active Sulfur Unknown Drug Allergy Active Results Component Value Reference Range Notes Free T4 (Free Thyroxine) Reviewed date:01/22/2025 07:59:54 PM Interpretation: Performing Lab:[address] [address] Notes/Report: Free T4 (Free Thyroxine) 1.51 0.71-1.85 ng/dL Complete Blood Count Auto Di ff Reviewed date:11/09/2024 04:51:20 PM Interpretation: Performing Lab:[address] [phone] Notes/Report: White Blood Count 7.6 4.8-10.8 X10*3/uL [...] 0.0-0.2 /100WBC Neutrophils Absolute Auto 5.2 2.0-8.3 x10*3/uL Imm Gran Abs Auto 0.04 0.00-0.03 X10*3/uL Lymphocytes Absolute Auto 1.3 1.2-4.9 X10*3/uL Monocytes Absolute Auto 0.7 0.1-1.2 X10*3/uL Eosinophils Absolute Auto 0.3 0.0-0.4 X10*3/uL Basophils Absolute Auto 0.1 0.0-0.2 X10*3/uL NRBC Abs Auto 0.000 0.0-0.012 X10*3/uL Comprehensive [place]. Panel Fa st Reviewed date:11/09/2024 04:51:20 PM Interpretation: Performing Lab:[facility], [address] [place] [phone] Notes/Report: Sodium 139 135-145 mmol/L Potassium 4.0 [...] Panel Reviewed date:11/09/2024 04:51:20 PM Interpretation: Performing Lab:[address] [address] Notes/Report: Triglycerides 105 <150 mg/dL Desirable Triglyceride: [...] Thyroxine) Reviewed date:11/09/2024 04:51:20 PM Interpretation: Performing Lab:[address] [address] Notes/Report: Free T4 (Free Thyroxine) 1.28 0.71-1.85 ng/dL Thyroid Stimulating Hormone Reviewed date:11/09/2024 04:51:20 PM Interpretation: Performing Lab:[facility], [address] [place] [phone] Notes/Report: Thyroid Stimulating Hormone 5.79 0.32-4.0 uIU/mL Note: A sustained TSH level above 2.5 uIU/mL may warrant further investigation. TSH 3rd Generation ([facility]) Hemoglobin A1c Reviewed date:11/09/2024 04:51:20 PM Interpretation: Performing Lab:[address] [address] Notes/Report: Hemoglobin A1c % 6.5 <6.0 % [...] average glucose, using the formula of the [id number] Average Glucose study (ADAG), Diabetes Care, Vol.31,#8, May. 2007 Complete Blood Count Auto Di ff Reviewed date:01/22/2025 07:59:54 PM Interpretation: Performing Lab:[facility], [address] [place] [phone] Notes/Report: White Blood Count 6.2 4.8-10.8 X10*3/uL [...] 0.0-0.2 /100WBC Neutrophils Absolute Auto 4.5 2.0-8.3 x10*3/uL Imm Gran Abs Auto 0.02 0.00-0.03 X10*3/uL Lymphocytes Absolute Auto 0.9 1.2-4.9 X10*3/uL Monocytes Absolute Auto 0.6 0.1-1.2 X10*3/uL Eosinophils Absolute Auto 0.2 0.0-0.4 X10*3/uL Basophils Absolute Auto 0.0 0.0-0.2 X10*3/uL NRBC Abs Auto 0.000 0.0-0.012 X10*3/uL Comprehensive Met. Panel Reviewed date:01/22/2025 07:59:54 PM Interpretation: Performing Lab:[facility], [address] [place] [phone] Notes/Report: Sodium 141 135-145 mmol/L Potassium 4.6 [...] Hormone Reviewed date:01/22/2025 07:59:54 PM Interpretation: Performing Lab:[facility], [address] [place] [phone] Notes/Report: Thyroid Stimulating Hormone 0.65 0.32-4.0 uIU/mL TSH 3rd Generation ([facility]) CDiff Gene PCR Reviewed date:01/22/2025 07:59:54 PM Interpretation: Performing Lab:[address] [address] Notes/Report: CDiff Gene PCR NEGATIVE Negative If C. difficile strongly suspected despite one negative test, a second test may be sent vs. empiric treatment for C. difficile infection. GI Panel Reviewed date:01/22/2025 07:59:54 PM Interpretation: Performing Lab:[address] [phone] Notes/Report: Campylobacter Not Detected Not Detect. Plesiomonas [...] is performed by Multiplexed PCR, utilizing the brotips Array. Ova and Parasite Reviewed date:01/31/2025 08:51:35 AM Interpretation: Performing Lab:[facility], [address] [place] [phone] Notes/Report: Ova and Parasite SEE NOTE OVA AND PARASITES, CONC AND PERM SMEAR Micro Number: [id number] Test Status: Final Specimen Source: Stool Specimen [...] infection. For additional information, please refer to https://education.[employer]/faq/F AQ203 (This link is being provided for informational/ educational purposes only.) THIS TEST WAS PERFORMED AT: [facility] [address] [place] [phone] SHAHRAM BAZAN MD MM tomosynthesis screening B I Reviewed date:03/10/2025 02:03:22 PM Interpretation: Performing Lab: Notes/Report: [facility] [address] [place] [address] Mammography Report Signed Patient: Kannan Taveras MR#: [id number] 4 : 1940 Acct:[id number] Age/Sex: 84 / F ADM Date: 03/03/25 Loc: HO.MAMMO Attending Dr: Mick Norwood MD Ordering Physician: Mick Norwood MD Results: 2Benign Findings Date of Service: 03/03/25 Follow Up: 1 Year From [facility] Procedure(s): MM tomosynthesis screening BI Accession Number(s): [id number] cc: Mick Norwood MD EXAMINATION: MM SCREENING DIGITAL BREAST TOMOSYNTHESIS, BILATERAL CLINICAL INFORMATION: Screening. Asymptomatic. COMPARISON: Mammography: Comparison is made with available priors TECHNIQUE: Digital breast mammography with tomosynthesis is performed in both the craniocaudal and mediolateral oblique views along with computer-aided detection (CAD). FINDINGS: The breasts are heterogeneously dense, which may obscure small masses (ACR BI-RADS breast composition Category c). Right post lumpectomy changes are stable. There are no significant masses, abnormal calcifications, or other abnormalities. MM/MM tomosynthesis screening BI IMPRESSION: No mammographic evidence of malignancy. ASSESSMENT: BI-RADS BI-RADS 2 - Benign Findings RECOMMENDATION: Routine annual mammography screening. 1 year F/U This examination should not preclude the clinical evaluation of a suspicious palpable abnormality. This patient's information was entered into a reminder system with a target due date for their next mammogram. Electronically signed by: Keli Zamora DO 03/09/2025 09:21 PM EDT RP Dictated By: Keli Zamora DO Signed By: <Electronically signed by Keli Zamora DO in OV> 03/09/251 DD/ 1242 TD/TT: 03/03/25 1257 Armorer Technician: [facility] [address] [place] [address] Mammography Report Signed Patient: Perlita Taveras MR#: [id number] 4 : 1940 Acct:[id number] Age/Sex: 84 / F ADM Date: 03/03/25 Loc: HO.MAMMO Attending Dr: Mick Norwood MD Ordering Physician: Mick Norwood MD Results: 2Benign Findings Date of Service: 03/03/25 Follow Up: 1 Year From [facility] Procedure(s): MM tomosynthesis screening BI Accession Number(s): [id number] cc: Mick Norwood MD EXAMINATION: MM SCREENING DIGITAL BREAST TOMOSYNTHESIS, BILATERAL CLINICAL INFORMATION: Screening. Asymptomatic. COMPARISON: Mammography: Compari son is made with available priors TECHNIQUE: Digital breast mammography with tomosynthesis is performed in both the craniocaudal and mediolateral oblique views along with computer-aided detection (CAD). FINDINGS: The breasts are heterogeneously dense, which may obscure small masses (ACR BI-RADS breast composition Category c). Right post lumpectom y changes are stable. There are no significant masses, abnormal calcifications, or other abnormalities. MM/MM tomosynthesis screening BI IMPRESSION: No mammographic evidence of malignancy. ASSESSMENT: BI-RADS BI-RADS 2 - Benign Findings RECOMMENDATION: Routine annual mammography screening. 1 year F/U This examination bruno uld not preclude the clinical evaluation of a suspicious palpable abnormality. This patient's information was entered into a reminder system with a target due date for their next mammogram. Electronically kitty d by: Keli Zamora DO 03/09/2025 09:21 PM EDT RP Dictated By: Keli Zamora DO Signed By: <Electronically signed by Keli Zamora DO in OV> 03/09/251 DD/ 1242 TD/TT: 03/03/25 1257 Armorer Technician: Complete Blood Count Auto Di ff Reviewed date:05/06/2025 11:24:22 AM Interpretation: Performing Lab:[facility], [address] [place] [phone] Notes/Report: White Blood Count 5.9 4.8-10.8 X10*3/uL Red Blood Count 5.25 4.20-5.50 X10*6/uL Hemoglobin 16.5 12.0-16.0 g/dl Hematocrit 50.1 37.0-47.0 % Mean Corpuscular Volume 95.4 80.0-98.0 fL Mean Corpuscular Hemoglobin 31.4 27.0-33.0 pg Mean Corpuscular HGB Conc 32.9 31.0-35.0 g/dl Red Cell Distribution Width 13.8 11.0-16.0 % Platelet Count 177 160-400 X10*3/uL Mean Platelet Volume 10.3 9.4-12.3 fL Neutrophils Percent Auto 63.1 45-73 % Imm Gran Pct Auto 0.3 0.0-0.4 % Lymphocytes Percent Auto 21.8 20-40 % Monocytes Percent Auto 10.9 2-11 % Eosinophils Percent Auto 3.6 0-4 % Basophils Percent Auto 0.3 0-2 % NRBC Pct Auto 0.0 0.0-0.2 /100WBC Neutrophils Absolute Auto 3.7 2.0-8.3 x10*3/uL Imm Gran Abs Auto 0.02 0.00-0.03 X10*3/uL Lymphocytes Absolute Auto 1.3 1.2-4.9 X10*3/uL Monocytes Absolute Auto 0.6 0.1-1.2 X10*3/uL Eosinophils Absolute Auto 0.2 0.0-0.4 X10*3/uL Basophils Absolute Auto 0.0 0.0-0.2 X10*3/uL NRBC Abs Auto 0.000 0.0-0.012 X10*3/uL Comprehensive [place]. Panel Fa st Reviewed date:05/06/2025 11:24:22 AM Interpretation: Performing Lab:[facility], [address] [place] [phone] Notes/Report: Sodium 143 135-145 mmol/L Potassium 4.4 3.3-5.1 mmol/L Chloride 110 96-108 mmol/L Carbon Dioxide 25 22-29 mmol/L Anion Gap 12 12-20 Blood Urea Nitrogen 13 9-16 mg/dL Creatinine 0.80 0.5-1.4 mg/dL Estimated Glomerular Filt Rate > 60 Chronic Kidney Disease: Estimated GFR < 60 mL/min/1.73m2 Severe Kidney Disease: Estimated GFR < 15 mL/min/1.73m2 Glucose Fasting 129 60-99 mg/dL A fasting glucose of 126 mg/dl or greater on more than one occasion is considered diagnostic of diabetes. Calcium 9.5 8.4-10.2 mg/dL Bilirubin Total 0.7 0.0-1.0 mg/dL Aspartate Amino Transferase 28 5-31 U/L Alanine Aminotransferase 21 0-31 U/L Total Protein 6.6 6.5-8.0 g/dL Albumin Level 4.0 3.5-5.0 g/dL Alkaline Phosphatase 79 39-117 U/L Lipid Panel Reviewed date:05/06/2025 11:24:22 AM Interpretation: Performing Lab:[facility], [address] [place] [phone] Notes/Report: Triglycerides 116 <150 mg/dL Desirable Triglyceride: less than 150 mg/dL Borderline High Triglyceride 150-199 mg/dL High Triglyceride: 200-499 mg/dL Very High Triglyceride: greater than or equal to 5OO mg/dL Cholesterol 145 <200 mg/dL Desirable Cholesterol: less than 200 mg/dL Borderline High Cholesterol: 200-239 mg/dL High Cholesterol: greater than 239 mg/dL LDL Cholesterol Calculated 80 <100 mg/dL Desirable LDL: less than 100 mg/dL Near Optimal/Above Optimal LDL: 110-129 mg/dL Borderline High LDL: 130-159 mg/dL High LDL: 160-189 mg/dL Very High LDL: greater than or equal to 190 mg/dL HDL Cholesterol 42 >40 mg/dL Desirable HDL: greater than 40 mg/dL Note: This HDL assay may give artificially low results in patients with liver disease. Free T4 (Free Thyroxine) Reviewed date:05/06/2025 11:24:22 AM Interpretation: Performing Lab:[facility], [address] [place] [phone] Notes/Report: Free T4 (Free Thyroxine) 1.26 0.71-1.85 ng/dL Thyroid Stimulating Hormone Reviewed date:05/06/2025 11:24:22 AM Interpretation: Performing Lab:[facility], [address] [place] [phone] Notes/Report: Thyroid Stimulating Hormone 0.18 0.32-4.0 uIU/mL TSH 3rd Generation ([facility]) Reason For Referral No Information Medications Medication SIG (Take, Route, Frequency, Duration) Notes Start Date End Date Status Levothyroxine Sodium 75 MCG 1 tablet zo ry the morning on an empty stomach Orally Once a day Active Simvastatin 10 MG TAKE 1 TABLET BY LEWIS TH EVERY EVENING. for 90 Active Immunizations Vaccine Route Administration Date Status [...] Problem Status W/U Status Risk Notes Problem 38749206 Hyperlipidemia (E78.5) Active confirmed Her lipids are currently well controlled and no change in her regimen was needed. 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 Physical breast examination will be done periodically. She agreed to an examination on her next visit. Problem [id number] GERD (gastroesophageal reflux disease) (K21.9) Active confirmed Her esophageal reflux symptoms are well controlled with medication and no change in her regimen was needed. Problem 80812076 Alzheimer's disease, unspecified (G30.9) Active confirmed She is basically unchanged. She is cared for by her son who lives with her. She was clean and well groomed. Her clothing was clean she seems to be well cared for. Problem 71595150 Mixed incontinence (N39.46) Active confirmed She has been incontinent every day and her son has been caring for her. She is unaware of it or has no memory of it. Problem Nocturia (052723768) Nocturia (R35.1) Active confirmed Problem 689975497 Acquired hypothyroidism (E03.9) Active confirmed She remains euthyroid and compliant with her medication. 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 No new treatment is necessary today. Problem 169754529 Erythrocytosis (D75.1) Active confirmed Her hematocrit is stable at 51% her white blood cell count and platelet count are normal. Her mean cell volume and differential are unremarkable. If this value increases she will be evaluated for polycythemia vera. Problem Acquired hallux valgus (79337039) Bunion, left (M20.12) Active confirmed Problem 84731607 Diabetes mellitu s without complication (E11.9) Active confirmed He has been compliant with her medication. Her fasting glucose is 129. No change in her regimen was made. A microalbumin and a hemoglobin A1c have been ordered. Vital Signs Heart Rate 77 /min 05/06/2025 Temperature 98.2 degrees Fahrenheit 05/06/2025 Blood pressure diastolic 74 mm Hg 05/06/2025 Height 62 in 05/06/2025 Blood pressure systolic 133 mm Hg 05/06/2025 Weight 128 lbs 05/06/2025 BMI 23.41 kg/m2 05/06/2025 Encounters Encounter Location Date Provider Diagnosis Mick Norwood III, MD [address] [place] [address] [place] [address] 11/11/2024 Mick Norwood Diarrhea R19.7 ; Alzheimer's disease with late onset G30.1 ; Acquired hypothyroidism E03.9 ; GERD (gastroesophageal reflux disease) K21.9 ; DCIS (ductal carcinoma in situ) D05.10 and Osteoarthritis cervical spine M47.812 Mick Norwood III, MD [address] [place] [address] [place] [address] 01/13/2025 Mick Norwood Acquired hypothyroid ism E03.9 ; DCIS (ductal carcinoma in situ) D05.10 ; Hyperglycemia R73.9 ; Screening mammogram for breast cancer Z12.31 ; Breast cancer C50.919 ; GERD (gastroesophageal reflux disease) K21.9 ; Osteoarthritis cervical spine M47.812 ; Diabetes mellitus without complication E11.9 and Alzheimer's disease, unspecified G30.9 Mick Norwood III, MD [address] [place] [address] [place] [address] 01/27/2025 Mick Norwood Acquired hypothyroid ism E03.9 ; Alzheimer's disease, unspecified G30.9 ; GERD (gastroesophageal reflux disease) K21.9 ; DCIS (ductal carcinoma in situ) D05.10 ; Hyperlipidemia E78.5 and Osteoarthritis cervical spine M47.812 Mick Norwood III, MD [address] [place] [address] [place] [address] 05/06/2025 Mick Norwood Hyperlipidemia E78.5 ; Alzheimer's disease, unspecified G30.9 ; Diabetes mellitus without complication E11.9 ; Acquired hypothyroidism E03.9 ; GERD (gastroesophageal reflux disease) K21.9 ; DCIS (ductal carcinoma in situ) D05.10 ; Osteoarthritis cervical spine M47.812 and Mixed incontinence N39.46 Mick Norwood III, MD [address] [place] [address] [place] [address] 02/13/2025 Mick Norwood Assessments Encounter Date Diagnosis (ICD Code) Assessment Notes Treat ment Notes Treatment Clinical Notes 11/11/2024 Alzheimer's disease with late onset (ICD-10 [...] taking charge of giving her the medication. 05/06/2025 Hyperlipidemia (ICD-10 - E78.5) Her lipids are currently well controlled and no change in her regimen was needed. 05/06/2025 Alzheimer's disease, unspecified (ICD-10 - G30.9) She is basically unchanged. She is cared for by her son who lives with her. She was clean and well groomed. Her clothing was clean she seems to be well cared for. 11/11/2024 Acquired hypothyroidism (ICD-10 - E03.9) Her [...] change in her regimen was needed. 05/06/2025 Diabetes mellitus without complication (ICD-10 - E11.9) He has been compliant with her medication. Her fasting glucose is 129. No change in her regimen was made. A microalbumin and a hemoglobin A1c have been ordered. 11/11/2024 GERD (gastroesophageal reflux disease) (ICD-10 - [...] an examination on her next visit. 05/06/2025 Acquired hypothyroidism (ICD-10 - E03.9) She remains euthyroid and compliant with her medication. 11/11/2024 DCIS (ductal carcinoma in situ) (ICD-10 [...] administered to her by her son Bull. 05/06/2025 GERD (gastroesophageal reflux disease) (ICD-10 - K21.9) Her esophageal reflux symptoms are well controlled with medication and no change in her regimen was needed. 11/11/2024 Osteoarthritis cervical spine (ICD-10 - M47.812) [...] No new treatment is necessary today. 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 Physical breast examination will be done periodically. She agreed to an examination on her next visit. 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 No new treatment is necessary today. 05/06/2025 Osteoarthritis cervical spine (ICD-10 - M47.812) [...] be well controlled with her current diet. 05/06/2025 Mixed incontinence (ICD-10 - N39.46) She has been incontinent every day and her son has been caring for her. She is unaware of it or has no memory of it. 01/13/2025 Alzheimer's disease, unspecified (ICD-10 - G30.9) [...] C) 04/26/2023 PROFILE, FASTING (COMPREHENSIVE METABOLI C) 05/08/2018 PROFILE, FASTING (COMPREHENSIVE METABOLI C) 01/22/2023 PROFILE, FASTING (COMPREHENSIVE METABOLI C) 12/31/2020 PROFILE, FASTING (COMPREHENSIVE METABOLI C) 07/18/2023 PROFILE, FASTING (COMPREHENSIVE METABOLI C) 05/16/2021 PROFILE, FASTING (COMPREHENSIVE METABOLI C) 07/31/2024 PROFILE, FASTING (COMPREHENSIVE METABOLI C) 03/07/2021 PROFILE, FASTING (COMPREHENSIVE METABOLI C) 02/18/2024 PROFILE, FASTING (COMPREHENSIVE METABOLI C) 07/17/2022 PROFILE, FASTING (COMPREHENSIVE METABOLI C) 06/23/2022 PROFILE, FASTING (COMPREHENSIVE METABOLI C) 02/13/2024 PROFILE, FASTING (COMPREHENSIVE METABOLI C) 05/06/2025 PROFILE, FASTING (COMPREHENSIVE METABOLI C) 01/27/2025 PROFILE, RANDOM (COMPREHENSIVE METABOLIC ) 01/05/2022 PROFILE, RANDOM (COMPREHENSIVE METABOLIC ) 10/30/2018 PROFILE, RANDOM (COMPREHENSIVE METABOLIC ) 01/13/2025 PROFILE, RANDOM (COMPREHENSIVE METABOLIC ) 10/23/2022 PROFILE, RANDOM (COMPREHENSIVE METABOLIC ) 07/12/2021 LIPID PANEL 11/02/2021 LIPID PANEL 10/30/2018 LIPID PANEL 10/11/2021 LIPID PANEL 08/12/2018 LIPID PANEL 04/26/2023 LIPID PANEL 05/08/2018 LIPID PANEL 01/22/2023 LIPID PANEL 10/23/2022 LIPID PANEL 12/31/2020 LIPID PANEL 07/18/2023 LIPID PANEL 05/16/2021 LIPID PANEL 03/07/2021 FREE T4 (FT4) 11/02/2021 FREE T4 (FT4) 04/26/2023 FREE T4 (FT4) 10/11/2021 FREE T4 (FT4) 08/12/2018 FREE T4 (FT4) 07/12/2021 FREE T4 (FT4) 05/08/2018 FREE T4 (FT4) 01/22/2023 FREE T4 (FT4) 10/23/2022 FREE T4 (FT4) 06/23/2022 FREE T4 (FT4) 12/31/2020 FREE T4 (FT4) 07/18/2023 FREE T4 (FT4) 05/16/2021 FREE T4 (FT4) 12/17/2019 FREE T4 (FT4) 03/07/2021 TSH (THYROID STIMULATING HORMONE) 2023 TSH (THYROID STIMULATING HORMONE) 2021 TSH (THYROID STIMULATING HORMONE) 2020 TSH (THYROID STIMULATING HORMONE) 2020 TSH (THYROID STIMULATING HORMONE) 2019 TSH (THYROID STIMULATING HORMONE) 2024 TSH (THYROID STIMULATING HORMONE) 2020 TSH (THYROID STIMULATING HORMONE) 2024 TSH (THYROID STIMULATING HORMONE) 2022 TSH (THYROID STIMULATING HORMONE) 2024 TSH (THYROID STIMULATING HORMONE) 2018 TSH (THYROID STIMULATING HORMONE) 2021 TSH (THYROID STIMULATING HORMONE) 2023 TSH (THYROID STIMULATING HORMONE) 2022 TSH (THYROID STIMULATING HORMONE) 2020 TSH (THYROID STIMULATING HORMONE) 2023 TSH (THYROID STIMULATING HORMONE) 2017 TSH (THYROID STIMULATING HORMONE) 2020 TSH (THYROID STIMULATING HORMONE) 2017 TSH (THYROID STIMULATING HORMONE) 2022 TSH (THYROID STIMULATING HORMONE) 2022 CBC w DIFF 07/12/2021 CBC w DIFF 05/08/2018 CBC w DIFF 01/22/2023 CBC w DIFF 10/23/2022 CBC w DIFF 02/13/2024 CBC w DIFF 06/23/2022 CBC w DIFF 12/31/2020 CBC w DIFF 05/16/2021 CBC w DIFF 01/05/2022 CBC w DIFF 05/06/2025 CBC w DIFF 03/07/2021 CBC w DIFF 01/27/2025 CBC w DIFF 07/18/2023 CBC w DIFF 01/13/2025 CBC w DIFF 10/30/2018 CBC w DIFF 07/17/2022 CBC w DIFF 11/02/2021 CBC w DIFF 04/26/2023 CBC w DIFF 10/11/2021 CBC w DIFF 08/12/2018 CLOSTRIDIUM DIFF TOXIN A&B (C DIFF) 10/16 URINALYSIS (UA) 12/31/2020 LYME DISEASE IgG/IgM WB 12/17/2019 OVA & PARASITES (O&P) 11/11/2024 MAMMOGRAM DIGITAL BILATERAL SCREEN 07/17 CBC WITH AUTO DIFF 07/31/2024 CBC WITH AUTO DIFF 02/18/2024 RETIC 01/05/2022 Lipid Panel 07/31/2024 Lipid Panel 02/18/2024 Lipid Panel 06/23/2022 Lipid Panel 05/06/2025 Lipid Panel 01/27/2025 Lipid Panel 07/17/2022 Free T4 (Free Thyroxine) 07/31/2024 Free T4 (Free Thyroxine) 02/18/2024 Free T4 (Free Thyroxine) 05/06/2025 Free T4 (Free Thyroxine) 01/27/2025 Stool Culture 11/11/2024 MM tomosynthesis screening BI 01/13/2025 XR thoracic spine 3V 2023 XR lumbar spine 2-3V 2023 Hemoglobin A1c 07/31/2024 Next Appt Details Provider Name:Mick Dueñasrne , 08/10/2025 11:00:00 AM, [address] [facility] [address], [place], [address], Provider Name:Mick Curtis Norwood , 01/19/2026 09:30:00 AM, [address] [facility] [address], [place], [address], Insurance Providers Payer Name Payer Address Payer Phone Subscriber Number Group Number Insured Name Patient Relationship to Insured Coverage Start Date Coverage End Date [facility] [address] [facility] [address] [place] [address] [phone] [id number] Kannan Taveras Self - patient is the insured MEDICARE NGS [address] [place] [address] [id number] Kannan Taveras Self - patient is the insured Medical (General) History Medical History History ICD Code hypertension [id number] hypothyroid penicillin/sulfa allergy osteoarthritis DCIS right breast 10/2003: JIMENEZ/RT memory deficits Surgical History Surgery Date(Month/Year) No history hysterectomy & BSO 1979 C-spine surgery degenerated disc 1977 lumpectomy right breast DCIS 2003 Left TKR 2004 Hospitalization History Reason Date(Month/Year) No history Bacterial UTI 04/2021
--- OUTSIDE RECORDS SUMMARY | 2025-08-04 07:18 | XMS_ITS | Patient Health Record ---
Author Organization [facility] Address [address] [place] [address] Care Team Providers Care Senior It Assistant Name Role Phone Mick Bonilla Unavailable [phone] Reason For Referral No Information Plan Of Treatment No Information
[2025-08-04 07:28] LABS: MANUAL DIFF FLAG NO
[2025-08-04 07:43] LABS: Hematocrit 50.5 % (37.0-47.0); Hemoglobin 16.8 g/dl (12.0-16.0); Imm Gran Abs Auto 0.03 X10*3/uL (0.00-0.03); Imm Gran Pct Auto 0.5 % (0.0-0.4); Lymphocytes Absolute Auto 1.5 X10*3/uL (1.2-4.9); Mean Corpuscular HGB Conc 33.3 g/dl (31.0-35.0); Mean Corpuscular Hemoglobin 31.8 pg (27.0-33.0); Mean Corpuscular Volume 95.5 fL (80.0-98.0); NRBC Abs Auto 0.000 X10*3/uL (0.0-0.012); NRBC Pct Auto 0.0 /100WBC (0.0-0.2); Platelet Count 163 X10*3/uL (160-400); Red Blood Count 5.29 X10*6/uL (4.20-5.50); White Blood Count 6.6 X10*3/uL (4.8-10.8)
[2025-08-04 08:18] LABS: Alanine Aminotransferase 18 U/L (0-31); Albumin Level 4.1 g/dL (3.5-5.0); Alkaline Phosphatase 80 U/L (39-117); Anion Gap 13 (12-20); Aspartate Amino Transferase 24 U/L (5-31); Blood Urea Nitrogen 15 mg/dL (9-16); Calcium 9.6 mg/dL (8.4-10.2); Carbon Dioxide 23 mmol/L (22-29); Chloride 109 mmol/L (96-108); Cholesterol 170 mg/dL (<200); Estimated Glomerular Filt Rate > 60; HDL Cholesterol 49 mg/dL (>40); Potassium 3.8 mmol/L (3.3-5.1); Sodium 141 mmol/L (135-145); Total Protein 6.9 g/dL (6.5-8.0); Triglycerides 101 mg/dL (<150)
[2025-08-04 11:06] LABS: Free T4 (Free Thyroxine) 1.40 ng/dL (0.71-1.85); Thyroid Stimulating Hormone 0.25 uIU/mL (0.32-4.0)
== END 2025-08-04 07:14 | disposition home or self-care (01) ==
LOC: HO.LAB 07:13
PROVIDERS: PCP Internal Medicine Medical Oncology; Visit Provider Internal Medicine Medical Oncology
DX: E11.9 Type 2 diabetes mellitus without complications (principal); E03.9 Hypothyroidism, unspecified; E78.5 Hyperlipidemia, unspecified
CPT/HCPCS: 36415; 80053; 80061; 84439; 84443; 85025